=== PATIENT | male | born 1940 | race Caucasian/White ===

== ENCOUNTER 2018-09-24 10:37 | Inpatient (IN) | payer MEDICARE ==
[2018-09-24] VITALS (9 sets, daily range): BP systolic 113–151; BP diastolic 59–90
[~2018-09-24] VITALS: Ht 180.3 cm; Wt 94.3 kg
[~2018-09-24 10:37] MED LIST: HCT25T; LISINOPRIL PO; LOVASTATIN PO
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
--- OUTSIDE RECORDS SUMMARY | 2018-09-24 10:42 | XMS REPORT ---
Author Author Migration, Doctor Organization [facility] Address Unknown Phone Unavailable Care Team Providers Care Drilling Plant Operator Name Role Phone Migration, Doctor Unavailable Unavailable PROBLEMS Type Condition ICD9-CM Code OYY96-OH Code Onset Dates Condition Status SNOMED Code Problem Hypertension I10 Active 44964659 Problem Tobacco use Z72.0 Active 237831755 Problem Squamous cell carcinoma C44.92 Active 104421183 Problem Hyperlipidemia E78.5 Active 98557392 Problem Prediabetes R73.09 Active 2301424 ALLERGIES No Information ENCOUNTERS Encounter Location Date Diagnosis [facility] [address] [address]- [address] Jun, Hypertension I10 ; Hyperlipidemia E78.5 ; Tobacco use Z72.0 and Prediabetes R73.09 [facility] [address] [address]- [address]41 Apr, [facility] [address] [address]- 0837 Mar, Hypertension I10 [facility] [id number] [place] [address] -7955 Aug, Lesion of lip K13.0 [facility] [address] [address]- 4525 Apr, Hypertension I10 ; Hyperlipidemia E78.5 ; Prediabetes R73.09 ; Tobacco use Z72.0 and Healthcare maintenance Z00.00 [facility] [address] [address]- 7021 Jul, Hypertension I10 and Multiple actinic keratoses L57.0 [facility] [address] 0[address]- 4732 Jul, Hypertension I10 [facility] [id number] [place] [address]- 9868 Jun, Hypertension I10 [facility] [id number] [place] [address] 58969- 1720 23 Jun, 2016 Hypertension I10 ; Hyperlipidemia E78.5 ; Prediabetes R73.09 ; Tobacco use Z72.0 and Multiple actinic keratoses L57.0 [facility] [id number] [place] [address] 09015- 2971 06 Jan, 2016 Hypertension I10 ; Hyperlipidemia E78.5 and Tobacco use Z72.0 [facility] [id number] [place] [address] 85792- 4504 Oct, [place] [id number] [place] [address] 52577- 7303 04 Jun, 2015 Hypertension I10 ; Hyperlipidemia E78.5 ; Prediabetes R73.09 ; Screening for colon cancer Z12.11 and Tobacco use Z72.0 [place] [facility] [id number] [place] [address] 73095- 8867 Apr, [facility] [id number] [place] [address] 71420- 0655 Apr, [facility] [id number] [place] [address] 43425- 3797 Apr, [facility] [id number] [place] [address] 98431- 5594 Dec, [facility] [id number] [place] [address] 64626- 6891 Dec, [place] [id number] [place] [address] 14765- 4456 Nov, Nondependent tobacco use disorder 305.1 ; Hypertension 401.9 ; Hyperlipidemia 272.4 ; Prediabetes 790.29 ; Colon cancer screening V76.51 and Sunburn 692.71 [facility] [id number] [place] [address] 55277- 3172 Oct, [facility] [address] [id number] [address]- 6326 Oct, Other and unspecified hyperlipidemia 272.4 ; Essential hypertension 401.9 and Essential hypertension, benign 401.1 [facility] [address] [facility] [id number] [place] [address]- 0700 Oct, [facility] [address] [address]- 9535 Aug, [facility] [address] [facility] [id number] [place] [address]- 6750 Aug, [facility] [address] [place] [address], [place] [address]- 7787 Jun, [facility] [address], [place] [address]- 7891 Jun, [facility] [address], [place] [address]- 3625 Apr, [facility] [address], [place] [address]- 2882 Apr, [facility] [address], [place] [address]- 1532 Apr, [facility] [address], [place] [address]- 9077 Apr, [facility] [address], [place] [address]- 4262 Mar, [facility] [address] [id number], [place] [address]- 1263 Mar, [facility] [address], [place] [address]- 5983 Mar, [facility] [address] [id number], [place] [address]- 8234 Mar, [facility] [address], [place] [address]- 5467 Feb, [facility] [place] [facility] [address] [id number] [place] [address]- 5283 Feb, [facility] [place] [facility] [address] [id number] [place] [address]- 2013 Dec, [facility] [place] [facility] [address] [id number] [place] [address]- 7062 Dec, [facility] [place] [facility] [address] [id number] [place] [address]- 1117 Oct, [facility] [place] [facility] [address] [id number] [place] [address]- 2852 Oct, [facility] [place] [facility] [address] [id number] [place] [address]- 6944 September, [facility] [place] [facility] [address] [id number] [place] [address]- 3209 September, [facility] [place] [facility] [address] [id number] [place] [address]- 1187 September, [facility] [place] [facility] [address] [id number] [place] [address]- 7127 September, [facility] [place] [facility] [address] [id number] [place] [address]- 2743 September, [facility] [place] [facility] [address] [id number] [place] [address]- 0266 September, [facility] [place] [facility] [address] [id number] [place] [address]- 4141 September, [facility] [place] [facility] [address] [id number] [place] [address]- 1621 September, [facility] [place] [facility] [address] [id number] [place] [address]- 9229 September, [facility] [place] [facility] [address] [id number] [place] [address]- 8631 September, [facility] [place] [facility] [address] [id number] [place] [address]- 3676 Aug, [facility] [address] [id number] [place] [address]- 3227 Aug, [facility] [place] [facility] [address] [id number] [place] [address]- 6446 Jun, [facility] [address] [id number] [place] [address]- 7926 Jun, [facility] [place] [facility] [address] [id number] [place] [address]- 7819 May, [facility] [address] [id number] [place] [address]- 6301 May, [facility] [place] [facility] [address] [id number] [place] [address]- 6214 May, [facility] [address] [id number] [place] [address]- 2031 May, [facility] [address] [id number] [place] [address]- 1281 Apr, [facility] [place] [facility] [address] [id number] [place] [address]- 4803 Apr, [facility] [address] [id number] [place] [address]- 5209 Mar, [facility] [place] [facility] [address] [id number] [place] [address]- 6058 Mar, [facility] [place] [facility] [address] [id number] [place] [address]- 3452 Feb, [facility] [place] [facility] [address] [id number] [place] [address]- 2256 Feb, [facility] [place] [facility] [address] [id number] [place] [address]- 2546 Dec, [facility] [place] [facility] [address] [id number] [place] [address]- 0290 Dec, [facility] [place] [facility] [address] [id number] [place] [address]- 6194 Dec, [facility] [place] [facility] [address] [id number] [place] [address] Oct, [facility] [place] [facility] [address] [id number] [place] [address] Oct, [facility] [place] [facility] [address] [id number] [place] [address] Oct, [facility] [place] [facility] [address] [id number] [place] [address] September, [facility] [place] [facility] [address] [id number] [place] [address] September, [facility] [place] [facility] [address] [id number] [place] [address] September, [facility] [place] [facility] [address] [id number] [place] [address] September, [facility] [place] [facility] [address] [id number] [place] [address] Jun, [facility] [place] [facility] [address] [id number] [place] [address] Mar, [facility] [place] [facility] [address] [id number] [place] [address] Mar, [facility] [place] [facility] [address] [id number], [place] [address] Mar, [facility] [place] [facility] [address] [id number] [place] [address] Mar, [facility] [place] [facility] [address] [id number] [place] [address] Mar, [facility] [place] [facility] [address] [id number], [place] [address] Mar, [facility] [place] [facility] [address] [id number], [place] [address] Feb, [facility] [place] [facility] [address] [id number] [place] [address] Feb, [facility] [place] [facility] [address] [id number] [place] [address] Feb, [facility] [place] [facility] [address] [facility] [id number] [place] [address] Feb, [facility] [place] [facility] [address] [id number] [place] [address] Feb, [facility] [place] [facility] [address] [id number] [place] [address] Feb, [facility] [place] [facility] [address] [facility] [id number] [place] [address] Feb, [facility] [place] [facility] [address] [facility] [id number] [place] [address] Feb, [facility] [place] [facility] [address] [facility] [id number] [place] [address] Oct, [facility] [place] [facility] [address] [facility] [id number] [place] [address] 30 Aug, 2011 [facility] [place] [facility] [address] [facility] [id number] [place] [address] 17 Aug, 2011 [facility] [place] [facility] [address] [facility] [id number] [place] [address] 16 Aug, 2011 [facility] [place] [facility] [address] [facility] [id number] [place] [address] 14 Aug, 2011 [facility] [place] [facility] [address] [id number] [place] [address] 05 Jul, 2011 [facility] [place] [facility] [address] [facility] [id number] [place] [address] May, [facility] [place] [facility] [address] [facility] [id number] [place] [address] May, [facility] [place] [facility] [address] [id number], [place] [address] 30 Mar, 2011 [facility] [address] [id number], [place] [address] 10 Feb, 2011 [facility] [id number], [place] [address] May, [facility] [id number], [place] [address] Mar, [facility] [id number], [place] [address] Feb, [facility] [id number], [place] [address] Feb, [facility] [address], [place] [address] Apr, [facility] [id number], [place] [address] Apr, IMMUNIZATIONS No Known Immunizations SOCIAL HISTORY Never Assessed REASON FOR VISIT EMR-[facility] [place]AN OF CARE VITAL SIGNS MEDICATIONS Medication Instructions Dosage Frequency Start Date End Date Duration Status Niacin 500 mg 3 Tablet 1 Aug, Active RESULTS No Results PROCEDURES No Known procedures [...]
--- OUTSIDE RECORDS SUMMARY | 2018-09-24 10:43 | XMS REPORT ---
Author Author NADER MEENA [facility] Address [address] [place] [address] Care Team Providers Care District Court Administrator Name Role Phone NADERTIAGOMEENA Unavailable PROBLEMS Type Condition ICD9-CM Code [id number] Code Onset Dates Condition Status SNOMED Code Problem Tobacco use Z72.0 Active 245192089 Problem Hypertension I10 Active 73500275 Problem Squamous cell carcinoma C44.92 Active 546610700 Problem Prediabetes R73.09 Active 0041578 Problem Hyperlipidemia E78.5 Active 70796687 ALLERGIES No Information ENCOUNTERS Encounter Location Date Diagnosis [facility] [address] [address] Mar, Hypertension I10 [facility] [address] [address] Aug, Lesion of lip K13.0 [facility] [address] [address] Apr, Hypertension I10 ; Hyperlipidemia E78.5 ; Prediabetes R73.09 ; Tobacco use Z72.0 and Healthcare maintenance Z00.00 [facility] [id number] [place] [address] Jul, Hypertension I10 and Multiple actinic keratoses L57.0 [facility] [id number] [place] [address] Jul, Hypertension I10 [facility] [address] [address] Jun, Hypertension I10 [facility] [id number] [place] [address] Jun, Hypertension I10 ; Hyperlipidemia E78.5 ; Prediabetes R73.09 ; Tobacco use Z72.0 and Multiple actinic keratoses L57.0 [place] [id number] [place] [address] 06 Jan, 2016 Hypertension I10 ; Hyperlipidemia E78.5 and Tobacco use Z72.0 [place] [id number] [place] [address] 15 Oct, 2015 [facility] [id number] [place] [address] 04 Jun, 2015 Hypertension I10 ; Hyperlipidemia E78.5 ; Prediabetes R73.09 ; Screening for colon cancer Z12.11 and Tobacco use Z72.0 [place] [id number] [place] [address] Apr, [place] [id number] [place] [address] Apr, [facility] [id number] [place] [address] Apr, [place] [id number] [place] [address] Dec, [facility] [id number] [place] [address] Dec, [place] [id number] [place] [address] Nov, Nondependent tobacco use disorder 305.1 ; Hypertension 401.9 ; Hyperlipidemia 272.4 ; Prediabetes 790.29 ; Colon cancer screening V76.51 and Sunburn 692.71 [place] [id number] [place] [address] Oct, [facility] [id number] [place] [address] Oct, Other and unspecified hyperlipidemia 272.4 ; Essential hypertension 401.9 and Essential hypertension, benign 401.1 [place] [address] [id number] [place] [address] Oct, [facility] [place] [facility] [address] [id number] [place] [address] Aug, [facility] [place] [facility] [address] [id number] [place] [address] 79[address] Aug, [facility] [place] [facility] [address] [id number] [place] [address] Jun, [facility] [place] [facility] [address] [id number] [place] [address] 67[address] Jun, [facility] [place] [facility] [address] [id number] [place] [address] Apr, [facility] [place] [facility] [address] [facility] [id number] [place] [address] Apr, [facility] [place] [facility] [address] [id number] [place] [address] 9[address] Apr, [facility] [place] [facility] [address] [id number] [place] [address]- 9[address] Apr, [facility] [place] [facility] [address] [facility] [id number] [place] [address] Mar, [facility] [place] [facility] [address] [id number] [place] [address] 2[address] Mar, [facility] [place] [facility] [address] [id number] [place] [address] 8579 Mar, [facility] [place] [facility] [address] [id number] [place] [address] 3478 Mar, [facility] [place] [facility] [address] [id number] [place] [address]- 0720 Feb, [facility] [place] [facility] [address] [id number] [place] [address] 26[address] Feb, [facility] [place] [facility] [address] [id number] [place] [address]- 7964 Dec, [facility] [place] [facility] [address] [id number] [place] [address]- 55[address] Dec, [facility] [place] [facility] [address] [id number] [place] [address]- 0[address] Oct, [facility] [place] [facility] [address] [id number] [place] [address]- 96[address] Oct, [facility] [place] [facility] [address] [id number] [place] [address]- 6787 September, [facility] [place] [facility] [address] [id number] [place] [address]- 6[address] September, [facility] [place] [facility] [address] [id number] [place] [address]- 8254 September, [facility] [place] [facility] [address] [id number] [place] [address]- 8519 September, [facility] [place] [facility] [address] [id number] [place] [address]- 75[address] September, [facility] [place] [facility] [address] [id number] [place] [address]- 8871 September, [facility] [place] [facility] [address] [id number] [place] [address]- 0[address] September, [facility] [place] [facility] [address] [id number] [place] [address]- 4898 September, [facility] [place] [facility] [address] [id number] [place] [address]- 3085 September, [facility] [place] [facility] [address] [id number] [place] [address]- 1826 September, [facility] [place] [facility] [address] [id number] [place] [address]- 2441 Aug, [facility] [place] [facility] [address] [id number] [place] [address]- 8076 Aug, [facility] [place] [facility] [address] [id number] [place] [address]- 4417 Jun, [facility] [address] [id number] [place] [address]- 7015 Jun, [facility] [address] [id number] [place] [address] 2546 May, [facility] [address] [id number] [place] [address]- 7286 May, [facility] [address] [id number] [place] [address]- 2542 May, [facility] [address] [id number] [place] [address]- 74[address] May, [facility] [address] [facility] [id number] [place] [address]- 2602 Apr, [facility] [address] [id number] [place] [address]- 8438 Apr, [facility] [address] [id number] [place] [address]- 3690 Mar, [facility] [address] [id number] [place] [address]- 9992 Mar, [facility] [address] [facility] [id number] [place] [address]- 1499 Feb, [facility] [place] [facility] [address] [id number] [place] [address]- 254 Feb, [facility] [place] [facility] [address] [id number] [place] [address]- 2546 Dec, [facility] [place] [facility] [address] [id number] [place] [address]- 2546 Dec, [facility] [place] [facility] [address] [id number] [place] [address]- 2546 Dec, [facility] [place] [facility] [address] [id number] [place] [address]- 0871 Oct, [facility] [place] [facility] [address] [id number] [place] [address]- 0660 Oct, [facility] [place] [facility] [address] [id number] [place] [address]- 6664 Oct, [facility] [place] [facility] [address] [id number] [place] [address]- 0409 September, [facility] [place] [facility] [address] [id number] [place] [address]- 1570 September, [facility] [place] [facility] [address] [id number] [place] [address]- 6324 September, [facility] [place] [facility] [address] [id number] [place] [address]- 6749 September, [facility] [place] [facility] [address] [id number] [place] [address]- 6282 Jun, [facility] [place] [facility] [address] [id number] [place] [address]- 3217 Mar, [facility] [place] [facility] [address] [id number] [place] [address]- 4453 Mar, [facility] [place] [facility] [address] [id number] [place] [address]- 2966 Mar, [facility] [place] [facility] [address] [id number] [place] [address]- 1567 Mar, [facility] [place] [facility] [address] [id number], [place] [address]- [address] Mar, [facility] [place] [facility] [address] [id number] [place] [address]- 0891 Mar, [facility] [place] [facility] [address] [id number] [place] [address]- 0427 Feb, [facility] [place] [facility] [address] [id number] [place] [address]- 4495 Feb, [facility] [place] [facility] [address] [id number] [place] [address]- 1896 29 Feb, 2012 [facility] [place] [facility] [address] [id number] [place] [address]- 7804 Feb, [facility] [place] [facility] [address] [id number] [place] [address]- 5323 Feb, [facility] [place] [facility] [address] [id number] [place] [address]- 1993 Feb, [facility] [place] [facility] [address] [id number] [place] [address]- 1299 Feb, [facility] [place] [facility] [address] [id number] [place] [address]- 0578 Feb, [facility] [place] [facility] [address] [id number] [place] [address]- 3143 Oct, [facility] [place] [facility] [address] [id number] [place] [address]- 3316 30 Aug, 2011 [facility] [place] [facility] [address] [id number] [place] [address]- 9583 17 Aug, 2011 [facility] [place] [facility] [address] [id number] [place] [address]- 4784 16 Aug, 2011 [facility] [place] [facility] [address] [facility] [id number] [place] [address]- 8473 14 Aug, 2011 [facility] [place] [facility] [address] [id number] [place] [address]- 7868 05 Jul, 2011 [facility] [place] [facility] [address] [id number] [place] [address]- 6173 May, [facility] [place] [facility] [address] [id number] [place] [address]- 0886 May, [facility] [place] [facility] [address] [facility] [id number] [place] [address]- 0141 Mar, [facility] [place] [facility] [address] [facility] [id number] [place] [address]- 6508 10 Feb, 2011 [facility] [place] [facility] [address] [facility] [id number], [place] [address]- 2546 May, [facility] [address] [id number], [place] [address] Mar, [facility] [address] [id number], [place] [address] 25[address] Feb, [facility] [address] [facility] [id number], [place] [address]- 2546 Feb, [facility] [address] [facility] [id number], [place] [address]- 3419 Apr, [facility] [address] [facility] [id number], [place] [address]- [address] Apr, IMMUNIZATIONS No Known Immunizations SOCIAL HISTORY Never Assessed REASON FOR VISIT Medication refill request PLAN OF CARE VITAL SIGNS MEDICATIONS Medication Instructions Dosage Frequency Start Date End Date Duration Status Amlodipine Besylate 10 mg Orally Once a day 1 tablet 24h 30 days Active Lovastatin 40 MG TAKE TWO TABLETS BY MOUTH ONCE DAILYMUST HAVE APPT FOR REFILLS 30 Active Lisinopril 40 mg Orally Once a day 1 tablet 24h 30 days Active RESULTS No Results PROCEDURES No Known [...]
--- OUTSIDE RECORDS SUMMARY | 2018-09-24 10:43 | XMS REPORT ---
Author Author MEENA DOE [facility] Address [facility] [place] [address] Care Team Providers Care Executive Chairman Of The Board Name Role Phone MEENA DOE Unavailable PROBLEMS Type Condition ICD9-CM Code [id number] Code Onset Dates Condition Status SNOMED Code Problem Tobacco use Z72.0 Active 878251593 Problem Hypertension I10 Active 76087882 Problem Prediabetes R73.09 Active 6853644 Problem Hyperlipidemia E78.5 Active 47096606 ALLERGIES No Known Allergies SOCIAL HISTORY Never Assessed PLAN OF CARE Activity Details Follow Up 6 Months Reason:HTN VITAL SIGNS Height 70 in 2016-08-04 Weight 212.2 lbs 2016-08-04 Temperature 97.7 degrees Fahrenheit 2016-08-04 Heart Rate 88 bpm 2016-08-04 Respiratory Rate 22 2016-08-04 BMI 30.44 kg/m2 2016-08-04 Blood pressure systolic 146 mmHg 2016-08-04 Blood pressure diastolic 72 mmHg 2016-08-04 MEDICATIONS Medication Instructions Dosage Frequency Start Date End Date Duration Status Imiquimod 5 % Externally Two times per week at bedtime for 16 weeks, no more than one packet at a time 1 application to affected area at bedtime JunOct, Active Lovastatin 40 MG Orally Once a day 2 tablets 24h 90 days Active Fenofibrate 160 MG Orally Once a day 1 tablet with a meal 24h 90 days Active Fish Oil 1000 MG Orally Once a day 3 capsule 24h Active Amlodipine Besylate 10 mg Orally Once a day 1 tablet 24h Active Lisinopril 40 mg Orally Once a day 1 tablet 24h Active Niacin 500 MG 3 tablets 24h Aug, Active Vitamin B-12 1000 MCG Orally Once a day 1 tablet 24h Active RESULTS No Results PROCEDURES Procedure Date Ordered Result Body Site [facility] VISIT ESTABLISHED PATIENT August 04, 2016 IMMUNIZATIONS No Known Immunizations MEDICAL (GENERAL) HISTORY Type Description Date Medical [...]
--- OUTSIDE RECORDS SUMMARY | 2018-09-24 10:43 | XMS REPORT ---
Author Author MEENA DOE [facility] e[employer] Address Unknown Phone Unavailable Care Team Providers Care Rod Straightener Name Role Phone MEENA DOE CP Unavailable Allergies No Known Allergies Problems Problem Type Condition ICD-9 Code Onset Dates Condition Status Problem Hypertension 401.9 Active Problem Hyperlipidemia 272.4 Active Problem Nondependent tobacco use disorder 305.1 Active Problem Prediabetes 790.29 Active Medications Medication Code System Code Instructions Start Date End Date Status Dosage Lisinopril [facility] [address]-98 40 MG October 05, 2012 1 tablet by Oral route 1 time per day Results No Known Results Summary Purpose eClinicalWorks Submission
--- OUTSIDE RECORDS SUMMARY | 2018-09-24 10:43 | XMS REPORT ---
Author Author MEENA DOE Organization [facility] Address [address] [place] [address] Care Team Providers Care Hatch Supervisor Name Role Phone MEENA DOE Unavailable PROBLEMS Type Condition ICD9-CM Code [id number] Code Onset Dates Condition Status SNOMED Code Problem Tobacco use Z72.0 Active 346588291 Problem Hypertension I10 Active 85008233 Problem Prediabetes R73.09 Active 4882359 Problem Hyperlipidemia E78.5 Active 56878554 ALLERGIES No Information SOCIAL HISTORY Never Assessed PLAN OF CARE VITAL SIGNS MEDICATIONS No Known Medications RESULTS Name Result Date Reference Range [facility] 2016-07-28 Glucose, Serum 96 65-99 BUN 18 8-27 Creatinine, Serum 1.03 0.76-1.27 eGFR If NonAfricn Am 71 >59 eGFR If Africn Am 82 >59 BUN/Creatinine Ratio 17 10-22 Sodium, Serum 144 134-144 Potassium, Serum 4.8 3.5-5.2 Chloride, Serum 103 96-106 Carbon Dioxide, Total 22 18-29 Calcium, Serum 9.5 8.6-10.2 PROCEDURES Procedure Date Ordered Result Body Site VENIPUNCT, ROUTINE* July 28, 2016 IMMUNIZATIONS No Known Immunizations MEDICAL (GENERAL) [...]
--- OUTSIDE RECORDS SUMMARY | 2018-09-24 10:43 | XMS REPORT ---
Author Author MEENA DOE Organization [facility] Address [address] [place] [address] Care Team Providers Care Bleach Tester Name Role Phone MEENA DOE Unavailable PROBLEMS Type Condition ICD9-CM Code CXB02-PP Code Onset Dates Condition Status SNOMED Code Problem Hypertension I10 Active 38334121 Problem Hyperlipidemia E78.5 Active 91435718 Assessment Hypertension I10 Jan, Active 69792471 Problem Prediabetes R73.09 Active 8845890 Problem Tobacco use Z72.0 Active 240422430 ALLERGIES Substance Reaction Event Type Date Status N.K.D.A. Unknown Non Drug Allergy Jan, Unknown SOCIAL HISTORY No smoking Hx information available PLAN OF CARE VITAL SIGNS Height 70 in 2016-01-19 Weight 211.9 lbs 2016-01-19 Heart Rate 74 bpm 2016-01-19 Respiratory Rate 22 2016-01-19 BMI 30.40 kg/m2 2016-01-19 Blood pressure systolic 143 mmHg 2016-01-19 Blood pressure diastolic 77 mmHg 2016-01-19 MEDICATIONS Medication Instructions Dosage Frequency Start Date End Date Duration Status Fenofibrate 160 MG Orally Once a day 1 tablet with food 24h 90 days Active Lovastatin 40 MG Orally Once a day 2 tablets 24h 90 days Active Amlodipine Besylate 10 mg Orally Once a day 1 tablet 24h Oct, 90 days Active Niacin 500 MG 3 tablets 24h Aug, Active Vitamin B-12 1000 MCG Orally Once a day 1 tablet 24h Active Fish Oil 1000 MG Orally Once a day 3 capsule 24h Active Lisinopril 40 mg Orally Once a day 1 tablet 24h 90 days Active RESULTS No Results PROCEDURES Procedure Date Ordered Related Diagnosis Body Site [facility] VISIT ESTABLISHED PATIENT Jan 19, 2016 Office Visit, Est Pt., Level 3 Jan 19, 2016 IMMUNIZATIONS No Known Immunizations
--- OUTSIDE RECORDS SUMMARY | 2018-09-24 10:43 | XMS REPORT ---
Author Author MEENA DOE Organization [facility] Address [facility] [place] [address] Care Team Providers Care Paper Coater Name Role Phone MEENA DOE Unavailable PROBLEMS Type Condition ICD9-CM Code [id number] Code Onset Dates Condition Status SNOMED Code Problem Tobacco use Z72.0 Active 720785298 Problem Hypertension I10 Active 23193058 Problem Prediabetes R73.09 Active 3232949 Problem Hyperlipidemia E78.5 Active 68840033 ALLERGIES No Information SOCIAL HISTORY Never Assessed PLAN OF CARE VITAL SIGNS MEDICATIONS No Known Medications RESULTS No Results PROCEDURES No Known procedures IMMUNIZATIONS No Known Immunizations MEDICAL (GENERAL) HISTORY [...]
--- OUTSIDE RECORDS SUMMARY | 2018-09-24 10:43 | XMS REPORT ---
Author Author MEENA DOE Organization [facility] Address [address] [place] [address] Care Team Providers Care Instrumentation Technician Name Role Phone MEENA DOE Unavailable PROBLEMS Type Condition ICD9-CM Code ZSI10-RP Code Onset Dates Condition Status SNOMED Code Problem Tobacco use Z72.0 Active 855730449 Problem Hypertension I10 Active 39312472 Problem Prediabetes R73.09 Active 8421490 Problem Hyperlipidemia E78.5 Active 95510956 ALLERGIES No Known Allergies SOCIAL HISTORY Never Assessed PLAN OF CARE Activity Details Follow Up 4 Weeks Reason:HTN VITAL SIGNS Height 70 in 2016-07-07 Weight 213 lbs 2016-07-07 Temperature 97.5 degrees Fahrenheit 2016-07-07 Heart Rate 90 bpm 2016-07-07 Respiratory Rate 22 2016-07-07 BMI 30.56 kg/m2 2016-07-07 Blood pressure systolic 160 mmHg 2016-07-07 Blood pressure diastolic 78 mmHg 2016-07-07 MEDICATIONS Medication Instructions Dosage Frequency Start Date End Date Duration Status Fish Oil 1000 MG Orally Once a day 3 capsule 24h Active Lovastatin 40 MG Orally Once a day 2 tablets 24h 90 days Active Fenofibrate 160 MG Orally Once a day 1 tablet with a meal 24h 90 days Active Niacin 500 MG 3 tablets 24h Aug, Active Imiquimod 5 % Externally Two times per week at bedtime for 16 weeks, no more than one packet at a time 1 application to affected area at bedtime JunOct, 112 days Active Lisinopril 40 mg Orally Once a day 1 tablet 24h 90 days Active Amlodipine Besylate 10 mg Orally Once a day 1 tablet 24h 90 days Active Vitamin B-12 1000 MCG Orally Once a day 1 tablet 24h Active RESULTS Name Result Date Reference Range LIPID PANEL 2016-07-07 Cholesterol, Total 121 100-199 Triglycerides 122 0-149 HDL Cholesterol 27 >39 VLDL Cholesterol [place] 24 5-40 LDL Cholesterol Calc 70 0-99 Comment: CMP 2016-07-07 Glucose, Serum 102 65-99 BUN 17 8-27 Creatinine, Serum 0.92 0.76-1.27 eGFR If NonAfricn Am 81 >59 eGFR If Africn Am 94 >59 BUN/Creatinine Ratio 18 10-22 Sodium, Serum 145 134-144 Potassium, Serum 4.7 3.5-5.2 Chloride, Serum 105 96-106 Carbon Dioxide, Total 24 18-29 Calcium, Serum 10.6 8.6-10.2 Protein, Total, Serum 7.1 6.0-8.5 Albumin, Serum 4.5 3.5-4.8 Globulin, Total 2.6 1.5-4.5 A/G Ratio 1.7 1.1-2.5 Bilirubin, Total 0.3 0.0-1.2 Alkaline Phosphatase, S 42 39-117 AST (SGOT) 20 0-40 ALT (SGPT) 16 0-44 PROCEDURES Procedure Date Ordered Result Body Site [facility] VISIT ESTABLISHED PATIENT Jul 07, 2016 VENIPUNCT, ROUTINE* Jul 07, 2016 LAB NOT BILLED BY [facility] Jul 07, 2016 IMMUNIZATIONS No Known Immunizations MEDICAL (GENERAL) [...]
--- OUTSIDE RECORDS SUMMARY | 2018-09-24 10:43 | XMS REPORT ---
Author Author DEIRDRE DE LOS SANTOS [facility] Address [address] [place] [address] Care Team Providers Care Yarn Examiner Skeins Name Role Phone DEIRDRE DE LOS SANTOS Unavailable PROBLEMS Type Condition ICD9-CM Code JME74-XU Code Onset Dates Condition Status SNOMED Code Problem Tobacco use Z72.0 Active 394900295 Problem Hypertension I10 Active 84498983 Problem Squamous cell carcinoma C44.92 Active 853758466 Problem Prediabetes R73.09 Active 7307218 Problem Hyperlipidemia E78.5 Active [id number] ALLERGIES No Known Allergies ENCOUNTERS Encounter Location Date Diagnosis [facility] [id number] [place] [address] Aug, Lesion of lip K13.0 [facility] [id number] [place] [address] Apr, Hypertension I10 ; Hyperlipidemia E78.5 ; Prediabetes R73.09 ; Tobacco use Z72.0 and Healthcare maintenance Z00.00 [facility] [id number] [place] [address] Jul, Hypertension I10 and Multiple actinic keratoses L57.0 [facility] [id number] [place] [address]- 9651 Jul, Hypertension I10 [facility] [id number] [place] [address]- 2910 Jun, Hypertension I10 [facility] [id number] [place] [address]- [address] Jun, Hypertension I10 ; Hyperlipidemia E78.5 ; Prediabetes R73.09 ; Tobacco use Z72.0 and Multiple actinic keratoses L57.0 [facility] [address] [address] 06 Jan, 2016 Hypertension I10 ; Hyperlipidemia E78.5 and Tobacco use Z72.0 [facility] [address] [address] Oct, [facility] [address] [address] 04 Jun, 2015 Hypertension I10 ; Hyperlipidemia E78.5 ; Prediabetes R73.09 ; Screening for colon cancer Z12.11 and Tobacco use Z72.0 [facility] [address] [address] Apr, [facility] [address] [address] Apr, [facility] [id number] [place] [address]- [address] Apr, [facility] [address] [address] Dec, [facility] [address] [address] Dec, [facility] [address] [address] Nov, Nondependent tobacco use disorder 305.1 ; Hypertension 401.9 ; Hyperlipidemia 272.4 ; Prediabetes 790.29 ; Colon cancer screening V76.51 and Sunburn 692.71 [facility] [address] [address] Oct, [facility] [address] [address] Oct, Other and unspecified hyperlipidemia 272.4 ; Essential hypertension 401.9 and Essential hypertension, benign 401.1 [facility] [address] [address] Oct, [facility] [place] [facility] [address] [id number] [place] [address] 14 Aug, 2014 [facility] [place] [facility] [address] [id number] [place] [address] Aug, [facility] [place] [facility] [address] [id number] [place] [address] Jun, [facility] [place] [facility] [address] [id number] [place] [address] 8[address] Jun, [facility] [place] [facility] [address] [id number] [place] [address] 3[address] Apr, [facility] [place] [facility] [address] [id number] [place] [address] 9[address] Apr, [facility] [place] [facility] [address] [id number] [place] [address] 0051 Apr, [facility] [place] [facility] [address] [id number] [place] [address] 2014 Apr, [facility] [place] [facility] [address] [id number] [place] [address] 0[address] Mar, [facility] [place] [facility] [address] [id number] [place] [address] 5638 Mar, [facility] [place] [facility] [address] [id number] [place] [address] 1382 Mar, [facility] [place] [facility] [address] [id number] [place] [address] 1780 Mar, [facility] [place] [facility] [address] [id number] [place] [address] 4336 Feb, [facility] [place] [facility] [address] [id number] [place] [address] 4649 Feb, [facility] [place] [facility] [address] [id number] [place] [address] 3018 Dec, [facility] [place] [facility] [address] [id number] [place] [address]- 3783 Dec, [facility] [place] [facility] [address] [id number] [place] [address] 2928 Oct, [facility] [place] [facility] [address] [id number] [place] [address] Oct, [facility] [place] [facility] [address] [id number] [place] [address]- 4132 September, [facility] [place] [facility] [address] [id number] [place] [address]- 1232 September, [facility] [place] [facility] [address] [id number] [place] [address]- 5827 September, [facility] [place] [facility] [address] [id number] [place] [address]- 9610 September, [facility] [place] [facility] [address] [id number] [place] [address]- 8710 September, [facility] [place] [facility] [address] [id number] [place] [address]- 3408 September, [facility] [place] [facility] [address] [id number] [place] [address]- 3679 September, [facility] [place] [facility] [address] [id number] [place] [address]- 9335 September, [facility] [place] [facility] [address] [id number] [place] [address]- 9548 September, [facility] [place] [facility] [address] [id number] [place] [address]- 0067 September, [facility] [place] [facility] [address] [id number] [place] [address]- 0432 Aug, [facility] [place] [facility] [address] [id number] [place] [address]- 0193 Aug, [facility] [place] [facility] [address] [id number] [place] [address]- 3149 Jun, [facility] [place] [facility] [address] [id number] [place] [address]- 2830 Jun, [facility] [address] [id number] [place] [address]- 3736 May, [facility] [place] [facility] [address] [id number] [place] [address]- 3946 May, [facility] [address] [id number] [place] [address]- 5626 May, [facility] [place] [facility] [address] [id number] [place] [address]- 5374 May, [facility] [address] [id number] [place] [address]- 7397 Apr, [facility] [place] [facility] [address] [id number] [place] [address]- 6453 Apr, [facility] [place] [facility] [address] [id number] [place] [address]- 5726 Mar, [facility] [address] [id number] [place] [address]- 1189 Mar, [facility] [place] [facility] [address] [id number] [place] [address]- 2449 Feb, [facility] [address] [id number] [place] [address]- 1562 Feb, [facility] [place] [facility] [address] [id number] [place] [address]- 8646 Dec, [facility] [place] [facility] [address] [id number] [place] [address]- 5256 Dec, [facility] [place] [facility] [address] [id number] [place] [address]- 3646 Dec, [facility] [place] [facility] [address] [id number] [place] [address]- 2546 Oct, [facility] [place] [facility] [address] [id number] [place] [address]- 6744 Oct, [facility] [place] [facility] [address] [id number] [place] [address]- 5740 Oct, [facility] [place] [facility] [address] [id number] [place] [address]- 8745 September, [facility] [place] [facility] [address] [id number] [place] [address] September, [facility] [place] [facility] [address] [id number] [place] [address]- 5193 September, [facility] [place] [facility] [address] [id number] [place] [address] September, [facility] [place] [facility] [address] [id number] [place] [address]- 2610 Jun, [facility] [place] [facility] [address] [id number] [place] [address]- 8188 Mar, [facility] [place] [facility] [address] [id number] [place] [address]- 4603 Mar, [facility] [place] [facility] [address] [id number] [place] [address]- 8106 Mar, [facility] [place] [facility] [address] [id number] [place] [address]- 8975 Mar, [facility] [place] [facility] [address] [id number] [address]- 4504 Mar, [facility] [place] [facility] [address] [id number] [address]- 3473 Mar, [facility] [place] [facility] [address] [id number] [place] [address]- 6850 Feb, [facility] [place] [facility] [address] [id number] [place] [address]- 2897 Feb, [facility] [place] [facility] [address] [id number] [place] [address]- 0916 Feb, [facility] [place] [facility] [address] [id number] [place] [address]- 0150 29 Feb, 2012 [facility] [place] [facility] [address] [id number] [place] [address]- 0955 29 Feb, 2012 [facility] [place] [facility] [address] [id number] [place] [address]- 8036 29 Feb, 2012 [facility] [place] [facility] [address] [id number] [place] [address]- 6058 Feb, [facility] [place] [facility] [address] [id number] [place] [address]- 3482 Feb, [facility] [place] [facility] [address] [id number] [place] [address]- 8925 Oct, [facility] [place] [facility] [address] [id number] [place] [address]- [address]113 30 Aug, 2011 [facility] [place] [facility] [address] [id number] [place] [address]- 4616 17 Aug, 2011 [facility] [place] [facility] [address] [id number] [place] [address]- 1234 16 Aug, 2011 [facility] [place] [facility] [address] [id number] [place] [address]- 9612 14 Aug, 2011 [facility] [place] [facility] [address] [facility] [id number] [place] [address]- 8485 05 Jul, 2011 [facility] [place] [facility] [address] [id number] [place] [address]- 3366 May, [facility] [place] [facility] [address] [id number] [place] [address]- 5702 May, [facility] [place] [facility] [address] [id number] [place] [address]- 9006 30 Mar, 2011 [facility] [place] [facility] [address] [facility] [id number] [place] [address]- 4997 10 Feb, 2011 [facility] [place] [facility] [address] [facility] [id number] [place] [address]- 5458 18 May, 2010 [facility] [place] [facility] [address] [facility] [id number] [address]- [address] Mar, [facility] [address] [facility] [id number] [address]- [address]706 Feb, [facility] [address] [facility] [id number] [address]- [address] Feb, [facility] [address] [facility] [id number] [address]- [address]136 Apr, [facility] [address] [facility] [id number] [address]- [address] Apr, IMMUNIZATIONS No Known Immunizations SOCIAL HISTORY Never Assessed REASON FOR VISIT sore on lower lip for the past week. thought it was just a cold sore...not getting better et reports it is painful at times. [email or web address] PLAN OF CARE Activity Details Follow Up prn Reason: VITAL SIGNS Height 70 in 2017-09-01 Weight 215.8 lbs 2017-09-01 Temperature 97.8 degrees Fahrenheit 2017-09-01 Heart Rate 80 bpm 2017-09-01 Respiratory Rate 20 2017-09-01 BMI 30.96 kg/m2 2017-09-01 Blood pressure systolic 148 mmHg 2017-09-01 Blood pressure diastolic 82 mmHg 2017-09-01 MEDICATIONS Medication Instructions Dosage Frequency Start Date End Date Duration Status Amlodipine Besylate 10 mg Orally Once a day 1 tablet 24h 90 days Active Niacin 500 MG 3 tablets 24h 30 Aug, 2011 Active Lisinopril 40 mg Orally Once a day 1 tablet 24h 90 days Active Lovastatin 40 MG Orally Once a day 2 tablets 24h 90 days Active Fish Oil 1000 MG Orally Once a day 3 capsule 24h Active Vitamin B-12 1000 MCG Orally Once a day 1 tablet 24h Active RESULTS No Results PROCEDURES Procedure Date Ordered Result Body Site [facility] VISIT ESTABLISHED PATIENT September 01, 2017 INSTRUCTIONS MEDICATIONS ADMINISTERED No Known Medications MEDICAL [...]
--- OUTSIDE RECORDS SUMMARY | 2018-09-24 10:44 | XMS REPORT ---
Author Author MEENA DOE Organization [employer] Address Unknown Phone Unavailable Care Team Providers Care Stars Coordinator Name Role Phone MEENA DOE CP Unavailable Allergies No Known Allergies Problems Problem Type Condition Code Onset Dates Condition Status Problem Hypertension 401.9 Active Problem Hyperlipidemia 272.4 Active Problem Nondependent tobacco use disorder 305.1 Active Problem Prediabetes 790.29 Active Medications Medication Code System Code Instructions Start Date End Date Status Dosage Lovastatin [facility] [address]-75 40 MG Orally Once a day Apr 22, 2015 2 tablet with a meal Lisinopril [facility] [address]-43 40 MG Orally Once a day Apr 22, 2015 1 tablet Results No Known Results Summary Purpose [employer] Submission
--- OUTSIDE RECORDS SUMMARY | 2018-09-24 10:44 | XMS REPORT ---
Author Author MEENA DOE [facility] Address [address] [place] [address] Care Team Providers Care Platform Operations Director Name Role Phone NADERTIAGOMEENA Unavailable PROBLEMS Type Condition ICD9-CM Code FXR52-BB Code Onset Dates Condition Status SNOMED Code Problem Tobacco use Z72.0 Active 903318109 Problem Hypertension I10 Active 20555133 Problem Prediabetes R73.09 Active 8083359 Problem Hyperlipidemia E78.5 Active 64773571 ALLERGIES No Known Allergies ENCOUNTERS Encounter Location Date Diagnosis [facility] [address] [address] Aug, Lesion of lip K13.0 [facility] [address] [address] Apr, Hypertension I10 ; Hyperlipidemia E78.5 ; Prediabetes R73.09 ; Tobacco use Z72.0 and Healthcare maintenance Z00.00 [facility] [id number] [place] [address] Jul, Hypertension I10 and Multiple actinic keratoses L57.0 [facility] [id number] [place] [address] Jul, Hypertension I10 [facility] [id number] [place] [address] Jun, Hypertension I10 [facility] [address] [address] Jun, Hypertension I10 ; Hyperlipidemia E78.5 ; Prediabetes R73.09 ; Tobacco use Z72.0 and Multiple actinic keratoses L57.0 [facility] [address] [address] 06 Jan, 2016 Hypertension I10 ; Hyperlipidemia E78.5 and Tobacco use Z72.0 [facility] [address], [place] [address] Oct, [facility] [address], [place] [address] 04 Jun, 2015 Hypertension I10 ; Hyperlipidemia E78.5 ; Prediabetes R73.09 ; Screening for colon cancer Z12.11 and Tobacco use Z72.0 [facility] [address], [place] [address] Apr, [facility] [id number] [place] [address] Apr, [facility] [id number] [place] [address] Apr, [facility] [id number] [place] [address] Dec, [facility] [address], [place] [address] Dec, [facility] [id number] [place] [address] Nov, Nondependent tobacco use disorder 305.1 ; Hypertension 401.9 ; Hyperlipidemia 272.4 ; Prediabetes 790.29 ; Colon cancer screening V76.51 and Sunburn 692.71 [facility] [address], [place] [address] Oct, [facility] [id number] [place] [address] Oct, Other and unspecified hyperlipidemia 272.4 ; Essential hypertension 401.9 and Essential hypertension, benign 401.1 [facility] [address], [place] [address] Oct, [facility] [id number] [place] [address] Aug, [facility] [place] [facility] [address] [id number] [place] [address] Aug, [facility] [place] [facility] [address] [id number] [address] Jun, [facility] [place] [facility] [address] [facility] [id number] [place] [address] Jun, [facility] [place] [facility] [address] [facility] [id number] [place] [address] Apr, [facility] [place] [facility] [address] [facility] [id number] [place] [address] Apr, [facility] [place] [facility] [address] [facility] [id number] [place] [address] Apr, [facility] [place] [facility] [address] [facility] [id number] [place] [address] Apr, [facility] [place] [facility] [address] [facility] [id number] [place] [address] Mar, [facility] [place] [facility] [address] [facility] [id number] [place] [address] Mar, [facility] [place] [facility] [address] [facility] [id number] [place] [address] Mar, [facility] [place] [facility] [address] [facility] [id number] [place] [address] Mar, [facility] [place] [facility] [address] [id number], [place] [address] Feb, [facility] [place] [facility] [address] [id number] [place] [address] 4[address] Feb, [facility] [place] [facility] [address] [facility] [id number], [place] [address] Dec, [facility] [place] [facility] [address] [facility] [id number], [place] [address] Dec, [facility] [place] [facility] [address] [id number] [place] [address] 7[address] Oct, [facility] [place] [facility] [address] [id number] [place] Oct, [facility] [place] [facility] [address] [id number] [place] [address] September, [facility] [place] [facility] [address] [id number] [place] [address] 40[address] September, [facility] [place] [facility] [address] [id number] [place] [address] 90[address] September, [facility] [place] [facility] [address] [id number] [place] [address] September, [facility] [place] [facility] [address] [id number] [place] [address] September, [facility] [place] [facility] [address] [id number] [place] [address] 39[address] September, [facility] [place] [facility] [address] [id number] [place] [address]- 90[address] September, [facility] [place] [facility] [address] [id number] [place] [address]- 69[address] September, [facility] [place] [facility] [address] [id number] [place] [address]- 8[address] September, [facility] [place] [facility] [address] [id number] [place] [address]- 0[address] September, [facility] [place] [facility] [address] [id number] [place] [address]- [address] Aug, [facility] [place] [facility] [address] [id number] [place] [address]- 360[address] Aug, [facility] [place] [facility] [address] [id number] [place] [address]- 88[address] Jun, [facility] [place] [facility] [address] [id number] [place] [address]- [address] Jun, [facility] [place] [facility] [address] [id number] [place] [address]- 17[address] May, [facility] [place] [facility] [address] [id number] [place] [address]- 49[address] May, [facility] [place] [facility] [address] [facility] [id number] [place] [address]- 33[address] May, [facility] [place] [facility] [address] [id number] [place] [address]- 79[address] May, [facility] [place] [facility] [address] [id number] [place] [address]- 27[address] Apr, [facility] [place] [facility] [address] [id number] [place] [address]- 266[address] Apr, [facility] [place] [facility] [address] [id number] [place] [address]- 8[address] Mar, [facility] [place] [facility] [address] [id number] [place] [address]- 6[address] Mar, [facility] [place] [facility] [address] [id number] [place] [address]- 0649 Feb, [facility] [place] [facility] [address] [id number] [place] [address]- 0[address] Feb, [facility] [place] [facility] [address] [id number][place] [address] Dec, [facility] [place] [facility] [address] [id number], [place] [address]- [address] Dec, [facility] [place] [facility] [address] [id number] [place] [address]- 8627 Dec, [facility] [place] [facility] [address] [facility] [id number] [address]- [address] Oct, [facility] [place] [facility] [address] [id number] [place] [address]- 1534 Oct, [facility] [place] [facility] [address] [id number] [place] [address]- 5868 Oct, [facility] [address] [id number] [place] [address]- 68[address] September, [facility] [place] [facility] [address] [id number] [place] [address] September, [facility] [address] [id number] [place] [address]- 8876 September, [facility] [place] [facility] [address] [id number] [place] [address]- 4327 September, [facility] [address] [id number] [place] [address]- 5171 Jun, [facility] [place] [facility] [address] [id number] [place] [address]- 68[address] Mar, [facility] [place] [facility] [address] [id number] [place] [address]- 3321 Mar, [facility] [address] [id number] [place] [address]- 1127 Mar, [facility] [place] [facility] [address] [facility] [id number] [place] [address]- 3700 Mar, [facility] [address] [facility] [id number] [place] [address]- 24[address] Mar, [facility] [place] [facility] [address] [id number] [place] [address]- 244[address] Mar, [facility] [place] [facility] [address] [id number] [place] [address]- 94[address] Feb, [facility] [place] [facility] [address] [id number] [place] [address] Feb, [facility] [place] [facility] [address] [facility] [id number] [place] [address]- 4232 Feb, [facility] [place] [facility] [address] [facility] [id number] [place] [address]- 2772 Feb, [facility] [place] [facility] [address] [id number] [place] [address]- 7161 Feb, [facility] [place] [facility] [address] [id number] [place] [address]- 5140 Feb, [facility] [place] [facility] [address] [id number] [place] [address]- 2170 Feb, [facility] [place] [facility] [address] [id number] [place] [address]- 4578 Feb, [facility] [place] [facility] [address] [id number] [place] [address]- 7852 Oct, [facility] [place] [facility] [address] [id number] [place] [address]- [address] 30 Aug, 2011 [facility] [place] [facility] [address] [id number] [place] [address]- 5192 Aug, [facility] [place] [facility] [address] [id number] [place] [address]- 9[address] 16 Aug, 2011 [facility] [place] [facility] [address] [id number] [place] [address]- 8[address] Aug, [facility] [place] [facility] [address] [facility] [id number], [place] [address] Jul, [facility] [place] [facility] [address] [facility] [id number], [place] [address]- 3461 May, [facility] [place] [facility] [address] [id number], [place] [address]- 9467 May, [facility] [place] [facility] [address] [id number] [place] [address]- 6667 Mar, [facility] [place] [facility] [address] [id number], [place] [address]- 35[address] Feb, [facility] [place] [facility] [address] [facility] [id number], [place] [address] May, [facility] [place] [facility] [address] [id number], [place] [address]- 25[address] Mar, [facility] [address] [facility] [id number], [place] [address] Feb, [facility] [address] [facility] [id number], [place] [address] Feb, [facility] [address] [facility] [id number], [place] [address]- 64[address] Apr, [facility] [address] [facility] [id number], [place] [address] 14 Apr, 2009 IMMUNIZATIONS No Known Immunizations SOCIAL HISTORY Never Assessed REASON FOR VISIT bp f/u--tcuppettRN PLAN OF CARE Activity Details Follow Up 6 Months Reason:HTN VITAL SIGNS Height 70 in 2017-04-21 Weight 204 lbs 2017-04-21 Temperature 97.6 degrees Fahrenheit 2017-04-21 Heart Rate 84 bpm 2017-04-21 Respiratory Rate 24 2017-04-21 BMI 29.27 kg/m2 2017-04-21 Blood pressure systolic 142 mmHg 2017-04-21 Blood pressure diastolic 80 mmHg 2017-04-21 MEDICATIONS Medication Instructions Dosage Frequency Start Date End Date Duration Status Amlodipine Besylate 10 mg Orally Once a day 1 tablet 24h 90 days Active Fish Oil 1000 MG Orally Once a day 3 capsule 24h Active Lisinopril 40 mg Orally Once a day 1 tablet 24h 90 days Active Lovastatin 40 MG Orally Once a day 2 tablets 24h 90 days Active Vitamin B-12 1000 MCG Orally Once a day 1 tablet 24h Active Niacin 500 MG 3 tablets 24h Aug, Active RESULTS No Results PROCEDURES Procedure Date Ordered Result Body Site [facility] VISIT ESTABLISHED PATIENT Apr 21, 2017 INSTRUCTIONS MEDICATIONS ADMINISTERED No Known Medications [...]
--- OUTSIDE RECORDS SUMMARY | 2018-09-24 10:44 | XMS REPORT | Continuity of Care Document ---
Author Organization Unknown Address Unknown Allergies There is no data. Medications There is no data. 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) 12/05/2007 MONIQUE DO, NOAH K 401.1 ESSENTIAL HYPERTENSION BENIGN 12/05/2007 MONIQUE DO, NOAH K 272.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) 12/05/2007 MONIQUE DO, NOAH K 401.1 ESSENTIAL HYPERTENSION BENIGN 12/05/2007 MONIQUE DO, NOAH K 272.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) 12/05/2007 MONIQUE DO, NOAH K 401.1 ESSENTIAL HYPERTENSION BENIGN 12/05/2007 MEENA DOE MD 272.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) 12/05/2007 MEENA DOE MD 401.1 ESSENTIAL HYPERTENSION BENIGN 12/05/2007 MONIQUE DO, NOAH K 272.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) 12/05/2007 MONIQUE DO, NOAH K 401.1 ESSENTIAL HYPERTENSION BENIGN 12/18/2007 716.90 ARTHROPATHY 12/18/2007 716.90 ARTHROPATHY 12/18/2007 MONIQUE DO, NOAH K 716.90 ARTHROPATHY 12/18/2007 MONIQUE DO, NOAH K 716.90 ARTHROPATHY 12/18/2007 MONIQUE DO, NOAH K 716.90 ARTHROPATHY 12/18/2007 MONIQUE DO, NOAH K 716.90 ARTHROPATHY 12/18/2007 MEENA DOE MD 716.90 ARTHROPATHY 12/18/2007 MONIQUE DO NOAH K 716.90 ARTHROPATHY 02/02/2009 272.1 Hyperlipoproteinemia Type Iv 02/02/2009 272.1 Hyperlipoproteinemia Type Iv 02/02/2009 MONIQUE DO NOAH K 272.1 Hyperlipoproteinemia Type Iv 02/02/2009 MONIQUE DO NOAH K 272.1 Hyperlipoproteinemia Type Iv 02/02/2009 MONIQUE DO NOAH K 272.1 Hyperlipoproteinemia Type Iv 02/02/2009 MONIQUE DO, NOAH K 272.1 Hyperlipoproteinemia Type Iv 02/02/2009 MEENA DOE MD 272.1 Hyperlipoproteinemia Type Iv 02/02/2009 MONIQUE DO, NOAH K 272.1 Hyperlipoproteinemia Type Iv 07/21/2009 790.29 Prediabetes ( impaired Glucose Tolerance) 07/21/2009 V58.69 taking high- risk medication 07/21/2009 790.29 Prediabetes ( impaired Glucose Tolerance) 07/21/2009 V58.69 taking high- risk medication 07/21/2009 MONIQUE DO, NOAH K 790.29 Prediabetes (impaired Glucose Tolerance) 07/21/2009 MONIQUE DO, NOAH K V58.69 taking high-risk medication 07/21/2009 MONIQUE DO, NOAH K 790.29 Prediabetes (impaired Glucose Tolerance) 07/21/2009 MONIQUE DO, NOAH K V58.69 taking high-risk medication 07/21/2009 MONIQUE DO, NOAH K 790.29 Prediabetes (impaired Glucose Tolerance) 07/21/2009 MONIQUE DO, NOAH K V58.69 taking high-risk medication 07/21/2009 MONIQUE DO, NOAH K 790.29 Prediabetes (impaired Glucose Tolerance) 07/21/2009 MONIQUE DO, NOAH K V58.69 taking high-risk medication 07/21/2009 MEENA DOE MD 790.29 Prediabetes (impaired Glucose Tolerance) 07/21/2009 MEENA DOE MD V58.69 taking high-risk medication 07/21/2009 MONIQUE DO, NOAH K 790.29 Prediabetes (impaired Glucose Tolerance) 07/21/2009 MONIQUE DO NOAH K V58.69 taking high-risk medication 03/14/2012 790.29 PREDIABETES 03/14/2012 790.29 PREDIABETES 03/14/2012 MONIQUE DO, NOAH K 790.29 PREDIABETES 03/14/2012 MONIQUE DO, NOAH K 790.29 PREDIABETES 03/14/2012 MONIQUE DO, NOAH K 790.29 PREDIABETES 03/14/2012 MONIQUE DO, NOAH K 790.29 PREDIABETES 03/14/2012 MEENA DOE MD N 790.29 PREDIABETES 03/14/2012 MONIQUE DO, NOAH K 790.29 PREDIABETES 09/16/2012 593.9 RENAL INSUFFICIENCY 09/16/2012 MONIQUE DO, NOAH K 593.9 RENAL INSUFFICIENCY 09/16/2012 MONIQUE DO, NOAH K 593.9 RENAL INSUFFICIENCY 09/16/2012 MONIQUE DO, NOAH K 593.9 RENAL INSUFFICIENCY 09/16/2012 MONIQUE DO, NOAH K 593.9 RENAL INSUFFICIENCY 09/16/2012 MEEAN DOE MD N 593.9 RENAL INSUFFICIENCY 04/15/2014 MEENA DOE MD N 272.4 HYPERLIPIDEMIA HYPERLIPOPROTEINEMIAS (OLD CLASSIFICATION) 04/15/2014 MEENA DOE MD N 305.1 NONDEPENDENT TOBACCO USE DISORDER Procedures Code [place] [address] A1C (IN-HOUSE) 03/12/2012 69897 ROUTINE VENIPUNCTURE 03/19/2012 99409 CMP 03/19/2012 02970 LIPID PANEL 03/19/2012 [id number] GFR CALC (RESULT ONLY) 03/19/2012 05639 ROUTINE VENIPUNCTURE 09/12/2012 40341 A1C (IN-HOUSE) 09/12/2012 23058 CBC 09/12/2012 46837 LIPID PANEL 09/12/2012 41319 CMP 09/12/2012 [id number] GFR CALC (RESULT ONLY) 09/12/2012 13846 ROUTINE VENIPUNCTURE 12/18/2012 75741 RENAL PROFILE 12/18/2012 34100 LIPID PANEL 12/18/2012 [id number] GFR CALC (RESULT ONLY) 12/18/2012 PRO/CRE URINE PROTEIN TO CREATNINE RATIO 12/18/2012 57803 A1C (IN-HOUSE) 03/25/2013 03309 ROUTINE VENIPUNCTURE 09/25/2013 75534 A1C (IN-HOUSE) 09/25/2013 [id number] GFR CALC (RESULT ONLY) 09/25/2013 90846 CMP 09/25/2013 54500 LIPID PANEL 09/25/2013 96893 CBC 09/25/2013 Results Test Result Range Comp. Metabolic Panel (14) - 07/07/16 10:11 Glucose, Serum 102 mg/dL 65-99 BUN 17 mg/dL 8-27 Creatinine, Serum 0.92 mg/dL 0.76-1.27 eGFR If NonAfricn Am 81 mL/min/1.73 >59 eGFR If Africn Am 94 mL/min/1.73 >59 BUN/Creatinine Ratio 18 10-22 Sodium, Serum 145 mmol/L 134-144 Potassium, Serum 4.7 mmol/L 3.5-5.2 Chloride, Serum 105 mmol/L 96-106 Carbon Dioxide, Total 24 mmol/L 18-29 Calcium, Serum 10.6 mg/dL 8.6-10.2 Protein, Total, Serum 7.1 g/dL 6.0-8.5 Albumin, Serum 4.5 g/dL 3.5-4.8 Globulin, Total 2.6 g/dL 1.5-4.5 A/G Ratio 1.7 1.1-2.5 Bilirubin, Total 0.3 mg/dL 0.0-1.2 Alkaline Phosphatase, S 42 IU/L 39-117 AST (SGOT) 20 IU/L 0-40 ALT (SGPT) 16 IU/L 0-44 Lipid Panel - 07/07/16 10:11 Cholesterol, Total 121 mg/dL 100-199 Triglycerides 122 mg/dL 0-149 HDL Cholesterol 27 mg/dL >39 VLDL Cholesterol [place] 24 mg/dL 5-40 LDL Cholesterol Calc 70 mg/dL 0-99 Basic Metabolic Panel (8) - 07/28/16 09:05 Glucose, Serum 96 mg/dL 65-99 BUN 18 mg/dL 8-27 Creatinine, Serum 1.03 mg/dL 0.76-1.27 eGFR If NonAfricn Am 71 mL/min/1.73 >59 eGFR If Africn Am 82 mL/min/1.73 >59 BUN/Creatinine Ratio 17 10-22 Sodium, Serum 144 mmol/L 134-144 Potassium, Serum 4.8 mmol/L 3.5-5.2 Chloride, Serum 103 mmol/L 96-106 Carbon Dioxide, Total 22 mmol/L 18-29 Calcium, Serum 9.5 mg/dL 8.6-10.2 Encounters ACCT No. Visit Date/Time Discharge Status Pt. Type Provider Facility Loc./Unit Complaint [id number] 04/15/2014 08:27:00 04/15/2014 23:59:59 CLS Outpatient MEENA DOE MD [id number] 09/25/2013 10:57:00 09/25/2013 23:59:59 CLS Outpatient NOAH MONIQUE DO [id number] 03/25/2013 09:24:00 03/25/2013 23:59:59 CLS Outpatient NOAH MONIQUE DO [id number] 03/25/2013 09:24:00 03/25/2013 23:59:59 CLS Outpatient NOAH MONIQUE DO [id number] 12/18/2012 10:33:00 12/18/2012 23:59:59 CLS Outpatient NOAH MONIQUE DO [id number] 03/19/2012 09:57:00 03/19/2012 23:59:59 CLS Outpatient NOAH MONIQUE DO [id number] 03/19/2012 09:57:00 03/19/2012 23:59:59 CLS Outpatient [id number] 09/12/2012 09:47:00 Document Registration [id number] 07/29/2016 07:06:00 Document Registration [id number] 07/08/2016 08:44:00 Document Registration [id number] 07/04/2018 10:20:00 07/04/2018 23:59:59 CLS Outpatient MEENA DOE MD [facility]
--- OUTSIDE RECORDS SUMMARY | 2018-09-24 10:44 | XMS REPORT ---
Author MEENA Simons [employer] Address Unknown Phone Unavailable Care Team Providers Care [employer] Name Role Phone MEENA DOE CP Unavailable Allergies, Adverse Reactions, Alerts Substance Reaction Event Type N.K.D.A. Info Not Available Non Drug Allergy Problems Problem Type Condition Code Onset Dates Condition Status Assessment Screening for colon cancer Z12.11 Active Assessment Tobacco use Z72.0 Active Problem Hyperlipidemia E78.5 Active Problem Prediabetes R73.09 Active Problem Hypertension I10 Active Assessment Hyperlipidemia E78.5 Active Assessment Prediabetes R73.09 Active Problem Tobacco use Z72.0 Active Assessment Hypertension I10 Active Medications Medication Code System Code Instructions Start Date End Date Status Dosage Lisinopril [facility] [address]-11 40 MG Orally Once a day Apr 22, 2015 1 tablet Vitamin B-12 [facility] [address]-43 1000 MCG Orally Once a day 1 tablet Amlodipine Besylate [facility] [address]-53 10 MG Orally Once a day October 21, 2014 1 tablet Niacin [facility] [address]-68 500 MG Once a day September 12, 2011 3 tablets Fenofibrate [facility] [address]-26 160 MG Orally Once a day 1 tablet Fish Oil [facility] [address]-23 1000 MG Orally Once a day 3 capsule Lovastatin [facility] [address]-01 40 MG Orally Once a day Apr 22, 2015 2 tablet with a meal Procedures Procedure Coding System Code Date [facility] VISIT ESTABLISHED PATIENT CPT-4 G0467 Jun 18, 2015 Office Visit, Est Pt., Level 3 CPT-4 19005 Jun 18, 2015 [facility] NOBLL Jun 18, 2015 VENIPUNCT, ROUTINE* CPT-4 25611 Jun 18, 2015 Vital Signs Date/Time: Jun 18, 2015 Temperature 97.7 F Weight 205.8 lbs Height 70 in BMI 29.53 Index Blood Pressure Diastolic 80 mmHg Blood Pressure Systolic 142 mmHg Cardiac Monitoring Heart Rate 72 bpm Results Name Result Date Reference Range Unit Abnormality Flag ROUTINE VENIPUNCTURE Summary Purpose [employer] Submission
--- OUTSIDE RECORDS SUMMARY | 2018-09-24 10:44 | XMS REPORT ---
Author Author MEENA DOE Organization [employer] Address Unknown Phone Unavailable Care Team Providers Care Manager Of Exhibitions And Collections Name Role Phone MEENA DOE CP Unavailable Allergies No Known Allergies Problems Problem Type Condition Code Onset Dates Condition Status Problem Hypertension 401.9 Active Problem Hyperlipidemia 272.4 Active Problem Nondependent tobacco use disorder 305.1 Active Problem Prediabetes 790.29 Active Medications No Known Medications Results No Known Results Summary Purpose [employer] Submission
--- OUTSIDE RECORDS SUMMARY | 2018-09-24 10:44 | XMS REPORT ---
Author Author MEENA DOE Organization [employer] Address Unknown Phone Unavailable Care Team Providers Care Industrial Machine System Technician Name Role Phone MEENA DOE CP Unavailable Allergies No Known Allergies Problems Problem Type Condition Code Onset Dates Condition Status Problem Hypertension 401.9 Active Problem Hyperlipidemia 272.4 Active Problem Nondependent tobacco use disorder 305.1 Active Problem Prediabetes 790.29 Active Medications Medication Code System Code Instructions Start Date End Date Status Dosage Fenofibrate [facility]ED [facility] [address]-98 160 MG Orally Once a day 1 tablet Results No Known Results Summary Purpose [employer] Submission
[2018-09-24] MEDS ORDERED: NS IV 1000 ML 1,000 ML ONE (10:45)
[2018-09-24] MEDS ORDERED: NS IV 1000 ML 1,000 ML IV SCH ×2 (10:46→11:05)
[2018-09-24 10:55] LABS: BASOPHILS % (AUTO) 0 % (0-10); EOSINOPHILS % (AUTO) 0 % (0-10); HEMATOCRIT 30 % (40-54); LYMPHOCYTES # (AUTO) 1.6 X 10^3 (1.0-4.0); LYMPHOCYTES % (AUTO) 11 % (12-44); MEAN CORPUSCULAR HEMOGLOBIN 31 PG (25-34); MEAN CORPUSCULAR HGB CONC 34 G/DL (32-36); MEAN CORPUSCULAR VOLUME 91 FL (80-99); MEAN PLATELET VOLUME 8.9 FL (7.4-10.4); MONOCYTES # (AUTO) 1.8 X 10^3 (0.0-1.0); MONOCYTES % (AUTO) 12 % (0-12); NEUTROPHILS % (AUTO) 78 % (42-75); PLATELET COUNT 349 10^3/uL (130-400); RED CELL DISTRIBUTION WIDTH 14.6 % (10.0-14.5); WHITE BLOOD COUNT 15.5 10^3/uL (4.3-11.0)
--- NOTE | 2018-09-24 10:57 | ED Chest Pain ---
General Stated Complaint: CHEST PAIN Source: patient, EMS Exam Limitations: no limitations (ALVERTO MAGALLANES) History of Present Illness Date Seen by Provider: September 24, 2018 Time Seen by Provider: 10:39 Initial Comments Patient presents to ER by EMS with chief complaint of some chest pressure for the last week. He is also been experiencing some hematuria and dysuria for the past week. He went to primary care office at [facility] and they obtained a urine specimen which demonstrated gross hematuria. He has not been started on antibiotics yet. His chest pressure was not explained by his history of anemia and his hemoglobin is 11 today per the nurse practitioner. EKG obtained at the clinic demonstrated sinus tachycardia about [address] changes. Patient denies a history of coronary artery disease or any workup for coronary artery disease. He does have a history of smoking a pack cigarette per day, hypertension, hypercholesterolemia and prediabetes. Occasionally he says the pain does radiate towards his left neck. He denies a history of acid reflux or GERD. (ALVERTO MAGALLANES) Allergies and Home Medications Allergies Coded Allergies: Darshan Known Allergies (Verified Allergy, Unknown, 04/10/06) Home Medications Amlodipine Besylate 10 Mg Tablet, 10 MG PO DAILY, (Reported) Niacinamide 500 Mg Tablet, 1,500 MG PO DAILY, (Reported) [place]-3/Dha/Epa/Fish Oil 1 Each Capsule, 3 EACH PO DAILY, (Reported) Patient Home Medication List Home Medication List Reviewed: Yes (ALVERTO MAGALLANES) Review of Systems Review of Systems Constitutional: No chills, No diaphoresis EENTM: No Blurred Vision, No Double Vision Respiratory: Denies Cough, Denies Orthopnea; Shortness of Air Cardiovascular: Chest Pain; Denies Edema, Denies Irregular Heart Rate, Denies Lightheadedness, Denies Palpitations, Denies Syncope Gastrointestinal: Denies Abdomen Distended; Abdominal Pain (suprapubic); Denies Constipated, Denies Diarrhea, Denies Nausea, Denies Vomiting Genitourinary: Burning; Denies Discharge; Frequency Musculoskeletal: No back pain, No joint pain (ALVERTO MAGALLANES) Past Ctrnuxd-Abazzi-Zymrtf Hx Patient Social History Alcohol Use: Denies Use Recreational Drug Use: No Smoking Status: Current Everyday Smoker Type Used: Cigarettes (ALVERTO MAGALLANES) Past Medical History Reproductive Disorders: No (ALVERTO MAGALLANES) Physical Exam Vital Signs Vital Signs - First Documented 09/24/18 10:39 Temp 98.6 Pulse 109 Resp 30 B/P (MAP) 115/63 (80) Pulse Ox 98 O2 Delivery Nasal Cannula O2 Flow Rate 2.0 (WANDER AVILES APRN) Vital Signs Capillary Refill : (ALVERTO MAGALLANES) Height, Weight, BMI Height: '" Weight: lbs. oz. kg; BMI Method: General Appearance: No Apparent Distress, WD/WN HEENT: PERRL/EOMI, Pharynx Normal, Moist Mucous Membranes Neck: Full Range of Motion, Normal Inspection, Non Tender, Supple Respiratory: Chest Non Tender, Lungs Clear, Normal Breath Sounds, No Accessory Muscle Use, No Respiratory Distress Cardiovascular: Regular Rate, Rhythm, No Edema, No JVD, Normal Peripheral Pulses Gastrointestinal: Normal Bowel Sounds, Soft, Tenderness (Mild suprapubic tenderness) Extremity: Normal Capillary Refill, Normal Inspection, No Pedal Edema Neurologic/Psychiatric: Alert, Oriented x3, No Motor/Sensory Deficits, Normal Mood/Affect Skin: Normal Color, Warm/Dry (ALVERTO MAGALLANES) Gastrointestinal: Tenderness (Mild suprapubic tenderness), Other (epigastric tenderness) (WANDER AVILES APRN) Focused Exam Lactate Level 09/24/18 10:45: Lactic Acid Level 0.82 (WANDER AVILES APRN) Lactic Acid Level Laboratory Tests Test 09/24/18 10:45 Lactic Acid Level 0.82 MMOL/L (0.50-2.00) (WANDER AVILES APRN) Progress/Results/Core Measures Results/Orders Lab Results Laboratory Tests Test 09/24/18 10:45 09/24/18 12:00 Range/Units White Blood Count 15.5 H 4.3-11.0 10^3/uL Red Blood Count 3.25 L 4.35-5.85 10^6/uL Hemoglobin 10.0 L 13.3-17.7 G/DL Hematocrit 30 L 40-54 % Mean Corpuscular Volume 91 80-99 FL Mean Corpuscular Hemoglobin 31 25-34 PG Mean Corpuscular Hemoglobin Concent 34 32-36 G/DL Red Cell Distribution Width 14.6 H 10.0-14.5 % Platelet Count 349 130-400 10^3/uL Mean Platelet Volume 8.9 7.4-10.4 FL Neutrophils (%) (Auto) 78 H 42-75 % Lymphocytes (%) (Auto) 11 L 12-44 % Monocytes (%) (Auto) 12 0-12 % Eosinophils (%) (Auto) 0 0-10 % Basophils (%) (Auto) 0 0-10 % Neutrophils # (Auto) 12.0 H 1.8-7.8 X 10^3 Lymphocytes # (Auto) 1.6 1.0-4.0 X 10^3 Monocytes # (Auto) 1.8 H 0.0-1.0 X 10^3 Eosinophils # (Auto) 0.0 0.0-0.3 10^3/uL Basophils # (Auto) 0.0 0.0-0.1 10^3/uL Neutrophils % (Manual) 49 % Lymphocytes % (Manual) 19 % Monocytes % (Manual) 9 % Eosinophils % (Manual) 0 % Basophils % (Manual) 0 % Myelocytes % 1 % Band Neutrophils 22 % Dohle Bodies SLIGHT Blood Morphology Comment NORMAL Prothrombin Time 15.3 H 12.2-14.7 SEC INR Comment 1.2 0.8-1.4 Activated Partial Thromboplast Time 35 24-35 SEC D-Dimer 3.51 H 0.00-0.49 UG/ML Sodium Level 134 L 135-145 MMOL/L Potassium Level 4.2 3.6-5.0 MMOL/L Chloride Level 99 98-107 MMOL/L Carbon Dioxide Level 20 L 21-32 MMOL/L Anion Gap 15 H 5-14 MMOL/L Blood Urea Nitrogen 35 H 7-18 MG/DL Creatinine 1.14 0.60-1.30 MG/DL Estimat Glomerular Filtration Rate > 60 BUN/Creatinine Ratio 31 Glucose Level 133 H 70-105 MG/DL Lactic Acid Level 0.82 0.50-2.00 MMOL/L Calcium Level 9.9 8.5-10.1 MG/DL Corrected Calcium 10.7 H 8.5-10.1 MG/DL Magnesium Level 1.9 1.8-2.4 MG/DL Total Bilirubin 0.6 0.1-1.0 MG/DL Aspartate Amino Transf (AST/SGOT) 21 5-34 U/L Alanine Aminotransferase (ALT/SGPT) 29 0-55 U/L Alkaline Phosphatase 118 40-136 U/L Myoglobin 58.2 10.0-92.0 NG/ML Troponin I < 0.028 <0.028 NG/ML B-Type Natriuretic Peptide 88.1 <100.0 PG/ML Total Protein 6.4 6.4-8.2 GM/DL Albumin 3.0 L 3.2-4.5 GM/DL Urine Color RED H Urine Clarity BLOODY H Urine pH 7 5-9 Urine Specific [place] 1.010 L 1.016-1.022 Urine Protein 4+ NEGATIVE Urine Glucose (UA) NEGATIVE NEGATIVE Urine Ketones 1+ H NEGATIVE Urine Nitrite NEGATIVE NEGATIVE Urine Bilirubin NEGATIVE NEGATIVE Urine Urobilinogen NORMAL NORMAL MG/DL Urine Leukocyte Esterase 2+ H NEGATIVE Urine RBC (Auto) 5+ H NEGATIVE Urine RBC TNTC H /HPF Urine WBC TNTC H /HPF Urine Crystals NONE /LPF Urine Bacteria FEW H /HPF Urine Casts NONE /LPF Urine Mucus NEGATIVE /LPF Urine Culture Indicated CULTURE PENDING (WANDER AVILES APRN) My Orders Orders - WANDER AVILES APRN Ct [place] Chest/Noang Abd-Pelv W (09/24/18 12:09) Red Cells Leukocytes Reduced (09/24/18 12:17) Continuous Bladder Irrigation (09/24/18 12:17) Type And Screen (09/24/18 12:17) Piperacillin/Tazobactam (Bulk) (Zosyn In (09/24/18 13:00) Nothing By Mouth (09/24/18 Dinner) Protime With Inr (09/24/18 12:51) Partial Thromboplastin Time (09/24/18 12:51) (WANDER AVILES APRN) Medications Given in ED Current Medications Medications Dose Ordered Sig/Bernardo Route Start Time Stop Time Status Last Admin Dose Admin Ceftriaxone Sodium 1000 mg/ Sterile Water 10 ml @ 200 mls/hr ONCE ONCE IV 09/24/18 11:15 09/24/18 11:17 DC 09/24/18 11:46 200 MLS/HR Lidocaine HCl 10 ml STK-MED ONCE .ROUTE 09/24/18 12:31 09/24/18 12:35 DC 09/24/18 12:40 10 ML (WANDER AVILES APRN) Vital Signs/I&O 09/24/18 09/24/18 09/24/18 10:39 10:39 10:39 Temp 98.6 Pulse 109 Resp 30 B/P (MAP) 115/63 (80) Pulse Ox 98 98 O2 Delivery Nasal Cannula Nasal Cannula Nasal Cannula O2 Flow Rate 2.0 2.00 2.00 (WANDER AVILES APRN) Progress Progress Note #1: Time: 10:58 Progress Note Timing of his hematuria and chest pressure is interesting. He has already received aspirin and 2 doses of nitroglycerin which she says may have made a modest effect but still rates his pain is about 4-5 out of 10 which is same as it was this morning. Nitroglycerin did however affect his blood pressure running down to about 90 systolic so we've administered a liter of fluids. Repeat urinalysis, labs. EKG shows sinus tachycardia with some evidence of long- standing hypertension but no evidence of STEMI. Patient is a history of left eye blindness, DVT in his left leg secondary to left hip fracture in 2006. He is not on blood thinners currently. ED ACS is 27 points. Not low risk. This patient is not a candidate for early discharge and should receive a standard chest pain evaluation with delayed troponin testing. Progress Note #2: Time: 11:53 Progress Note The patient received the first 1/2 L of fluid and is on oxygen 2 L because his oxygen sats are right around 90%. He doesn't use oxygen at baseline so his tachycardia which is under by his interventions thus far still running around 100 510 bpm and oxygen dependency concerns me for a possible pulmonary embolism. We've ordered a CT angiogram. We'll continue to treat him as though he is having UTI with sepsis but unlike rule out or something else causing his chest pressure and tachycardia and hypoxia. We'll plan on doing a release and observation stay for coronary rule out as his chest pain is still present. Patient has agreed to do this. (ALVERTO MAGALLANES) Initial ECG Impression Date: September 24, 2018 Initial ECG Impression Time: 10:41 Initial ECG Rate: 109 Initial ECG Rhythm: S.Tach Initial ECG Intervals: Normal Initial ECG Impression: Normal, Nonspecific Changes Initial ECG Comparisson: No Previous ECG Available Comment LVH, no ST elevation or depression, sinus tachycardia. (ALVERTO MAGALLANES) Diagnostic Imaging Diagonstic Imaging: Xray Plain Films/CT/US/NM/MRI: chest (1v) Comments NAME: CECILY BENAVIDEZ [facility] REC#: [id number] PT STATUS: REG ER : 1940 PHYSICIAN: ALVERTO MAGALLANES MD ADMIT DATE: 09/24/18/ER Draft Date of Exam:09/24/18 CHEST 1 VIEW, AP/PA ONLY INDICATION: Chest pain. FINDINGS: The lungs are clear. The heart size and vascularity are normal. There is no effusion or pneumothorax. IMPRESSION: No acute appearing abnormality. Dictated on workstation # [id number] Dict: 09/24/18 1104 Trans: 09/24/18 1109 [id number] Interpreted by: LOW FRANK Electronically signed by: Reviewed: Reviewed by Va Diagonstic Imaging: CT (angiogram) Plain Films/CT/US/NM/MRI: chest, abdomen, pelvis Comments [facility] [place] NAME: CECILY BENAVIDEZ [facility] REC#: [id number] PT STATUS: REG ER : 1940 PHYSICIAN: WANDER AVILES APRN ADMIT DATE: 09/24/18/ER Draft Date of Exam:09/24/18 CT LETICIA CHEST/NOANG ABD-PELV W INDICATION: Chest pain and low abdominal pain as well as hematuria. COMPARISON: No prior studies are available for comparison. TECHNIQUE: Axial imaging through the chest, abdomen, and pelvis was performed after the administration of intravenous contrast. CT angiography protocol was utilized for the chest. Multiplanar, 3-D and MIP reformations were also performed. CT angiogram chest: FINDINGS: Atherosclerotic calcifications are identified throughout the thoracic aorta. Caliber is normal. No dissection is seen. Central pulmonary arteries are unremarkable. There are coronary arterial calcifications. No pericardial or pleural fluid is detected. Biapical pleural thickening and pleural calcifications are noted. There are centrilobular emphysematous changes throughout both lungs. There appears to be some scarring or atelectasis in the right middle lobe. No mass or infiltrate is identified. IMPRESSION: 1. No evidence of thoracic aortic dissection or aneurysm. 2. Centrilobular emphysematous changes. No acute feature is seen. CT abdomen and pelvis: FINDINGS: Note is made of a pneumoperitoneum. There appears to be gas anterior to the stomach as well as small gas bubbles in the left upper quadrant. No free air is identified elsewhere. Findings are likely owing to perforated viscus, presumably from peptic ulcer disease. Liver contains tiny low densities, too small to characterize but most likely cysts. Gallbladder is unremarkable. No biliary ductal dilatation is seen. Pancreas and spleen are unremarkable. No adrenal mass on the left is identified. Minimal nodularity on the right is noted measuring 10 mm. Kidneys are unremarkable. Aorta does show some aneurysmal dilatation in the infrarenal portion measuring 4 cm in AP diameter. No dissection is seen. The iliac are heavily calcified. Bowel loops are normal caliber. There is no obstruction. There is no ascites. There is significant distention to the urinary bladder. The bladder does appear to be somewhat trabeculated. There is filling defect in the base of the bladder. This is concerning for a mass and/or hemorrhage or both. Bladder does contain a Brandon catheter. No definite lymphadenopathy is seen. Bony structures demonstrate postop changes to the right hip. No definite osteolytic or blastic lesions are seen. IMPRESSION: 1. Pneumoperitoneum, consistent with perforated viscus. This is likely secondary to peptic ulcer disease. 2. Infrarenal abdominal aortic aneurysm. 3. Distended and trabeculated bladder containing a large filling defect at the base. Features are concerning for bladder neoplasm and blood clot formation. Cystoscopy is recommended. Dictated on workstation # [id number] Dict: 09/24/18 1300 Trans: 09/24/18 1336 [id number] Interpreted by: FANTASMA LOVETT MD Electronically signed by: Reviewed: Reviewed by Me (ALVERTO MAGALLANES) Departure Communication (Admissions) Time/Spoke to Admitting Phy: 13:45 Discussed the case with Dr. Chun she agrees to admit the patient to the ICU and would like General Surgery, urology and cardiology on board. She agrees with the antibiotics. Time/Spoke to Consulting Phy: 13:35 Discussed the case with Dr. Cabrales, general surgery he would like Diflucan in addition to Zosyn. He like the patient in the ICU and he will come see the patient. Discussed the case with Dr. Gutierrez's scrub nurse and he will relay the consult. Discussed the case with Dr. Aldrich, urology and he agrees to see the patient later this afternoon. (ALVERTO MAGALLANES) 1308-I've also seen the patient while Dr. Magallanes was temporarily out of the department, CT shows concern for a viscous perforation with free fluid and air in the epigastric region. He is tender to palpation in the epigastric region. He states that he's been having some pain up in that area for about 3 weeks. The Brandon catheter was started, gross hematuria was noted. Brandon catheter was removed and replaced with a three-way Brandon catheter and continuous bladder irrigation was initiated. While awaiting CT scan due to concern for perforated viscus, Zosyn 4.5 g has been ordered. Vitals are stable. (WANDER AVILES APRN) Impression Primary Impression: Gross hematuria Additional Impressions: Perforated abdominal viscus UTI (urinary tract infection) Qualified Codes: N30.01 - Acute cystitis with hematuria Sepsis Qualified Codes: A41.9 - Sepsis, unspecified organism Chest pressure Disposition: ADMITTED INPATIENT Condition: Critical Admissions Decision to Admit Reason: Admit from ER (General) Decision to Admit/Date: September 24, 2018 Time/Decision to Admit Time: 13:07 (ALVERTO MAGALLANES) Decision to Admit Reason: Admit from ER (General) Decision to Admit/Date: September 24, 2018 Time/Decision to Admit Time: 13:07 (WANDER AVILES APRN) ALVERTO MAGALLANES September 24, 2018 10:57 WANDER AVILES APRN September 24, 2018 13:07
[2018-09-24] MEDS ORDERED: AMLO10TA7 PO (11:03)
[2018-09-24] MEDS ORDERED: OMEG-160 PO (11:03)
[2018-09-24] MEDS ORDERED: NIAC500T24 PO (11:03)
--- NOTE | 2018-09-24 11:09 | Diagnostic Imaging Report ---
INDICATION: Chest pain. FINDINGS: The lungs are clear. The heart size and vascularity are normal. There is no effusion or pneumothorax. IMPRESSION: No acute appearing abnormality. Dictated by: Dictated on workstation # [id number]
[2018-09-24] MEDS ORDERED: cefTRIAXone FOR IV USE 1,000 MG in WATER (STERILE) FOR INJECTION 10 ML IV ONE (11:15)
[2018-09-24 11:17] LABS: INR 1.2 (0.8-1.4); PROTHROMBIN TIME PATIENT 15.3 SEC (12.2-14.7)
[2018-09-24 11:25] LABS: ALANINE AMINOTRANSFERASE 29 U/L (0-55); ALKALINE PHOSPHATASE 118 U/L (40-136); BILIRUBIN,TOTAL 0.6 MG/DL (0.1-1.0); BUN/CREATININE RATIO 31; CALCIUM 9.9 MG/DL (8.5-10.1); CARBON DIOXIDE 20 MMOL/L (21-32); CHLORIDE 99 MMOL/L (98-107); CREATININE SERUM 1.14 MG/DL (0.60-1.30); GFR ESTIMATED > 60; GLUCOSE 133 MG/DL (70-105); MAGNESIUM 1.9 MG/DL (1.8-2.4); POTASSIUM 4.2 MMOL/L (3.6-5.0); SODIUM 134 MMOL/L (135-145); TOTAL PROTEIN 6.4 GM/DL (6.4-8.2)
[2018-09-24 11:45] LABS: BAND NEUTROPHILS 22 %; BASOPHILS % (MANUAL) 0 %; EOSINOPHILS % (MANUAL) 0 %; LYMPHOCYTES % (MANUAL) 19 %; MONOCYTES % (MANUAL) 9 %; MYELOCYTES % 1 %; NEUTROPHILS % (MANUAL) 49 %; RBC MORPH NORMAL
--- NOTE | 2018-09-24 11:56 | NUR ---
DAUGHTER NOTIFIED OF PT BEING IN HOSPITAL
[2018-09-24] MEDS ORDERED: HOLD METFORMIN - RECEIVED CONTRAST 20 ML VIAL IV SCH (12:00)
[2018-09-24] MEDS ORDERED: IOHEXOL 350 MG/ML 150 ML (OMNIPAQUE 350) VIAL IV ONE (12:00)
[2018-09-24 12:13] LABS: BILIRUBIN,URINE NEGATIVE (NEGATIVE); CLARITY,URINE BLOODY; COLOR,URINE RED; GLUCOSE, URINE (UA) NEGATIVE (NEGATIVE); KETONES,URINE 1+ (NEGATIVE); LEUKOCYTE ESTERASE ,URINE 2+ (NEGATIVE); NITRITE,URINE NEGATIVE (NEGATIVE); PH,URINE 7 (5-9); PROTEIN,URINE 4+ (NEGATIVE); UROBILINOGEN,URINE NORMAL (NORMAL)
--- NOTE | 2018-09-24 12:15 | NUR ---
TOTAL OF 1100CC OF JERARDO RED BLOODY URINE RETURN, CLAMPED AT THIS X
[2018-09-24] MEDS ORDERED: LIDOCAINE UROJET 2% GEL 10 ML PKG ONE (12:31)
[2018-09-24 12:34] LABS: BACTERIA,URINE FEW /HPF; RBC,URINE TNTC /HPF; WBC,URINE TNTC /HPF
[2018-09-24] MEDS ORDERED: PIPERACILLIN/TAZOBACTAM (BULK) 4.5 GM in NS (IVPB) 100 ML IV ONE (13:00)
--- NOTE | 2018-09-24 13:00 | NUR ---
TOTAL OF 3100CC OF VERY BLOODY JERARDO RED URINE
--- NOTE | 2018-09-24 13:16 | Diagnostic Imaging Report ---
INDICATION: Chest pain and low abdominal pain as well as hematuria. COMPARISON: No prior studies are available for comparison. TECHNIQUE: Axial imaging through the chest, abdomen, and pelvis was performed after the administration of intravenous contrast. CT angiography protocol was utilized for the chest. Multiplanar, 3-D and MIP reformations were also performed. CT angiogram chest: FINDINGS: Atherosclerotic calcifications are identified throughout the thoracic aorta. Caliber is normal. No dissection is seen. Central pulmonary arteries are unremarkable. There are coronary arterial calcifications. No pericardial or pleural fluid is detected. Biapical pleural thickening and pleural calcifications are noted. There are centrilobular emphysematous changes throughout both lungs. There appears to be some scarring or atelectasis in the right middle lobe. No mass or infiltrate is identified. IMPRESSION: 1. No evidence of thoracic aortic dissection or aneurysm. 2. Centrilobular emphysematous changes. No acute feature is seen. CT abdomen and pelvis: FINDINGS: Note is made of a pneumoperitoneum. There appears to be gas anterior to the stomach as well as small gas bubbles in the left upper quadrant. No free air is identified elsewhere. Findings are likely owing to perforated viscus, presumably from peptic ulcer disease. Liver contains tiny low densities, too small to characterize but most likely cysts. Gallbladder is unremarkable. No biliary ductal dilatation is seen. Pancreas and spleen are unremarkable. No adrenal mass on the left is identified. Minimal nodularity on the right is noted measuring 10 mm. Kidneys are unremarkable. Aorta does show some aneurysmal dilatation in the infrarenal portion measuring 4 cm in AP diameter. No dissection is seen. The iliac are heavily calcified. Bowel loops are normal caliber. There is no obstruction. There is no ascites. There is significant distention to the urinary bladder. The bladder does appear to be somewhat trabeculated. There is filling defect in the base of the bladder. This is concerning for a mass and/or hemorrhage or both. Bladder does contain a Brandon catheter. No definite lymphadenopathy is seen. Bony structures demonstrate postop changes to the right hip. No definite osteolytic or blastic lesions are seen. IMPRESSION: 1. Pneumoperitoneum, consistent with perforated viscus. This is likely secondary to peptic ulcer disease. 2. Infrarenal abdominal aortic aneurysm. 3. Distended and trabeculated bladder containing a large filling defect at the base. Features are concerning for bladder neoplasm and blood clot formation. Cystoscopy is recommended. Dictated by: Dictated on workstation # [id number]
[2018-09-24] MEDS ORDERED: FLUCONAZOLE 200 MG/100 ML 50 ML, SYRINGE-IVPB 1 SYRINGE IV ONE ×2 (14:00)
[2018-09-24] MEDS ORDERED: FLUCONAZOLE 200 MG/100 ML 200 ML IV ONE (14:15)
--- NOTE | 2018-09-24 14:45 | NUR ---
PT HAD 1750CC OF STERILE WATER BLADDER IRRIGATION CREDIT TO ICU
--- OUTSIDE RECORDS SUMMARY | 2018-09-24 15:10 | XMS REPORT | Continuity of Care Document ---
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) 04/15/2014 MEENA DOE MD N 305.1 NONDEPENDENT TOBACCO USE DISORDER Procedures Code Description [place] [address] A1C (IN-HOUSE) 03/12/2012 61680 ROUTINE VENIPUNCTURE 03/19/2012 38833 CMP 03/19/2012 33790 LIPID PANEL 03/19/2012 [id number] GFR CALC (RESULT ONLY) 03/19/2012 87178 ROUTINE VENIPUNCTURE 09/12/2012 38879 A1C (IN-HOUSE) 09/12/2012 23262 CBC 09/12/2012 61780 LIPID PANEL 09/12/2012 75241 CMP 09/12/2012 [id number] GFR CALC (RESULT ONLY) 09/12/2012 25321 ROUTINE VENIPUNCTURE 12/18/2012 31216 RENAL PROFILE 12/18/2012 85368 LIPID PANEL 12/18/2012 [id number] GFR CALC (RESULT ONLY) 12/18/2012 PRO/CRE URINE PROTEIN TO CREATNINE RATIO 12/18/2012 41404 A1C (IN-HOUSE) 03/25/2013 59312 ROUTINE VENIPUNCTURE 09/25/2013 49346 A1C (IN-HOUSE) 09/25/2013 [id number] GFR CALC (RESULT ONLY) 09/25/2013 17179 CMP 09/25/2013 68841 LIPID PANEL 09/25/2013 43927 CBC 09/25/2013 Results Test Result Range Comp. [...] Status Pt. Type Provider Facility Loc./Unit Complaint [id number] 04/15/2014 08:27:00 04/15/2014 23:59:59 CLS Outpatient MEENA DOE MD [id number] 09/25/2013 10:57:00 09/25/2013 23:59:59 CLS Outpatient NOAH MONIQUE DO [id number] 03/25/2013 09:24:00 03/25/2013 23:59:59 CLS Outpatient NOAH MONIQUE DO [id number] 03/25/2013 09:24:00 03/25/2013 23:59:59 CLS Outpatient NOAH MONIQUE DO [id number] 12/18/2012 10:33:00 12/18/2012 23:59:59 CLS Outpatient NOAH MONIQUE DO [id number] 03/19/2012 09:57:00 03/19/2012 23:59:59 CLS Outpatient NOAH MONIQUE DO [id number] 03/19/2012 09:57:00 03/19/2012 23:59:59 CLS Outpatient [id number] 09/12/2012 09:47:00 Document Registration [id number] 07/29/2016 07:06:00 Document Registration [id number] 07/08/2016 08:44:00 Document Registration [id number] 07/04/2018 10:20:00 07/04/2018 23:59:59 CLS Outpatient MEENA DOE MD [facility]
[2018-09-24] MEDS ORDERED: morphine INJ 4 MG/ML 1 ML (VIAL/SYRINGE) IV PRN (15:15)
[2018-09-24] MEDS ORDERED: NS IV ONE (15:15)
[2018-09-24] MEDS: NS IV 1000 ML 1,000 ML IV SCH ×3 (15:29→19:42)
[2018-09-24] MEDS ORDERED: CATHETER FLUSH 10 ML SYR IV PRN (15:30)
[2018-09-24] MEDS ORDERED: ONDANSETRON 4 MG/2 ML (SDV) Z0FRAN IV PRN (15:30)
[2018-09-24] MEDS: NOREPINEPHRINE 4 MG in NS (IVPB) 250 ML IV SCH ×2 (15:35→22:50)
--- NOTE | 2018-09-24 17:22 | NUR ---
1600 DR FLEMING CALLED NEW ORDERS RECEIVED TO PLACE NGT. NGT PLACED PT TOLERATED WELL. PLACEMENT CHECKED VIA AUSCULTATION.
--- NOTE | 2018-09-24 17:31 | Consultation-Cardiology ---
HPI-Cardiology Cardiology Consultation: Date of Consultation 09/24/18 Date of Admission Attending Physician Alicja Gutierrez MD Admitting Physician Unknown Consulting Physician Alicja GUTIERREZ MD HPI: Time Seen by a Provider: 15:45 Chief Complaint: Chest pain, shortness of breath, sinus tachycardia This is a 78-year-old gentleman who presented to the ER by ambulance with complain of chest pressure for the last one week associated with shortness of breath. His also having hematuria and dysuria for which urine showed urinary bleeding. He was found to be in sinus tachycardia with no significant ST-T wave abnormalities. The patient does not have any post cardiac history or cardiac evaluation. He is an active smoker, also has history of hypertension, hyperlipidemia and borderline diabetes. The chest discomfort was much better when I saw the patient. For sinus tachycardia and hypoxia CT angiography of the chest was performed which ruled out pulmonary embolism. Significant COPD changes in the lungs. Pneumoperitoneum was also noted which is likely due to perforated viscus. General Surgery onboard. Planning surgery. Cardiac consultation for chest pain, shortness of breath and preoperative cardiovascular risk assessment. Review of Systems-Cardiology Review of Systems Constitutional: As described under HPI; No As described under HPI, No no symptoms reported, No chills, No fever, No lightheadedness Eyes: No As described under HPI, No no symptoms reported, No blindness, No blurred vision, No contact lenses, No drainage, No decreased acuity, No foreign body sensation, No pain, No vision change Ears/Nose/Throat: No As described under HPI, No no symptoms reported, No chronic hearing loss, No ear discharge, No ear pain, No nasal drainage, No ulcerations Respiratory: No no symptoms reported; As described under HPI; No As described under HPI, No cough, No orthopnea; shortness of breath; No SOB with excertion Cardiovascular: No no symptoms reported; As described under HPI; No As described under HPI; chest pain; No edema, No irregular heart rate, No lightheadedness; palpitations Gastrointestinal: No no symptoms reported, No As described under HPI, No abdomen distended, No abdominal pain, No blood streaked bowels, No constipation , No diarrhea, No nausea, No vomiting, No stool coloration changes Genitourinary: No As described under HPI, No burning; dysuria; No discharge, No frequency, No flank pain; hematuria; No urgency Skin: No rash, No skin related problems, No ulcerations Psychiatric/Neurological: No anxiety, No depression, No seizure, No focal weakness, No syncope Hematologic: No bleeding abnormalities [id number] Hx Patient Social History Alcohol Use: Denies Use Recreational Drug Use: No Smoking Status: Current Everyday Smoker Type Used: Cigarettes Recent Foreign Travel: No Recent Infectious Disease Expo: No Hospitalization with Isolation: Denies Past Medical History PMH As described under Assessment. Allergies and Home Medications Allergies Coded Allergies: NKANo Known Allergies (Verified Allergy, Unknown, 04/10/06) Home Medications Amlodipine Besylate 10 Mg Tablet, 10 MG PO DAILY, (Reported) Niacinamide 500 Mg Tablet, 1,500 MG PO DAILY, (Reported) [place]-3/Dha/Epa/Fish Oil 1 Each Capsule, 3 EACH PO DAILY, (Reported) [Lisinopril] 1 TAB, 40 MG PO DAILY, (Reported) [Lovastatin] 2 TAB, 40 MG PO DAILY, (Reported) Patient Home Medication List Home Medication List Reviewed: Yes Physical Exam-Cardiology Physical Exam Vital Signs/I&O 09/24/18 09/24/18 09/24/18 09/24/18 10:39 10:39 10:39 14:40 Temp 98.6 Pulse 109 89 Resp 30 18 B/P (MAP) 115/63 (80) 122/68 (86) Pulse Ox 98 98 98 O2 Delivery Nasal Cannula Nasal Cannula Nasal Cannula Nasal Cannula O2 Flow Rate 2.0 2.00 2.00 2.00 09/24/18 09/24/18 09/24/18 09/24/18 14:45 14:55 15:00 15:00 Pulse 92 91 91 Resp 25 18 B/P (MAP) 125/73 (90) 128/59 (82) Pulse Ox 95 94 94 O2 Delivery Room Air Room Air Room Air 09/24/18 09/24/18 16:00 17:00 Pulse 96 95 Resp 28 36 B/P (MAP) 139/68 (91) Pulse Ox 94 87 O2 Delivery Room Air Room Air Capillary Refill : Less Than 3 Seconds Constitutional: appears stated age, AAO x 3; No apparent distress; well- developed, well-nourished HEENT: PERRL; No normal ENT inspection, No TMs normal, No pharynx normal, No scleral icterus (R), No scleral icterus (L), No pale conjunctivae (R), No pale conjunctivae (L), No photophobia, No TM abnormal (R), No TM abnormal (L), No pharyngeal erythema, No tonsillar exudate, No other, No discharge, No EOMI; hearing is well preserved; No hard of hearing; oral hygience is good; No ulceration, No xanthelasmas are seen Neck: No non-tender, No full range of motion, No supple, No normal inspection, No carotid bruit, No limited range of motion, No lymphadenopathy (R), No lymphadenopathy (L), No tender lateral, No tender midline, No thyromegaly, No other; carotid pulses are 2 + bilaterally; No with good upstrokes Respiratory: chest is bilaterally symmetric, lungs clear to auscultation Cardiovascular: regular rate-rhythm; No irregularly irregular, No extra beats, No parasternal heave is noted, No JVD, No edema, No bradycardia; tachycardia; No point of maximal impulse, No cardiac thrills are palpable; S1 and S2; No gallop/S3, No gallop/S4, No diastolic murmur, No systolic murmur, No friction rub, No click, No other Gastrointestinal: No tender, No soft, No round, No distended, No pulsatile mass , No organomegaly, No guarding, No rebound, No tenderness, No hernia, No mass, No audible bowel sounds, No abnormal bowel sounds, No abdominal bruits, No spleenomegaly, No other Rectal: deferred Extremities: No normal range of motion, No non-tender, No normal inspection, No pedal edema, No calf tenderness, No normal capillary refill, No pelvis stable , No calf tenderness, No inflammation, No pedal edema, No slow capillary refill , No swelling, No other, No abrasion, No clubbing, No cyanosis, No ecchymosis, No laceration, No no lower extremity edema bilateral, No significant edema, No tenderness, No wound Neurologic/Psychiatric: no motor/sensory deficits, alert, normal mood/affect, oriented x 3, power is 5/5 both on sides Skin: No normal color, No warm/dry, No cyanosis, No cool, No diaphoresis, No damp, No ecchymosis, No jaundice, No mottled, No pallor, No rash, No tattoos/ piercings, No ulcerations, No rash on exposed areas, No ulcerations on exposed areas, No other Data Review Labs Laboratory Tests 09/24/18 10:45: White Blood Count 15.5H, Red Blood Count 3.25L, Hemoglobin 10.0L, Hematocrit 30L , Mean Corpuscular Volume 91, Mean Corpuscular Hemoglobin 31, Mean Corpuscular Hemoglobin Concent 34, Red Cell Distribution Width 14.6H, Platelet Count 349, Mean Platelet Volume 8.9, Neutrophils (%) (Auto) 78H, Lymphocytes (%) (Auto) 11L , Monocytes (%) (Auto) 12, Eosinophils (%) (Auto) 0, Basophils (%) (Auto) 0, Neutrophils # (Auto) 12.0H, Lymphocytes # (Auto) 1.6, Monocytes # (Auto) 1.8H, Eosinophils # (Auto) 0.0, Basophils # (Auto) 0.0, Neutrophils % (Manual) 49, Lymphocytes % (Manual) 19, Monocytes % (Manual) 9, Eosinophils % (Manual) 0, Basophils % (Manual) 0, Myelocytes % 1, Band Neutrophils 22, Dohle Bodies SLIGHT , Blood Morphology Comment NORMAL, Prothrombin Time 15.3H, INR Comment 1.2, Activated Partial Thromboplast Time 35, D-Dimer 3.51H, Sodium Level 134L, Potassium Level 4.2, Chloride Level 99, Carbon Dioxide Level 20L, Anion Gap 15H , Blood Urea Nitrogen 35H, Creatinine 1.14, Estimat Glomerular Filtration Rate > 60, BUN/Creatinine Ratio 31, Glucose Level 133H, Lactic Acid Level 0.82, Calcium Level 9.9, Corrected Calcium 10.7H, Magnesium Level 1.9, Total Bilirubin 0.6, Aspartate Amino Transf (AST/SGOT) 21, Alanine Aminotransferase ( ALT/SGPT) 29, Alkaline Phosphatase 118, Myoglobin 58.2, Troponin I < 0.028, B- Type Natriuretic Peptide 88.1, Total Protein 6.4, Albumin 3.0L 09/24/18 12:00: Urine Color REDH, Urine Clarity BLOODYH, Urine pH 7, Urine Specific Gulliver 1.010L, Urine Protein 4+, Urine Glucose (UA) NEGATIVE, Urine Ketones 1+H, Urine Nitrite NEGATIVE, Urine Bilirubin NEGATIVE, Urine Urobilinogen NORMAL, Urine Leukocyte Esterase 2+H, Urine RBC (Auto) 5+H, Urine RBC TNTCH, Urine WBC TNTCH, Urine Crystals NONE, Urine Bacteria FEWH, Urine Casts NONE, Urine Mucus NEGATIVE , Urine Culture Indicated CULTURE PENDING 09/24/18 16:22: Glucometer 138H 09/24/18 17:07: A/P-Cardiology Assessment/Admission Diagnosis Perforated viscus, pending surgery, Preoperative cardiovascular risk assessment, Chest pressure, Shortness of breath, Sinus tachycardia, Leukocytosis, Borderline diabetes, Hypertension, Hyperlipidemia, Active smoking. Plan Perforated viscus, pending surgery, Preoperative cardiovascular risk assessment, patient has significant risk factors for CAD. He also has complains of chest pain/pressure for the last one week. First EKG does not show any significant ST-T wave abnormalities. First set of troponin is negative. However CAD cannot be ruled out. To me perforated viscus suggests urgent/emergent surgery to avoid risk of peritonitis and severe sepsis. Patient already has an elevated white count. Therefore in patients requiring urgent/emergent surgery perioperative cardiovascular risk assessment is not required. Since high grade obstructive CAD cannot be ruled out, the patient will be considered at intermediate/high risk for major adverse perioperative cardiac event events undergoing a moderate risk noncardiac surgery. I would suggest that the surgeon discussed with the patient the possible risks. I discussed at length with the patient and significant other and explained the above. Chest pressure, EKG is negative. First troponin is negative. Serial troponin is recommended. Patient will likely require nuclear evaluation or coronary angiography in the future, once acute illness has resolved. Shortness of breath, mildly elevated BNP. Sinus tachycardia with severe COPD. I will check echocardiogram. Sinus tachycardia, likely due to perforated viscus and severe COPD. Leukocytosis, unclear etiology. Could be due to abdominal sepsis. Borderline diabetes, Hypertension, Hyperlipidemia, Active smoking. Thank you for your consultation. Please call me if you have any questions. Faraz Gutierrez MD, FACP, FACC, FSCAI, FHRS, CCDS Interventional Cardiology Cardiac Electrophysiology Vascular Medicine and Endovascular Interventions Clinical Quality Measures AMI/AHF: ASA po Prior to arrival: Yes (324MG BY EMS) DVT/VTE Risk/Contraindication: Risk Factor Score Per Nursin RFS Level Per Nursing on Admit: 4+=Very High Alicja GUTIERREZ MD September 24, 2018 5:31 pm
[2018-09-24] MEDS ORDERED: morphine INJ 10 MG/ML 1ML (SYR OR VIAL) IVP NR (18:31)
[2018-09-24] MEDS: PANTOPRAZOLE INJECTION 200 MG in NS (IVPB) 100 ML IV SCH (19:01)
[2018-09-24] MEDS: NICOTINE 21 MG (NICODERM) PATCH TD SCH (19:01)
--- NOTE | 2018-09-24 19:03 | CONSULTATION REPORT ---
DATE OF SERVICE: 09/24/2018 ATTENDING PRIMARY CARE PHYSICIAN: Dr. Acosta. HISTORY OF PRESENT ILLNESS: The patient is a 78-year-old male who presented to the Emergency Department this morning with abdominal pain as well as a significant gross hematuria. He reports that he began to have some epigastric pain approximately one week ago, which persisted. He then presents with suprapubic pain and states that he began having gross hematuria. He was seen at [facility] where labs were drawn, his hemoglobin was found to be 11. He also had an EKG performed and he was slightly tachycardic. He does not report ever having this issue of hematuria before in the past. It appears that his past medical history encompasses hypertension, hypercholesterolemia, and prediabetes and also has a long history of smoking. A CT scan was performed, which did show a distended urinary bladder and there was significant amount of blood that was evacuated with continuous bladder irrigation. CT scan also did show what appeared to be a pocket of contained air within the epigastric region most likely consistent with a perforated peptic ulcer disease; however, he is not showing any signs of sepsis or peritoneal signs. He has also been afebrile since admission. PAST MEDICAL HISTORY: Hypertension, hypercholesterolemia, prediabetes. PAST SURGICAL HISTORY: Right total hip arthroplasty. ALLERGIES: No known drug allergies. MEDICATIONS: Amlodipine 10 mg daily, niacin 500 mg daily, omega-3 fatty acids daily. SOCIAL HISTORY: Positive smoke 50 pack years. Negative alcohol. VITAL SIGNS: Temperature 98.6, blood pressure 115/63, pulse 109, respirations 30, pulse ox 98% on 2 liters nasal cannula. REVIEW OF SYSTEMS: Well-nourished male currently in no acute distress. He does have some chest discomfort, mild exertional shortness of breath. He also does have some epigastric pain. He does not report any classic symptoms of gastroesophageal reflux disease as well as no recent episode of severe retching or vomiting. He does not recall ever having episodes of hematemesis, no coffee ground emesis as well. History of constipation. No diarrhea, no red blood per rectum, no dark tarry stools. No fever, chills, no recent inadvertent weight loss. All other review of systems negative. PHYSICAL EXAMINATION: CHEST: Slightly distant breath sounds bilaterally with a few expiratory wheezes. HEART: Regular, no murmurs. EXTREMITIES: No lower extremity edema, negative Homans sign. HEENT: No scleral icterus. NECK: No cervical lymphadenopathy. ABDOMEN: Soft, nondistended. There is mild discomfort in the epigastric region upon deep palpation. No peritoneal signs. No palpable masses. SKIN: Warm, dry. LABORATORY DATA: WBC 15.5, hemoglobin 10.0, hematocrit 30, platelets 349, BUN 35, creatinine 1.14. Urine was positive for leukocyte esterase and blood. ASSESSMENT AND PLAN: A 78-year-old male with significant hematuria as well as a mass noted within the bladder. He also does have free air in the epigastric region; however, this appears to be contained. He does not have any peritoneal signs and he is afebrile. The free air, most likely indicates a perforated peptic ulcer disease; however, this most likely is not contained and he does not have any peritoneal signs. We will manage this conservatively with IV antibiotics, antifungals as well as place a central line and start TPN and place an NG tube for gastrointestinal decompression. He also does have gross hematuria and a possible mass in the bladder, which will need to be evaluated as well. Cardiology is also on board for chest discomfort, which may be related to the perforated peptic ulcer disease; however, may be of cardiac etiology with his very strong smoking history. We will start him on a proton pump drip as well as piperacillin and tazobactam and Diflucan. Job ID: [id number] DocumentID: [id number] Dictated Date: 09/24/2018 18:05:50 Women[facility] Nurse Practitioner Date: 09/24/2018 19:03:19 Dictated By: GAL FLEMING MD
--- NOTE | 2018-09-24 19:48 | Diagnostic Imaging Report ---
INDICATION: Line placement Frontal chest obtained at 6:49 p.m. and compared to 1056 a.m. the same day. Heart is normal in size. Mediastinal silhouette is unremarkable. The lungs show no focal infiltrate. There is no pneumothorax or pleural fluid. There is an NG tube seen with tip below the film. There is a left subclavian central catheter with tip overlying the mid SVC. IMPRESSION: New left-sided subclavian catheter tip overlies mid SVC. There is no pneumothorax or pleural fluid. NG tube is seen with tip below the film. Dictated by: Dictated on workstation # [id number]
[2018-09-24] MEDS ORDERED: PIPERACILLIN/TAZO 4.5 GM/NS 100 ML IV SCH ×2 (20:00)
[2018-09-24] MEDS ORDERED: TPN IV SCH (21:30)
[2018-09-24] MEDS: fentaNYL INJECTION 100 MCG/2 ML AMP IV PRN (22:42)
[2018-09-25] VITALS (39 sets, daily range): BP systolic 99–141; BP diastolic 54–81
--- NOTE | 2018-09-25 01:31 | CONSULTATION REPORT ---
DATE OF SERVICE: 09/24/2018 ATTENDING PHYSICIAN: Dr. Chun. SUMMARY: This is a 78-year-old white man presented to the emergency room complaining of chest pain, was found to have a perforated viscus, most probably peptic ulcer, which seemed to have sealed itself, had also gross hematuria with questionable bladder mass versus clot by CT scan. He was started on continuous bladder irrigation. The patient is a smoker. The rest of the history and physical per . The patient's CBI does not seem to be working well. The bladder seems to be distended and felt to the umbilicus. I went ahead and adjusted the catheter, drained the bladder with a large amount of fluid from the CBI going and not coming out, some few clots. Adjusted the catheter to drain better. I showed the nurse how to do that and try and irrigate it at least every hour and p.r.n. to keep it running and to make sure the output equals at least the input is not higher because to allow urine output. IMPRESSION: On my part, gross hematuria, possible bladder tumor. PLAN: Do the above till tomorrow morning. If any better situation, we will take him to surgery and do cystoscopy with evacuation of clots, possible TURBT and cauterization of bleeders. This was fully explained to the patient and his daughter with all the risks, especially emergency in urgent situation and all the dangers involved up to and/or inability to control the bleeders. They fully understand and want the procedure done. We will prepare for such tomorrow. Job ID: [id number] DocumentID: [id number] Dictated Date: 09/24/2018 18:37:02 [employer] Manager Date: 09/25/2018 01:31:07 Dictated By: WILLIE WRIGHT MD
--- NOTE | 2018-09-25 04:14 | OPERATIVE REPORT ---
DATE OF SERVICE: 09/24/2018 ATTENDING PRIMARY CARE PHYSICIAN: Dr. Acosta. PREPROCEDURE DIAGNOSES: Gross hematuria, chest pain, chronic perforated peptic ulcer disease. POSTOPERATIVE DIAGNOSES: Gross hematuria, chest pain, chronic perforated peptic ulcer disease. PROCEDURE: Placement of left subclavian central venous catheter. SURGEON: Gal Fleming MD. ANESTHESIA: Local. ESTIMATED BLOOD LOSS: Minimal. FINDINGS: Catheter tip at superior vena cava/right atrial junction. DISPOSITION: The patient tolerated the procedure well. DESCRIPTION OF PROCEDURE: The patient is a 78-year-old male who presented with a one-week history of epigastric pain. He reports that the pain persisted, but he also developed gross hematuria. A CT scan was performed, which did show an epigastric free air; however, this appeared to be somewhat contained in the epigastric region and most likely consistent with a perforated peptic ulcer disease. He has been afebrile. He states that this pain started one week ago. He was also found to have some type of lesion within the bladder as well as significant hematuria. He also has had some chest discomfort and has not had any recent cardiac workup. From a standpoint of his probable perforated peptic ulcer disease, we are going to proceed with conservative management with IV fluids, bowel rest, NG tube decompression, IV antibiotics, antifungals as well as TPN. The patient's chest and neck were prepped and draped in standard surgical fashion. A 1% lidocaine was used to anesthetize the left subclavian region. The left subclavian vein was then cannulated withdrawing the venous blood. The guidewire was then inserted without any resistance. The cannulating needle removed and a skin incision made using an 11 blade. A tract was then created using a venous dilator and a triple lumen central venous catheter was placed over the guidewire using the Seldinger technique. The guidewire was then removed and all three ports sharifa venous blood and saline pushed in without any resistance. Catheter was sutured to the skin using 3-0 silk interrupted sutures. Catheter was then cleaned and covered with Op-Site. The patient tolerated the procedure well. Post-procedure chest x-ray did show proper placement and the catheter may be accessed and used at any time. Job ID: [id number] DocumentID: [id number] Dictated Date: 09/24/2018 19:38:19 [employer] Date: 09/25/2018 04:13:14 Dictated By: GAL FLEMING MD
[2018-09-25] MEDS: fentaNYL INJECTION 100 MCG/2 ML AMP IV PRN (04:31)
[2018-09-25 04:46] LABS: BASOPHILS % (AUTO) 0 % (0-10); EOSINOPHILS % (AUTO) 0 % (0-10); LYMPHOCYTES # (AUTO) 1.9 X 10^3 (1.0-4.0); LYMPHOCYTES % (AUTO) 13 % (12-44); MEAN CORPUSCULAR HEMOGLOBIN 31 PG (25-34); MEAN CORPUSCULAR HGB CONC 34 G/DL (32-36); MEAN CORPUSCULAR VOLUME 93 FL (80-99); MEAN PLATELET VOLUME 9.1 FL (7.4-10.4); MONOCYTES % (AUTO) 7 % (0-12); NEUTROPHILS # (AUTO) 11.1 X 10^3 (1.8-7.8); NEUTROPHILS % (AUTO) 79 % (42-75); PLATELET COUNT 266 10^3/uL (130-400); RED CELL DISTRIBUTION WIDTH 14.6 % (10.0-14.5)
[2018-09-25] MEDS: NS IV 1000 ML 1,000 ML IV SCH ×5 (05:00→17:16)
[2018-09-25 05:06] LABS: HEMATOCRIT 19 % (40-54); HEMOGLOBIN 6.4 G/DL (13.3-17.7)
[2018-09-25 05:22] LABS: ALANINE AMINOTRANSFERASE 22 U/L (0-55); ALBUMIN 2.2 GM/DL (3.2-4.5); ALKALINE PHOSPHATASE 68 U/L (40-136); BILIRUBIN,TOTAL 0.3 MG/DL (0.1-1.0); BUN/CREATININE RATIO 31; CALCIUM 7.5 MG/DL (8.5-10.1); CARBON DIOXIDE 19 MMOL/L (21-32); CHLORIDE 110 MMOL/L (98-107); CHOLESTEROL 51 MG/DL (< 200); CREATININE SERUM 0.78 MG/DL (0.60-1.30); GFR ESTIMATED > 60; GLUCOSE 109 MG/DL (70-105); HDL CHOLESTEROL < 15 MG/DL (40-60); POTASSIUM 3.9 MMOL/L (3.6-5.0); SODIUM 139 MMOL/L (135-145); TOTAL PROTEIN 4.5 GM/DL (6.4-8.2); TRIGLYCERIDES 75 MG/DL (<150); VLDL CHOLESTEROL 15 MG/DL (5-40)
[2018-09-25 05:40] LABS: BASOPHILS % (AUTO) 0 % (0-10); EOSINOPHILS # (AUTO) 0.1 10^3/uL (0.0-0.3); EOSINOPHILS % (AUTO) 0 % (0-10); LYMPHOCYTES # (AUTO) 1.6 X 10^3 (1.0-4.0); LYMPHOCYTES % (AUTO) 12 % (12-44); MEAN CORPUSCULAR HEMOGLOBIN 31 PG (25-34); MEAN CORPUSCULAR HGB CONC 33 G/DL (32-36); MEAN CORPUSCULAR VOLUME 93 FL (80-99); MEAN PLATELET VOLUME 8.8 FL (7.4-10.4); MONOCYTES % (AUTO) 7 % (0-12); NEUTROPHILS # (AUTO) 10.9 X 10^3 (1.8-7.8); NEUTROPHILS % (AUTO) 80 % (42-75); PLATELET COUNT 253 10^3/uL (130-400); RED CELL DISTRIBUTION WIDTH 14.5 % (10.0-14.5); WHITE BLOOD COUNT 13.6 10^3/uL (4.3-11.0)
[2018-09-25 05:40] LABS: MAGNESIUM 1.6 MG/DL (1.8-2.4); PHOSPHORUS 3.8 MG/DL (2.3-4.7)
[2018-09-25 05:41] LABS: HEMOGLOBIN 6.1 G/DL (13.3-17.7)
[2018-09-25 05:42] LABS: HEMATOCRIT 18 % (40-54)
[2018-09-25] MEDS ORDERED: MAGNESIUM 1 GM/100 ML IVPB 200 ML IV ONE (06:47)
[2018-09-25] MEDS: MAGNESIUM 1 GM/100 ML IVPB 100 ML IV SCH ×2 (07:13→08:12)
[2018-09-25] MEDS: NOREPINEPHRINE 4 MG in NS (IVPB) 250 ML IV SCH ×3 (07:13→20:08)
--- NOTE | 2018-09-25 07:32 | Progress Note-Pre Operative ---
Pre-Operative Progress Note H&P Reviewed The H&P was reviewed, patient examined and no changes noted. Date Seen by Provider: September 25, 2018 Time Seen by Provider: 07:31 Date H&P Reviewed: September 25, 2018 Time H&P Reviewed: 07:31 Pre-Operative Diagnosis: GROSS HEMATURIA POSSIBLE BLADDER TUMOR WILLIE WRIGHT MD September 25, 2018 07:32
[2018-09-25] MEDS: NICOTINE 21 MG (NICODERM) PATCH TD SCH (08:13)
[2018-09-25] MEDS: NICOTINE PATCH REMOVAL TP SCH (08:13)
[2018-09-25] MEDS ORDERED: fentaNYL INJECTION 100 MCG/2 ML AMP ONE (09:44)
[2018-09-25] MEDS ORDERED: ROCURONIUM 10 MG/ML 5 ML SYRINGE IV ONE (09:44)
[2018-09-25] MEDS ORDERED: proPOfol 200 MG/20 ML (DIPRIVAN) VIAL IV ONE (09:44)
[2018-09-25] MEDS ORDERED: ONDANSETRON 4 MG/2 ML (SDV) Z0FRAN ONE (09:44)
[2018-09-25] MEDS ORDERED: MIDAZOLAM 2 MG/2 ML (VERSED) VIAL ONE (09:45)
[2018-09-25] MEDS: PIPERACILLIN/TAZO 4.5 GM/NS 100 ML IV SCH ×4 (10:32→17:17)
[2018-09-25] MEDS ORDERED: NEOSTIGMINE 1 MG/ML 5 ML SYRINGE ONE (11:02)
[2018-09-25] MEDS ORDERED: SEVOFLURANE (ULTANE) 15 ML INHAL SOLN ONE (11:02)
[2018-09-25] MEDS ORDERED: GLYCOPYRROLATE 0.2 MG/ML (ROBINUL) 2 ML VIAL ONE (11:02)
--- NOTE | 2018-09-25 11:16 | Cardiology Progress Note ---
Cardiology SOAP Progress Note Subjective: No further chest discomfort. Objective: I&O/Vital Signs 09/25/18 09/25/18 09/25/18 09/25/18 00:00 00:00 00:00 01:00 Temp 98.3 Pulse 92 89 Resp 21 29 B/P (MAP) 126/54 (78) 124/61 (82) Pulse Ox 95 93 O2 Delivery Nasal Cannula Room Air Nasal Cannula O2 Flow Rate 2.00 2.00 2.00 09/25/18 09/25/18 09/25/18 09/25/18 01:19 02:00 03:00 04:00 Pulse 87 88 88 84 Resp 29 29 30 B/P (MAP) 113/68 (83) 107/59 (75) 99/69 (79) Pulse Ox 94 94 94 O2 Delivery Nasal Cannula Nasal Cannula Nasal Cannula O2 Flow Rate 2.00 2.00 2.00 09/25/18 09/25/18 09/25/18 09/25/18 04:00 04:00 05:00 06:00 Temp 98.3 Pulse 88 54 Resp 28 26 B/P (MAP) 110/56 (74) 104/59 (74) Pulse Ox 96 O2 Delivery Room Air Nasal Cannula Nasal Cannula O2 Flow Rate 2.00 2.00 2.00 09/25/18 09/25/18 09/25/18 09/25/18 06:15 06:30 07:00 07:00 Temp 98.6 98.2 99.1 Pulse 90 97 86 89 Resp 20 22 16 23 B/P (MAP) 121/66 104/64 105/63 (77) 109/60 (76) Pulse Ox 97 97 97 O2 Delivery Nasal Cannula Nasal Cannula Nasal Cannula Nasal Cannula O2 Flow Rate 2.00 2.00 2.00 2.00 09/25/18 09/25/18 09/25/18 09/25/18 07:00 08:00 08:37 08:39 Temp 99.2 99.1 Pulse 87 87 89 86 Resp 22 10 10 B/P (MAP) 112/60 (77) 112/60 112/60 Pulse Ox 99 99 O2 Delivery Nasal Cannula Room Air O2 Flow Rate 2.00 09/25/18 09/25/18 09/25/18 08:47 09:00 09:55 Temp 99.1 99.1 Pulse 86 88 86 Resp 10 16 10 B/P (MAP) 109/60 105/63 Pulse Ox 99 98 98 O2 Delivery Nasal Cannula Nasal Cannula Nasal Cannula O2 Flow Rate 2.00 2.00 2.00 09/24/18 23:59 Intake Total 2330 ml Output Total 3100 ml Balance -770 ml Weight (Pounds): 196 Weight (Ounces): 6.0 Weight (Calculated Kilograms): [id number] Constitutional: appears stated age, AAO x 3; No apparent distress; well- developed, well-nourished Respiratory: chest is bilaterally symmetric, lungs clear to auscultation Cardiovascular: regular rate-rhythm; No irregularly irregular, No extra beats, No parasternal heave is noted, No JVD, No edema, No bradycardia; tachycardia; No point of maximal impulse, No cardiac thrills are palpable; S1 and S2; No gallop/S3, No gallop/S4, No diastolic murmur, No systolic murmur, No friction rub, No click, No other Gastrointestional: No tender, No soft, No round, No distended, No pulsatile mass, No organomegaly, No guarding, No rebound, No tenderness, No hernia, No mass, No audible bowel sounds, No abnormal bowel sounds, No abdominal bruits, No spleenomegaly, No other Extremities: No normal range of motion, No non-tender, No normal inspection, No pedal edema, No calf tenderness, No normal capillary refill, No pelvis stable , No calf tenderness, No inflammation, No pedal edema, No slow capillary refill , No swelling, No other, No abrasion, No clubbing, No cyanosis, No ecchymosis, No laceration, No no lower extremity edema bilateral, No significant edema, No tenderness, No wound Neurologic/Psychiatric: no motor/sensory deficits, alert, normal mood/affect, oriented x 3, power is 5/5 both on sides Skin: No normal color, No warm/dry, No cyanosis, No cool, No diaphoresis, No damp, No ecchymosis, No jaundice, No mottled, No pallor, No rash, No tattoos/ piercings, No ulcerations, No rash on exposed areas, No ulcerations on exposed areas, No other Results/Procedures: Labs Laboratory Tests 09/24/18 12:00: Urine Color REDH, Urine Clarity BLOODYH, Urine pH 7, Urine Specific [place] 1.010L, Urine Protein 4+, Urine Glucose (UA) NEGATIVE, Urine Ketones 1+H, Urine Nitrite NEGATIVE, Urine Bilirubin NEGATIVE, Urine Urobilinogen NORMAL, Urine Leukocyte Esterase 2+H, Urine RBC (Auto) 5+H, Urine RBC TNTCH, Urine WBC TNTCH, Urine Crystals NONE, Urine Bacteria FEWH, Urine Casts NONE, Urine Mucus NEGATIVE , Urine Culture Indicated CULTURE PENDING 09/24/18 16:22: Glucometer 138H 09/24/18 17:07: Troponin I < 0.028 09/24/18 21:14: Glucometer 124H 09/25/18 04:38: White Blood Count 14.0H, Red Blood Count 2.05L, Hemoglobin 6.4#*L, Hematocrit 19 *L, Mean Corpuscular Volume 93, Mean Corpuscular Hemoglobin 31, Mean Corpuscular Hemoglobin Concent 34, Red Cell Distribution Width 14.6H, Platelet Count 266, Mean Platelet Volume 9.1, Neutrophils (%) (Auto) 79H, Lymphocytes (% ) (Auto) 13, Monocytes (%) (Auto) 7, Eosinophils (%) (Auto) 0, Basophils (%) ( Auto) 0, Neutrophils # (Auto) 11.1H, Lymphocytes # (Auto) 1.9, Monocytes # (Auto ) 1.0, Eosinophils # (Auto) 0.0, Basophils # (Auto) 0.0, Sodium Level 139, Potassium Level 3.9, Chloride Level 110#H, Carbon Dioxide Level 19L, Anion Gap 10, Blood Urea Nitrogen 24H, Creatinine 0.78, Estimat Glomerular Filtration Rate > 60, BUN/Creatinine Ratio 31, Glucose Level 109H, Calcium Level 7.5L, Corrected Calcium 8.9, Phosphorus Level 3.8, Magnesium Level 1.6L, Total Bilirubin 0.3, Aspartate Amino Transf (AST/SGOT) 14, Alanine Aminotransferase ( ALT/SGPT) 22, Alkaline Phosphatase 68, Troponin I < 0.028, Total Protein 4.5L, Albumin 2.2L, Triglycerides Level 75, Cholesterol Level 51, LDL Cholesterol Direct 29, VLDL Cholesterol 15, HDL Cholesterol < 15L 09/25/18 05:35: White Blood Count 13.6H, Red Blood Count 1.96L, Hemoglobin 6.1*L, Hematocrit 18* L, Mean Corpuscular Volume 93, Mean Corpuscular Hemoglobin 31, Mean Corpuscular Hemoglobin Concent 33, Red Cell Distribution Width 14.5, Platelet Count 253, Mean Platelet Volume 8.8, Neutrophils (%) (Auto) 80H, Lymphocytes (%) (Auto) 12 , Monocytes (%) (Auto) 7, Eosinophils (%) (Auto) 0, Basophils (%) (Auto) 0, Neutrophils # (Auto) 10.9H, Lymphocytes # (Auto) 1.6, Monocytes # (Auto) 1.0, Eosinophils # (Auto) 0.1, Basophils # (Auto) 0.0 Microbiology 09/24/18 Urine Culture - Final, Complete 3 or more isolates A/P: Assessment/Dx: Perforated viscus, pending surgery, Preoperative cardiovascular risk assessment, Chest pressure, Shortness of breath, Sinus tachycardia, Leukocytosis, Borderline diabetes, Hypertension, Hyperlipidemia, Active smoking. Plan: Perforated viscus, surgery is being deferred. Preoperative cardiovascular risk assessment, patient has significant risk factors for CAD. He also has complains of chest pain/pressure for the last one week. First EKG does not show any significant ST-T wave abnormalities. Serial troponin negative. However CAD cannot be ruled out. To me perforated viscus suggests urgent/emergent surgery to avoid risk of peritonitis and severe sepsis. Patient already has an elevated white count. Therefore in patients requiring urgent/emergent surgery perioperative cardiovascular risk assessment is not required. Since high grade obstructive CAD cannot be ruled out, the patient will be considered at intermediate/high risk for major adverse perioperative cardiac event events undergoing a moderate risk noncardiac surgery. I would suggest that the surgeon discussed with the patient the possible risks. I discussed at length with the patient and significant other and explained the above. Chest pressure, EKG is negative. Serial troponin are negative. Acute coronary syndrome has been ruled out. Patient will likely require nuclear evaluation or coronary angiography in the future, once acute illness has resolved, since the patient does have CAD risk factors. Shortness of breath, mildly elevated BNP. Sinus tachycardia with severe COPD. I will check echocardiogram, pending. Sinus tachycardia, likely due to perforated viscus and severe COPD. Leukocytosis, unclear etiology. Could be due to abdominal sepsis. Borderline diabetes, Hypertension, Hyperlipidemia, Active smoking. Thank you for your consultation. Please call me if you have any questions. Faraz Gutierrez MD, FACP, FACC, FSCAI, FHRS, CCDS Interventional Cardiology Cardiac Electrophysiology Vascular Medicine and Endovascular Interventions Focused Exam Lactate Level 09/24/18 10:45: Lactic Acid Level 0.82 Clinical Quality Measures AMI/AHF: ASA po Prior to arrival: Yes (324MG BY EMS) Alicja GUTIERREZ MD September 25, 2018 11:16
[2018-09-25] MEDS ORDERED: morphine INJ 10 MG/ML 1ML (SYR OR VIAL) ONE (11:31)
[2018-09-25] MEDS ORDERED: IOPAMIDOL 61% 30 ML (ISOVUE 300) VIAL IV ONE (11:32)
--- NOTE | 2018-09-25 11:34 | Progress Note-Post Operative ---
Post-Operative Progess Note Surgeon (s)/Tree Specialist (s) Surgeon WILLIE WRIGHT MD Tree Specialist: NONE Pre-Operative Diagnosis GROSS HEMATURIA POSSIBLE BLADDER TUMOR Post-Operative Diagnosis SAME Procedure & Operative Findings Date of Procedure 09/25/18 Procedure Performed/Findings CYSTOSCOPY AND RETROGRADE UROGRAM Anesthesia Type GENERAL Estimated Blood Loss Estimated blood loss (mL): LESS THAN 50CC Specimens/Packing Specimens Removed NONE Packing: NONE WILLIE WRIGHT MD September 25, 2018 11:34
[2018-09-25] MEDS ORDERED: PROMETHAZINE INJ 25 MG/ML (PHENERGAN) AMP IVP ONE (11:45)
[2018-09-25] MEDS ORDERED: ONDANSETRON 4 MG/2 ML (SDV) Z0FRAN IVP PRN (11:45)
[2018-09-25] MEDS ORDERED: HYDROmorphone 2 MG/ML VIAL (DILAUDID) IV ONE (11:45)
[2018-09-25] MEDS ORDERED: MEPERIDINE (DEMEROL) INJ 50 MG/ML IVP ONE (11:45)
[2018-09-25] MEDS ORDERED: morphine INJ 10 MG/ML 1ML (SYR OR VIAL) IVP ONE (11:45)
--- NOTE | 2018-09-25 13:31 | NUR ---
TPN: Goal for first week in ICU is 20kcal/kg (1580 kcal), protein 1.2gm/kg (95 gm), no lipids first week. Due to patients elevated BS will limit dextrose to 100 gm starting. TPN will start at 56 ml/hr providing 740 kcal with 100 mg protein. Will advance kcal pending labs. NS will be running at 120 ml/hr.
--- NOTE | 2018-09-25 13:34 | Progress Note (SOAP) ---
Subjective Date Seen by a Provider: September 25, 2018 Time Seen by a Provider: 13:00 Subjective/Events-last exam doing ok. more awake now. s/p attempted cysto and clot evacuation. minimal epigastric pain and minimal NGT output. WBC decrease. anemia secondary hematuria. Focused Exam Lactate Level 09/24/18 10:45: Lactic Acid Level 0.82 Objective Exam Vital Signs Date Time Temp Pulse Resp B/P (MAP) Pulse Ox O2 Delivery O2 Flow Rate FiO2 09/25/18 13:00 79 17 107/57 (74) 99 Nasal Cannula 2.00 09/25/18 12:49 80 09/25/18 12:30 79 14 106/62 (77) 94 Nasal Cannula 2.00 09/25/18 12:22 97.1 09/25/18 12:15 97.1 20 98 Nasal Cannula 4 09/25/18 12:00 20 100 Nasal Cannula 4 09/25/18 11:50 20 98 OxyMask 8 09/25/18 11:40 20 96 OxyMask 8 09/25/18 11:28 97.1 16 100 OxyMask 8 09/25/18 09:55 99.1 86 10 105/63 98 Nasal Cannula 2.00 09/25/18 09:00 88 16 98 Nasal Cannula 2.00 09/25/18 08:47 99.1 86 10 109/60 99 Nasal Cannula 2.00 09/25/18 08:39 99.1 86 10 112/60 99 Room Air 09/25/18 08:37 99.2 89 10 112/60 99 09/25/18 08:00 87 22 112/60 (77) Nasal Cannula 2.00 09/25/18 07:00 87 09/25/18 07:00 89 23 109/60 (76) 97 Nasal Cannula 2.00 09/25/18 07:00 99.1 86 16 105/63 (77) 97 Nasal Cannula 2.00 09/25/18 06:30 98.2 97 22 104/64 97 Nasal Cannula 2.00 09/25/18 06:15 98.6 90 20 121/66 Nasal Cannula 2.00 09/25/18 06:00 54 26 104/59 (74) 96 Nasal Cannula 2.00 09/25/18 05:00 88 28 110/56 (74) Nasal Cannula 2.00 09/25/18 04:00 Room Air 2.00 09/25/18 04:00 98.3 09/25/18 04:00 84 30 99/69 (79) 94 Nasal Cannula 2.00 09/25/18 03:00 88 29 107/59 (75) 94 Nasal Cannula 2.00 09/25/18 02:00 88 29 113/68 (83) 94 Nasal Cannula 2.00 09/25/18 01:19 87 09/25/18 01:00 89 29 124/61 (82) 93 Nasal Cannula 2.00 09/25/18 00:00 Room Air 2.00 09/25/18 00:00 92 21 126/54 (78) 95 Nasal Cannula 2.00 09/25/18 00:00 98.3 09/24/18 23:00 92 21 118/66 (83) 93 Nasal Cannula 2.00 09/24/18 22:00 106 30 136/73 (94) 97 Nasal Cannula 2.00 09/24/18 21:00 90 16 120/59 (79) 95 Nasal Cannula 2.00 09/24/18 20:00 Room Air 2.00 09/24/18 20:00 98.7 09/24/18 20:00 103 20 151/81 (104) 94 Nasal Cannula 2.00 09/24/18 19:00 90 23 113/62 (79) 93 Nasal Cannula 2.00 09/24/18 19:00 90 09/24/18 18:00 102 11 148/90 (109) Room Air 09/24/18 17:00 95 36 87 Room Air 09/24/18 16:00 96 28 139/68 (91) 94 Room Air 09/24/18 15:00 91 18 128/59 (82) 94 Room Air 09/24/18 15:00 91 09/24/18 14:55 94 Room Air 09/24/18 14:45 92 25 125/73 (90) 95 Room Air 09/24/18 14:40 89 18 122/68 (86) 98 Nasal Cannula 2.00 I & O 09/25/18 07:00 Intake Total 3450 ml Output Total 6000 ml Balance -2550 ml Capillary Refill : Less Than 3 Seconds General Appearance: No Apparent Distress HEENT: PERRL/EOMI Neck: Full Range of Motion Respiratory: Chest Non Tender, Wheezing Cardiovascular: Regular Rate, Rhythm Gastrointestinal: normal bowel sounds, soft, other (no peritoneal signs) Extremity: Normal Capillary Refill Neurologic/Psychiatric: Alert, Oriented x3 Skin: Normal Color Lymphatic: No Adenopathy Results Lab Laboratory Tests 09/24/18 16:22: Glucometer 138H 09/24/18 17:07: Troponin I < 0.028 09/24/18 21:14: Glucometer 124H 09/25/18 04:38: Troponin I < 0.028, White Blood Count 14.0H, Red Blood Count 2.05L, Hemoglobin 6.4#*L, Hematocrit 19*L, Mean Corpuscular Volume 93, Mean Corpuscular Hemoglobin 31, Mean Corpuscular Hemoglobin Concent 34, Red Cell Distribution Width 14.6H, Platelet Count 266, Mean Platelet Volume 9.1, Neutrophils (%) (Auto ) 79H, Lymphocytes (%) (Auto) 13, Monocytes (%) (Auto) 7, Eosinophils (%) (Auto ) 0, Basophils (%) (Auto) 0, Neutrophils # (Auto) 11.1H, Lymphocytes # (Auto) 1.9, Monocytes # (Auto) 1.0, Eosinophils # (Auto) 0.0, Basophils # (Auto) 0.0, Sodium Level 139, Potassium Level 3.9, Chloride Level 110#H, Carbon Dioxide Level 19L, Anion Gap 10, Blood Urea Nitrogen 24H, Creatinine 0.78, Estimat Glomerular Filtration Rate > 60, BUN/Creatinine Ratio 31, Glucose Level 109H, Calcium Level 7.5L, Corrected Calcium 8.9, Phosphorus Level 3.8, Magnesium Level 1.6L, Total Bilirubin 0.3, Aspartate Amino Transf (AST/SGOT) 14, Alanine Aminotransferase (ALT/SGPT) 22, Alkaline Phosphatase 68, Total Protein 4.5L, Albumin 2.2L, Triglycerides Level 75, Cholesterol Level 51, LDL Cholesterol Direct 29, VLDL Cholesterol 15, HDL Cholesterol < 15L 09/25/18 05:35: White Blood Count 13.6H, Red Blood Count 1.96L, Hemoglobin 6.1*L, Hematocrit 18* L, Mean Corpuscular Volume 93, Mean Corpuscular Hemoglobin 31, Mean Corpuscular Hemoglobin Concent 33, Red Cell Distribution Width 14.5, Platelet Count 253, Mean Platelet Volume 8.8, Neutrophils (%) (Auto) 80H, Lymphocytes (%) (Auto) 12 , Monocytes (%) (Auto) 7, Eosinophils (%) (Auto) 0, Basophils (%) (Auto) 0, Neutrophils # (Auto) 10.9H, Lymphocytes # (Auto) 1.6, Monocytes # (Auto) 1.0, Eosinophils # (Auto) 0.1, Basophils # (Auto) 0.0 09/25/18 12:26: Glucometer 143H Microbiology 09/24/18 Urine Culture - Final, Complete 3 or more isolates Assessment/Plan Assessment/Plan Assess & Plan/Chief Complaint contained chronic perforated PUD and gross hematuria with possible mass. attempted cysto however non-visualization. stable from upper GI standpoint. will continue NGT, IV abx and TPN. pt likely transfer to tertiary center. Clinical Quality Measures AMI/AHF: ASA po Prior to arrival: Yes (324MG BY EMS) DVT/VTE Risk/Contraindication: Risk Factor Score Per Nursin RFS Level Per Nursing on Admit: 4+=Very High GAL FLEMING MD September 25, 2018 13:34
[2018-09-25] MEDS: FLUCONAZOLE 400 MG IV SCH (13:38)
[2018-09-25 13:40] LABS: BASOPHILS % (AUTO) 0 % (0-10); EOSINOPHILS % (AUTO) 0 % (0-10); HEMATOCRIT 21 % (40-54); HEMOGLOBIN 7.1 G/DL (13.3-17.7); LYMPHOCYTES # (AUTO) 1.5 X 10^3 (1.0-4.0); LYMPHOCYTES % (AUTO) 8 % (12-44); MEAN CORPUSCULAR HEMOGLOBIN 31 PG (25-34); MEAN CORPUSCULAR HGB CONC 34 G/DL (32-36); MEAN CORPUSCULAR VOLUME 91 FL (80-99); MEAN PLATELET VOLUME 9.2 FL (7.4-10.4); MONOCYTES # (AUTO) 1.3 X 10^3 (0.0-1.0); MONOCYTES % (AUTO) 7 % (0-12); NEUTROPHILS # (AUTO) 15.6 X 10^3 (1.8-7.8); NEUTROPHILS % (AUTO) 85 % (42-75); PLATELET COUNT 251 10^3/uL (130-400); RED CELL DISTRIBUTION WIDTH 15.8 % (10.0-14.5); WHITE BLOOD COUNT 18.4 10^3/uL (4.3-11.0)
[2018-09-25 13:57] LABS: BUN/CREATININE RATIO 32; CALCIUM 7.1 MG/DL (8.5-10.1); CARBON DIOXIDE 21 MMOL/L (21-32); CHLORIDE 112 MMOL/L (98-107); CREATININE SERUM 0.73 MG/DL (0.60-1.30); GFR ESTIMATED > 60; GLUCOSE 132 MG/DL (70-105); POTASSIUM 4.3 MMOL/L (3.6-5.0); SODIUM 140 MMOL/L (135-145)
[2018-09-25 14:33] LABS: BAND NEUTROPHILS 13 %; LYMPHOCYTES % (MANUAL) 10 %; NEUTROPHILS % (MANUAL) 73 %
[2018-09-25 14:34] LABS: BASOPHILS % (MANUAL) 0 %; EOSINOPHILS % (MANUAL) 0 %; MONOCYTES % (MANUAL) 4 %; RBC MORPH NORMAL
--- NOTE | 2018-09-25 14:58 | NUR ---
Initial visit with pt's daughter. Pt resting with eyes closed: Daughter shared that the pt will go to by ambulance in hopes of finding out the cause for blood in his urine. [employer] Singer offered active listening and compassionate presence.
--- NOTE | 2018-09-25 15:24 | Short Stay Summary ---
HPI History of Present Illness: 78 yo M that presented to [facility] walk in clinic yesterday with gross hematuria and chest pressure. States that he noticed blood in his urine 2 weeks ago but in the last 2 days started having clots. States that he has also been having chest pressure in the last 2 days. Denies any shortness of breath. No fever or chills. Denies any previous IL or heart disease. Takes meds for HTN and HLD Source: patient, family (daughter) Exam Limitations: no limitations Date seen by provider: September 25, 2018 Time Seen by Provider: 09:15 Attending Physician Alicja Gutierrez MD PCP Unknown Consult Date of Admission September 24, 2018 at 14:17 Home Medications Home Medications Reviewed patient Home Medication Reconciliation performed by pharmacy medication reconciliations structures technician and/or nursing. Patients Allergies have been reviewed. Allergies Coded Allergies: NKANo Known Allergies (Verified Allergy, Unknown, 04/10/06) YBX-Nisyit-Nojiht Hx Patient Social History Alcohol Use: Denies Use Recreational Drug Use: No Smoking Status: Current Everyday Smoker Type Used: Cigarettes Recent Foreign Travel: No Contact w/other who traveled: No Recent Hopitalizations: No Recent Infectious Disease Expo: No Past Medical History HTN HLD Family Medical History Significant Family History: No Pertinent Family Hx Review of Systems ([facility]) Constitutional: no symptoms reported; No chills, No fever EENTM: no symptoms reported; No ear pain, No nose congestion, No throat pain Respiratory: dyspnea on exertion, short of breath Cardiovascular: chest pain; No edema, No palpitations Gastrointestinal: abdominal pain, loss of appetite, nausea Genitourinary: hematuria, incontinence, pain Musculoskeletal: no symptoms reported; No back pain, No joint pain, No muscle pain Skin: no symptoms reported Psychiatric/Neurological: Denies No Symptoms Reported Reviewed Test Results Reviewed Test Results Lab Laboratory Tests Test 09/24/18 16:22 09/24/18 17:07 09/24/18 21:14 09/25/18 04:38 Range/Units Glucometer 138 H 124 H 70-110 MG/DL Troponin I < 0.028 < 0.028 <0.028 NG/ML White Blood Count 14.0 H 4.3-11.0 10^3/uL Red Blood Count 2.05 L 4.35-5.85 10^6/uL Hemoglobin 6.4 #*L 13.3-17.7 G/DL Hematocrit 19 *L 40-54 % Mean Corpuscular Volume 93 80-99 FL Mean Corpuscular Hemoglobin 31 25-34 PG Mean Corpuscular Hemoglobin Concent 34 32-36 G/DL Red Cell Distribution Width 14.6 H 10.0-14.5 % Platelet Count 266 130-400 10^3/uL Mean Platelet Volume 9.1 7.4-10.4 FL Neutrophils (%) (Auto) 79 H 42-75 % Lymphocytes (%) (Auto) 13 12-44 % Monocytes (%) (Auto) 7 0-12 % Eosinophils (%) (Auto) 0 0-10 % Basophils (%) (Auto) 0 0-10 % Neutrophils # (Auto) 11.1 H 1.8-7.8 X 10^3 Lymphocytes # (Auto) 1.9 1.0-4.0 X 10^3 Monocytes # (Auto) 1.0 0.0-1.0 X 10^3 Eosinophils # (Auto) 0.0 0.0-0.3 10^3/uL Basophils # (Auto) 0.0 0.0-0.1 10^3/uL Sodium Level 139 135-145 MMOL/L Potassium Level 3.9 3.6-5.0 MMOL/L Chloride Level 110 #H 98-107 MMOL/L Carbon Dioxide Level 19 L 21-32 MMOL/L Anion Gap 10 5-14 MMOL/L Blood Urea Nitrogen 24 H 7-18 MG/DL Creatinine 0.78 0.60-1.30 MG/DL Estimat Glomerular Filtration Rate > 60 BUN/Creatinine Ratio 31 Glucose Level 109 H 70-105 MG/DL Calcium Level 7.5 L 8.5-10.1 MG/DL Corrected Calcium 8.9 8.5-10.1 MG/DL Phosphorus Level 3.8 2.3-4.7 MG/DL Magnesium Level 1.6 L 1.8-2.4 MG/DL Total Bilirubin 0.3 0.1-1.0 MG/DL Aspartate Amino Transf (AST/SGOT) 14 5-34 U/L Alanine Aminotransferase (ALT/SGPT) 22 0-55 U/L Alkaline Phosphatase 68 40-136 U/L Total Protein 4.5 L 6.4-8.2 GM/DL Albumin 2.2 L 3.2-4.5 GM/DL Triglycerides Level 75 <150 MG/DL Cholesterol Level 51 < 200 MG/DL LDL Cholesterol Direct 29 1-129 MG/DL VLDL Cholesterol 15 5-40 MG/DL HDL Cholesterol < 15 L 40-60 MG/DL Test 09/25/18 05:35 09/25/18 12:26 09/25/18 13:20 Range/Units White Blood Count 13.6 H 18.4 H 4.3-11.0 10^3/uL Red Blood Count 1.96 L 2.33 L 4.35-5.85 10^6/uL Hemoglobin 6.1 *L 7.1 L 13.3-17.7 G/DL Hematocrit 18 *L 21 L 40-54 % Mean Corpuscular Volume 93 91 80-99 FL Mean Corpuscular Hemoglobin 31 31 25-34 PG Mean Corpuscular Hemoglobin Concent 33 34 32-36 G/DL Red Cell Distribution Width 14.5 15.8 H 10.0-14.5 % Platelet Count 253 251 130-400 10^3/uL Mean Platelet Volume 8.8 9.2 7.4-10.4 FL Neutrophils (%) (Auto) 80 H 85 H 42-75 % Lymphocytes (%) (Auto) 12 8 L 12-44 % Monocytes (%) (Auto) 7 7 0-12 % Eosinophils (%) (Auto) 0 0 0-10 % Basophils (%) (Auto) 0 0 0-10 % Neutrophils # (Auto) 10.9 H 15.6 H 1.8-7.8 X 10^3 Lymphocytes # (Auto) 1.6 1.5 1.0-4.0 X 10^3 Monocytes # (Auto) 1.0 1.3 H 0.0-1.0 X 10^3 Eosinophils # (Auto) 0.1 0.0 0.0-0.3 10^3/uL Basophils # (Auto) 0.0 0.0 0.0-0.1 10^3/uL Glucometer 143 H 70-110 MG/DL Neutrophils % (Manual) 73 % Lymphocytes % (Manual) 10 % Monocytes % (Manual) 4 % Eosinophils % (Manual) 0 % Basophils % (Manual) 0 % Band Neutrophils 13 % Blood Morphology Comment NORMAL Sodium Level 140 135-145 MMOL/L Potassium Level 4.3 3.6-5.0 MMOL/L Chloride Level 112 H 98-107 MMOL/L Carbon Dioxide Level 21 21-32 MMOL/L Anion Gap 7 5-14 MMOL/L Blood Urea Nitrogen 23 H 7-18 MG/DL Creatinine 0.73 0.60-1.30 MG/DL Estimat Glomerular Filtration Rate > 60 BUN/Creatinine Ratio 32 Glucose Level 132 H 70-105 MG/DL Calcium Level 7.1 L 8.5-10.1 MG/DL Troponin I < 0.028 <0.028 NG/ML Radiology Date of Exam: 09/24/18 CT SELMA CHEST/NOANG ABD-PELV W INDICATION: Chest pain and low abdominal pain as well as hematuria. COMPARISON: No prior studies are available for comparison. TECHNIQUE: Axial imaging through the chest, abdomen, and pelvis was performed after the administration of intravenous contrast. CT angiography protocol was utilized for the chest. Multiplanar, 3-D and MIP reformations were also performed. CT angiogram chest: FINDINGS: Atherosclerotic calcifications are identified throughout the thoracic aorta. Caliber is normal. No dissection is seen. Central pulmonary arteries are unremarkable. There are coronary arterial calcifications. No pericardial or pleural fluid is detected. Biapical pleural thickening and pleural calcifications are noted. There are centrilobular emphysematous changes throughout both lungs. There appears to be some scarring or atelectasis in the right middle lobe. No mass or infiltrate is identified. IMPRESSION: 1. No evidence of thoracic aortic dissection or aneurysm. 2. Centrilobular emphysematous changes. No acute feature is seen. CT abdomen and pelvis: FINDINGS: Note is made of a pneumoperitoneum. There appears to be gas anterior to the stomach as well as small gas bubbles in the left upper quadrant. No free air is identified elsewhere. Findings are likely owing to perforated viscus, presumably from peptic ulcer disease. Liver contains tiny low densities, too small to characterize but most likely cysts. Gallbladder is unremarkable. No biliary ductal dilatation is seen. Pancreas and spleen are unremarkable. No adrenal mass on the left is identified. Minimal nodularity on the right is noted measuring 10 mm. Kidneys are unremarkable. Aorta does show some aneurysmal dilatation in the infrarenal portion measuring 4 cm in AP diameter. No dissection is seen. The iliac are heavily calcified. Bowel loops are normal caliber. There is no obstruction. There is no ascites. There is significant distention to the urinary bladder. The bladder does appear to be somewhat trabeculated. There is filling defect in the base of the bladder. This is concerning for a mass and/or hemorrhage or both. Bladder does contain a Brandon catheter. No definite lymphadenopathy is seen. Bony structures demonstrate postop changes to the right hip. No definite osteolytic or blastic lesions are seen. IMPRESSION: 1. Pneumoperitoneum, consistent with perforated viscus. This is likely secondary to peptic ulcer disease. 2. Infrarenal abdominal aortic aneurysm. 3. Distended and trabeculated bladder containing a large filling defect at the base. Features are concerning for bladder neoplasm and blood clot formation. Cystoscopy is recommended. Physical Exam-([facility]) Physical Exam Vital Signs VS - Last 72 Hours, by Label 09/24/18 09/24/18 09/24/18 09/24/18 10:39 10:39 10:39 14:40 Temp 98.6 Pulse 109 89 Resp 30 18 B/P (MAP) 115/63 (80) 122/68 (86) Pulse Ox 98 98 98 O2 Delivery Nasal Cannula Nasal Cannula Nasal Cannula Nasal Cannula O2 Flow Rate 2.0 2.00 2.00 2.00 09/24/18 09/24/18 09/24/18 09/24/18 14:45 14:55 15:00 15:00 Pulse 92 91 91 Resp 25 18 B/P (MAP) 125/73 (90) 128/59 (82) Pulse Ox 95 94 94 O2 Delivery Room Air Room Air Room Air 09/24/18 09/24/18 09/24/18 09/24/18 16:00 17:00 18:00 19:00 Pulse 96 95 102 90 Resp 28 36 11 B/P (MAP) 139/68 (91) 148/90 (109) Pulse Ox 94 87 O2 Delivery Room Air Room Air Room Air 09/24/18 09/24/18 09/24/18 09/24/18 19:00 20:00 20:00 20:00 Temp 98.7 Pulse 90 103 Resp 23 20 B/P (MAP) 113/62 (79) 151/81 (104) Pulse Ox 93 94 O2 Delivery Nasal Cannula Nasal Cannula Room Air O2 Flow Rate 2.00 2.00 2.00 09/24/18 09/24/18 09/24/18 09/25/18 21:00 22:00 23:00 00:00 Temp 98.3 Pulse 90 106 92 Resp 16 30 21 B/P (MAP) 120/59 (79) 136/73 (94) 118/66 (83) Pulse Ox 95 97 93 O2 Delivery Nasal Cannula Nasal Cannula Nasal Cannula O2 Flow Rate 2.00 2.00 2.00 09/25/18 09/25/18 09/25/18 09/25/18 00:00 00:00 01:00 01:19 Pulse 92 89 87 Resp 29 B/P (MAP) 126/54 (78) 124/61 (82) Pulse Ox 95 93 O2 Delivery Nasal Cannula Room Air Nasal Cannula O2 Flow Rate 2.00 2.00 2.00 09/25/18 09/25/18 09/25/18 09/25/18 02:00 03:00 04:00 04:00 Temp 98.3 Pulse 88 88 84 Resp 29 30 B/P (MAP) 113/68 (83) 107/59 (75) 99/69 (79) Pulse Ox 94 94 94 O2 Delivery Nasal Cannula Nasal Cannula Nasal Cannula O2 Flow Rate 2.00 2.00 2.00 09/25/18 09/25/18 09/25/18 09/25/18 04:00 05:00 06:00 06:15 Temp 98.6 Pulse 88 54 90 Resp 28 26 20 B/P (MAP) 110/56 (74) 104/59 (74) 121/66 Pulse Ox 96 O2 Delivery Room Air Nasal Cannula Nasal Cannula Nasal Cannula O2 Flow Rate 2.00 2.00 2.00 2.00 09/25/18 09/25/18 09/25/18 09/25/18 06:30 07:00 07:00 07:00 Temp 98.2 99.1 Pulse 97 86 89 87 Resp 22 16 23 B/P (MAP) 104/64 105/63 (77) 109/60 (76) Pulse Ox 97 97 97 O2 Delivery Nasal Cannula Nasal Cannula Nasal Cannula O2 Flow Rate 2.00 2.00 2.00 09/25/18 09/25/18 09/25/18 09/25/18 08:00 08:37 08:39 08:47 Temp 99.2 99.1 99.1 Pulse 87 89 86 86 Resp 22 10 10 10 B/P (MAP) 112/60 (77) 112/60 112/60 109/60 Pulse Ox 99 99 99 O2 Delivery Nasal Cannula Room Air Nasal Cannula O2 Flow Rate 2.00 2.00 09/25/18 09/25/18 09/25/18 09/25/18 09:00 09:55 11:28 11:40 Temp 99.1 97.1 Pulse 88 86 Resp 16 10 16 20 B/P (MAP) 105/63 Pulse Ox 98 98 100 96 O2 Delivery Nasal Cannula Nasal Cannula OxyMask OxyMask O2 Flow Rate 2.00 2.00 8 8 09/25/18 09/25/18 09/25/18 09/25/18 11:50 12:00 12:15 12:22 Temp 97.1 97.1 Resp 20 20 20 Pulse Ox 98 100 98 O2 Delivery OxyMask Nasal Cannula Nasal Cannula O2 Flow Rate 8 4 4 09/25/18 09/25/18 09/25/18 09/25/18 12:30 12:49 13:00 14:00 Pulse 79 80 79 86 Resp 14 17 17 B/P (MAP) 106/62 (77) 107/57 (74) 120/62 (81) Pulse Ox 94 99 100 O2 Delivery Nasal Cannula Nasal Cannula Nasal Cannula O2 Flow Rate 2.00 2.00 2.00 Capillary Refill : Less Than 3 Seconds General Appearance: WD/WN, no apparent distress HEENT: PERRL/EOMI Neck: non-tender, full range of motion, supple Respiratory: chest non-tender, lungs clear, normal breath sounds, no respiratory distress, no accessory muscle use Cardiovascular: normal peripheral pulses, regular rate, rhythm, no murmur Gastrointestinal: normal bowel sounds, soft; No guarding, No rebound Extremities: no pedal edema, no calf tenderness, normal capillary refill Neurologic/Psychiatric: telesales specialist II-XII nml as tested, no motor/sensory deficits, alert, normal mood/affect, oriented x 3 Skin: cool, pallor Lymphatic: no adenopathy Short Stay Diagnosis Discharge Diagnosis-Short Stay Admission Diagnosis Gross Hematuria Bladder Mass Anemia of acute blood loss Atypical Chest Pain Free Air in abdomen HTN HLD Final Discharge Diagnosis See Above Conclusion Plan See plan above Was the Problem List Reviewed?: Yes Clinical Quality Measures AMI/AHF: ASA po Prior to arrival: Yes (324MG BY EMS) DVT/VTE Risk/Contraindication: Risk Factor Score Per Nursin RFS Level Per Nursing on Admit: 4+=Very High Assessment/Plan Assessment/Plan Admission Status: Inpatient Order (span 2 midnights) Reason for Inpatient Admission: Requiring ICU care (1) Bladder mass Status: Acute Assessment & Plan: - Dr Li Consulted and took the patient to surgery this AM for scope, Spoke with Dr Li and he would recommend this patient transfer to for further Urology services, ONE CALL @ 1400, awaiting for call back (2) Anemia associated with acute blood loss Status: Acute Assessment & Plan: - S/p 2 units, 2 more units holding, VS stable (3) Gross hematuria Status: Acute (4) Intra-abdominal free air of unknown etiology Status: Acute Assessment & Plan: - Dr Cabrales with General Surgery following patient, States that free air seems to be walled off, patient is not illiciting any peritoneal signs (5) Chest pressure Status: Acute Assessment & Plan: - Seen by cardiology, patient does have significant CV risk (6) UTI (urinary tract infection) Status: Acute Assessment & Plan: - Continue antibiotics at this time Qualifiers: Qualified Codes: N30.01 - Acute cystitis with hematuria GERRY SERRANO MD September 25, 2018 15:24
[2018-09-25 17:00] LABS: HEMOGLOBIN 6.5 G/DL (13.3-17.7)
[2018-09-25] MEDS ORDERED: [UNRECOGNIZED DRUG - OTHER] IV SCH ×10 (17:00)
[2018-09-25] MEDS ORDERED: SODIUM ACETATE IV SCH ×10 (17:00)
[2018-09-25] MEDS ORDERED: POTASSIUM CHLORIDE IV SCH ×10 (17:00)
[2018-09-25] MEDS: PANTOPRAZOLE INJECTION 200 MG in NS (IVPB) 100 ML IV SCH (17:16)
[2018-09-25 23:57] LABS: HEMOGLOBIN 8.1 G/DL (13.3-17.7)
[2018-09-26] VITALS (24 sets, daily range): BP systolic 107–161; BP diastolic 58–77
[2018-09-26] MEDS: fentaNYL INJECTION 100 MCG/2 ML AMP IV PRN ×3 (00:20→22:27)
[2018-09-26] MEDS: NOREPINEPHRINE 4 MG in NS (IVPB) 250 ML IV SCH ×3 (01:28→19:30)
[2018-09-26] MEDS: NS IV 1000 ML 1,000 ML IV SCH ×4 (03:00→22:27)
[2018-09-26 03:03] LABS: BASOPHILS % (AUTO) 0 % (0-10); EOSINOPHILS # (AUTO) 0.2 10^3/uL (0.0-0.3); EOSINOPHILS % (AUTO) 1 % (0-10); HEMATOCRIT 23 % (40-54); HEMOGLOBIN 7.8 G/DL (13.3-17.7); LYMPHOCYTES # (AUTO) 2.3 X 10^3 (1.0-4.0); LYMPHOCYTES % (AUTO) 17 % (12-44); MEAN CORPUSCULAR HEMOGLOBIN 30 PG (25-34); MEAN CORPUSCULAR HGB CONC 34 G/DL (32-36); MEAN CORPUSCULAR VOLUME 89 FL (80-99); MEAN PLATELET VOLUME 8.9 FL (7.4-10.4); MONOCYTES % (AUTO) 8 % (0-12); NEUTROPHILS # (AUTO) 10.1 X 10^3 (1.8-7.8); NEUTROPHILS % (AUTO) 74 % (42-75); PLATELET COUNT 241 10^3/uL (130-400); WHITE BLOOD COUNT 13.7 10^3/uL (4.3-11.0)
[2018-09-26 03:25] LABS: ALANINE AMINOTRANSFERASE 14 U/L (0-55); ALBUMIN 2.1 GM/DL (3.2-4.5); ALKALINE PHOSPHATASE 51 U/L (40-136); BILIRUBIN,TOTAL 0.4 MG/DL (0.1-1.0); BUN/CREATININE RATIO 27; CALCIUM 7.3 MG/DL (8.5-10.1); CARBON DIOXIDE 20 MMOL/L (21-32); CHLORIDE 114 MMOL/L (98-107); CREATININE SERUM 0.73 MG/DL (0.60-1.30); GFR ESTIMATED > 60; GLUCOSE 128 MG/DL (70-105); MAGNESIUM 2.1 MG/DL (1.8-2.4); PHOSPHORUS 2.9 MG/DL (2.3-4.7); POTASSIUM 4.2 MMOL/L (3.6-5.0); SODIUM 143 MMOL/L (135-145); TOTAL PROTEIN 4.3 GM/DL (6.4-8.2)
[2018-09-26] MEDS: PIPERACILLIN/TAZO 4.5 GM/NS 100 ML IV SCH ×6 (03:40→19:23)
[2018-09-26] MEDS: MAGNESIUM 1 GM/100 ML IVPB 100 ML IV SCH (03:42)
[2018-09-26] MEDS: POTASSIUM CL 10MEQ/50ML IVPB 50 ML IV SCH (03:42)
[2018-09-26] MEDS: KCL 20 MEQ TAB (K-DUR) PO SCH (03:43)
--- NOTE | 2018-09-26 06:45 | OPERATIVE REPORT ---
DATE OF SERVICE: 09/25/2018 PREOPERATIVE DIAGNOSIS: Gross hematuria, possible bladder tumor. POSTOPERATIVE DIAGNOSIS: Gross hematuria, possible bladder tumor. OPERATION PERFORMED: Cystoscopy and retrograde cystogram. SURGEON: Jona Wright MD ANESTHESIA: General. COMPLICATIONS: None. DESCRIPTION OF PROCEDURE: Under satisfactory general anesthesia, the patient in lithotomy position, genitalia were prepped and draped in the usual sterile fashion after removing the Brandon catheter. The cystoscope was introduced under vision. The anterior urethra was normal. The prostate was small and not really obstructing. I entered the bladder, I could not visualize anything literally hyperemia, no visibility whatsoever. I was concerned about possibility of perforation, so I removed the cystoscope, inserted the Brandon catheter and performed cystogram. I could see the contrast flowing around a big mass like effect in the bladder, but no extravasation noted extra or intraperitoneally. I removed that Brandon catheter and inserted a 23 with 10 mL balloon connected to continuous bladder irrigation and the return of which was pink. No clots. We secured the catheter. Estimated blood loss about 50 mL, none of which was replaced. The patient tolerated the procedure and anesthesia well and was sent to recovery room in stable condition. I talked to his daughter in lengthy and then later on we talked to the patient about transferring him to a tertiary center, I favor where they have more than one urologist, which can work as a team or in combination and also take care surgically of the other issues. We will discuss that with the medical team on the patient and decide accordingly. The daughter will let us know if she would prefer a place in [place], although she lives in [place], which I thought [facility] would be closer to her. Job ID: [id number] DocumentID: [id number] Dictated Date: 09/25/2018 11:39:23 Skidder Driver Date: 09/25/2018 16:30:08 Dictated By: JONA WRIGHT MD
--- NOTE | 2018-09-26 07:30 | Anesthesia-General Post-Op ---
General Patient Condition Mental Status/LOC: Same as Preop Cardiovascular: Satisfactory Nausea/Vomiting: Absent Respiratory: Satisfactory Pain: Controlled Complications: Absent Post Op Complications Complications None Follow Up Care/Instructions Patient Instructions None needed. Anesthesia/Patient Condition Patient Condition Patient is doing well, no complaints, stable vital signs, no apparent adverse anesthesia problems. No complications reported per nursing. LEILA DUCKWORTH CRNA September 26, 2018 07:30
[2018-09-26] MEDS: NICOTINE 21 MG (NICODERM) PATCH TD SCH (08:15)
[2018-09-26] MEDS: NICOTINE PATCH REMOVAL TP SCH (08:15)
--- NOTE | 2018-09-26 08:27 | Diagnostic Imaging Report ---
INDICATION: Chest pain. COMPARISON: 09/24/2018. FINDINGS: NG tube and left subclavian line remain in good position. Lungs remain well-aerated. There are no infiltrates. No pneumothorax or pleural effusion. Heart is not enlarged. IMPRESSION: Stable portable chest with tubes and lines again noted. Dictated by: Dictated on workstation # [id number]
--- NOTE | 2018-09-26 09:26 | Progress Note-Urology ---
Progress Note-Urology Progress Notes/Assess & Plan Progress/Assessment & Plan STATUS QUO. TO [facility] TODAY. FINDINGS AND PLAN FULLY EXPLAINED TO PATIENT Final Diagnosis GROSS HEMATURIA AND POSSIBLE BLADDER TUMOR WILLIE WRIGHT MD September 26, 2018 09:26
[2018-09-26 10:45] LABS: HEMOGLOBIN 7.4 G/DL (13.3-17.7)
[2018-09-26] MEDS ORDERED: HYDR25TA4 PO (11:06)
[2018-09-26] MEDS ORDERED: LOVA40TA2 PO (11:06)
[2018-09-26] MEDS ORDERED: LISI40TA PO (11:06)
--- NOTE | 2018-09-26 11:07 | NUR ---
SPOKE WITH THE PATIENT ABOUT HIS MEDICATIONS. HE VERIFIED HOW HE TAKES THEM AND I COMPARED WITH THE EXT MED HX. HE ALSO TAKES FISH OIL AND NIACIN OTC 3 OF EACH AT BEDTIME.
--- NOTE | 2018-09-26 11:25 | NUR ---
Pastoral care visit.
--- NOTE | 2018-09-26 12:20 | Cardiology Progress Note ---
Cardiology SOAP Progress Note Subjective: No further chest pain. Objective: I&O/Vital Signs 09/26/18 09/26/18 09/26/18 09/26/18 02:00 03:00 04:00 05:00 Pulse 77 79 78 71 Resp 20 9 23 14 B/P (MAP) 124/58 (80) 125/58 (80) 117/60 (79) 112/63 (79) Pulse Ox 98 100 100 99 O2 Delivery Nasal Cannula Nasal Cannula Nasal Cannula Nasal Cannula O2 Flow Rate 2.00 2.00 2.00 2.00 09/26/18 09/26/18 09/26/18 09/26/18 06:00 07:00 07:00 07:38 Pulse 79 53 87 Resp 8 16 B/P (MAP) 124/63 (83) 107/77 (87) Pulse Ox 100 100 O2 Delivery Nasal Cannula Nasal Cannula Nasal Cannula O2 Flow Rate 2.00 2.00 2.00 09/26/18 09/26/18 09/26/18 09/26/18 07:45 08:00 08:00 09:00 Temp 97.9 Pulse 81 82 Resp 24 24 B/P (MAP) 124/61 (82) 141/61 (87) Pulse Ox 99 98 O2 Delivery Nasal Cannula Nasal Cannula Nasal Cannula O2 Flow Rate 2.00 2.00 2.00 09/26/18 09/26/18 09/26/18 09/26/18 10:00 11:00 12:00 12:01 Temp 98.9 Pulse 77 80 76 Resp 22 10 22 B/P (MAP) 126/63 (84) 135/64 (87) 132/60 (84) Pulse Ox 98 98 100 O2 Delivery Nasal Cannula Nasal Cannula Nasal Cannula O2 Flow Rate 2.00 2.00 2.00 09/26/18 12:24 O2 Delivery Nasal Cannula O2 Flow Rate 2.00 09/26/18 00:00 Intake Total 0 ml Output Total 2850 ml Balance -2850 ml Weight (Pounds): 196 Weight (Ounces): 6.0 Weight (Calculated Kilograms): 89.418381 Constitutional: appears stated age, AAO x 3; No apparent distress; well- developed, well-nourished Respiratory: chest is bilaterally symmetric, lungs clear to auscultation Cardiovascular: regular rate-rhythm; No irregularly irregular, No extra beats, No parasternal heave is noted, No JVD, No edema, No bradycardia; tachycardia; No point of maximal impulse, No cardiac thrills are palpable; S1 and S2; No gallop/S3, No gallop/S4, No diastolic murmur, No systolic murmur, No friction rub, No click, No other Gastrointestional: No tender, No soft, No round, No distended, No pulsatile mass, No organomegaly, No guarding, No rebound, No tenderness, No hernia, No mass, No audible bowel sounds, No abnormal bowel sounds, No abdominal bruits, No spleenomegaly, No other Extremities: No normal range of motion, No non-tender, No normal inspection, No pedal edema, No calf tenderness, No normal capillary refill, No pelvis stable , No calf tenderness, No inflammation, No pedal edema, No slow capillary refill , No swelling, No other, No abrasion, No clubbing, No cyanosis, No ecchymosis, No laceration, No no lower extremity edema bilateral, No significant edema, No tenderness, No wound Neurologic/Psychiatric: no motor/sensory deficits, alert, normal mood/affect, oriented x 3, power is 5/5 both on sides Skin: No normal color, No warm/dry, No cyanosis, No cool, No diaphoresis, No damp, No ecchymosis, No jaundice, No mottled, No pallor, No rash, No tattoos/ piercings, No ulcerations, No rash on exposed areas, No ulcerations on exposed areas, No other Results/Procedures: Labs Laboratory Tests 09/25/18 13:20: White Blood Count 18.4H, Red Blood Count 2.33L, Hemoglobin 7.1L, Hematocrit 21L , Mean Corpuscular Volume 91, Mean Corpuscular Hemoglobin 31, Mean Corpuscular Hemoglobin Concent 34, Red Cell Distribution Width 15.8H, Platelet Count 251, Mean Platelet Volume 9.2, Neutrophils (%) (Auto) 85H, Lymphocytes (%) (Auto) 8L , Monocytes (%) (Auto) 7, Eosinophils (%) (Auto) 0, Basophils (%) (Auto) 0, Neutrophils # (Auto) 15.6H, Lymphocytes # (Auto) 1.5, Monocytes # (Auto) 1.3H, Eosinophils # (Auto) 0.0, Basophils # (Auto) 0.0, Neutrophils % (Manual) 73, Lymphocytes % (Manual) 10, Monocytes % (Manual) 4, Eosinophils % (Manual) 0, Basophils % (Manual) 0, Band Neutrophils 13, Blood Morphology Comment NORMAL, Sodium Level 140, Potassium Level 4.3, Chloride Level 112H, Carbon Dioxide Level 21, Anion Gap 7, Blood Urea Nitrogen 23H, Creatinine 0.73, Estimat Glomerular Filtration Rate > 60, BUN/Creatinine Ratio 32, Glucose Level 132H, Calcium Level 7.1L, Troponin I < 0.028 09/25/18 16:50: Hemoglobin 6.5*L, Hematocrit 19*L 09/25/18 17:37: Glucometer 155H 09/25/18 20:58: Glucometer 154H 09/25/18 23:40: Hemoglobin 8.1#L, Hematocrit 24L 09/26/18 03:00: Hemoglobin 7.8L, Hematocrit 23L, White Blood Count 13.7H, Red Blood Count 2.58L , Mean Corpuscular Volume 89, Mean Corpuscular Hemoglobin 30, Mean Corpuscular Hemoglobin Concent 34, Red Cell Distribution Width 16.0H, Platelet Count 241, Mean Platelet Volume 8.9, Neutrophils (%) (Auto) 74, Lymphocytes (%) (Auto) 17, Monocytes (%) (Auto) 8, Eosinophils (%) (Auto) 1, Basophils (%) (Auto) 0, Neutrophils # (Auto) 10.1H, Lymphocytes # (Auto) 2.3, Monocytes # (Auto) 1.0, Eosinophils # (Auto) 0.2, Basophils # (Auto) 0.0, Sodium Level 143, Potassium Level 4.2, Chloride Level 114H, Carbon Dioxide Level 20L, Anion Gap 9, Blood Urea Nitrogen 20H, Creatinine 0.73, Estimat Glomerular Filtration Rate > 60, BUN /Creatinine Ratio 27, Glucose Level 128H, Calcium Level 7.3L, Corrected Calcium 8.8, Phosphorus Level 2.9, Magnesium Level 2.1, Total Bilirubin 0.4, Aspartate Amino Transf (AST/SGOT) 11, Alanine Aminotransferase (ALT/SGPT) 14, Alkaline Phosphatase 51, Total Protein 4.3L, Albumin 2.1L 09/26/18 10:33: Hemoglobin 7.4L, Hematocrit 22L 09/26/18 11:27: Glucometer 138H 09/26/18 12:59: Lab Scanned Report Transfusion Reaction Form Microbiology 09/24/18 Blood Culture - Preliminary, Resulted No growth 09/24/18 MRSA Screen - Final, Complete MRSA not isolated 09/24/18 Urine Culture - Final, Complete 3 or more isolates A/P: Assessment/Dx: Perforated viscus, pending surgery, Preoperative cardiovascular risk assessment, Chest pressure, Shortness of breath, Sinus tachycardia, Leukocytosis, Borderline diabetes, Hypertension, Hyperlipidemia, Active smoking. Plan: Perforated viscus, surgery is being deferred. Bladder mass, bleeding, defer to urology. Likely transfer to . Preoperative cardiovascular risk assessment, patient has significant risk factors for CAD. He also has complains of chest pain/pressure for the last one week. First EKG does not show any significant ST-T wave abnormalities. Serial troponin negative. However CAD cannot be ruled out. To me perforated viscus suggests urgent/emergent surgery to avoid risk of peritonitis and severe sepsis. Patient already has an elevated white count. Therefore in patients requiring urgent/emergent surgery perioperative cardiovascular risk assessment is not required. Since high grade obstructive CAD cannot be ruled out, the patient will be considered at intermediate/high risk for major adverse perioperative cardiac event events undergoing a moderate risk noncardiac surgery. I would suggest that the surgeon discussed with the patient the possible risks. I discussed at length with the patient and significant other and explained the above. Chest pressure, EKG is negative. Serial troponin are negative. Acute coronary syndrome has been ruled out. Patient will likely require nuclear evaluation or coronary angiography in the future, once acute illness has resolved, since the patient does have CAD risk factors. Shortness of breath, mildly elevated BNP. Sinus tachycardia with severe COPD. echocardiogram done 09/24/2018 revealed normal LV size and function. Sinus tachycardia, likely due to perforated viscus and severe COPD. Leukocytosis, unclear etiology. Could be due to abdominal sepsis. Borderline diabetes, Hypertension, Hyperlipidemia, Active smoking. Thank you for your consultation. Please call me if you have any questions. Faraz Gutierrez MD, FACP, FACC, FSCAI, FHRS, CCDS Interventional Cardiology Cardiac Electrophysiology Vascular Medicine and Endovascular Interventions Focused Exam Lactate Level 09/24/18 10:45: Lactic Acid Level 0.82 Clinical Quality Measures AMI/AHF: ASA po Prior to arrival: Yes (324MG BY EMS) Alicja GUTIERREZ MD September 26, 2018 12:20
--- NOTE | 2018-09-26 12:55 | Physician Query Clarification ---
PQ-Uncertain Diagnosis Admission/Discharge Admission Date: September 24, 2018 at 14:17 Discharge Date: The medical record reflects the following clinical scenario: History/Risk Factors: Bladder mass Gross Hematuria Perforated viscus(most likely a perforated peptic ulcer) per Dr. Cabrales and Dr. Li's consults. Clinical Findings: Temp-98.6, Pulse 109, Resp 30, BP 115/63, Lactic acid 0.82. WBCs 18.4, Bands 13 Treatment:IV Cetriaxone Sodium, IV Fluconazole. ED physician, Dr. Magallanes, gave a diagnosis of Sepsis. Dr. Cabrales's consult said, "no signs of sepsis or peritoneal signs" and your short stay summary did not mention sepsis. Question: Is Sepsis a clinically valid diagnosis? [diagnosis] was documented in the [dates and type of documents] with no further documentation in the medical record. Please document a response below. PHYSICIAN RESPONSE Diagnosis clinically valid: No, conditon ruled out In responding to this query, please exercise your independent professional judgment. The purpose of this communication is to more accurately reflect the complexity of your patients condition. The fact that a question is asked does not imply that any particular answer is desired or expected. Thank you for your timely response to this clarification. Requestors name: Nicole Canales [facility] Phone # ext [phone] or [phone] THIS PHYSICIAN QUERY FORM IS A PERMANENT PART OF THE MEDICAL RECORD NICOLE CANALES September 26, 2018 12:54 GERRY SERRANO MD September 27, 2018 21:54
--- NOTE | 2018-09-26 13:11 | NUR ---
TPN: TPN advanced to 66 ml/hr, providing 1080 kcal with 100 gm protein. Will continue to advance toward goal of 1580 kcal and 100 gm protein pending labs. NS at 85 ml/hr for a total of 150 ml/hr fluids.
[2018-09-26] MEDS: FLUCONAZOLE 400 MG IV SCH (14:49)
[2018-09-26 16:58] LABS: HEMOGLOBIN 7.5 G/DL (13.3-17.7)
[2018-09-26] MEDS ORDERED: [UNRECOGNIZED DRUG - OTHER] IV SCH ×8 (17:00)
[2018-09-26] MEDS ORDERED: POTASSIUM ACETATE IV SCH ×8 (17:00)
[2018-09-26] MEDS ORDERED: SODIUM PHOSPHATE IV SCH ×8 (17:00)
[2018-09-26] MEDS: PANTOPRAZOLE INJECTION 200 MG in NS (IVPB) 100 ML IV SCH (17:33)
--- NOTE | 2018-09-26 17:38 | Progress Note (SOAP) ---
Subjective Subjective/Events-last exam Patient states that he feels better this AM. Urine is getting more clear with less clots but still grossly bloody. Denies any further chest pain. Review of Systems Date Seen by Provider: September 26, 2018 Time Seen by Provider: 09:05 Pulmonary: No Dyspnea, No Cough Cardiovascular: Edema; No: Chest Pain, Palpitations Gastrointestinal: No: Nausea, Vomiting Genitourinary: Other (Hematuria) Focused Exam Lactate Level 09/24/18 10:45: Lactic Acid Level 0.82 Objective Exam Last Set of Vital Signs Vital Signs Date Time Temp Pulse Resp B/P (MAP) Pulse Ox O2 Delivery O2 Flow Rate FiO2 09/26/18 16:45 Nasal Cannula 2.00 09/26/18 16:01 98.6 09/26/18 16:00 85 18 147/70 (95) 100 Capillary Refill : Less Than 3 Seconds I&O Intake and Output 09/26/18 00:00 Intake Total 120 ml Output Total 8475 ml Balance -8355 ml Intake Oral 0 ml IV Total 120 ml Output Urine Total 6950 ml Gastric Drainage Total 25 ml Other 1500 ml General: Alert, Oriented X3, Cooperative, No Acute Distress Lungs: Clear to Auscultation, Normal Air Movement Heart: Regular Rate, No Murmurs Abdomen: Normal Bowel Sounds, Soft, Other (pelvic ttp) Neuro: Normal Speech, Cranial Nerves 3-12 NL Psych/Mental Status: Mental Status NL, Mood NL Results/Procedures Lab Laboratory Tests 09/25/18 17:37: Glucometer 155H 09/25/18 20:58: Glucometer 154H 09/25/18 23:40: Hemoglobin 8.1#L, Hematocrit 24L 09/26/18 03:00: Hemoglobin 7.8L, Hematocrit 23L, White Blood Count 13.7H, Red Blood Count 2.58L , Mean Corpuscular Volume 89, Mean Corpuscular Hemoglobin 30, Mean Corpuscular Hemoglobin Concent 34, Red Cell Distribution Width 16.0H, Platelet Count 241, Mean Platelet Volume 8.9, Neutrophils (%) (Auto) 74, Lymphocytes (%) (Auto) 17, Monocytes (%) (Auto) 8, Eosinophils (%) (Auto) 1, Basophils (%) (Auto) 0, Neutrophils # (Auto) 10.1H, Lymphocytes # (Auto) 2.3, Monocytes # (Auto) 1.0, Eosinophils # (Auto) 0.2, Basophils # (Auto) 0.0, Sodium Level 143, Potassium Level 4.2, Chloride Level 114H, Carbon Dioxide Level 20L, Anion Gap 9, Blood Urea Nitrogen 20H, Creatinine 0.73, Estimat Glomerular Filtration Rate > 60, BUN /Creatinine Ratio 27, Glucose Level 128H, Calcium Level 7.3L, Corrected Calcium 8.8, Phosphorus Level 2.9, Magnesium Level 2.1, Total Bilirubin 0.4, Aspartate Amino Transf (AST/SGOT) 11, Alanine Aminotransferase (ALT/SGPT) 14, Alkaline Phosphatase 51, Total Protein 4.3L, Albumin 2.1L 09/26/18 10:33: Hemoglobin 7.4L, Hematocrit 22L 09/26/18 11:27: Glucometer 138H 09/26/18 12:59: Lab Scanned Report Transfusion Reaction Form 09/26/18 16:14: Glucometer 126H 09/26/18 16:55: Hemoglobin 7.5L, Hematocrit 22L Microbiology 09/24/18 Blood Culture - Preliminary, Resulted No growth 09/24/18 MRSA Screen - Final, Complete MRSA not isolated 09/24/18 Urine Culture - Final, Complete 3 or more isolates Radiology Date of Exam: 09/24/18 CT SELMA CHEST/NOANG ABD-PELV W INDICATION: Chest pain and low abdominal pain as well as hematuria. COMPARISON: No prior studies are available for comparison. TECHNIQUE: Axial imaging through the chest, abdomen, and pelvis was performed after the administration of intravenous contrast. CT angiography protocol was utilized for the chest. Multiplanar, 3-D and MIP reformations were also performed. CT angiogram chest: FINDINGS: Atherosclerotic calcifications are identified throughout the thoracic aorta. Caliber is normal. No dissection is seen. Central pulmonary arteries are unremarkable. There are coronary arterial calcifications. No pericardial or pleural fluid is detected. Biapical pleural thickening and pleural calcifications are noted. There are centrilobular emphysematous changes throughout both lungs. There appears to be some scarring or atelectasis in the right middle lobe. No mass or infiltrate is identified. IMPRESSION: 1. No evidence of thoracic aortic dissection or aneurysm. 2. Centrilobular emphysematous changes. No acute feature is seen. CT abdomen and pelvis: FINDINGS: Note is made of a pneumoperitoneum. There appears to be gas anterior to the stomach as well as small gas bubbles in the left upper quadrant. No free air is identified elsewhere. Findings are likely owing to perforated viscus, presumably from peptic ulcer disease. Liver contains tiny low densities, too small to characterize but most likely cysts. Gallbladder is unremarkable. No biliary ductal dilatation is seen. Pancreas and spleen are unremarkable. No adrenal mass on the left is identified. Minimal nodularity on the right is noted measuring 10 mm. Kidneys are unremarkable. Aorta does show some aneurysmal dilatation in the infrarenal portion measuring 4 cm in AP diameter. No dissection is seen. The iliac are heavily calcified. Bowel loops are normal caliber. There is no obstruction. There is no ascites. There is significant distention to the urinary bladder. The bladder does appear to be somewhat trabeculated. There is filling defect in the base of the bladder. This is concerning for a mass and/or hemorrhage or both. Bladder does contain a Brandon catheter. No definite lymphadenopathy is seen. Bony structures demonstrate postop changes to the right hip. No definite osteolytic or blastic lesions are seen. IMPRESSION: 1. Pneumoperitoneum, consistent with perforated viscus. This is likely secondary to peptic ulcer disease. 2. Infrarenal abdominal aortic aneurysm. 3. Distended and trabeculated bladder containing a large filling defect at the base. Features are concerning for bladder neoplasm and blood clot formation. Cystoscopy is recommended. Assessment/Plan Assessment/Plan Assessment & Plan See plan above (1) Bladder mass Status: Acute Assessment & Plan: - Dr Li Consulted and took the patient to surgery this AM for scope, Spoke with Dr Li and he would recommend this patient transfer to [facility] for further Urology services, [facility] ONE CALL @ 1400, awaiting for call back 09/26: 10AM called [facility] and they stated that they do not have any beds, 11AM called [facility] and they both decline patient due to not having higher level of Urology services available, will try and call [facility], [facility]res and [facility] in AM (2) Anemia associated with acute blood loss Status: Acute Assessment & Plan: - S/p 2 units, 2 more units holding, VS stable 09/26: Patient is s/p 4 unitis of pRBCs, hematuria is clearing some what (3) Gross hematuria Status: Acute (4) Intra-abdominal free air of unknown etiology Status: Acute Assessment & Plan: - Dr Cabrales with General Surgery following patient, States that free air seems to be walled off, patient is not illiciting any peritoneal signs (5) Chest pressure Status: Acute Assessment & Plan: - Seen by cardiology, patient does have significant CV risk (6) UTI (urinary tract infection) Status: Acute Assessment & Plan: - Continue antibiotics at this time Qualifiers: Qualified Codes: N30.01 - Acute cystitis with hematuria Clinical Quality Measures AMI/AHF: ASA po Prior to arrival: Yes ([facility] BY EMS) DVT/VTE Risk/Contraindication: Risk Factor Score Per Nursin RFS Level Per Nursing on Admit: 4+=Very High GERRY SERRANO MD September 26, 2018 17:38
[2018-09-26 22:58] LABS: HEMOGLOBIN 6.7 G/DL (13.3-17.7)
[2018-09-27] VITALS (28 sets, daily range): BP systolic 88–174; BP diastolic 54–82
[2018-09-27] MEDS: NOREPINEPHRINE 4 MG in NS (IVPB) 250 ML IV SCH ×4 (03:00→22:57)
[2018-09-27] MEDS: PIPERACILLIN/TAZO 4.5 GM/NS 100 ML IV SCH ×6 (03:42→18:10)
[2018-09-27 03:49] LABS: BASOPHILS % (AUTO) 0 % (0-10); EOSINOPHILS # (AUTO) 0.2 10^3/uL (0.0-0.3); EOSINOPHILS % (AUTO) 1 % (0-10); HEMATOCRIT 23 % (40-54); HEMOGLOBIN 7.8 G/DL (13.3-17.7); LYMPHOCYTES # (AUTO) 1.8 X 10^3 (1.0-4.0); LYMPHOCYTES % (AUTO) 11 % (12-44); MEAN CORPUSCULAR HEMOGLOBIN 31 PG (25-34); MEAN CORPUSCULAR HGB CONC 34 G/DL (32-36); MEAN CORPUSCULAR VOLUME 91 FL (80-99); MONOCYTES # (AUTO) 1.3 X 10^3 (0.0-1.0); MONOCYTES % (AUTO) 8 % (0-12); NEUTROPHILS # (AUTO) 13.3 X 10^3 (1.8-7.8); NEUTROPHILS % (AUTO) 80 % (42-75); PLATELET COUNT 273 10^3/uL (130-400); WHITE BLOOD COUNT 16.6 10^3/uL (4.3-11.0)
[2018-09-27 04:27] LABS: ALANINE AMINOTRANSFERASE 30 U/L (0-55); ALBUMIN 2.2 GM/DL (3.2-4.5); ALKALINE PHOSPHATASE 64 U/L (40-136); BILIRUBIN,TOTAL 0.6 MG/DL (0.1-1.0); BUN/CREATININE RATIO 25; CALCIUM 7.3 MG/DL (8.5-10.1); CARBON DIOXIDE 17 MMOL/L (21-32); CHLORIDE 113 MMOL/L (98-107); CREATININE SERUM 0.64 MG/DL (0.60-1.30); GFR ESTIMATED > 60; GLUCOSE 122 MG/DL (70-105); MAGNESIUM 1.7 MG/DL (1.8-2.4); PHOSPHORUS 3.2 MG/DL (2.3-4.7); POTASSIUM 3.9 MMOL/L (3.6-5.0); SODIUM 139 MMOL/L (135-145); TOTAL PROTEIN 4.4 GM/DL (6.4-8.2)
[2018-09-27] MEDS: KCL 20 MEQ TAB (K-DUR) PO SCH (06:31)
[2018-09-27] MEDS: MAGNESIUM 1 GM/100 ML IVPB 100 ML IV SCH ×3 (06:31→09:43)
[2018-09-27] MEDS: POTASSIUM CL 10MEQ/50ML IVPB 50 ML IV SCH (06:31)
--- NOTE | 2018-09-27 07:44 | Diagnostic Imaging Report ---
CLINICAL INDICATION: Patient with chest pain. ICU care management. EXAM: Portable chest x-ray upright view. COMPARISON: Portable chest x-ray dated 09/26/2018. FINDINGS: There is stable mild airspace opacification left lung base which may represent atelectasis versus infiltrate. Stable mild increased airspace opacities in the right lung which may represent atelectasis versus infiltrate. There is no pleural effusion or pneumothorax. Pulmonary vasculature and cardiac silhouette is within normal limits. Again seen left central line in stable position. Feeding tube is not well delineated overlying the mediastinal region, but was also noted on the prior study. The remainder of this exam shows no significant interval change compared to the prior study of comparison. IMPRESSION: 1: Stable chest x-ray exam with mild bilateral lung atelectasis versus infiltrate. 2: The remainder of this exam shows no significant interval change compared to the prior study of comparison. Dictated by: Dictated on workstation # [id number]
[2018-09-27] MEDS: NS IV 1000 ML 1,000 ML IV SCH (08:41)
[2018-09-27] MEDS: NICOTINE PATCH REMOVAL TP SCH (08:41)
[2018-09-27] MEDS: NICOTINE 21 MG (NICODERM) PATCH TD SCH (08:41)
--- NOTE | 2018-09-27 10:02 | Progress Note-Urology ---
Progress Note-Urology Progress Notes/Assess & Plan Progress/Assessment & Plan URINE BETTER. NO COMPLAINTS. STILL AWAITING OK FROM [facility]. RECOMMEND SAME REGIMEN AND TRANSFUSION OF 1-2 UNITS Final Diagnosis GROSS HEMATURIA AND POSSIBLE BLADDER TUMOR WILLIE WRIGHT MD September 27, 2018 10:02
--- NOTE | 2018-09-27 10:25 | Cardiology Progress Note ---
Cardiology SOAP Progress Note Subjective: Stable cardiac-stone. Objective: I&O/Vital Signs 09/26/18 09/26/18 09/27/18 09/27/18 23:00 23:59 00:00 00:09 Temp 98.1 Pulse 79 82 80 Resp 21 21 22 B/P (MAP) 128/63 (84) 150/82 (104) 150/82 Pulse Ox 100 100 96 O2 Delivery Nasal Cannula Nasal Cannula Nasal Cannula Nasal Cannula O2 Flow Rate 2.00 2.00 2.00 2.00 09/27/18 09/27/18 09/27/18 09/27/18 00:21 00:22 01:00 01:00 Temp 98.8 Pulse 88 90 77 77 Resp 18 28 32 B/P (MAP) 163/66 163/66 (98) 145/64 (91) Pulse Ox 92 95 100 O2 Delivery Nasal Cannula Nasal Cannula Nasal Cannula O2 Flow Rate 2.00 2.00 2.00 09/27/18 09/27/18 09/27/18 09/27/18 02:00 02:13 03:00 04:00 Temp 99.0 Pulse 81 76 76 81 Resp 11 20 20 12 B/P (MAP) 136/61 (86) 136/61 130/62 (84) 145/68 (93) Pulse Ox 100 100 100 100 O2 Delivery Nasal Cannula Nasal Cannula Nasal Cannula Nasal Cannula O2 Flow Rate 2.00 2.00 2.00 2.00 09/27/18 09/27/18 09/27/18 09/27/18 04:00 05:00 06:00 07:00 Pulse 75 74 67 Resp 22 20 28 B/P (MAP) 129/57 (81) 132/56 (81) 99/62 (74) Pulse Ox 100 100 94 O2 Delivery Nasal Cannula Nasal Cannula Nasal Cannula Nasal Cannula O2 Flow Rate 2.00 2.00 2.00 2.00 09/27/18 09/27/18 09/27/18 09/27/18 07:00 08:00 08:43 08:47 Temp 97.6 Pulse 75 76 Resp 22 B/P (MAP) 88/54 (65) Pulse Ox 92 O2 Delivery Nasal Cannula Nasal Cannula O2 Flow Rate 2.00 2.00 09/27/18 09/27/18 09:00 10:00 Pulse 76 82 Resp 21 25 B/P (MAP) 141/67 (91) 156/73 (100) Pulse Ox 100 100 O2 Delivery Nasal Cannula Nasal Cannula O2 Flow Rate 2.00 2.00 09/27/18 00:00 Intake Total 420 ml Output Total 1125 ml Balance -705 ml Weight (Pounds): 202 Weight (Ounces): 2.0 Weight (Calculated Kilograms): 91.031981 Constitutional: appears stated age, AAO x 3; No apparent distress; well- developed, well-nourished Respiratory: chest is bilaterally symmetric, lungs clear to auscultation Cardiovascular: regular rate-rhythm; No irregularly irregular, No extra beats, No parasternal heave is noted, No JVD, No edema, No bradycardia; tachycardia; No point of maximal impulse, No cardiac thrills are palpable; S1 and S2; No gallop/S3, No gallop/S4, No diastolic murmur, No systolic murmur, No friction rub, No click, No other Gastrointestional: No tender, No soft, No round, No distended, No pulsatile mass, No organomegaly, No guarding, No rebound, No tenderness, No hernia, No mass, No audible bowel sounds, No abnormal bowel sounds, No abdominal bruits, No spleenomegaly, No other Extremities: No normal range of motion, No non-tender, No normal inspection, No pedal edema, No calf tenderness, No normal capillary refill, No pelvis stable , No calf tenderness, No inflammation, No pedal edema, No slow capillary refill , No swelling, No other, No abrasion, No clubbing, No cyanosis, No ecchymosis, No laceration, No no lower extremity edema bilateral, No significant edema, No tenderness, No wound Neurologic/Psychiatric: no motor/sensory deficits, alert, normal mood/affect, oriented x 3, power is 5/5 both on sides Skin: No normal color, No warm/dry, No cyanosis, No cool, No diaphoresis, No damp, No ecchymosis, No jaundice, No mottled, No pallor, No rash, No tattoos/ piercings, No ulcerations, No rash on exposed areas, No ulcerations on exposed areas, No other Results/Procedures: Labs Laboratory Tests 09/26/18 10:33: Hemoglobin 7.4L, Hematocrit 22L 09/26/18 11:27: Glucometer 138H 09/26/18 12:59: Lab Scanned Report Transfusion Reaction Form 09/26/18 16:14: Glucometer 126H 09/26/18 16:55: Hemoglobin 7.5L, Hematocrit 22L 09/26/18 21:20: Glucometer 129H 09/26/18 22:40: Hemoglobin 6.7*L, Hematocrit 20*L 09/27/18 03:30: Hemoglobin 7.8L, Hematocrit 23L, White Blood Count 16.6H, Red Blood Count 2.55L , Mean Corpuscular Volume 91, Mean Corpuscular Hemoglobin 31, Mean Corpuscular Hemoglobin Concent 34, Red Cell Distribution Width 15.0H, Platelet Count 273, Mean Platelet Volume 9.0, Neutrophils (%) (Auto) 80H, Lymphocytes (%) (Auto) 11L , Monocytes (%) (Auto) 8, Eosinophils (%) (Auto) 1, Basophils (%) (Auto) 0, Neutrophils # (Auto) 13.3H, Lymphocytes # (Auto) 1.8, Monocytes # (Auto) 1.3H, Eosinophils # (Auto) 0.2, Basophils # (Auto) 0.0, Sodium Level 139, Potassium Level 3.9, Chloride Level 113H, Carbon Dioxide Level 17L, Anion Gap 9, Blood Urea Nitrogen 16, Creatinine 0.64, Estimat Glomerular Filtration Rate > 60, BUN/ Creatinine Ratio 25, Glucose Level 122H, Calcium Level 7.3L, Corrected Calcium 8.7, Phosphorus Level 3.2, Magnesium Level 1.7L, Total Bilirubin 0.6, Aspartate Amino Transf (AST/SGOT) 27, Alanine Aminotransferase (ALT/SGPT) 30, Alkaline Phosphatase 64, Total Protein 4.4L, Albumin 2.2L Microbiology 09/24/18 Blood Culture - Preliminary, Resulted No growth 09/24/18 MRSA Screen - Final, Complete MRSA not isolated 09/24/18 Urine Culture - Final, Complete 3 or more isolates A/P: Assessment/Dx: Perforated viscus, Chest pressure, Shortness of breath, Sinus tachycardia, Leukocytosis, Borderline diabetes, Hypertension, Hyperlipidemia, Active smoking. Plan: Perforated viscus, surgery is being deferred. Bladder mass, bleeding, defer to urology. Likely transfer to ; but unclear timeline. Chest pressure, EKG is negative. Serial troponin are negative. Acute coronary syndrome has been ruled out. Patient will likely require nuclear evaluation or coronary angiography in the future, once acute illness has resolved, since the patient does have CAD risk factors. Shortness of breath, mildly elevated BNP. Sinus tachycardia with severe COPD. echocardiogram done 09/24/2018 revealed normal LV size and function. Sinus tachycardia, likely due to perforated viscus and severe COPD. resolved. Leukocytosis, unclear etiology. Could be due to abdominal sepsis. Borderline diabetes, Hypertension, Hyperlipidemia, Active smoking. Thank you for your consultation. Please call me if you have any questions. Faraz Pugh MD, FACP, FACC, FSCAI, FHRS, CCDS Interventional Cardiology Cardiac Electrophysiology Vascular Medicine and Endovascular Interventions Focused Exam Lactate Level 09/24/18 10:45: Lactic Acid Level 0.82 Clinical Quality Measures AMI/AHF: ASA po Prior to arrival: Yes ([facility] BY EMS) Alicja PUGH MD September 27, 2018 10:25
[2018-09-27] MEDS: LACTATED RINGERS 1,000 ML IV SCH ×2 (10:50→22:55)
[2018-09-27 12:29] LABS: HEMOGLOBIN 7.7 G/DL (13.3-17.7)
--- NOTE | 2018-09-27 12:42 | NUR ---
THIS RN CALLED [facility] CALL FOR F/U ON PENDING TRANSFER. PER [facility], THEY ARE STILL AT CAPACITY AND UNABLE TO TAKE PATIENTS. DR SERRANO UPDATED.
--- NOTE | 2018-09-27 12:55 | NUR ---
TPN: TPN advanced to 1590 kcal and 100 mg protein at 66 ml/hr. Potassium and Magnesium increased. Due to acidosis NS dc'd and LR started at 85 ml/hr. PLAN: Continue TPN as is, pending labs. If patient still on TPN after one week will look at adding lipids and increasing kcal.
[2018-09-27] MEDS: FLUCONAZOLE 400 MG IV SCH (13:40)
[2018-09-27] MEDS: fentaNYL INJECTION 100 MCG/2 ML AMP IV PRN ×3 (16:10→21:03)
[2018-09-27] MEDS ORDERED: POTASSIUM ACETATE IV SCH ×8 (17:00)
[2018-09-27] MEDS ORDERED: [UNRECOGNIZED DRUG - OTHER] IV SCH ×8 (17:00)
[2018-09-27] MEDS ORDERED: SODIUM PHOSPHATE IV SCH ×8 (17:00)
--- NOTE | 2018-09-27 17:21 | NUR ---
[facility] UNABLE TO ACCEPT PT FOR TRANSFER TONIGHT. DR SERRANO, PT, AND FAMILY UPDATED.
[2018-09-27] MEDS: LORazepam INJ 2 MG/ML (ATIVAN) VIAL IVP PRN (18:10)
[2018-09-27 18:32] LABS: HEMOGLOBIN 7.8 G/DL (13.3-17.7)
[2018-09-27] MEDS: PANTOPRAZOLE 40 MG (PROTONIX) VIAL IV SCH (21:03)
--- NOTE | 2018-09-27 21:18 | Progress Note (SOAP) ---
Subjective Subjective/Events-last exam Patient doing well this AM. Still having steady bleeding. Denies any chest pain or shortness of breath. Review of Systems Date Seen by Provider: September 27, 2018 Time Seen by Provider: 09:45 Pulmonary: No Dyspnea, No Cough Cardiovascular: No: Chest Pain, Palpitations, Edema Gastrointestinal: No: Abdominal Pain Genitourinary: Other (Hematuria) Objective Exam Last Set of Vital Signs Vital Signs Date Time Temp Pulse Resp B/P (MAP) Pulse Ox O2 Delivery O2 Flow Rate FiO2 09/27/18 20:00 92 14 160/63 (95) 100 Nasal Cannula 2.00 09/27/18 19:23 97.1 Capillary Refill : Less Than 3 Seconds I&O Intake and Output 09/27/18 00:00 Intake Total 540 ml Output Total 2975 ml Balance -2435 ml Intake Oral 0 ml IV Total 540 ml Output Urine Total 2975 ml General: Alert, Oriented X3 Lungs: Clear to Auscultation, Normal Air Movement Heart: Regular Rate, No Murmurs Abdomen: Normal Bowel Sounds, Soft, No Tenderness, No Masses Extremities: No Edema, No Tenderness/Swelling Other physical findings Brandon draining gross hematuria w/o clots Results/Procedures Lab Laboratory Tests 09/26/18 21:20: Glucometer 129H 09/26/18 22:40: Hemoglobin 6.7*L, Hematocrit 20*L 09/27/18 03:30: Hemoglobin 7.8L, Hematocrit 23L, White Blood Count 16.6H, Red Blood Count 2.55L , Mean Corpuscular Volume 91, Mean Corpuscular Hemoglobin 31, Mean Corpuscular Hemoglobin Concent 34, Red Cell Distribution Width 15.0H, Platelet Count 273, Mean Platelet Volume 9.0, Neutrophils (%) (Auto) 80H, Lymphocytes (%) (Auto) 11L , Monocytes (%) (Auto) 8, Eosinophils (%) (Auto) 1, Basophils (%) (Auto) 0, Neutrophils # (Auto) 13.3H, Lymphocytes # (Auto) 1.8, Monocytes # (Auto) 1.3H, Eosinophils # (Auto) 0.2, Basophils # (Auto) 0.0, Sodium Level 139, Potassium Level 3.9, Chloride Level 113H, Carbon Dioxide Level 17L, Anion Gap 9, Blood Urea Nitrogen 16, Creatinine 0.64, Estimat Glomerular Filtration Rate > 60, BUN/ Creatinine Ratio 25, Glucose Level 122H, Calcium Level 7.3L, Corrected Calcium 8.7, Phosphorus Level 3.2, Magnesium Level 1.7L, Total Bilirubin 0.6, Aspartate Amino Transf (AST/SGOT) 27, Alanine Aminotransferase (ALT/SGPT) 30, Alkaline Phosphatase 64, Total Protein 4.4L, Albumin 2.2L 09/27/18 11:03: Lab Scanned Report Transfusion Reaction Form 09/27/18 11:07: Glucometer 141H 09/27/18 12:20: Hemoglobin 7.7L, Hematocrit 23L 09/27/18 16:01: Glucometer 124H 09/27/18 18:26: Hemoglobin 7.8L, Hematocrit 23L Microbiology 09/24/18 Blood Culture - Preliminary, Resulted No growth 09/24/18 MRSA Screen - Final, Complete MRSA not isolated 09/24/18 Urine Culture - Final, Complete 3 or more isolates Radiology Date of Exam: 09/24/18 CT SELMA CHEST/NOANG ABD-PELV W INDICATION: Chest pain and low abdominal pain as well as hematuria. COMPARISON: No prior studies are available for comparison. TECHNIQUE: Axial imaging through the chest, abdomen, and pelvis was performed after the administration of intravenous contrast. CT angiography protocol was utilized for the chest. Multiplanar, 3-D and MIP reformations were also performed. CT angiogram chest: FINDINGS: Atherosclerotic calcifications are identified throughout the thoracic aorta. Caliber is normal. No dissection is seen. Central pulmonary arteries are unremarkable. There are coronary arterial calcifications. No pericardial or pleural fluid is detected. Biapical pleural thickening and pleural calcifications are noted. There are centrilobular emphysematous changes throughout both lungs. There appears to be some scarring or atelectasis in the right middle lobe. No mass or infiltrate is identified. IMPRESSION: 1. No evidence of thoracic aortic dissection or aneurysm. 2. Centrilobular emphysematous changes. No acute feature is seen. CT abdomen and pelvis: FINDINGS: Note is made of a pneumoperitoneum. There appears to be gas anterior to the stomach as well as small gas bubbles in the left upper quadrant. No free air is identified elsewhere. Findings are likely owing to perforated viscus, presumably from peptic ulcer disease. Liver contains tiny low densities, too small to characterize but most likely cysts. Gallbladder is unremarkable. No biliary ductal dilatation is seen. Pancreas and spleen are unremarkable. No adrenal mass on the left is identified. Minimal nodularity on the right is noted measuring 10 mm. Kidneys are unremarkable. Aorta does show some aneurysmal dilatation in the infrarenal portion measuring 4 cm in AP diameter. No dissection is seen. The iliac are heavily calcified. Bowel loops are normal caliber. There is no obstruction. There is no ascites. There is significant distention to the urinary bladder. The bladder does appear to be somewhat trabeculated. There is filling defect in the base of the bladder. This is concerning for a mass and/or hemorrhage or both. Bladder does contain a Brandon catheter. No definite lymphadenopathy is seen. Bony structures demonstrate postop changes to the right hip. No definite osteolytic or blastic lesions are seen. IMPRESSION: 1. Pneumoperitoneum, consistent with perforated viscus. This is likely secondary to peptic ulcer disease. 2. Infrarenal abdominal aortic aneurysm. 3. Distended and trabeculated bladder containing a large filling defect at the base. Features are concerning for bladder neoplasm and blood clot formation. Cystoscopy is recommended. Assessment/Plan Assessment/Plan Assessment & Plan See plan above (1) Bladder mass Status: Acute Assessment & Plan: - Dr Li Consulted and took the patient to surgery this AM for scope, Spoke with Dr Li and he would recommend this patient transfer to for further Urology services, [facility] @ 1400, awaiting for call back 09/26: 10AM called [facility] and they stated that they do not have any beds, 11AM called [facility] and they both decline patient due to not having higher level of Urology services available, will try and call [facility], [facility] in AM 09/27: Called [facility] , Patient's family would prefer [facility] as she lives in , Waiting for bed (2) Anemia associated with acute blood loss Status: Acute Assessment & Plan: - S/p 2 units, 2 more units holding, VS stable 09/26: Patient is s/p 4 unitis of pRBCs, hematuria is clearing some what 10/28: s/p 6 units of blood (3) Gross hematuria Status: Acute (4) Intra-abdominal free air of unknown etiology Status: Acute Assessment & Plan: - Dr Cabrales with General Surgery following patient, States that free air seems to be walled off, patient is not illiciting any peritoneal signs 09/27: Patient tolerated CLD will advance to soft diet (5) Chest pressure Status: Acute Assessment & Plan: - Seen by cardiology, patient does have significant CV risk (6) UTI (urinary tract infection) Status: Acute Assessment & Plan: - Continue antibiotics at this time Qualifiers: Qualified Codes: N30.01 - Acute cystitis with hematuria Clinical Quality Measures AMI/AHF: ASA po Prior to arrival: Yes ([facility] BY EMS) DVT/VTE Risk/Contraindication: Risk Factor Score Per Nursin RFS Level Per Nursing on Admit: 4+=Very High GERRY SERRANO MD September 27, 2018 21:18
[2018-09-28] VITALS (16 sets, daily range): BP systolic 132–175; BP diastolic 62–80
[2018-09-28] MEDS: fentaNYL INJECTION 100 MCG/2 ML AMP IV PRN ×6 (00:02→15:59)
[2018-09-28 00:19] LABS: HEMOGLOBIN 7.4 G/DL (13.3-17.7)
[2018-09-28] MEDS: PIPERACILLIN/TAZO 4.5 GM/NS 100 ML IV SCH ×4 (03:42→10:16)
[2018-09-28 03:55] LABS: BASOPHILS % (AUTO) 0 % (0-10); EOSINOPHILS # (AUTO) 0.2 10^3/uL (0.0-0.3); EOSINOPHILS % (AUTO) 1 % (0-10); HEMATOCRIT 22 % (40-54); HEMOGLOBIN 7.3 G/DL (13.3-17.7); LYMPHOCYTES # (AUTO) 1.9 X 10^3 (1.0-4.0); LYMPHOCYTES % (AUTO) 12 % (12-44); MEAN CORPUSCULAR HEMOGLOBIN 30 PG (25-34); MEAN CORPUSCULAR HGB CONC 34 G/DL (32-36); MEAN CORPUSCULAR VOLUME 91 FL (80-99); MEAN PLATELET VOLUME 9.1 FL (7.4-10.4); MONOCYTES # (AUTO) 1.1 X 10^3 (0.0-1.0); MONOCYTES % (AUTO) 7 % (0-12); NEUTROPHILS # (AUTO) 12.3 X 10^3 (1.8-7.8); NEUTROPHILS % (AUTO) 79 % (42-75); PLATELET COUNT 343 10^3/uL (130-400); RED CELL DISTRIBUTION WIDTH 14.8 % (10.0-14.5); WHITE BLOOD COUNT 15.5 10^3/uL (4.3-11.0)
[2018-09-28 04:16] LABS: BUN/CREATININE RATIO 22; CALCIUM 7.6 MG/DL (8.5-10.1); CARBON DIOXIDE 18 MMOL/L (21-32); CHLORIDE 109 MMOL/L (98-107); CREATININE SERUM 0.64 MG/DL (0.60-1.30); GFR ESTIMATED > 60; GLUCOSE 127 MG/DL (70-105); MAGNESIUM 1.7 MG/DL (1.8-2.4); PHOSPHORUS 3.4 MG/DL (2.3-4.7); SODIUM 138 MMOL/L (135-145)
[2018-09-28] MEDS: MAGNESIUM 1 GM/100 ML IVPB 100 ML IV SCH ×3 (05:31→07:34)
[2018-09-28] MEDS: KCL 20 MEQ TAB (K-DUR) PO SCH (05:31)
[2018-09-28] MEDS: POTASSIUM CL 10MEQ/50ML IVPB 50 ML IV SCH (05:31)
[2018-09-28] MEDS: NOREPINEPHRINE 4 MG in NS (IVPB) 250 ML IV SCH ×2 (05:31→16:43)
--- NOTE | 2018-09-28 07:28 | NUR ---
TPN: MAGNESIUM AND ACETATE INCREASED IN TPN. TPN AT 67 ML/HR PROVIDING 1590 KCAL WITH 100 GM PROTEIN, LR AT 85 ML/HR. PLAN: MAINTAIN LYTES WNL, IF TPN STILL NEEDED AT ONE WEEK MAN[facility], WILL CONSIDER ADDING LIPIDS AND ADVANCING KCAL.
--- NOTE | 2018-09-28 08:07 | Diagnostic Imaging Report ---
INDICATION: Chest pain. COMPARISON: 09/27/2018. FINDINGS: Single frontal radiographic view of the chest was obtained and demonstrates indwelling gastric tube with tip in the stomach and side port likely at the GE junction. Cardiac silhouette and pulmonary vasculature within normal limits. Lungs show improved inspiratory volumes with improved aeration of the bases. There is mild coarse prominence of the interstitium, which may be on a chronic basis. No large effusion or pneumothorax is seen on either side. Bony structures show no gross acute abnormalities. IMPRESSION: 1. Interval improved lung volumes with improved aeration both bases. 2. Persistent mildly coarse prominence of the interstitium concerning for underlying interstitial lung disease. Dictated by: Dictated on workstation # [id number]
[2018-09-28] MEDS: NICOTINE PATCH REMOVAL TP SCH (09:07)
--- NOTE | 2018-09-28 09:14 | Progress Note-Urology ---
Progress Note-Urology Progress Notes/Assess & Plan Progress/Assessment & Plan URINE TINGED. [facility] READY TO RECEIVE PATIENT. PATIENT AND DAUGHTER AGREABLE. RECOMMEND LAST ATTEMPT WITH [facility] FLOOR TO FLOOR TRANSFER AND IF NOT POSSIBLE, I WILL BE HAPPY TO TALK TO UROLOGIST IN [place] Final Diagnosis GROSS HEMATURIA AND POSSIBLE BLADDER TUMOR WILLIE WRIGHT MD September 28, 2018 09:14
[2018-09-28] MEDS: NICOTINE 21 MG (NICODERM) PATCH TD SCH (09:23)
[2018-09-28] MEDS: PANTOPRAZOLE 40 MG (PROTONIX) VIAL IV SCH (09:23)
[2018-09-28] MEDS: LACTATED RINGERS 1,000 ML IV SCH (10:53)
--- NOTE | 2018-09-28 11:06 | Cardiology Progress Note ---
Cardiology SOAP Progress Note Subjective: No cardiac complaints. Objective: I&O/Vital Signs 09/27/18 09/28/18 09/28/18 09/28/18 23:59 00:00 01:00 01:00 Pulse 88 87 85 Resp 28 B/P (MAP) 154/76 (102) 132/67 (88) Pulse Ox 92 O2 Delivery Nasal Cannula Nasal Cannula Nasal Cannula O2 Flow Rate 2.00 2.00 2.00 09/28/18 09/28/18 09/28/18 09/28/18 02:00 03:00 04:00 04:00 Pulse 87 90 85 Resp 28 25 B/P (MAP) 139/67 (91) 146/67 (93) 142/62 (88) Pulse Ox 92 O2 Delivery Nasal Cannula Nasal Cannula Nasal Cannula Nasal Cannula O2 Flow Rate 2.00 2.00 2.00 2.00 09/28/18 09/28/18 09/28/18 09/28/18 05:00 06:00 07:00 07:15 Pulse 87 91 80 82 Resp 17 B/P (MAP) 161/62 (95) 164/77 (106) 145/65 (91) Pulse Ox 93 O2 Delivery Nasal Cannula Nasal Cannula Nasal Cannula O2 Flow Rate 2.00 2.00 2.00 09/28/18 09/28/18 09/28/18 09/28/18 07:28 07:29 08:00 09:10 Temp 98.6 Pulse 84 86 88 Resp 20 24 B/P (MAP) 145/65 (91) 156/67 (96) 165/66 (99) Pulse Ox 97 95 O2 Delivery Nasal Cannula Nasal Cannula Nasal Cannula Nasal Cannula O2 Flow Rate 2.00 2.00 2.00 2.00 09/28/18 09/28/18 10:00 10:02 Pulse 83 Resp 19 B/P (MAP) 151/69 (96) Pulse Ox 93 O2 Delivery Nasal Cannula Nasal Cannula O2 Flow Rate 2.00 2.00 09/28/18 00:00 Intake Total 2986 ml Output Total 1375 ml Balance 1611 ml Weight (Pounds): 208 Weight (Ounces): 2.0 Weight (Calculated Kilograms): 94.360584 Constitutional: appears stated age, AAO x 3; No apparent distress; well- developed, well-nourished Respiratory: chest is bilaterally symmetric, lungs clear to auscultation Cardiovascular: regular rate-rhythm; No irregularly irregular, No extra beats, No parasternal heave is noted, No JVD, No edema, No bradycardia; tachycardia; No point of maximal impulse, No cardiac thrills are palpable; S1 and S2; No gallop/S3, No gallop/S4, No diastolic murmur, No systolic murmur, No friction rub, No click, No other Gastrointestional: No tender, No soft, No round, No distended, No pulsatile mass, No organomegaly, No guarding, No rebound, No tenderness, No hernia, No mass, No audible bowel sounds, No abnormal bowel sounds, No abdominal bruits, No spleenomegaly, No other Extremities: No normal range of motion, No non-tender, No normal inspection, No pedal edema, No calf tenderness, No normal capillary refill, No pelvis stable, No calf tenderness, No inflammation, No pedal edema, No slow capillary refill, No swelling, No other, No abrasion, No clubbing, No cyanosis, No ecchymosis, No laceration, No no lower extremity edema bilateral, No significant edema, No tenderness, No wound Neurologic/Psychiatric: no motor/sensory deficits, alert, normal mood/affect, oriented x 3, power is 5/5 both on sides Skin: No normal color, No warm/dry, No cyanosis, No cool, No diaphoresis, No damp, No ecchymosis, No jaundice, No mottled, No pallor, No rash, No tattoos/piercings, No ulcerations, No rash on exposed areas, No ulcerations on exposed areas, No other Results/Procedures: Labs Laboratory Tests 09/27/18 11:07: Glucometer 141H 09/27/18 12:20: Hemoglobin 7.7L, Hematocrit 23L 09/27/18 16:01: Glucometer 124H 09/27/18 18:26: Hemoglobin 7.8L, Hematocrit 23L 09/28/18 00:05: Hemoglobin 7.4L, Hematocrit 22L 09/28/18 03:30: Hemoglobin 7.3L, Hematocrit 22L, White Blood Count 15.5H, Red Blood Count 2.41L, Mean Corpuscular Volume 91, Mean Corpuscular Hemoglobin 30, Mean Corpuscular Hemoglobin Concent 34, Red Cell Distribution Width 14.8H, Platelet Count 343, Mean Platelet Volume 9.1, Neutrophils (%) (Auto) 79H, Lymphocytes (%) (Auto) 12, Monocytes (%) (Auto) 7, Eosinophils (%) (Auto) 1, Basophils (%) (Auto) 0, Neutrophils # (Auto) 12.3H, Lymphocytes # (Auto) 1.9, Monocytes # (Auto) 1.1H, Eosinophils # (Auto) 0.2, Basophils # (Auto) 0.0, Sodium Level 138, Potassium Level 4.0, Chloride Level 109H, Carbon Dioxide Level 18L, Anion Gap 11, Blood Urea Nitrogen 14, Creatinine 0.64, Estimat Glomerular Filtration Rate > 60, BUN/Creatinine Ratio 22, Glucose Level 127H, Calcium Level 7.6L, Phosphorus Level 3.4, Magnesium Level 1.7L Microbiology 09/24/18 Blood Culture - Preliminary, Resulted No growth 09/24/18 MRSA Screen - Final, Complete MRSA not isolated 09/24/18 Urine Culture - Final, Complete 3 or more isolates A/P: Assessment/Dx: Perforated viscus, Chest pressure, Shortness of breath, Sinus tachycardia, Leukocytosis, Borderline diabetes, Hypertension, Hyperlipidemia, Active smoking. Plan: Perforated viscus, surgery is being deferred. Bladder mass, bleeding, defer to urology. Likely transfer to ; but unclear timeline. Still waiting for bed availability. Chest pressure, EKG is negative. Serial troponin are negative. Acute coronary syndrome has been ruled out. Patient will likely require nuclear evaluation or coronary angiography in the future, once acute illness has resolved, since the patient does have CAD risk factors. Shortness of breath, mildly elevated BNP. Sinus tachycardia with severe COPD. echocardiogram done 09/24/2018 revealed normal LV size and function. Sinus tachycardia, likely due to perforated viscus and severe COPD. resolved. Leukocytosis, unclear etiology. Could be due to abdominal sepsis. Borderline diabetes, Hypertension, Hyperlipidemia, Active smoking. Thank you for your consultation. Please call me if you have any questions. Faraz Gutierrez MD, FACP, FACC, FSCAI, FHRS, CCDS Interventional Cardiology Cardiac Electrophysiology Vascular Medicine and Endovascular Interventions Clinical Quality Measures AMI/AHF: ASA po Prior to arrival: Yes ([facility] BY EMS) Alicja GUTIERREZ MD September 28, 2018 11:06
[2018-09-28 12:06] LABS: HEMOGLOBIN 7.1 G/DL (13.3-17.7)
--- NOTE | 2018-09-28 13:12 | Progress Note-Urology ---
Progress Note-Urology Progress Notes/Assess & Plan Progress/Assessment & Plan DISCUSSED THE CASE WITH DR ELIAS (UROLOGY STAFF [employer] V[employer] AT ) WHO ACCEPTED THE TRANSFER Final Diagnosis GROSS HEMATURIA AND POSSIBLE BLADDER TUMOR WILLIE WRIGHT MD September 28, 2018 13:12
[2018-09-28] MEDS: LORazepam INJ 2 MG/ML (ATIVAN) VIAL IVP PRN (16:00)
[2018-09-28] MEDS: FLUCONAZOLE 400 MG IV SCH (16:42)
[2018-09-28] MEDS ORDERED: [UNRECOGNIZED DRUG - OTHER] IV SCH ×10 (17:00)
[2018-09-28] MEDS ORDERED: SODIUM ACETATE IV SCH ×10 (17:00)
[2018-09-28] MEDS ORDERED: SODIUM CHLORIDE IV SCH ×10 (17:00)
== END 2018-09-28 15:45 | disposition short-term general hospital (02) | DRG 698 ==
LOC: EDUNIT# 10:37 → ER 10:38 → ICU 14:17
PROVIDERS: ADMIT Family Medicine; ATTEND Internal Medicine Interventional Cardiology
PROC: 3E1K88Z Irrigation of Genitourinary Tract using Irrigating Substance, Via Natural or Artificial Opening Endoscopic (ICD-10-PCS; 2018-09-25)
PROC: BT101ZZ Fluoroscopy of Bladder using Low Osmolar Contrast (ICD-10-PCS; 2018-09-25)
PROC: 0TJB8ZZ Inspection of Bladder, Via Natural or Artificial Opening Endoscopic (ICD-10-PCS; principal; 2018-09-25 10:14)
DX: N32.9 Bladder disorder, unspecified (principal); N30.01 Acute cystitis with hematuria; K27.5 Chronic or unspecified peptic ulcer, site unspecified, with perforation; D62 Acute posthemorrhagic anemia; I10 Essential (primary) hypertension; E78.00 Pure hypercholesterolemia, unspecified; R73.03 Prediabetes; J44.9 Chronic obstructive pulmonary disease, unspecified; F17.210 Nicotine dependence, cigarettes, uncomplicated; R07.89 Other chest pain
CPT/HCPCS: 36415; 51702; 71045; 71275; 74177; 80048; 80053; 80061; 81000; 82962; 83605; 83735; 83874; 83880; 84100; 84134; 84484; 85007; 85014; 85018; 85025; 85027; 85379; 85610; 85730; 86850; 86900; 86901; 86920; 87040; 87081; 87088; 93005; 93041; 93306; 96361; 96365; 96367; 96375

== ENCOUNTER → 2018-11-21 | Outpatient (CLI) | payer MEDICARE ==
[~2018-11-21] MED LIST changes: +AMLO10TA7 PO; +HYDR25TA4 PO; +LISI40TA PO; +LOVA40TA2 PO; +NIAC500T24 PO; +OMEG-160 PO
--- NOTE | 2018-11-21 12:48 | Diagnostic Imaging Report ---
INDICATION: Bilateral foot pain for 2 weeks. Time of exam 10:58 a.m. FINDINGS: Multiple views of the bilateral feet were obtained. Metatarsals are intact bilaterally. No periosteal reaction or stress reaction is seen. Phalanges are unremarkable. Midfoot and hindfoot are unremarkable. No fractures are seen. IMPRESSION: No acute bony abnormality is detected. Dictated by: Dictated on workstation # [id number]
== END ==
LOC: RAD 10:39
PROVIDERS: ATTEND Nurse Practitioner Community Health
DX: M79.671 Pain in right foot (principal); M79.672 Pain in left foot

== ENCOUNTER → 2018-11-28 | Outpatient (CLI) | payer MEDICARE ==
[2018-11-29 00:36] LABS: BILIRUBIN,URINE NEGATIVE (NEGATIVE); CLARITY,URINE SLIGHTLY CLOUDY; GLUCOSE, URINE (UA) NEGATIVE (NEGATIVE); KETONES,URINE NEGATIVE (NEGATIVE); LEUKOCYTE ESTERASE ,URINE 3+ (NEGATIVE); NITRITE,URINE NEGATIVE (NEGATIVE); PH,URINE 8 (5-9); PROTEIN,URINE 3+ (NEGATIVE); UROBILINOGEN,URINE NORMAL (NORMAL)
[2018-11-29 00:48] LABS: BACTERIA,URINE LARGE /HPF; COLOR,URINE YELLOW; RBC,URINE 0-2 /HPF; SQUAMOUS EPITHELIAL CELL,UR 0-2 /HPF; WBC,URINE 25-50 /HPF
== END ==
LOC: LABNPT 22:10
PROVIDERS: ATTEND Internal Medicine
DX: R33.8 Other retention of urine (principal)
CPT/HCPCS: 81000; 87077; 87088; 87186

== ENCOUNTER → 2018-12-01 | Outpatient (CLI) | payer MEDICARE ==
[2018-12-01 11:39] LABS: BASOPHILS % (AUTO) 0 % (0-10); EOSINOPHILS # (AUTO) 0.1 10^3/uL (0.0-0.3); EOSINOPHILS % (AUTO) 2 % (0-10); HEMATOCRIT 33 % (40-54); HEMOGLOBIN 10.5 G/DL (13.3-17.7); LYMPHOCYTES # (AUTO) 1.3 X 10^3 (1.0-4.0); LYMPHOCYTES % (AUTO) 16 % (12-44); MEAN CORPUSCULAR HEMOGLOBIN 28 PG (25-34); MEAN CORPUSCULAR HGB CONC 31 G/DL (32-36); MEAN CORPUSCULAR VOLUME 88 FL (80-99); MEAN PLATELET VOLUME 9.1 FL (7.4-10.4); MONOCYTES # (AUTO) 0.7 X 10^3 (0.0-1.0); MONOCYTES % (AUTO) 8 % (0-12); NEUTROPHILS # (AUTO) 5.9 X 10^3 (1.8-7.8); NEUTROPHILS % (AUTO) 74 % (42-75); PLATELET COUNT 400 10^3/uL (130-400); RED CELL DISTRIBUTION WIDTH 15.3 % (10.0-14.5)
[2018-12-01 11:55] LABS: BUN/CREATININE RATIO 37; CALCIUM 9.9 MG/DL (8.5-10.1); CARBON DIOXIDE 21 MMOL/L (21-32); CHLORIDE 104 MMOL/L (98-107); CREATININE SERUM 0.83 MG/DL (0.60-1.30); GFR ESTIMATED > 60; GLUCOSE 81 MG/DL (70-105); POTASSIUM 3.8 MMOL/L (3.6-5.0); SODIUM 138 MMOL/L (135-145)
[2018-12-01 12:13] LABS: BAND NEUTROPHILS 6 %; EOSINOPHILS % (MANUAL) 2 %; LYMPHOCYTES % (MANUAL) 21 %; MONOCYTES % (MANUAL) 10 %; NEUTROPHILS % (MANUAL) 61 %
[2018-12-01 12:14] LABS: RBC MORPH NORMAL
[2018-12-04 17:17] LABS: URIC ACID 7.6 MG/DL (2.6-7.2)
== END ==
LOC: CVS 11:00
PROVIDERS: ATTEND Family Medicine
DX: E78.5 Hyperlipidemia, unspecified (principal); H54.42A5 Blindness left eye category 5, normal vision right eye; I10 Essential (primary) hypertension; K27.9 Peptic ulcer, site unspecified, unspecified as acute or chronic, without hemorrhage or perforation; K28.9 Gastrojejunal ulcer, unspecified as acute or chronic, without hemorrhage or perforation; M62.81 Muscle weakness (generalized); K11.7 Disturbances of salivary secretion; F33.8 Other recurrent depressive disorders; K59.09 Other constipation; R41.841 Cognitive communication deficit; R13.11 Dysphagia, oral phase; R33.8 Other retention of urine; R26.89 Other abnormalities of gait and mobility
CPT/HCPCS: 80048; 84550; 85007; 85027; 86141

== ENCOUNTER 2019-11-01 16:53 | Emergency (ER) | payer MEDICARE ==
[~2019-11-01] VITALS: Ht 177.8 cm; Wt 86.0 kg
[2019-11-01 17:00] VITALS: BP 159/83
--- NOTE | 2019-11-01 17:10 | ED GU-Male ---
General Stated Complaint: ABNORMAL LABS Source: patient Exam Limitations: no limitations History of Present Illness Date Seen by Provider: Nov 01, 2019 Time Seen by Provider: 17:08 Initial Comments To ER with reports of abnormal labs. He was seen at [facility] outpatient yesterday for some confusion. Found a urinary tract infection and antibiotics we re started. Labs came back today and sodium was low at 123. Timing/Duration: constant Severity/Quality: moderate Location: unknown Radiation: none Activities at Onset: none Prior Genitourinary Problems: none Associated Symptoms: dysuria Allergies and Home Medications Allergies Coded Allergies: NKANo Known Allergies (Verified Allergy, Unknown, 04/10/06) Home Medications Amlodipine Besylate 10 Mg Tablet, 10 MG PO DAILY, (Reported) Cefdinir 300 Mg Capsule, 300 MG PO BID Prescribed by: WANDER AVILES on 11/01/191840 Hydrochlorothiazide 25 Mg Tablet, 25 MG PO DAILY, (Reported) Lisinopril 40 Mg Tablet, 40 MG PO DAILY, (Reported) Lovastatin 40 Mg Tablet, 40 MG PO HS, (Reported) Niacinamide 500 Mg Tablet, 1,500 MG PO HS, (Reported) [place]-3/Dha/Epa/Fish Oil 1 Each Capsule, 3,000 MG PO HS, (Reported) Patient Home Medication List Home Medication List Reviewed: Yes Review of Systems Review of Systems Constitutional: see HPI; No chills, No fever EENTM: see HPI Respiratory: no symptoms reported Cardiovascular: no symptoms reported Genitourinary: no symptoms reported Musculoskeletal: no symptoms reported Skin: no symptoms reported Psychiatric/Neurological: No Symptoms Reported Endocrine: No Symptoms Reported Past [id number]-[id number]-[id number] Hx Patient Social History Type Used: Cigarettes Recent Foreign Travel: No Contact w/Someone Who Travel: No Recent Hopitalizations: No Past Medical History Surgeries: Yes (hernia repair) Respiratory: No Reproductive Disorders: No Gastrointestinal: No Musculoskeletal: No Psychosocial: No Blood Disorders: No Family Medical History No Pertinent Family Hx Physical Exam Vital Signs Vital Signs - First Documented 11/01/19 17:00 Temp 37.3 Pulse 98 Resp 18 B/P (MAP) 159/83 (108) Pulse Ox 95 O2 Delivery Room Air Capillary Refill : Height, Weight, BMI Height: 5'11.00" Weight: 208lbs. 2.0oz. 94.481018nv; 27.5 BMI Method:Stated General Appearance: WD/WN, no apparent distress Respiratory: no respiratory distress, no accessory muscle use Gastrointestinal: normal bowel sounds, non tender, soft Extremities: normal range of motion, non-tender Neurologic/Psychiatric: alert, normal mood/affect, oriented x 3 Skin: normal color, warm/dry Progress/Results/Core Measures Suspected Sepsis SIRS Temperature: Pulse: Respiratory Rate: Laboratory Tests 11/01/19 17:10: White Blood Count 10.1 Blood Pressure / Mean: Laboratory Tests 11/01/19 17:10: Creatinine 1.65H, Platelet Count 348, Total Bilirubin 0.5 Results/Orders Lab Results Laboratory Tests Test 11/01/19 17:10 Range/Units White Blood Count 10.1 4.3-11.0 10^3/uL Red Blood Count 3.74 L 4.35-5.85 10^6/uL Hemoglobin 11.7 L 13.3-17.7 G/DL Hematocrit 34 L 40-54 % Mean Corpuscular Volume 91 80-99 FL Mean Corpuscular Hemoglobin 31 25-34 PG Mean Corpuscular Hemoglobin Concent 34 32-36 G/DL Red Cell Distribution Width 14.4 10.0-14.5 % Platelet Count 348 130-400 10^3/uL Mean Platelet Volume 8.3 7.4-10.4 FL Neutrophils (%) (Auto) 68 42-75 % Lymphocytes (%) (Auto) 22 12-44 % Monocytes (%) (Auto) 9 0-12 % Eosinophils (%) (Auto) 1 0-10 % Basophils (%) (Auto) 0 0-10 % Neutrophils # (Auto) 6.9 1.8-7.8 X 10^3 Lymphocytes # (Auto) 2.2 1.0-4.0 X 10^3 Monocytes # (Auto) 0.9 0.0-1.0 X 10^3 Eosinophils # (Auto) 0.1 0.0-0.3 10^3/uL Basophils # (Auto) 0.0 0.0-0.1 10^3/uL Urine Color WALLACE H Urine Clarity CLOUDY Urine pH 6.5 5-9 Urine Specific Co[place]ran 1.010 L 1.016-1.022 Urine Protein 2+ H NEGATIVE Urine Glucose (UA) NEGATIVE NEGATIVE Urine Ketones NEGATIVE NEGATIVE Urine Nitrite POSITIVE H NEGATIVE Urine Bilirubin 1+ H NEGATIVE Urine Urobilinogen 1.0 < = 1.0 MG/DL Urine Leukocyte Esterase 3+ H NEGATIVE Urine RBC (Auto) 3+ H NEGATIVE Urine RBC >100 H /HPF Urine WBC >100 H /HPF Urine Squamous Epithelial Cells RARE /HPF Urine Crystals NONE /LPF Urine Bacteria MODERATE H /HPF Urine Casts NONE /LPF Urine Mucus NEGATIVE /LPF Urine Culture Indicated YES Sodium Level 122 *L 135-145 MMOL/L Potassium Level 4.5 3.6-5.0 MMOL/L Chloride Level 93 L 98-107 MMOL/L Carbon Dioxide Level 20 L 21-32 MMOL/L Anion Gap 9 5-14 MMOL/L Blood Urea Nitrogen 22 H 7-18 MG/DL Creatinine 1.65 H 0.60-1.30 MG/DL Estimat Glomerular Filtration Rate 41 BUN/Creatinine Ratio 13 Glucose Level 101 70-105 MG/DL Calcium Level 9.3 8.5-10.1 MG/DL Corrected Calcium 9.1 8.5-10.1 MG/DL Total Bilirubin 0.5 0.1-1.0 MG/DL Aspartate Amino Transf (AST/SGOT) 16 5-34 U/L Alanine Aminotransferase (ALT/SGPT) 8 0-55 U/L Alkaline Phosphatase 73 40-136 U/L Total Protein 7.6 6.4-8.2 GM/DL Albumin 4.2 3.2-4.5 GM/DL My Orders Orders - WANDER AVILES APRN Cbc With Automated Diff (11/01/19 16:58) Comprehensive Metabolic Panel (11/01/19 16:58) Ua Culture If Indicated (11/01/19 16:58) Urine Culture (11/01/19 17:10) Ceftriaxone For Iv Use (Rocephin For I (11/01/19 17:45) Medications Given in ED Current Medications Medications Dose Ordered Sig/Bernardo Route Start Time Stop Time Status Last Admin Dose Admin Ceftriaxone Sodium 1000 mg/ Sterile Water 10 ml @ 200 mls/hr ONCE ONCE IV 11/01/19 17:45 11/01/19 17:47 DC 11/01/19 18:09 200 MLS/HR Vital Signs/I&O 11/01/19 17:00 Temp 37.3 Pulse 98 Resp 18 B/P (MAP) 159/83 (108) Pulse Ox 95 O2 Delivery Room Air Capillary Refill : Departure Communication (Admissions) [id number] spoke with Dr. Galdamez and Dr. Wright. They both agreed to admit and consult. Spoke with the patient, he states he doesn't want to stay, lives by himself and would like to go home. He'll return if he gets any worse. He is alert and oriented to person place time and situation and is capable of making this decision. Impression Primary Impression: Hyponatremia Additional Impression: Hematuria Disposition: ADMITTED INPATIENT Condition: Stable Departure-Patient Inst. Decision time for Depature: 18:40 Referrals: MEENA DOE MD (PCP/Family) Primary Care Physician Patient Instructions: Urinary Tract Infection, Adult (DC), Hyponatremia Scripts Cefdinir (Cefdinir) 300 Mg Capsule 300 MG PO BID, #20 CAP Prov: WANDER AVILES APRN 11/01/19 Copy Copies To 1: MEENA DOE MD; WILLIE WRIGHT MD, PETER J APRN Nov 01, 2019 17:10
[2019-11-01 17:24] LABS: BASOPHILS % (AUTO) 0 % (0-10); EOSINOPHILS # (AUTO) 0.1 10^3/uL (0.0-0.3); EOSINOPHILS % (AUTO) 1 % (0-10); HEMATOCRIT 34 % (40-54); HEMOGLOBIN 11.7 G/DL (13.3-17.7); LYMPHOCYTES # (AUTO) 2.2 X 10^3 (1.0-4.0); LYMPHOCYTES % (AUTO) 22 % (12-44); MEAN CORPUSCULAR HEMOGLOBIN 31 PG (25-34); MEAN CORPUSCULAR HGB CONC 34 G/DL (32-36); MEAN CORPUSCULAR VOLUME 91 FL (80-99); MEAN PLATELET VOLUME 8.3 FL (7.4-10.4); MONOCYTES # (AUTO) 0.9 X 10^3 (0.0-1.0); MONOCYTES % (AUTO) 9 % (0-12); NEUTROPHILS # (AUTO) 6.9 X 10^3 (1.8-7.8); NEUTROPHILS % (AUTO) 68 % (42-75); PLATELET COUNT 348 10^3/uL (130-400); RED CELL DISTRIBUTION WIDTH 14.4 % (10.0-14.5); WHITE BLOOD COUNT 10.1 10^3/uL (4.3-11.0)
[2019-11-01 17:26] LABS: CLARITY,URINE CLOUDY; GLUCOSE, URINE (UA) NEGATIVE (NEGATIVE); KETONES,URINE NEGATIVE (NEGATIVE); LEUKOCYTE ESTERASE ,URINE 3+ (NEGATIVE); NITRITE,URINE POSITIVE (NEGATIVE); PH,URINE 6.5 (5-9); PROTEIN,URINE 2+ (NEGATIVE)
--- NOTE | 2019-11-01 17:31 | NUR ---
report given to SRI Wilkinson
[2019-11-01 17:33] LABS: COLOR,URINE AMBER
[2019-11-01 17:34] LABS: BILIRUBIN,URINE 1+ (NEGATIVE)
[2019-11-01 17:36] LABS: BACTERIA,URINE MODERATE /HPF; RBC,URINE >100 /HPF; SQUAMOUS EPITHELIAL CELL,UR RARE /HPF; WBC,URINE >100 /HPF
[2019-11-01 17:44] LABS: ALBUMIN 4.2 GM/DL (3.2-4.5); POTASSIUM 4.5 MMOL/L (3.6-5.0)
[2019-11-01 17:45] LABS: CALCIUM 9.3 MG/DL (8.5-10.1)
[2019-11-01] MEDS ORDERED: cefTRIAXone FOR IV USE 1,000 MG in WATER (STERILE) FOR INJECTION 10 ML IV ONE (17:45)
[2019-11-01 17:47] LABS: TOTAL PROTEIN 7.6 GM/DL (6.4-8.2)
[2019-11-01 17:48] LABS: BILIRUBIN,TOTAL 0.5 MG/DL (0.1-1.0)
[2019-11-01 17:50] LABS: CREATININE SERUM 1.65 MG/DL (0.60-1.30)
[2019-11-01] MEDS ORDERED: CEFD300C3 PO ×2 (18:41→18:44)
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
--- OUTSIDE RECORDS SUMMARY | 2019-11-01 19:21 | XMS REPORT ---
Author Author Zia MONIQUE Organization [facility] Address [facility] [place] [address] Care Team Providers Care Employment Service Specialist Name Role Phone MONIQUENOAH Unavailable PROBLEMS Type Condition ICD9-CM Code INL20-HM Code Onset Dates Condition S tatus SNOMED Code Problem Prediabetes R73.09 Active 6610769 Problem Hypertension I10 Active 8497567 3 Problem Tobacco use Z72.0 Active 36895496 0 Problem Primary insomnia F51.01 Active 397 2004 Problem Squamous cell carcinoma C44.92 Active 893620077 Problem Benign prostatic hyperplasia with lower urinary tract symptoms, symptom details unspecified N40.1 Active 56025116 899276 Problem Hyperlipidemia E78.5 Active 27110 004 Problem Neuropathy G62.9 Active 354900158 Problem Bladder disorder, unspecified N32.9 Active 23306152 Problem 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 Acti ve [id number] ALLERGIES No Information ENCOUNTERS Encounter Location Date Diagnosis [place] [id number] [facility] [id number] [address] [place] [id number] Jun, Benign prostatic hyperplasia with lower urinary tract symptoms, symptom details unspecified N40.1 [facility] [address] [facility] [id number] [address] [place] [id number] Jun, Benign prostatic hyperplasia with lower urinary tract symptoms, symptom details unspecified N40.1 [facility] [address] [facility] [id number] [address] [place] [id number] Jun, Benign prostatic hyperplasia with lower urinary tract symptoms, symptom details unspecified N40.1 [facility] [address] [facility] [id number] [address] [place] [id number] Apr, [facility] [address] [facility] [id number] [address] [place] [id number] Mar, Hypertension I10 [facility] [address] [facility] [id number] [address] [place] [id number] Mar, [facility] [address] [facility] [id number] [address] [place] [id number] Mar, [facility] [address] [facility] [id number] [address] [place] [id number] Mar, [facility] [address] [facility] [id number] [address] [place] [id number] Feb, Encounter for Medicare annua l wellness exam Z00.00 ; Hypertension I10 ; Hyperlipidemia E78.5 ; Tobacco use Z72.0 and Bladder disorder, unspecified N32.9 [facility] [address] [facility] [id number] [address] [place] [id number] Feb, [facility] [address] [facility] [id number] [address] [place] [phone] Jan, Hypertension I10 ; Bladder d isorder, unspecified N32.9 ; Prediabetes R73.09 and Encounter for immunization Z23 [facility] [address] [facility] [id number] [address] [place] [id number] Jan, [facility] [address] [facility] [id number] [address] [place] [id number] Jan, Hypertension I10 and Prediab etes R73.09 [facility] [address] [facility] [id number] [address] [place] [id number] Jan, [facility] [address] [facility] [id number] [address] [place] [id number] Jan, Hypertension I10 and Prediab etes R73.09 [facility] [address] [facility] [id number] [address] [place] [id number] Dec, Acute bacterial conjunctivit is of both eyes H10.33 [facility] [address] [facility] [id number] [address] [place] [phone] Dec, Hypertension I10 and Prediab etes R73.09 [facility] [address] [facility] [id number] [address] [place] [id number] Dec, Hypertension I10 ; Hyperlipi demia E78.5 ; Prediabetes R73.09 ; Bladder disorder, unspecified N32.9 ; Neuropathy G62.9 and Impacted cerumen of right ear H61.21 [facility] [address] [facility] [id number] [address] [place] [id number] Dec, Cellulitis of face L03.211 [place] [address] [place] [id number] [address] [place] [id number] Dec, [place] [address] [place] [id number] [place] [address] Dec, [facility] [address] [place] [id number] Dec, Hematuria, unspecified type R31.9 ; Blad baldemar disorder, unspecified N32.9 ; Hypertension I10 ; Hyperlipidemia E78.5 ; Neuropathy G62.9 ; History of peptic ulcer Z87.11 ; 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 and Primary insomnia F51.01 [place] [address] [place] [id number] [address] [place] [id number] Nov, Right medial knee pain M25.5 61 [place] [address] [place] [id number] [address] [place] [id number] Nov, [place] [address] [place] [id number] [address] [place] [id number] Nov, Right medial knee pain M25.5 61 and Acute right ankle pain M25.571 [place] [address] [place] [id number] [address] [place] [id number] Nov, [place] [address] [place] [id number] [address] [place] [address] Nov, Pain in right foot M79.671 a nd Pain of left foot M79.672 [facility] [address] [place] [id number] Nov, Pain of left foot M79.672 and Pain in ri ght foot M79.671 [place] [address] [address] Nov, Neuropathy G62.9 [facility] [address] [place] [id number] Oct, Physical deconditioning R53.81 ; Right f oot pain M79.671 and Essential hypertension I10 [place] [address] [address] September, [facility] [address] [address] September, Hematuria, unspecified type R31.9 and Chest pressure R07.89 [place] [address] [address] Jun, Hypertension I10 ; Hyperlipi demia E78.5 ; Tobacco use Z72.0 and Prediabetes R73.09 [place] [address] [address] Apr, [place] [address] [address] Mar, Hypertension I10 [facility] [address] [address] Aug, Lesion of lip K13.0 [place] [address] [place] [id number] [place] [address] Apr, Hypertension I10 ; Hyperlipi demia E78.5 ; Prediabetes R73.09 ; Tobacco use Z72.0 and Healthcare maintenance Z00.00 [place] [address] [place] [id number] [address] [place] [id number] Jul, Hypertension I10 and Multipl e actinic keratoses L57.0 [place] [address] [place] [address] Jul, Hypertension I10 [facility] [address] [address] Jun, Hypertension I10 [facility] [address] [address] 23 Jun, 2016 Hypertension I10 ; Hyperlipi demia E78.5 ; Prediabetes R73.09 ; Tobacco use Z72.0 and Multiple actinic keratoses L57.0 [facility] [address] [address] 06 Jan, 2016 Hypertension I10 ; Hyperlipi demia E78.5 and Tobacco use Z72.0 [facility] [address] [address] 15 Oct, 2015 [facility] [address] [address] 04 Jun, 2015 Hypertension I10 ; Hyperlipi demia E78.5 ; Prediabetes R73.09 ; Screening for colon cancer Z12.11 and Tobacco use Z72.0 [facility] [address] [place] [id number] [address] [place] [id number] Apr, [facility] [address] [place] [id number] [address] [place] [id number] Apr, [facility] [address] [place] [id number] [address] [place] [id number] Apr, [facility] [address] [place] [id number] [address] [place] [id number] Dec, [facility] [address] [address] Dec, [facility] [address] [place] [id number] [address] [place] [id number] Nov, Nondependent tobacco use dis order 305.1 ; Hypertension 401.9 ; Hyperlipidemia 272.4 ; Prediabetes 790.29 ; Colon cancer screening V76.51 and Sunburn 692.71 [facility] [address] [id number] [address] [place] [id number] Oct, [facility] [address] [facility] [id number] [address] [place] [address] Oct, Other and unspecified hyperl ipidemia 272.4 ; Essential hypertension 401.9 and Essential hypertension, benign 401.1 [facility] [address] [id number] [address] [place] [id number] Oct, [facility] [address] [id number] [address] [place] [id number] Aug, [facility] [address] [facility] [id number] [address] [place] [id number] Aug, [facility] [address] [facility] [id number] [address] [place] [id number] Jun, [facility] [address] [facility] [id number] [address] [place] [phone] Jun, [facility] [address] [facility] [id number] [address] [place] [id number] Apr, [facility] [address] [facility] [id number] [address] [place] [id number] Apr, [facility] [address] [facility] [id number] [address] [place] [id number] Apr, [facility] [address] [id number] [address] [place] [id number] Apr, [facility] [address] [id number] [address] [place] [id number] Mar, [facility] [address] [facility] [id number] [address] [place] [id number] Mar, [facility] [address] [facility] [id number] [address] [place] [id number] Mar, [facility] [address] [id number] [facility] [place] [address] Mar, [facility] [address] [id number] [address] [place] [address], [place] [address] Feb, [facility] [address] [id number] [address] [place] [address], [place] [address] Feb, [facility] [address] [id number] [address] [place] [address], [place] [address] Dec, [facility] [address] [id number] [address] [place] [address], [place] [address] Dec, [facility] [address] [id number] [address] [place] [address], [place] [address] Oct, [facility] [address] [id number] [address] [place] [address], [place] [address] Oct, [facility] [address] [id number] [address] [place] [address], [place] [address] September, [facility] [address] [id number] [address] [place] [address], [place] [address] September, [facility] [address] [id number] [address] [place] [address], [place] [address] September, [facility] [address] [id number] [address] [place] [address], [place] [address] September, [facility] [address] [id number] [address] [place] [address], [place] [address] September, [facility] [address] [id number] [address] [place] [address], [place] [address] September, [facility] [address] [id number] [address] [place] [address], [place] [address] September, [facility] [address] [id number] [address] [place] [address], [place] [address] September, [facility] [address] [id number] [address] [place] [address], [place] [address] September, [facility] [address] [id number] [address] [place] [address], [place] [address] September, [facility] [address] [id number] [address] [place] [address], [place] [address] Aug, [facility] [address] [id number] [address] [place] [address], [place] [address] Aug, [facility] [address] [id number] [address] [place] [address], [place] [address] Jun, [facility] [address] [id number] [address] [place] [address], [place] [address] Jun, [facility] [address] [id number] [address] [place] [address], [place] [address] May, [facility] [address] [id number] [address] [place] [address], [place] [address] May, [facility] [address] [id number] [address] [place] [address], [place] [address] May, [facility] [address] [id number] [address] [place] [address], [place] [address] May, [facility] [address] [id number] [address] [place] [address], [place] [address] Apr, [facility] [address] [id number] [address] [place] [address], [place] [address] Apr, [facility] [address] [id number] [address] [place] [id number] Mar, [facility] [address] [id number] [address] [place] [address], [place] [address] Mar, [facility] [address] [id number] [address] [place] [address], [place] [address] Feb, [facility] [address] [id number] [address] [place] [address], [place] [address] Feb, [facility] [address] [id number] [address] [place] [address], [place] [address] Dec, [facility] [address] [id number] [address] [place] [address], [place] [address] Dec, [facility] [address] [id number] [address] [place] [address], [place] [address] Dec, [facility] [address] [id number] [address] [place] [address], [place] [address] Oct, [facility] [address] [id number] [address] [place] [address], [place] [address] Oct, [facility] [address] [id number] [address] [place] [address], [place] [address] Oct, [facility] [address] [id number] [address] [place] [address], [place] [address] September, [facility] [address] [id number] [address] [place] [address], [place] [address] September, [facility] [address] [id number] [address] [place] [address], [place] [address] September, [facility] [address] [id number] [address] [place] [address], [place] [address] September, [facility] [address] [id number] [address] [place] [address], [place] [address] Jun, [facility] [address] [id number] [address] [place] [address], [place] [address] Mar, [facility] [address] [id number] [address] [place] [address], [place] [address] Mar, [facility] [address] [id number] [address] [place] [address], [place] [address] Mar, [facility] [address] [id number] [address] [place] [address], [place] [address] Mar, [facility] [address] [id number] [address] [place] [address], [place] [address] Mar, [facility] [address] [id number] [address] [place] [address], [place] [address] Mar, [facility] [address] [id number] [address] [place] [address], [place] [address] Feb, [facility] [address] [id number] [address] [place] [address], [place] [address] Feb, [facility] [address] [id number] [address] [place] [address], [place] [address] Feb, [facility] [address] [id number] [address] [place] [address], [place] [address] Feb, [facility] [address] [id number] [address] [place] [address], [place] [address] Feb, [facility] [address] [id number] [address] [place] [address], [place] [address] Feb, [facility] [address] [id number] [address] [place] [address], [place] [address] Feb, [facility] [address] [id number] [address] [place] [address], [place] [address] Feb, [facility] [address] [id number] [address] [place] [address], [place] [address] Oct, [facility] [address] [id number] [address] [place] [address], [place] [address] 30 Aug, 2011 [facility] [address] [id number] [address] [place] [address], [place] [address] 17 Aug, 2011 [facility] [address] [id number] [address] [place] [address], [place] [address] 16 Aug, 2011 [facility] [address] [id number] [address] [place] [address], [place] [address] 14 Aug, 2011 [facility] [address] [id number] [address] [place] [address], [place] [address] 05 Jul, 2011 [facility] [address] [id number] [address] [place] [address] May, [facility] [address] [id number] [address] [place] [address] May, [facility] [address] [id number] [address] [place] [address] Mar, [facility] [address] [id number] [address] [place] [id number] Feb, [facility] [address] [id number] [address] [place] [id number] May, [facility] [address] [id number] [address] [place] [id number] Mar, [facility] [address] [id number] [address] [place] [id number] Feb, [facility] [address] [id number] [address] [place] [id number] Feb, [facility] [address] [id number] [address] [place] [id number] Apr, [facility] [address] [id number] [address] [place] [id number] Apr, IMMUNIZATIONS No Known Immunizations SOCIAL HISTORY Never Assessed REASON FOR VISIT PLAN OF CARE VITAL SIGNS MEDICATIONS Unknown [...]
--- OUTSIDE RECORDS SUMMARY | 2019-11-01 19:21 | XMS REPORT ---
Author Author Zia MONIQUE Organization [facility] Address [facility] [place] [address] Care Team Providers Care Distribution Supervisor Name Role Phone MONIQUENOAH Unavailable PROBLEMS Type Condition ICD9-CM Code FUG10-PW Code Onset Dates Condition S tatus SNOMED Code Problem Prediabetes R73.09 Active 7877020 Problem Hypertension I10 Active 5817058 3 Problem Tobacco use Z72.0 Active 05324008 0 Problem Primary insomnia F51.01 Active 397 2004 Problem Squamous cell carcinoma C44.92 Active 248570968 Problem Benign prostatic hyperplasia with lower urinary tract symptoms, symptom details unspecified N40.1 Active 13996522 260599 Problem Hyperlipidemia E78.5 Active 89556 004 Problem Neuropathy G62.9 Active 279916158 Problem Bladder disorder, unspecified N32.9 Active 06216496 Problem 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 Acti ve 86193212 ALLERGIES No Information ENCOUNTERS Encounter Location Date Diagnosis [place] [id number] [facility] [id number] [address] [place] [address] Jun, Benign prostatic hyperplasia with lower urinary tract symptoms, symptom details unspecified N40.1 [facility] [address] [facility] [id number] [address] [place] [address] Jun, Benign prostatic hyperplasia with lower urinary tract symptoms, symptom details unspecified N40.1 [facility] [address] [facility] [id number] [address] [place] [address] Jun, Benign prostatic hyperplasia with lower urinary tract symptoms, symptom details unspecified N40.1 [facility] [address] [facility] [id number] [address] [place] [address] Apr, [facility] [address] [facility] [id number] [address] [place] [address] Mar, Hypertension I10 [facility] [address] [facility] [id number] [address] [place] [address] Mar, [facility] [address] [facility] [id number] [address] [place] [address] Mar, [facility] [address] [facility] [id number] [address] [place] [address] Mar, [facility] [address] [facility] [id number] [address] [place] [address] Feb, Encounter for Medicare annua l wellness exam Z00.00 ; Hypertension I10 ; Hyperlipidemia E78.5 ; Tobacco use Z72.0 and Bladder disorder, unspecified N32.9 [facility] [address] [facility] [id number] [address] [place] [address] Feb, [facility] [address] [facility] [id number] [address] [place] [address] Jan, Hypertension I10 ; Bladder d isorder, unspecified N32.9 ; Prediabetes R73.09 and Encounter for immunization Z23 [facility] [address] [facility] [id number] [address] [place] [address] Jan, [facility] [address] [facility] [id number] [address] [place] [address] Jan, Hypertension I10 and Prediab etes R73.09 [facility] [address] [facility] [id number] [address] [place] [address] Jan, [facility] [address] [facility] [id number] [address] [place] [address] Jan, Hypertension I10 and Prediab etes R73.09 [facility] [address] [facility] [id number] [address] [place] [address] Dec, Acute bacterial conjunctivit is of both eyes H10.33 [facility] [address] [facility] [id number] [address] [place] [address] Dec, Hypertension I10 and Prediab etes R73.09 [facility] [address] [facility] [id number] [address] [place] [address] Dec, Hypertension I10 ; Hyperlipi demia E78.5 ; Prediabetes R73.09 ; Bladder disorder, unspecified N32.9 ; Neuropathy G62.9 and Impacted cerumen of right ear H61.21 [facility] [address] [facility] [id number] [address] [place] [address] Dec, Cellulitis of face L03.211 [place] [address] [address] [place] [id number] [address] [place] [address] Dec, [place] [address] [place] [id number] [place] [address] Dec, [facility] [employer] [place] [facility] [address] [place] [id number] Dec, Hematuria, unspecified type R31.9 ; Blad baldemar disorder, unspecified N32.9 ; Hypertension I10 ; Hyperlipidemia E78.5 ; Neuropathy G62.9 ; History of peptic ulcer Z87.11 ; 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 and Primary insomnia F51.01 [place] [address] [address] [place] [id number] [address] [place] [address] Nov, Right medial knee pain M25.5 61 [place] [address] [address] [place] [id number] [address] [place] [address] Nov, [place] [address] [place] [id number] [address] [place] [address] Nov, Right medial knee pain M25.5 61 and Acute right ankle pain M25.571 [place] [address] [place] [id number] [address] [place] [address] Nov, [place] [address] [place] [id number] [address] [place] [address] Nov, Pain in right foot M79.671 a nd Pain of left foot M79.672 [facility] [employer] [place] [facility] [address] [place] [id number] Nov, Pain of left foot M79.672 and Pain in ri ght foot M79.671 [place] [address] [address] Nov, Neuropathy G62.9 [facility] [address] [place] [id number] Oct, Physical deconditioning R53.81 ; Right f oot pain M79.671 and Essential hypertension I10 [place] [address] [address] September, [facility] [address] [address] September, Hematuria, unspecified type R31.9 and Chest pressure R07.89 [place] [address] [address] Jun, Hypertension I10 ; Hyperlipi demia E78.5 ; Tobacco use Z72.0 and Prediabetes R73.09 [place] [address] [address] Apr, [place] [address] [address] Mar, Hypertension I10 [facility] [address] [address] Aug, Lesion of lip K13.0 [place] [address] [place] [id number] [place] [address] Apr, Hypertension I10 ; Hyperlipi demia E78.5 ; Prediabetes R73.09 ; Tobacco use Z72.0 and Healthcare maintenance Z00.00 [place] [address] [place] [id number] [address] [place] [address] Jul, Hypertension I10 and Multipl e actinic keratoses L57.0 [place] [address] [place] [address] Jul, Hypertension I10 [facility] [address] [address] Jun, Hypertension I10 [facility] [address] [address] 23 Jun, 2016 Hypertension I10 ; Hyperlipi demia E78.5 ; Prediabetes R73.09 ; Tobacco use Z72.0 and Multiple actinic keratoses L57.0 [facility] [address] [address] 06 Jan, 2016 Hypertension I10 ; Hyperlipi demia E78.5 and Tobacco use Z72.0 [facility] [address] [address] 15 Oct, 2015 [facility] [address] [address] 04 Jun, 2015 Hypertension I10 ; Hyperlipi demia E78.5 ; Prediabetes R73.09 ; Screening for colon cancer Z12.11 and Tobacco use Z72.0 [facility] [address] [place] [id number] [address] [place] [address] Apr, [facility] [address] [place] [id number] [address] [place] [address] Apr, [facility] [address] [place] [id number] [address] [place] [address] Apr, [facility] [address] [place] [id number] [address] [place] [address] Dec, [facility] [address] [address] Dec, [facility] [address] [place] [id number] [address] [place] [address] Nov, Nondependent tobacco use dis order 305.1 ; Hypertension 401.9 ; Hyperlipidemia 272.4 ; Prediabetes 790.29 ; Colon cancer screening V76.51 and Sunburn 692.71 [facility] [address] [id number] [address] [place] [address] Oct, [facility] [address] [facility] [id number] [address] [place] [address] Oct, Other and unspecified hyperl ipidemia 272.4 ; Essential hypertension 401.9 and Essential hypertension, benign 401.1 [facility] [address] [id number] [address] [place] [address] Oct, [facility] [address] [id number] [address] [place] [address] Aug, [facility] [address] [facility] [id number] [address] [place] [address] Aug, [facility] [address] [facility] [id number] [address] [place] [address] Jun, [facility] [address] [facility] [id number] [address] [place] [address] Jun, [facility] [address] [facility] [id number] [address] [place] [address] Apr, [facility] [address] [facility] [id number] [address] [place] [address] Apr, [facility] [address] [facility] [id number] [address] [place] [address] Apr, [facility] [address] [id number] [address] [place] [address] Apr, [facility] [address] [id number] [address] [place] [address] Mar, [facility] [address] [facility] [id number] [address] [place] [address] Mar, [facility] [address] [facility] [id number] [address] [place] [address] Mar, [facility] [address] [id number] [facility] [place] [address] Mar, [facility] [address] [id number] [address] [place] [address], [place] [address] Feb, [facility] [address] [id number] [address] [place] [address], [place] [address] Feb, [facility] [address] [id number] [address] [place] [address], [place] [address] Dec, [facility] [address] [id number] [address] [place] [address], [place] [address] Dec, [facility] [address] [id number] [address] [place] [address], [place] [address] Oct, [facility] [address] [id number] [address] [place] [address], [place] [address] Oct, [facility] [address] [id number] [address] [place] [address], [place] [address] September, [facility] [address] [id number] [address] [place] [address], [place] [address] September, [facility] [address] [id number] [address] [place] [address], [place] [address] September, [facility] [address] [id number] [address] [place] [address], [place] [address] September, [facility] [address] [id number] [address] [place] [address], [place] [address] September, [facility] [address] [id number] [address] [place] [address], [place] [address] September, [facility] [address] [id number] [address] [place] [address], [place] [address] September, [facility] [address] [id number] [address] [place] [address], [place] [address] September, [facility] [address] [id number] [address] [place] [address], [place] [address] September, [facility] [address] [id number] [address] [place] [address], [place] [address] September, [facility] [address] [id number] [address] [place] [address], [place] [address] Aug, [facility] [address] [id number] [address] [place] [address], [place] [address] Aug, [facility] [address] [id number] [address] [place] [address], [place] [address] Jun, [facility] [address] [id number] [address] [place] [address], [place] [address] Jun, [facility] [address] [id number] [address] [place] [address], [place] [address] May, [facility] [address] [id number] [address] [place] [address], [place] [address] May, [facility] [address] [id number] [address] [place] [address], [place] [address] May, [facility] [address] [id number] [address] [place] [address], [place] [address] May, [facility] [address] [id number] [address] [place] [address], [place] [address] Apr, [facility] [address] [id number] [address] [place] [address], [place] [address] Apr, [facility] [address] [id number] [address] [place] [address] Mar, [facility] [address] [id number] [address] [place] [address], [place] [address] Mar, [facility] [address] [id number] [address] [place] [address], [place] [address] Feb, [facility] [address] [id number] [address] [place] [address], [place] [address] Feb, [facility] [address] [id number] [address] [place] [address], [place] [address] Dec, [facility] [address] [id number] [address] [place] [address], [place] [address] Dec, [facility] [address] [id number] [address] [place] [address], [place] [address] Dec, [facility] [address] [id number] [address] [place] [address], [place] [address] Oct, [facility] [address] [id number] [address] [place] [address], [place] [address] Oct, [facility] [address] [id number] [address] [place] [address], [place] [address] Oct, [facility] [address] [id number] [address] [place] [address], [place] [address] September, [facility] [address] [id number] [address] [place] [address], [place] [address] September, [facility] [address] [id number] [address] [place] [address], [place] [address] September, [facility] [address] [id number] [address] [place] [address], [place] [address] September, [facility] [address] [id number] [address] [place] [address], [place] [address] Jun, [facility] [address] [id number] [address] [place] [address], [place] [address] Mar, [facility] [address] [id number] [address] [place] [address], [place] [address] Mar, [facility] [address] [id number] [address] [place] [address], [place] [address] Mar, [facility] [address] [id number] [address] [place] [address], [place] [address] Mar, [facility] [address] [id number] [address] [place] [address], [place] [address] Mar, [facility] [address] [id number] [address] [place] [address], [place] [address] Mar, [facility] [address] [id number] [address] [place] [address], [place] [address] Feb, [facility] [address] [id number] [address] [place] [address], [place] [address] Feb, [facility] [address] [id number] [address] [place] [address], [place] [address] Feb, [facility] [address] [id number] [address] [place] [address], [place] [address] Feb, [facility] [address] [id number] [address] [place] [address], [place] [address] Feb, [facility] [address] [id number] [address] [place] [address], [place] [address] Feb, [facility] [address] [id number] [address] [place] [address], [place] [address] Feb, [facility] [address] [id number] [address] [place] [address], [place] [address] Feb, [facility] [address] [id number] [address] [place] [address], [place] [address] Oct, [facility] [address] [id number] [address] [place] [address], [place] [address] 30 Aug, 2011 [facility] [address] [id number] [address] [place] [address], [place] [address] 17 Aug, 2011 [facility] [address] [id number] [address] [place] [address], [place] [address] 16 Aug, 2011 [facility] [address] [id number] [address] [place] [address], [place] [address] 14 Aug, 2011 [facility] [address] [id number] [address] [place] [address], [place] [address] 05 Jul, 2011 [facility] [address] [id number] [address] [place] [address] May, [facility] [address] [id number] [address] [place] [address] May, [facility] [address] [id number] [address] [place] [address] Mar, [facility] [address] [id number] [address] [place] [address] Feb, [facility] [address] [id number] [address] [place] [address] May, [facility] [address] [id number] [address] [place] [address] Mar, [facility] [address] [id number] [address] [place] [address] Feb, [facility] [address] [id number] [address] [place] [address] Feb, [facility] [address] [id number] [address] [place] [address] Apr, [facility] [address] [id number] [address] [place] [address] Apr, IMMUNIZATIONS No Known Immunizations SOCIAL HISTORY [...]
--- OUTSIDE RECORDS SUMMARY | 2019-11-01 19:22 | XMS REPORT ---
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 Name Role Phone MONIQUENOAH Unavailable PROBLEMS Type Condition ICD9-CM Code [id number] Code Onset Dates Condition S tatus SNOMED Code Problem Prediabetes R73.09 Active 3807551 Problem Hypertension I10 Active 6135095 3 Problem Tobacco use Z72.0 Active 09261013 0 Problem Primary insomnia F51.01 Active 397 2004 Problem Squamous cell carcinoma C44.92 Active 358691499 Problem Benign prostatic hyperplasia with lower urinary tract symptoms, symptom details unspecified N40.1 Active 10473121 032256 Problem Hyperlipidemia E78.5 Active 27962 004 Problem Neuropathy G62.9 Active 353186766 Problem Bladder disorder, unspecified N32.9 Active 83739955 Problem 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 Acti ve 85333393 ALLERGIES No Information ENCOUNTERS Encounter Location Date Diagnosis [place] [id number] [facility] [id number] [address] [place] [phone] Jun, Benign prostatic hyperplasia with lower urinary tract symptoms, symptom details unspecified N40.1 [facility] [place] [address] [facility] [id number] [address] [place] [phone] Jun, Benign prostatic hyperplasia with lower urinary tract symptoms, symptom details unspecified N40.1 [facility] [place] [address] [facility] [id number] [address] [place] [phone] Jun, Benign prostatic hyperplasia with lower urinary tract symptoms, symptom details unspecified N40.1 [facility] [place] [address] [facility] [id number] [address] [place] [phone] Apr, [facility] [place] [address] [facility] [id number] [address] [place] [phone] Mar, Hypertension I10 [facility] [place] [address] [facility] [id number] [address] [place] [phone] Mar, [facility] [place] [address] [facility] [id number] [address] [place] [phone] Mar, [facility] [place] [address] [facility] [id number] [address] [place] [phone] Mar, [facility] [place] [address] [facility] [id number] [address] [place] [phone] Feb, Encounter for Medicare annua l wellness exam Z00.00 ; Hypertension I10 ; Hyperlipidemia E78.5 ; Tobacco use Z72.0 and Bladder disorder, unspecified N32.9 [facility] [place] [address] [facility] [id number] [address] [place] [phone] Feb, [facility] [place] [address] [facility] [id number] [address] [place] [phone] Jan, Hypertension I10 ; Bladder d isorder, unspecified N32.9 ; Prediabetes R73.09 and Encounter for immunization Z23 [facility] [place] [address] [facility] [id number] [address] [place] [phone] Jan, [facility] [place] [address] [facility] [id number] [address] [place] [phone] Jan, Hypertension I10 and Prediab etes R73.09 [facility] [place] [address] [facility] [id number] [address] [place] [phone] Jan, [facility] [place] [address] [facility] [id number] [address] [place] [phone] Jan, Hypertension I10 and Prediab etes R73.09 [facility] [address] [facility] [id number] [address] [place] [id number] Dec, Acute bacterial conjunctivit is of both eyes H10.33 [facility] [place] [address] [facility] [id number] [address] [place] [phone] Dec, Hypertension I10 and Prediab etes R73.09 [facility] [place] [address] [facility] [id number] [address] [place] [phone] Dec, Hypertension I10 ; Hyperlipi demia E78.5 ; Prediabetes R73.09 ; Bladder disorder, unspecified N32.9 ; Neuropathy G62.9 and Impacted cerumen of right ear H61.21 [facility] [address] [facility] [id number] [address] [place] [phone] Dec, Cellulitis of face L03.211 [place] [address] [place] [id number] [address] [place] [phone] Dec, [place] [address] [place] [id number] [place] [phone] Dec, Via [facility] [address] [place] [id number] Dec, Hematuria, unspecified type R31.9 ; Blad baldemar disorder, unspecified N32.9 ; Hypertension I10 ; Hyperlipidemia E78.5 ; Neuropathy G62.9 ; History of peptic ulcer Z87.11 ; 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 and Primary insomnia F51.01 [place] [address] [place] [id number] [address] [place] [phone] Nov, Right medial knee pain M25.5 61 [place] [address] [place] [id number] [address] [place] [address] Nov, [place] [address] [place] [id number] [address] [place] [address] Nov, Right medial knee pain M25.5 61 and Acute right ankle pain M25.571 [place] [address] [place] [id number] [address] [place] [phone] Nov, [place] [address] [place] [id number] [address] [place] [address] Nov, Pain in right foot M79.671 a nd Pain of left foot M79.672 [facility] [address] [place] [id number] Nov, Pain of left foot M79.672 and Pain in ri ght foot M79.671 [place] [address] [address] Nov, Neuropathy G62.9 Via [facility] [address] [place] [id number] Oct, Physical deconditioning R53.81 ; Right f oot pain M79.671 and Essential hypertension I10 [place] [address] [address] September, [facility] [address] [address] September, Hematuria, unspecified type R31.9 and Chest pressure R07.89 [place] [address] [address] Jun, Hypertension I10 ; Hyperlipi demia E78.5 ; Tobacco use Z72.0 and Prediabetes R73.09 [place] [address] [address] Apr, [place] [address] [address] Mar, Hypertension I10 [facility] [address] [address] Aug, Lesion of lip K13.0 [place] [address] [place] [id number] [place] [address] Apr, Hypertension I10 ; Hyperlipi demia E78.5 ; Prediabetes R73.09 ; Tobacco use Z72.0 and Healthcare maintenance Z00.00 [place] [address] [place] [id number] [address] [place] [phone] Jul, Hypertension I10 and Multipl e actinic keratoses L57.0 [place] [address] [place] [address] Jul, Hypertension I10 [facility] [place] [address] [address] Jun, Hypertension I10 [facility] [place] [address] [address] 23 Jun, 2016 Hypertension I10 ; Hyperlipi demia E78.5 ; Prediabetes R73.09 ; Tobacco use Z72.0 and Multiple actinic keratoses L57.0 [facility] [place] [address] [address] 06 Jan, 2016 Hypertension I10 ; Hyperlipi demia E78.5 and Tobacco use Z72.0 [facility] [place] [address] [id number] 15 Oct, 2015 [facility] [place] [address] [address] 04 Jun, 2015 Hypertension I10 ; Hyperlipi demia E78.5 ; Prediabetes R73.09 ; Screening for colon cancer Z12.11 and Tobacco use Z72.0 [facility] [place] [address] [place] [id number] [address] [place] [phone] Apr, [facility] [place] [address] [place] [id number] [address] [place] [phone] Apr, [facility] [place] [address] [place] [id number] [address] [place] [phone] Apr, [facility] [place] [address] [place] [id number] [address] [place] [phone] Dec, [facility] [place] [address] [id number] Dec, [facility] [place] [address] [place] [id number] [address] [place] [phone] Nov, Nondependent tobacco use dis order 305.1 ; Hypertension 401.9 ; Hyperlipidemia 272.4 ; Prediabetes 790.29 ; Colon cancer screening V76.51 and Sunburn 692.71 [facility] [place] [address] [id number] [address] [place] [phone] Oct, [facility] [place] [address] [facility] [id number] [address] [place] [phone] Oct, Other and unspecified hyperl ipidemia 272.4 ; Essential hypertension 401.9 and Essential hypertension, benign 401.1 [facility] [place] [address] [id number] [address] [place] [phone] Oct, [facility] [place] [address] [id number] [address] [place] [phone] Aug, [facility] [place] [address] [facility] [id number] [address] [place] [phone] Aug, [facility] [place] [address] [facility] [id number] [address] [place] [phone] Jun, [facility] [place] [address] [facility] [id number] [address] [place] [phone] Jun, [facility] [place] [address] [facility] [id number] [address] [place] [phone] Apr, [facility] [place] [address] [facility] [id number] [address] [place] [phone] Apr, [facility] [place] [address] [facility] [id number] [address] [place] [phone] Apr, [facility] [place] [address] [id number] [address] [place] [phone] Apr, [facility] [place] [address] [id number] [address] [place] [phone] Mar, [facility] [place] [address] [facility] [id number] [address] [place] [phone] Mar, [facility] [place] [address] [facility] [id number] [address] [place] [phone] Mar, [facility] [address] [id number] [facility] [place] [address] Mar, [facility] [address] [id number] [address] [place] [address], [place] [address] Feb, [facility] [address] [id number] [address] [place] [address], [place] [address] Feb, [facility] [address] [id number] [address] [place] [address], [place] [address] Dec, [facility] [address] [id number] [address] [place] [address], [place] [address] Dec, [facility] [address] [id number] [address] [place] [address], [place] [address] Oct, [facility] [address] [id number] [address] [place] [address], [place] [address] Oct, [facility] [address] [id number] [address] [place] [address], [place] [address] September, [facility] [address] [id number] [address] [place] [address], [place] [address] September, [facility] [address] [id number] [address] [place] [address], [place] [address] September, [facility] [address] [id number] [address] [place] [address], [place] [address] September, [facility] [address] [id number] [address] [place] [address], [place] [address] September, [facility] [address] [id number] [address] [place] [address], [place] [address] September, [facility] [address] [id number] [address] [place] [address], [place] [address] September, [facility] [address] [id number] [address] [place] [address], [place] [address] September, [facility] [address] [id number] [address] [place] [address], [place] [address] September, [facility] [address] [id number] [address] [place] [address], [place] [address] September, [facility] [address] [id number] [address] [place] [address], [place] [address] Aug, [facility] [address] [id number] [address] [place] [address], [place] [address] Aug, [facility] [address] [id number] [address] [place] [address], [place] [address] Jun, [facility] [address] [id number] [address] [place] [address], [place] [address] Jun, [facility] [address] [id number] [address] [place] [address], [place] [address] May, [facility] [address] [id number] [address] [place] [address], [place] [address] May, [facility] [address] [id number] [address] [place] [address], [place] [address] May, [facility] [address] [id number] [address] [place] [address], [place] [address] May, [facility] [address] [id number] [address] [place] [address], [place] [address] Apr, [facility] [address] [id number] [address] [place] [address], [place] [address] Apr, [facility] [address] [id number] [address] [place] [phone] Mar, [facility] [address] [id number] [address] [place] [address], [place] [address] Mar, [facility] [address] [id number] [address] [place] [address], [place] [address] Feb, [facility] [address] [id number] [address] [place] [address], [place] [address] Feb, [facility] [address] [id number] [address] [place] [address], [place] [address] Dec, [facility] [address] [id number] [address] [place] [address], [place] [address] Dec, [facility] [address] [id number] [address] [place] [address], [place] [address] Dec, [facility] [address] [id number] [address] [place] [address], [place] [address] Oct, [facility] [address] [id number] [address] [place] [address], [place] [address] Oct, [facility] [address] [id number] [address] [place] [address], [place] [address] Oct, [facility] [address] [id number] [address] [place] [address], [place] [address] September, [facility] [address] [id number] [address] [place] [address], [place] [address] September, [facility] [address] [id number] [address] [place] [address], [place] [address] September, [facility] [address] [id number] [address] [place] [address], [place] [address] September, [facility] [address] [id number] [address] [place] [address], [place] [address] Jun, [facility] [address] [id number] [address] [place] [address], [place] [address] Mar, [facility] [address] [id number] [address] [place] [address], [place] [address] Mar, [facility] [address] [id number] [address] [place] [address], [place] [address] Mar, [facility] [address] [id number] [address] [place] [address], [place] [address] Mar, [facility] [address] [id number] [address] [place] [address], [place] [address] Mar, [facility] [address] [id number] [address] [place] [address], [place] [address] Mar, [facility] [address] [id number] [address] [place] [address], [place] [address] Feb, [facility] [address] [id number] [address] [place] [address], [place] [address] Feb, [facility] [address] [id number] [address] [place] [address], [place] [address] Feb, [facility] [address] [id number] [address] [place] [address], [place] [address] Feb, [facility] [address] [id number] [address] [place] [address], [place] [address] Feb, [facility] [address] [id number] [address] [place] [address], [place] [address] Feb, [facility] [address] [id number] [address] [place] [address], [place] [address] Feb, [facility] [address] [id number] [address] [place] [address], [place] [address] Feb, [facility] [address] [id number] [address] [place] [address], [place] [address] Oct, [facility] [address] [id number] [address] [place] [address], [place] [address] 30 Aug, 2011 [facility] [address] [id number] [address] [place] [address], [place] [address] 17 Aug, 2011 [facility] [address] [id number] [address] [place] [address], [place] [address] 16 Aug, 2011 [facility] [address] [id number] [address] [place] [address], [place] [address] 14 Aug, 2011 [facility] [address] [id number] [address] [place] [address], [place] [address] 05 Jul, 2011 [facility] [address] [id number] [address] [place] [address] May, [facility] [place] [address] [id number] [address] [place] [id number] May, [facility] [place] [address] [id number] [address] [place] [id number] Mar, [facility] [place] [address] [id number] [address] [place] [id number] Feb, [facility] [place] [address] [id number] [address] [place] [address] May, [facility] [place] [address] [id number] [address] [place] [phone] Mar, [facility] [place] [address] [id number] [address] [place] [id number] Feb, [facility] [place] [address] [id number] [address] [place] [phone] Feb, [facility] [place] [address] [id number] [address] [place] [phone] Apr, [facility] [place] [address] [id number] [address] [place] [id number] Apr, IMMUNIZATIONS No Known Immunizations SOCIAL HISTORY [...]
--- OUTSIDE RECORDS SUMMARY | 2019-11-01 19:22 | XMS REPORT ---
Author Author NADER Zia ROBLEDO Organization [facility] Address [address] [place] [address] Care Team Providers Care Workforce Management Coordinator Name Role Phone MEENA DOE Unavailable PROBLEMS Type Condition ICD9-CM Code DKH40-IP Code Onset Dates Condition S tatus SNOMED Code Problem Prediabetes R73.09 Active 4528490 Problem Hypertension I10 Active 4324324 3 Problem Tobacco use Z72.0 Active 20753634 0 Problem Primary insomnia F51.01 Active 397 2004 Problem Squamous cell carcinoma C44.92 Active 780462901 Problem Benign prostatic hyperplasia with lower urinary tract symptoms, symptom details unspecified N40.1 Active 72389433 368573 Problem Hyperlipidemia E78.5 Active 31693 004 Problem Neuropathy G62.9 Active 313352322 Problem Bladder disorder, unspecified N32.9 Active 12373607 Problem 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 Acti ve [id number] ALLERGIES No Information ENCOUNTERS Encounter Location Date Diagnosis [place] [address] [address] [facility] [id number] [address] [place] [phone] Jun, Benign prostatic hyperplasia with lower urinary tract symptoms, symptom details unspecified N40.1 [place] [address] [facility] [place] [id number] [address] [place] [phone] Jun, Benign prostatic hyperplasia with lower urinary tract symptoms, symptom details unspecified N40.1 [facility] [address] [facility] [id number] [address] [place] [phone] Jun, Benign prostatic hyperplasia with lower urinary tract symptoms, symptom details unspecified N40.1 [place] [address] [address] [facility] [place] [id number] [address] [place] [phone] Apr, [place] [address] [facility] [id number] [address] [place] [phone] Mar, Hypertension I10 [facility] [address] [facility] [id number] [address] [place] [phone] Mar, [facility] [address] [facility] [id number] [address] [place] [phone] Mar, [facility] [address] [facility] [id number] [address] [place] [phone] Mar, [facility] [address] [facility] [id number] [address] [place] [phone] Feb, Encounter for Medicare annua l wellness exam Z00.00 ; Hypertension I10 ; Hyperlipidemia E78.5 ; Tobacco use Z72.0 and Bladder disorder, unspecified N32.9 [facility] [address] [facility] [id number] [address] [place] [phone] Feb, [facility] [address] [facility] [id number] [address] [place] [phone] Jan, Hypertension I10 ; Bladder d isorder, unspecified N32.9 ; Prediabetes R73.09 and Encounter for immunization Z23 [facility] [address] [facility] [id number] [address] [place] [phone] Jan, [facility] [address] [facility] [id number] [address] [place] [phone] Jan, Hypertension I10 and Prediab etes R73.09 [facility] [address] [facility] [id number] [address] [place] [phone] Jan, [facility] [address] [facility] [id number] [address] [place] [phone] Jan, Hypertension I10 and Prediab etes R73.09 [facility] [address] [facility] [id number] [address] [place] [phone] Dec, Acute bacterial conjunctivit is of both eyes H10.33 [facility] [address] [facility] [id number] [address] [place] [phone] Dec, Hypertension I10 and Prediab etes R73.09 [facility] [address] [facility] [id number] [address] [place] [phone] Dec, Hypertension I10 ; Hyperlipi demia E78.5 ; Prediabetes R73.09 ; Bladder disorder, unspecified N32.9 ; Neuropathy G62.9 and Impacted cerumen of right ear H61.21 [facility] [address] [facility] [id number] [address] [place] [phone] Dec, Cellulitis of face L03.211 [place] [address] [address] [facility] [id number] [address] [place] [phone] Dec, [place] [address] [address] [place] [id number] [place] [address] Dec, [facility] [address] [place] [id number] Dec, Hematuria, unspecified type R31.9 ; Blad baldemar disorder, unspecified N32.9 ; Hypertension I10 ; Hyperlipidemia E78.5 ; Neuropathy G62.9 ; History of peptic ulcer Z87.11 ; 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 and Primary insomnia F51.01 [place] [address] [address] [place] [id number] [address] [place] [phone] Nov, Right medial knee pain M25.5 61 [place] [address] [address] [place] [id number] [address] [place] [phone] Nov, [place] [address] [address] [place] [id number] [address] [place] [phone] Nov, Right medial knee pain M25.5 61 and Acute right ankle pain M25.571 [place] [address] [address] [place] [id number] [address] [place] [address] Nov, [place] [address] [address] [place] [id number] [address] [place] [phone] Nov, Pain in right foot M79.671 a nd Pain of left foot M79.672 [facility] [address] [place] [id number] Nov, Pain of left foot M79.672 and Pain in ri ght foot M79.671 [place] [address] [address] Nov, Neuropathy G62.9 [facility] [address] [place] [id number] Oct, Physical deconditioning R53.81 ; Right f oot pain M79.671 and Essential hypertension I10 [place] [address] [address] [facility] [place] [id number] [address] [place] [phone] September, [facility] [address] [place] [id number] [place] [address] September, Hematuria, unspecified type R31.9 and Chest pressure R07.89 [place] [address] [address] Jun, Hypertension I10 ; Hyperlipi demia E78.5 ; Tobacco use Z72.0 and Prediabetes R73.09 [place] [address] [address] Apr, [place] [address] [address] [place] [id number] [place] [address] Mar, Hypertension I10 [facility] [address] [place] [id number] [address] [place] [phone] Aug, Lesion of lip K13.0 [place] [address] [address] [facility] [id number] [address] [place] [address] Apr, Hypertension I10 ; Hyperlipi demia E78.5 ; Prediabetes R73.09 ; Tobacco use Z72.0 and Healthcare maintenance Z00.00 [place] [address] [address] [place] [id number] [address] [place] [phone] Jul, Hypertension I10 and Multipl e actinic keratoses L57.0 [place] [id number] [place] [phone] Jul, Hypertension I10 [facility] [address] [place] [id number] [address] [place] [phone] Jun, Hypertension I10 [facility] [address] [place] [id number] [address] [place] [phone] 23 Jun, 2016 Hypertension I10 ; Hyperlipi demia E78.5 ; Prediabetes R73.09 ; Tobacco use Z72.0 and Multiple actinic keratoses L57.0 [facility] [address] [place] [id number] [address] [place] [phone] 06 Jan, 2016 Hypertension I10 ; Hyperlipi demia E78.5 and Tobacco use Z72.0 [facility] [address] [place] [id number] [address] [place] [phone] Oct, [facility] [address] [address] 04 Jun, 2015 Hypertension I10 ; Hyperlipi demia E78.5 ; Prediabetes R73.09 ; Screening for colon cancer Z12.11 and Tobacco use Z72.0 [facility] [address] [place] [id number] [address] [place] [address] Apr, [facility] [address] [place] [id number] [address] [place] [phone] Apr, [facility] [address] [place] [id number] [address] [place] [phone] Apr, [facility] [address] [place] [id number] [address] [place] [phone] Dec, [facility] [address] [address] Dec, [facility] [address] [place] [id number] [address] [place] [phone] Nov, Nondependent tobacco use dis order 305.1 ; Hypertension 401.9 ; Hyperlipidemia 272.4 ; Prediabetes 790.29 ; Colon cancer screening V76.51 and Sunburn 692.71 [facility] [address] [facility] [id number] [address] [place] [phone] Oct, [facility] [address] [facility] [id number] [address] [place] [phone] Oct, Other and unspecified hyperl ipidemia 272.4 ; Essential hypertension 401.9 and Essential hypertension, benign 401.1 [facility] [address] [id number] [address] [place] [phone] Oct, [facility] [address] [facility] [id number] [address] [place] [phone] Aug, [facility] [address] [facility] [id number] [address] [place] [id number] Aug, [facility] [address] [facility] [id number] [address] [place] [phone] Jun, [facility] [address] [facility] [id number] [address] [place] [phone] Jun, [facility] [address] [facility] [id number] [address] [place] [phone] Apr, [facility] [address] [facility] [id number] [address] [place] [phone] Apr, [facility] [address] [facility] [id number] [address] [place] [phone] Apr, [facility] [address] [facility] [id number] [address] [place] [phone] Apr, [facility] [address] [facility] [id number] [address] [place] [phone] Mar, [facility] [address] [facility] [id number] [address] [place] [phone] Mar, [facility] [address] [facility] [id number] [address] [place] [phone] Mar, [facility] [address] [id number] [facility] [place] [address] Mar, [facility] [address] [id number] [facility] [place] [address] Feb, [facility] [address] [id number] [facility] [place] [address] Feb, [facility] [address] [id number] [address] [place] [address], [place] [address] Dec, [facility] [address] [id number] [address] [place] [address], [place] [address] Dec, [facility] [address] [id number] [address] [place] [address], [place] [address] Oct, [facility] [address] [id number] [address] [place] [address], [place] [address] Oct, [facility] [address] [id number] [address] [place] [address], [place] [address] September, [facility] [address] [id number] [address] [place] [address], [place] [address] September, [facility] [address] [id number] [address] [place] [address], [place] [address] September, [facility] [address] [id number] [address] [place] [address], [place] [address] September, [facility] [address] [id number] [address] [place] [address], [place] [address] September, [facility] [address] [id number] [address] [place] [address], [place] [address] September, [facility] [address] [id number] [address] [place] [address], [place] [address] September, [facility] [address] [id number] [address] [place] [address], [place] [address] September, [facility] [address] [id number] [address] [place] [address], [place] [address] September, [facility] [address] [id number] [address] [place] [address], [place] [address] September, [facility] [address] [id number] [address] [place] [address], [place] [address] Aug, [facility] [address] [id number] [address] [place] [address], [place] [address] Aug, [facility] [address] [id number] [address] [place] [address], [place] [address] Jun, [facility] [address] [id number] [address] [place] [address], [place] [address] Jun, [facility] [address] [id number] [address] [place] [address], [place] [address] May, [facility] [address] [id number] [address] [place] [address], [place] [address] May, [facility] [address] [id number] [address] [place] [address], [place] [address] May, [facility] [address] [id number] [address] [place] [address], [place] [address] May, [facility] [address] [id number] [address] [place] [address], [place] [address] Apr, [facility] [address] [id number] [address] [place] [address], [place] [address] Apr, [facility] [address] [id number] [address] [place] [address], [place] [address] Mar, [facility] [address] [id number] [address] [place] [address], [place] [address] Mar, [facility] [address] [id number] [address] [place] [address], [place] [address] Feb, [facility] [address] [id number] [address] [place] [address], [place] [address] Feb, [facility] [address] [id number] [address] [place] [address], [place] [address] Dec, [facility] [address] [id number] [address] [place] [address], [place] [address] Dec, [facility] [address] [id number] [address] [place] [address], [place] [address] Dec, [facility] [address] [id number] [address] [place] [address], [place] [address] Oct, [facility] [address] [id number] [address] [place] [address], [place] [address] Oct, [facility] [address] [id number] [address] [place] [address], [place] [address] Oct, [facility] [address] [id number] [address] [place] [address], [place] [address] September, [facility] [address] [id number] [address] [place] [address], [place] [address] September, [facility] [address] [id number] [address] [place] [address], [place] [address] September, [facility] [address] [id number] [address] [place] [address], [place] [address] September, [facility] [address] [id number] [address] [place] [address], [place] [address] Jun, [facility] [address] [id number] [address] [place] [address], [place] [address] Mar, [facility] [address] [id number] [address] [place] [address], [place] [address] Mar, [facility] [address] [id number] [address] [place] [address], [place] [address] Mar, [facility] [address] [id number] [address] [place] [address], [place] [address] Mar, [facility] [address] [id number] [address] [place] [address], [place] [address] Mar, [facility] [address] [id number] [address] [place] [address], [place] [address] Mar, [facility] [address] [id number] [address] [place] [address], [place] [address] Feb, [facility] [address] [id number] [address] [place] [address], [place] [address] Feb, [facility] [address] [id number] [address] [place] [address], [place] [address] Feb, [facility] [address] [id number] [address] [place] [address], [place] [address] Feb, [facility] [address] [id number] [address] [place] [address], [place] [address] Feb, [facility] [address] [id number] [address] [place] [address], [place] [address] Feb, [facility] [address] [id number] [address] [place] [address], [place] [address] Feb, [facility] [address] [id number] [address] [place] [address], [place] [address] Feb, [facility] [address] [id number] [address] [place] [address], [place] [address] Oct, [facility] [address] [id number] [address] [place] [address], [place] [address] 30 Aug, 2011 [facility] [address] [id number] [address] [place] [id number] 17 Aug, 2011 [facility] [address] [id number] [address] [place] [address], [place] [address] 16 Aug, 2011 [facility] [address] [id number] [address] [place] [address], [place] [address] 14 Aug, 2011 [facility] [address] [id number] [address] [place] [address], [place] [address] 05 Jul, 2011 [facility] [address] [id number] [address] [place] [phone] May, [facility] [address] [id number] [address] [place] [id number] May, [facility] [address] [id number] [address] [place] [id number] Mar, [facility] [address] [id number] [address] [place] [address] Feb, [facility] [address] [id number] [address] [place] [id number] May, [facility] [address] [id number] [address] [place] [address] Mar, [facility] [address] [id number] [address] [place] [address] Feb, [facility] [address] [id number] [address] [place] [phone] Feb, [facility] [address] [id number] [address] [place] [id number] Apr, [facility] [address] [id number] [address] [place] [id number] Apr, IMMUNIZATIONS No Known Immunizations SOCIAL HISTORY Never Assessed REASON FOR VISIT PLAN OF CARE VITAL SIGNS Height 70 in 2014-04-15 Weight 211.8 lbs 2014-04-15 Temperature 97.4 degrees Fahrenheit 2014-04-15 Heart Rate 82 bpm 2014-04-15 Respiratory Rate 24 2014-04-15 Blood pressure systolic 142 mmHg 2014-04-15 Blood pressure diastolic 90 mmHg 2014-04-15 MEDICATIONS Unknown Medications RESULTS No Results PROCEDURES [...]
--- OUTSIDE RECORDS SUMMARY | 2019-11-01 19:22 | XMS REPORT ---
Author Author Zia MONIQUE Organization [facility] Address [facility] [place]note 2[place] [place] [address] Care Team Providers Care Board Worker Name Role Phone MONIQUENOAH Unavailable PROBLEMS Type Condition ICD9-CM Code LPT97-LV Code Onset Dates Condition S tatus SNOMED Code Problem Prediabetes R73.09 Active 0386581 Problem Hypertension I10 Active 3762751 3 Problem Tobacco use Z72.0 Active 73715867 0 Problem Primary insomnia F51.01 Active 397 2004 Problem Squamous cell carcinoma C44.92 Active 936067449 Problem Benign prostatic hyperplasia with lower urinary tract symptoms, symptom details unspecified N40.1 Active 62856061 831697 Problem Hyperlipidemia E78.5 Active 54052 004 Problem Neuropathy G62.9 Active 207911597 Problem Bladder disorder, unspecified N32.9 Active 15679036 Problem 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 Acti ve [id number] ALLERGIES No Information ENCOUNTERS Encounter Location Date Diagnosis [place] [id number] [facility] [id number] [address] [place] [address] Jun, Benign prostatic hyperplasia with lower urinary tract symptoms, symptom details unspecified N40.1 [facility] [address] [facility] [id number] [address] [place] [address] Jun, Benign prostatic hyperplasia with lower urinary tract symptoms, symptom details unspecified N40.1 [facility] [address] [facility] [id number] [address] [place] [address] Jun, Benign prostatic hyperplasia with lower urinary tract symptoms, symptom details unspecified N40.1 [facility] [address] [facility] [id number] [address] [place] [address] Apr, [facility] [address] [facility] [id number] [address] [place] [address] Mar, Hypertension I10 [facility] [address] [facility] [id number] [address] [place] [address] Mar, [facility] [address] [facility] [id number] [address] [place] [address] Mar, [facility] [address] [facility] [id number] [address] [place] [address] Mar, [facility] [address] [facility] [id number] [address] [place] [address] Feb, Encounter for Medicare annua l wellness exam Z00.00 ; Hypertension I10 ; Hyperlipidemia E78.5 ; Tobacco use Z72.0 and Bladder disorder, unspecified N32.9 [facility] [address] [facility] [id number] [address] [place] [address] Feb, [facility] [address] [facility] [id number] [address] [place] [address] Jan, Hypertension I10 ; Bladder d isorder, unspecified N32.9 ; Prediabetes R73.09 and Encounter for immunization Z23 [facility] [address] [facility] [id number] [address] [place] [phone] Jan, [facility] [address] [facility] [id number] [address] [place] [address] Jan, Hypertension I10 and Prediab etes R73.09 [facility] [address] [facility] [id number] [address] [place] [id number] Jan, [facility] [address] [facility] [id number] [address] [place] [address] Jan, Hypertension I10 and Prediab etes R73.09 [facility] [address] [facility] [id number] [address] [place] [address] Dec, Acute bacterial conjunctivit is of both eyes H10.33 [facility] [address] [facility] [id number] [address] [place] [address] Dec, Hypertension I10 and Prediab etes R73.09 [facility] [address] [facility] [id number] [address] [place] [address] Dec, Hypertension I10 ; Hyperlipi demia E78.5 ; Prediabetes R73.09 ; Bladder disorder, unspecified N32.9 ; Neuropathy G62.9 and Impacted cerumen of right ear H61.21 [facility] [address] [facility] [id number] [address] [place] [address] Dec, Cellulitis of face L03.211 [place] [address] [place] [id number] [address] [place] [address] Dec, [place] [address] [place] [id number] [place] [address] Dec, Via [facility] [employer] [address] [place] [id number] Dec, Hematuria, unspecified type R31.9 ; Blad baldemar disorder, unspecified N32.9 ; Hypertension I10 ; Hyperlipidemia E78.5 ; Neuropathy G62.9 ; History of peptic ulcer Z87.11 ; 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 and Primary insomnia F51.01 [place] [address] [place] [id number] [address] [place] [phone] Nov, Right medial knee pain M25.5 61 [place] [address] [place] [id number] [address] [place] [address] Nov, [place] [address] [place] [id number] [address] [place] [address] Nov, Right medial knee pain M25.5 61 and Acute right ankle pain M25.571 [place] [address] [place] [id number] [address] [place] [address] Nov, [place] [address] [place] [id number] [address] [place] [address] Nov, Pain in right foot M79.671 a nd Pain of left foot M79.672 [facility] [employer] [address] [place] [id number] Nov, Pain of left foot M79.672 and Pain in ri ght foot M79.671 [place] [address] [address] Nov, Neuropathy G62.9 Via [facility] [address] [place] [id number] Oct, Physical deconditioning R53.81 ; Right f oot pain M79.671 and Essential hypertension I10 [place] [address] [address] September, [facility] [address] [address] September, Hematuria, unspecified type R31.9 and Chest pressure R07.89 [place] [address] [address] Jun, Hypertension I10 ; Hyperlipi demia E78.5 ; Tobacco use Z72.0 and Prediabetes R73.09 [place] [address] [address] Apr, [place] [address] [address] Mar, Hypertension I10 [facility] [address] [address] Aug, Lesion of lip K13.0 [place] [address] [place] [id number] [place] [address] Apr, Hypertension I10 ; Hyperlipi demia E78.5 ; Prediabetes R73.09 ; Tobacco use Z72.0 and Healthcare maintenance Z00.00 [place] [address] [place] [id number] [address] [place] [address] Jul, Hypertension I10 and Multipl e actinic keratoses L57.0 [place] [address] [place] [address] Jul, Hypertension I10 [facility] [address] [address] Jun, Hypertension I10 [facility] [address] [address] 23 Jun, 2016 Hypertension I10 ; Hyperlipi demia E78.5 ; Prediabetes R73.09 ; Tobacco use Z72.0 and Multiple actinic keratoses L57.0 [facility] [address] [address] 06 Jan, 2016 Hypertension I10 ; Hyperlipi demia E78.5 and Tobacco use Z72.0 [facility] [address] [address] 15 Oct, 2015 [facility] [address] [address] 04 Jun, 2015 Hypertension I10 ; Hyperlipi demia E78.5 ; Prediabetes R73.09 ; Screening for colon cancer Z12.11 and Tobacco use Z72.0 [facility] [address] [place] [id number] [address] [place] [address] Apr, [facility] [address] [place] [id number] [address] [place] [address] Apr, [facility] [address] [place] [id number] [address] [place] [address] Apr, [facility] [address] [place] [id number] [address] [place] [address] Dec, [facility] [address] [address] Dec, [facility] [address] [place] [id number] [address] [place] [address] Nov, Nondependent tobacco use dis order 305.1 ; Hypertension 401.9 ; Hyperlipidemia 272.4 ; Prediabetes 790.29 ; Colon cancer screening V76.51 and Sunburn 692.71 [facility] [address] [id number] [address] [place] [address] Oct, [facility] [address] [facility] [id number] [address] [place] [address] Oct, Other and unspecified hyperl ipidemia 272.4 ; Essential hypertension 401.9 and Essential hypertension, benign 401.1 [facility] [address] [id number] [address] [place] [address] Oct, [facility] [address] [id number] [address] [place] [address] Aug, [facility] [address] [facility] [id number] [address] [place] [address] Aug, [facility] [address] [facility] [id number] [address] [place] [phone] Jun, [facility] [address] [facility] [id number] [address] [place] [phone] Jun, [facility] [address] [facility] [id number] [address] [place] [address] Apr, [facility] [address] [facility] [id number] [address] [place] [phone] Apr, [facility] [address] [facility] [id number] [address] [place] [id number] Apr, [facility] [address] [id number] [address] [place] [phone] Apr, [facility] [address] [id number] [address] [place] [address] Mar, [facility] [address] [facility] [id number] [address] [place] [phone] Mar, [facility] [address] [facility] [id number] [address] [place] [phone] Mar, [facility] [address] [id number] [facility] [address] Mar, [facility] [address] [id number] [address] [place] [address], [place] [address] Feb, [facility] [address] [id number] [address] [place] [address], [place] [address] Feb, [facility] [address] [id number] [address] [place] [address], [place] [address] Dec, [facility] [address] [id number] [address] [place] [address], [place] [address] Dec, [facility] [address] [id number] [address] [place] [address], [place] [address] Oct, [facility] [address] [id number] [address] [place] [address], [place] [address] Oct, [facility] [address] [id number] [address] [place] [address], [place] [address] September, [facility] [address] [id number] [address] [place] [address], [place] [address] September, [facility] [address] [id number] [address] [place] [address], [place] [address] September, [facility] [address] [id number] [address] [place] [address], [place] [address] September, [facility] [address] [id number] [address] [place] [address], [place] [address] September, [facility] [address] [id number] [address] [place] [address], [place] [address] September, [facility] [address] [id number] [address] [place] [address], [place] [address] September, [facility] [address] [id number] [address] [place] [address], [place] [address] September, [facility] [address] [id number] [address] [place] [address], [place] [address] September, [facility] [address] [id number] [address] [place] [address], [place] [address] September, [facility] [address] [id number] [address] [place] [address], [place] [address] Aug, [facility] [address] [id number] [address] [place] [address], [place] [address] Aug, [facility] [address] [id number] [address] [place] [address], [place] [address] Jun, [facility] [address] [id number] [address] [place] [address], [place] [address] Jun, [facility] [address] [id number] [address] [place] [address], [place] [address] May, [facility] [address] [id number] [address] [place] [address], [place] [address] May, [facility] [address] [id number] [address] [place] [address], [place] [address] May, [facility] [address] [id number] [address] [place] [address], [place] [address] May, [facility] [address] [id number] [address] [place] [address], [place] [address] Apr, [facility] [address] [id number] [address] [place] [address], [place] [address] Apr, [facility] [address] [id number] [address] [place] [address] Mar, [facility] [address] [id number] [address] [place] [address], [place] [address] Mar, [facility] [address] [id number] [address] [place] [address], [place] [address] Feb, [facility] [address] [id number] [address] [place] [address], [place] [address] Feb, [facility] [address] [id number] [address] [place] [address], [place] [address] Dec, [facility] [address] [id number] [address] [place] [address], [place] [address] Dec, [facility] [address] [id number] [address] [place] [address], [place] [address] Dec, [facility] [address] [id number] [address] [place] [address], [place] [address] Oct, [facility] [address] [id number] [address] [place] [address], [place] [address] Oct, [facility] [address] [id number] [address] [place] [address], [place] [address] Oct, [facility] [address] [id number] [address] [place] [address], [place] [address] September, [facility] [address] [id number] [address] [place] [address], [place] [address] September, [facility] [address] [id number] [address] [place] [address], [place] [address] September, [facility] [address] [id number] [address] [place] [address], [place] [address] September, [facility] [address] [id number] [address] [place] [address], [place] [address] Jun, [facility] [address] [id number] [address] [place] [address], [place] [address] Mar, [facility] [address] [id number] [address] [place] [address], [place] [address] Mar, [facility] [address] [id number] [address] [place] [address], [place] [address] Mar, [facility] [address] [id number] [address] [place] [address], [place] [address] Mar, [facility] [address] [id number] [address] [place] [address], [place] [address] Mar, [facility] [address] [id number] [address] [place] [address], [place] [address] Mar, [facility] [address] [id number] [address] [place] [address], [place] [address] Feb, [facility] [address] [id number] [address] [place] [address], [place] [address] Feb, [facility] [address] [id number] [address] [place] [address], [place] [address] Feb, [facility] [address] [id number] [address] [place] [address], [place] [address] Feb, [facility] [address] [id number] [address] [place] [address], [place] [address] Feb, [facility] [address] [id number] [address] [place] [address], [place] [address] Feb, [facility] [address] [id number] [address] [place] [address], [place] [address] Feb, [facility] [address] [id number] [address] [place] [address], [place] [address] Feb, [facility] [address] [id number] [address] [place] [address], [place] [address] Oct, [facility] [address] [id number] [address] [place] [address], [place] [address] 30 Aug, 2011 [facility] [address] [id number] [address] [place] [address], [place] [address] 17 Aug, 2011 [facility] [address] [id number] [address] [place] [address], [place] [address] 16 Aug, 2011 [facility] [address] [id number] [address] [place] [address], [place] [address] 14 Aug, 2011 [facility] [address] [id number] [address] [place] [address], [place] [address] 05 Jul, 2011 [facility] [address] [id number] [address] [place] [address] May, [facility] [address] [id number] [address] [place] [address] May, [facility] [address] [id number] [address] [place] [address] Mar, [facility] [address] [id number] [address] [place] [address] Feb, [facility] [address] [id number] [address] [place] [address] May, [facility] [address] [id number] [address] [place] [address] Mar, [facility] [address] [id number] [address] [place] [phone] Feb, [facility] [address] [id number] [address] [place] [address] Feb, [facility] [address] [id number] [address] [place] [address] Apr, [facility] [address] [id number] [address] [place] [address] Apr, IMMUNIZATIONS No Known Immunizations SOCIAL HISTORY [...]
--- OUTSIDE RECORDS SUMMARY | 2019-11-01 19:22 | XMS REPORT ---
Author Author NADER Zia ROBLEDO Organization [facility] Address [address] [place] [address] Care Team Providers Care Data Center Operator Name Role Phone MEENA DOE Unavailable PROBLEMS Type Condition ICD9-CM Code FOC49-GR Code Onset Dates Condition S tatus SNOMED Code Problem Prediabetes R73.09 Active 9428357 Problem Hypertension I10 Active 5380528 3 Problem Tobacco use Z72.0 Active 74858556 0 Problem Primary insomnia F51.01 Active 397 2004 Problem Squamous cell carcinoma C44.92 Active 712717656 Problem Benign prostatic hyperplasia with lower urinary tract symptoms, symptom details unspecified N40.1 Active 04986240 421409 Problem Hyperlipidemia E78.5 Active 94553 004 Problem Neuropathy G62.9 Active 440973065 Problem Bladder disorder, unspecified N32.9 Active 54891675 Problem 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 Acti ve [id number] ALLERGIES No Information ENCOUNTERS Encounter Location Date Diagnosis [place] [address] [address] [facility] [id number] [address] [place] [address] Jun, Benign prostatic hyperplasia with lower urinary tract symptoms, symptom details unspecified N40.1 [place] [address] [facility] [id number] [address] [place] [address] Jun, Benign prostatic hyperplasia with lower urinary tract symptoms, symptom details unspecified N40.1 [facility] [address] [facility] [id number] [address] [place] [address] Jun, Benign prostatic hyperplasia with lower urinary tract symptoms, symptom details unspecified N40.1 [place] [address] [address] [facility] [id number] [address] [place] [address] Apr, [place] [address] [facility] [id number] [address] [place] [address] Mar, Hypertension I10 [facility] [address] [facility] [id number] [address] [place] [address] Mar, [facility] [address] [facility] [id number] [address] [place] [address] Mar, [facility] [address] [facility] [id number] [address] [place] [address] Mar, [facility] [address] [facility] [id number] [address] [place] [address] Feb, Encounter for Medicare annua l wellness exam Z00.00 ; Hypertension I10 ; Hyperlipidemia E78.5 ; Tobacco use Z72.0 and Bladder disorder, unspecified N32.9 [facility] [address] [facility] [id number] [address] [place] [address] Feb, [facility] [address] [facility] [id number] [address] [place] [address] Jan, Hypertension I10 ; Bladder d isorder, unspecified N32.9 ; Prediabetes R73.09 and Encounter for immunization Z23 [facility] [address] [facility] [id number] [address] [place] [address] Jan, [facility] [address] [facility] [id number] [address] [place] [address] Jan, Hypertension I10 and Prediab etes R73.09 [facility] [address] [facility] [id number] [address] [place] [address] Jan, [facility] [address] [facility] [id number] [address] [place] [address] Jan, Hypertension I10 and Prediab etes R73.09 [facility] [address] [facility] [id number] [address] [place] [address] Dec, Acute bacterial conjunctivit is of both eyes H10.33 [facility] [address] [facility] [id number] [address] [place] [address] Dec, Hypertension I10 and Prediab etes R73.09 [facility] [address] [facility] [id number] [address] [place] [address] Dec, Hypertension I10 ; Hyperlipi demia E78.5 ; Prediabetes R73.09 ; Bladder disorder, unspecified N32.9 ; Neuropathy G62.9 and Impacted cerumen of right ear H61.21 [facility] [address] [facility] [id number] [address] [place] [address] Dec, Cellulitis of face L03.211 [place] [address] [address] [facility] [id number] [address] [place] [address] Dec, [place] [address] [address] [place] [id number] [place] [address] Dec, [facility] [employer] [facility] [employer] [address] [place] [id number] Dec, Hematuria, unspecified type R31.9 ; Blad baldemar disorder, unspecified N32.9 ; Hypertension I10 ; Hyperlipidemia E78.5 ; Neuropathy G62.9 ; History of peptic ulcer Z87.11 ; 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 and Primary insomnia F51.01 [place] [address] [address] [place] [id number] [address] [place] [address] Nov, Right medial knee pain M25.5 61 [place] [address] [address] [place] [id number] [address] [place] [address] Nov, [place] [address] [address] [place] [id number] [address] [place] [address] Nov, Right medial knee pain M25.5 61 and Acute right ankle pain M25.571 [place] [address] [address] [place] [id number] [address] [place] [address] Nov, [place] [address] [address] [place] [id number] [address] [place] [address] Nov, Pain in right foot M79.671 a nd Pain of left foot M79.672 [facility] [employer] [address] [place] [id number] Nov, Pain of left foot M79.672 and Pain in ri ght foot M79.671 [place] [address] [address] Nov, Neuropathy G62.9 [facility] [address] [place] [id number] Oct, Physical deconditioning R53.81 ; Right f oot pain M79.671 and Essential hypertension I10 [place] [address] [address] [facility] [id number] [address] [place] [address] September, [facility] [address] [place] [id number] [place] [address] September, Hematuria, unspecified type R31.9 and Chest pressure R07.89 [place] [address] [address] Jun, Hypertension I10 ; Hyperlipi demia E78.5 ; Tobacco use Z72.0 and Prediabetes R73.09 [place] [address] [address] Apr, [place] [address] [address] [place] [id number] [place] [address] Mar, Hypertension I10 [facility] [address] [place] [id number] [address] [place] [address] Aug, Lesion of lip K13.0 [place] [address] [address] [facility] [id number] [address] [place] [address] Apr, Hypertension I10 ; Hyperlipi demia E78.5 ; Prediabetes R73.09 ; Tobacco use Z72.0 and Healthcare maintenance Z00.00 [place] [address] [address] [place] [id number] [address] [place] [address] Jul, Hypertension I10 and Multipl e actinic keratoses L57.0 [place] [address] [id number] [place] [address] Jul, Hypertension I10 [facility] [address] [place] [id number] [address] [place] [address] Jun, Hypertension I10 [facility] [address] [place] [id number] [address] [place] [address] 23 Jun, 2016 Hypertension I10 ; Hyperlipi demia E78.5 ; Prediabetes R73.09 ; Tobacco use Z72.0 and Multiple actinic keratoses L57.0 [facility] [address] [place] [id number] [address] [place] [address] 06 Jan, 2016 Hypertension I10 ; Hyperlipi demia E78.5 and Tobacco use Z72.0 [facility] [address] [place] [id number] [address] [place] [address] Oct, [facility] [address] [address] 04 Jun, 2015 Hypertension I10 ; Hyperlipi demia E78.5 ; Prediabetes R73.09 ; Screening for colon cancer Z12.11 and Tobacco use Z72.0 [facility] [address] [place] [id number] [address] [place] [address] Apr, [facility] [address] [place] [id number] [address] [place] [address] Apr, [facility] [address] [place] [id number] [address] [place] [address] Apr, [facility] [address] [place] [id number] [address] [place] [address] Dec, [facility] [address] [address] Dec, [facility] [address] [place] [id number] [address] [place] [address] Nov, Nondependent tobacco use dis order 305.1 ; Hypertension 401.9 ; Hyperlipidemia 272.4 ; Prediabetes 790.29 ; Colon cancer screening V76.51 and Sunburn 692.71 [facility] [address] [facility] [id number] [address] [place] [address] Oct, [facility] [address] [facility] [id number] [address] [place] [address] Oct, Other and unspecified hyperl ipidemia 272.4 ; Essential hypertension 401.9 and Essential hypertension, benign 401.1 [facility] [address] [id number] [address] [place] [address] Oct, [facility] [address] [facility] [id number] [address] [place] [address] Aug, [facility] [address] [facility] [id number] [address] [place] [address] Aug, [facility] [address] [facility] [id number] [address] [place] [address] Jun, [facility] [address] [facility] [id number] [address] [place] [address] Jun, [facility] [address] [facility] [id number] [address] [place] [address] Apr, [facility] [address] [facility] [id number] [address] [place] [address] Apr, [facility] [address] [facility] [id number] [address] [place] [address] Apr, [facility] [address] [facility] [id number] [address] [place] [address] Apr, [facility] [address] [facility] [id number] [address] [place] [address] Mar, [facility] [address] [facility] [id number] [address] [place] [address] Mar, [facility] [address] [facility] [id number] [address] [place] [address] Mar, [facility] [address] [id number] [facility] [place] [address] Mar, [facility] [address] [id number] [facility] [place] [address] Feb, [facility] [address] [id number] [facility] [place] [address] Feb, [facility] [address] [id number] [address] [place] [address], [place] [address] Dec, [facility] [address] [id number] [address] [place] [address], [place] [address] Dec, [facility] [address] [id number] [address] [place] [address], [place] [address] Oct, [facility] [address] [id number] [address] [place] [address], [place] [address] Oct, [facility] [address] [id number] [address] [place] [address], [place] [address] September, [facility] [address] [id number] [address] [place] [address], [place] [address] September, [facility] [address] [id number] [address] [place] [address], [place] [address] September, [facility] [address] [id number] [address] [place] [address], [place] [address] September, [facility] [address] [id number] [address] [place] [address], [place] [address] September, [facility] [address] [id number] [address] [place] [address], [place] [address] September, [facility] [address] [id number] [address] [place] [address], [place] [address] September, [facility] [address] [id number] [address] [place] [address], [place] [address] September, [facility] [address] [id number] [address] [place] [address], [place] [address] September, [facility] [address] [id number] [address] [place] [address], [place] [address] September, [facility] [address] [id number] [address] [place] [address], [place] [address] Aug, [facility] [address] [id number] [address] [place] [address], [place] [address] Aug, [facility] [address] [id number] [address] [place] [address], [place] [address] Jun, [facility] [address] [id number] [address] [place] [address], [place] [address] Jun, [facility] [address] [id number] [address] [place] [address], [place] [address] May, [facility] [address] [id number] [address] [place] [address], [place] [address] May, [facility] [address] [id number] [address] [place] [address], [place] [address] May, [facility] [address] [id number] [address] [place] [address], [place] [address] May, [facility] [address] [id number] [address] [place] [address], [place] [address] Apr, [facility] [address] [id number] [address] [place] [address], [place] [address] Apr, [facility] [address] [id number] [address] [place] [address], [place] [address] Mar, [facility] [address] [id number] [address] [place] [address], [place] [address] Mar, [facility] [address] [id number] [address] [place] [address], [place] [address] Feb, [facility] [address] [id number] [address] [place] [address], [place] [address] Feb, [facility] [address] [id number] [address] [place] [address], [place] [address] Dec, [facility] [address] [id number] [address] [place] [address], [place] [address] Dec, [facility] [address] [id number] [address] [place] [address], [place] [address] Dec, [facility] [address] [id number] [address] [place] [address], [place] [address] Oct, [facility] [address] [id number] [address] [place] [address], [place] [address] Oct, [facility] [address] [id number] [address] [place] [address], [place] [address] Oct, [facility] [address] [id number] [address] [place] [address], [place] [address] September, [facility] [address] [id number] [address] [place] [address], [place] [address] September, [facility] [address] [id number] [address] [place] [address], [place] [address] September, [facility] [address] [id number] [address] [place] [address], [place] [address] September, [facility] [address] [id number] [address] [place] [address], [place] [address] Jun, [facility] [address] [id number] [address] [place] [address], [place] [address] Mar, [facility] [address] [id number] [address] [place] [address], [place] [address] Mar, [facility] [address] [id number] [address] [place] [address], [place] [address] Mar, [facility] [address] [id number] [address] [place] [address], [place] [address] Mar, [facility] [address] [id number] [address] [place] [address], [place] [address] Mar, [facility] [address] [id number] [address] [place] [address], [place] [address] Mar, [facility] [address] [id number] [address] [place] [address], [place] [address] Feb, [facility] [address] [id number] [address] [place] [address], [place] [address] Feb, [facility] [address] [id number] [address] [place] [address], [place] [address] Feb, [facility] [address] [id number] [address] [place] [address], [place] [address] Feb, [facility] [address] [id number] [address] [place] [address], [place] [address] Feb, [facility] [address] [id number] [address] [place] [address], [place] [address] Feb, [facility] [address] [id number] [address] [place] [address], [place] [address] Feb, [facility] [address] [id number] [address] [place] [address], [place] [address] Feb, [facility] [address] [id number] [address] [place] [address], [place] [address] Oct, [facility] [address] [id number] [address] [place] [address], [place] [address] 30 Aug, 2011 [facility] [address] [id number] [address] [place] [address] 17 Aug, 2011 [facility] [address] [id number] [address] [place] [address], [place] [address] 16 Aug, 2011 [facility] [address] [id number] [address] [place] [address], [place] [address] 14 Aug, 2011 [facility] [address] [id number] [address] [place] [address], [place] [address] 05 Jul, 2011 [facility] [address] [id number] [address] [place] [address] May, [facility] [address] [id number] [address] [place] [address] May, [facility] [address] [id number] [address] [place] [address] Mar, [facility] [address] [id number] [address] [place] [address] Feb, [facility] [address] [id number] [address] [place] [address] May, [facility] [address] [id number] [address] [place] [address] Mar, [facility] [address] [id number] [address] [place] [address] Feb, [facility] [address] [id number] [address] [place] [address] Feb, [facility] [address] [id number] [address] [place] [address] Apr, [facility] [address] [id number] [address] [place] [address] Apr, IMMUNIZATIONS No Known Immunizations SOCIAL HISTORY [...]
--- OUTSIDE RECORDS SUMMARY | 2019-11-01 19:22 | XMS REPORT ---
Author Author Zia MONIQUE Organization [facility] Address [facility] [place] [address] Care Team Providers Care Manager Programming Name Role Phone MONIQUENOAH Unavailable PROBLEMS Type Condition ICD9-CM Code [id number] Code Onset Dates Condition S tatus SNOMED Code Problem Prediabetes R73.09 Active 9596424 Problem Hypertension I10 Active 2677900 3 Problem Tobacco use Z72.0 Active 40515774 0 Problem Primary insomnia F51.01 Active 397 2004 Problem Squamous cell carcinoma C44.92 Active 226115795 Problem Benign prostatic hyperplasia with lower urinary tract symptoms, symptom details unspecified N40.1 Active 21194411 150311 Problem Hyperlipidemia E78.5 Active 34232 004 Problem Neuropathy G62.9 Active 298302639 Problem Bladder disorder, unspecified N32.9 Active 29112910 Problem 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 Acti ve [id number] ALLERGIES No Information ENCOUNTERS Encounter Location Date Diagnosis [place] [id number] [facility] [id number] [address] [place] [address] Jun, Benign prostatic hyperplasia with lower urinary tract symptoms, symptom details unspecified N40.1 [facility] [address] [facility] [id number] [address] [place] [address] Jun, Benign prostatic hyperplasia with lower urinary tract symptoms, symptom details unspecified N40.1 [facility] [address] [facility] [id number] [address] [place] [address] Jun, Benign prostatic hyperplasia with lower urinary tract symptoms, symptom details unspecified N40.1 [facility] [address] [facility] [id number] [address] [place] [address] Apr, [facility] [address] [facility] [id number] [address] [place] [address] Mar, Hypertension I10 [facility] [address] [facility] [id number] [address] [place] [address] Mar, [facility] [address] [facility] [id number] [address] [place] [address] Mar, [facility] [address] [facility] [id number] [address] [place] [address] Mar, [facility] [address] [facility] [id number] [address] [place] [address] Feb, Encounter for Medicare annua l wellness exam Z00.00 ; Hypertension I10 ; Hyperlipidemia E78.5 ; Tobacco use Z72.0 and Bladder disorder, unspecified N32.9 [facility] [address] [facility] [id number] [address] [place] [address] Feb, [facility] [address] [facility] [id number] [address] [place] [address] Jan, Hypertension I10 ; Bladder d isorder, unspecified N32.9 ; Prediabetes R73.09 and Encounter for immunization Z23 [facility] [address] [facility] [id number] [address] [place] [address] Jan, [facility] [address] [facility] [id number] [address] [place] [address] Jan, Hypertension I10 and Prediab etes R73.09 [facility] [address] [facility] [id number] [address] [place] [address] Jan, [facility] [address] [facility] [id number] [address] [place] [address] Jan, Hypertension I10 and Prediab etes R73.09 [facility] [address] [facility] [id number] [address] [place] [address] Dec, Acute bacterial conjunctivit is of both eyes H10.33 [facility] [address] [facility] [id number] [address] [place] [address] Dec, Hypertension I10 and Prediab etes R73.09 [facility] [address] [facility] [id number] [address] [place] [address] Dec, Hypertension I10 ; Hyperlipi demia E78.5 ; Prediabetes R73.09 ; Bladder disorder, unspecified N32.9 ; Neuropathy G62.9 and Impacted cerumen of right ear H61.21 [facility] [address] [facility] [id number] [address] [place] [address] Dec, Cellulitis of face L03.211 [place] [address] [place] [id number] [address] [place] [address] Dec, [place] [address] [place] [id number] [place] [address] Dec, [facility] [employer] [facility] [address] [place] [id number] Dec, Hematuria, unspecified type R31.9 ; Blad baldemar disorder, unspecified N32.9 ; Hypertension I10 ; Hyperlipidemia E78.5 ; Neuropathy G62.9 ; History of peptic ulcer Z87.11 ; 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 and Primary insomnia F51.01 [place] [address] [place] [id number] [address] [place] [address] Nov, Right medial knee pain M25.5 61 [place] [address] [place] [id number] [address] [place] [address] Nov, [place] [address] [place] [id number] [address] [place] [address] Nov, Right medial knee pain M25.5 61 and Acute right ankle pain M25.571 [place] [address] [place] [id number] [address] [place] [address] Nov, [place] [address] [place] [id number] [address] [place] [address] Nov, Pain in right foot M79.671 a nd Pain of left foot M79.672 [facility] [employer] [address] [place] [id number] Nov, Pain of left foot M79.672 and Pain in ri ght foot M79.671 [place] [address] [address] Nov, Neuropathy G62.9 [facility] [address] [place] [id number] Oct, Physical deconditioning R53.81 ; Right f oot pain M79.671 and Essential hypertension I10 [place] [address] [address] September, [facility] [address] [address] September, Hematuria, unspecified type R31.9 and Chest pressure R07.89 [place] [address] [address] Jun, Hypertension I10 ; Hyperlipi demia E78.5 ; Tobacco use Z72.0 and Prediabetes R73.09 [place] [address] [address] Apr, [place] [address] [address] Mar, Hypertension I10 [facility] [address] [address] Aug, Lesion of lip K13.0 [place] [address] [place] [id number] [place] [address] Apr, Hypertension I10 ; Hyperlipi demia E78.5 ; Prediabetes R73.09 ; Tobacco use Z72.0 and Healthcare maintenance Z00.00 [place] [address] [place] [id number] [address] [place] [address] Jul, Hypertension I10 and Multipl e actinic keratoses L57.0 [place] [address] [place] [address] Jul, Hypertension I10 [facility] [address] [address] Jun, Hypertension I10 [facility] [address] [address] 23 Jun, 2016 Hypertension I10 ; Hyperlipi demia E78.5 ; Prediabetes R73.09 ; Tobacco use Z72.0 and Multiple actinic keratoses L57.0 [facility] [address] [address] 06 Jan, 2016 Hypertension I10 ; Hyperlipi demia E78.5 and Tobacco use Z72.0 [facility] [address] [address] 15 Oct, 2015 [facility] [address] [address] 04 Jun, 2015 Hypertension I10 ; Hyperlipi demia E78.5 ; Prediabetes R73.09 ; Screening for colon cancer Z12.11 and Tobacco use Z72.0 [facility] [address] [place] [id number] [address] [place] [address] Apr, [facility] [address] [place] [id number] [address] [place] [address] Apr, [facility] [address] [place] [id number] [address] [place] [address] Apr, [facility] [address] [place] [id number] [address] [place] [address] Dec, [facility] [address] [address] Dec, [facility] [address] [place] [id number] [address] [place] [address] Nov, Nondependent tobacco use dis order 305.1 ; Hypertension 401.9 ; Hyperlipidemia 272.4 ; Prediabetes 790.29 ; Colon cancer screening V76.51 and Sunburn 692.71 [facility] [address] [id number] [address] [place] [address] Oct, [facility] [address] [facility] [id number] [address] [place] [address] Oct, Other and unspecified hyperl ipidemia 272.4 ; Essential hypertension 401.9 and Essential hypertension, benign 401.1 [facility] [address] [id number] [address] [place] [address] Oct, [facility] [address] [id number] [address] [place] [address] Aug, [facility] [address] [facility] [id number] [address] [place] [address] Aug, [facility] [address] [facility] [id number] [address] [place] [address] Jun, [facility] [address] [facility] [id number] [address] [place] [address] Jun, [facility] [address] [facility] [id number] [address] [place] [address] Apr, [facility] [address] [facility] [id number] [address] [place] [address] Apr, [facility] [address] [facility] [id number] [address] [place] [address] Apr, [facility] [address] [id number] [address] [place] [address] Apr, [facility] [address] [id number] [address] [place] [address] Mar, [facility] [address] [facility] [id number] [address] [place] [address] Mar, [facility] [address] [facility] [id number] [address] [place] [address] Mar, [facility] [address] [id number] [facility] [place] [address] Mar, [facility] [address] [id number] [address] [place] [address], [place] [address] Feb, [facility] [address] [id number] [address] [place] [address], [place] [address] Feb, [facility] [address] [id number] [address] [place] [address], [place] [address] Dec, [facility] [address] [id number] [address] [place] [address], [place] [address] Dec, [facility] [address] [id number] [address] [place] [address], [place] [address] Oct, [facility] [address] [id number] [address] [place] [address], [place] [address] Oct, [facility] [address] [id number] [address] [place] [address], [place] [address] September, [facility] [address] [id number] [address] [place] [address], [place] [address] September, [facility] [address] [id number] [address] [place] [address], [place] [address] September, [facility] [address] [id number] [address] [place] [address], [place] [address] September, [facility] [address] [id number] [address] [place] [address], [place] [address] September, [facility] [address] [id number] [address] [place] [address], [place] [address] September, [facility] [address] [id number] [address] [place] [address], [place] [address] September, [facility] [address] [id number] [address] [place] [address], [place] [address] September, [facility] [address] [id number] [address] [place] [address], [place] [address] September, [facility] [address] [id number] [address] [place] [address], [place] [address] September, [facility] [address] [id number] [address] [place] [address], [place] [address] Aug, [facility] [address] [id number] [address] [place] [address], [place] [address] Aug, [facility] [address] [id number] [address] [place] [address], [place] [address] Jun, [facility] [address] [id number] [address] [place] [address], [place] [address] Jun, [facility] [address] [id number] [address] [place] [address], [place] [address] May, [facility] [address] [id number] [address] [place] [address], [place] [address] May, [facility] [address] [id number] [address] [place] [address], [place] [address] May, [facility] [address] [id number] [address] [place] [address], [place] [address] May, [facility] [address] [id number] [address] [place] [address], [place] [address] Apr, [facility] [address] [id number] [address] [place] [address], [place] [address] Apr, [facility] [address] [id number] [address] [place] [address] Mar, [facility] [address] [id number] [address] [place] [address], [place] [address] Mar, [facility] [address] [id number] [address] [place] [address], [place] [address] Feb, [facility] [address] [id number] [address] [place] [address], [place] [address] Feb, [facility] [address] [id number] [address] [place] [address], [place] [address] Dec, [facility] [address] [id number] [address] [place] [address], [place] [address] Dec, [facility] [address] [id number] [address] [place] [address], [place] [address] Dec, [facility] [address] [id number] [address] [place] [address], [place] [address] Oct, [facility] [address] [id number] [address] [place] [address], [place] [address] Oct, [facility] [address] [id number] [address] [place] [address], [place] [address] Oct, [facility] [address] [id number] [address] [place] [address], [place] [address] September, [facility] [address] [id number] [address] [place] [address], [place] [address] September, [facility] [address] [id number] [address] [place] [address], [place] [address] September, [facility] [address] [id number] [address] [place] [address], [place] [address] September, [facility] [address] [id number] [address] [place] [address], [place] [address] Jun, [facility] [address] [id number] [address] [place] [address], [place] [address] Mar, [facility] [address] [id number] [address] [place] [address], [place] [address] Mar, [facility] [address] [id number] [address] [place] [address], [place] [address] Mar, [facility] [address] [id number] [address] [place] [address], [place] [address] Mar, [facility] [address] [id number] [address] [place] [address], [place] [address] Mar, [facility] [address] [id number] [address] [place] [address], [place] [address] Mar, [facility] [address] [id number] [address] [place] [address], [place] [address] Feb, [facility] [address] [id number] [address] [place] [address], [place] [address] Feb, [facility] [address] [id number] [address] [place] [address], [place] [address] Feb, [facility] [address] [id number] [address] [place] [address], [place] [address] Feb, [facility] [address] [id number] [address] [place] [address], [place] [address] Feb, [facility] [address] [id number] [address] [place] [address], [place] [address] Feb, [facility] [address] [id number] [address] [place] [address], [place] [address] Feb, [facility] [address] [id number] [address] [place] [address], [place] [address] Feb, [facility] [address] [id number] [address] [place] [address], [place] [address] Oct, [facility] [address] [id number] [address] [place] [address], [place] [address] 30 Aug, 2011 [facility] [address] [id number] [address] [place] [address], [place] [address] 17 Aug, 2011 [facility] [address] [id number] [address] [place] [address], [place] [address] 16 Aug, 2011 [facility] [address] [id number] [address] [place] [address], [place] [address] 14 Aug, 2011 [facility] [address] [id number] [address] [place] [address], [place] [address] 05 Jul, 2011 [facility] [address] [id number] [address] [place] [address] May, [facility] [address] [id number] [address] [place] [address] May, [facility] [address] [id number] [address] [place] [address] Mar, [facility] [address] [id number] [address] [place] [address] Feb, [facility] [address] [id number] [address] [place] [address] May, [facility] [address] [id number] [address] [place] [address] Mar, [facility] [address] [id number] [address] [place] [address] Feb, [facility] [address] [id number] [address] [place] [address] Feb, [facility] [address] [id number] [address] [place] [address] Apr, [facility] [address] [id number] [address] [place] [address] Apr, IMMUNIZATIONS No Known Immunizations SOCIAL HISTORY [...]
--- OUTSIDE RECORDS SUMMARY | 2019-11-01 19:22 | XMS REPORT ---
Author Author Zia MONIQUE Organization [facility] Address [facility] [place] [address] Care Team Providers Care Kaitara Taraka Name Role Phone MONIQUENOAH Unavailable PROBLEMS Type Condition ICD9-CM Code SSK34-OE Code Onset Dates Condition S tatus SNOMED Code Problem Prediabetes R73.09 Active 3125191 Problem Hypertension I10 Active 8847261 3 Problem Tobacco use Z72.0 Active 02359972 0 Problem Primary insomnia F51.01 Active 397 2004 Problem Squamous cell carcinoma C44.92 Active 422604373 Problem Benign prostatic hyperplasia with lower urinary tract symptoms, symptom details unspecified N40.1 Active 68227474 630572 Problem Hyperlipidemia E78.5 Active 77810 004 Problem Neuropathy G62.9 Active 443364070 Problem Bladder disorder, unspecified N32.9 Active 66002706 Problem 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 Acti ve [id number] ALLERGIES No Information ENCOUNTERS Encounter Location Date Diagnosis [place] [address] [facility] [id number] [address] [place] [address] Jun, Benign prostatic hyperplasia with lower urinary tract symptoms, symptom details unspecified N40.1 [facility] [address] [facility] [id number] [address] [place] [address] Jun, Benign prostatic hyperplasia with lower urinary tract symptoms, symptom details unspecified N40.1 [facility] [address] [facility] [id number] [address] [place] [address] Jun, Benign prostatic hyperplasia with lower urinary tract symptoms, symptom details unspecified N40.1 [facility] [address] [facility] [id number] [address] [place] [address] Apr, [facility] [address] [facility] [id number] [address] [place] [address] Mar, Hypertension I10 [facility] [address] [facility] [id number] [address] [place] [address] Mar, [facility] [address] [facility] [id number] [address] [place] [address] Mar, [facility] [address] [facility] [id number] [address] [place] [address] Mar, [facility] [address] [facility] [id number] [address] [place] [address] Feb, Encounter for Medicare annua l wellness exam Z00.00 ; Hypertension I10 ; Hyperlipidemia E78.5 ; Tobacco use Z72.0 and Bladder disorder, unspecified N32.9 [facility] [address] [facility] [id number] [address] [place] [address] Feb, [facility] [address] [facility] [id number] [address] [place] [address] Jan, Hypertension I10 ; Bladder d isorder, unspecified N32.9 ; Prediabetes R73.09 and Encounter for immunization Z23 [facility] [address] [facility] [id number] [address] [place] [address] Jan, [facility] [address] [facility] [id number] [address] [place] [address] Jan, Hypertension I10 and Prediab etes R73.09 [facility] [address] [facility] [id number] [address] [place] [address] Jan, [facility] [address] [facility] [id number] [address] [place] [address] Jan, Hypertension I10 and Prediab etes R73.09 [facility] [address] [facility] [id number] [address] [place] [address] Dec, Acute bacterial conjunctivit is of both eyes H10.33 [facility] [address] [facility] [id number] [address] [place] [address] Dec, Hypertension I10 and Prediab etes R73.09 [facility] [address] [facility] [id number] [address] [place] [address] Dec, Hypertension I10 ; Hyperlipi demia E78.5 ; Prediabetes R73.09 ; Bladder disorder, unspecified N32.9 ; Neuropathy G62.9 and Impacted cerumen of right ear H61.21 [facility] [address] [facility] [id number] [address] [place] [address] Dec, Cellulitis of face L03.211 [place] [address] [place] [id number] [address] [place] [address] Dec, [place] [address] [place] [id number] [place] [address] Dec, Via [employer] [facility] [address] [place] [id number] Dec, Hematuria, unspecified type R31.9 ; Blad baldemar disorder, unspecified N32.9 ; Hypertension I10 ; Hyperlipidemia E78.5 ; Neuropathy G62.9 ; History of peptic ulcer Z87.11 ; 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 and Primary insomnia F51.01 [place] [address] [place] [id number] [address] [place] [address] Nov, Right medial knee pain M25.5 61 [place] [address] [place] [id number] [address] [place] [address] Nov, [place] [address] [place] [id number] [address] [place] [address] Nov, Right medial knee pain M25.5 61 and Acute right ankle pain M25.571 [place] [address] [place] [id number] [address] [place] [address] Nov, [place] [address] [place] [id number] [address] [place] [address] Nov, Pain in right foot M79.671 a nd Pain of left foot M79.672 [facility] [employer] [address] [place] [id number] Nov, Pain of left foot M79.672 and Pain in ri ght foot M79.671 [place] [address] [address] Nov, Neuropathy G62.9 Via [facility] [address] [place] [id number] Oct, Physical deconditioning R53.81 ; Right f oot pain M79.671 and Essential hypertension I10 [place] [address] [address] September, [facility] [address] [address] September, Hematuria, unspecified type R31.9 and Chest pressure R07.89 [place] [address] [address] Jun, Hypertension I10 ; Hyperlipi demia E78.5 ; Tobacco use Z72.0 and Prediabetes R73.09 [place] [address] [address] Apr, [place] [address] [address] Mar, Hypertension I10 [facility] [address] [address] Aug, Lesion of lip K13.0 [place] [address] [place] [id number] [place] [address] Apr, Hypertension I10 ; Hyperlipi demia E78.5 ; Prediabetes R73.09 ; Tobacco use Z72.0 and Healthcare maintenance Z00.00 [place] [address] [place] [id number] [address] [place] [address] Jul, Hypertension I10 and Multipl e actinic keratoses L57.0 [place] [address] [place] [address] Jul, Hypertension I10 [facility] [address] [address] Jun, Hypertension I10 [facility] [address] [address] 23 Jun, 2016 Hypertension I10 ; Hyperlipi demia E78.5 ; Prediabetes R73.09 ; Tobacco use Z72.0 and Multiple actinic keratoses L57.0 [facility] [address] [address] 06 Jan, 2016 Hypertension I10 ; Hyperlipi demia E78.5 and Tobacco use Z72.0 [facility] [address] [address] 15 Oct, 2015 [facility] [address] [address] 04 Jun, 2015 Hypertension I10 ; Hyperlipi demia E78.5 ; Prediabetes R73.09 ; Screening for colon cancer Z12.11 and Tobacco use Z72.0 [facility] [address] [place] [id number] [address] [place] [address] Apr, [facility] [address] [place] [id number] [address] [place] [address] Apr, [facility] [address] [place] [id number] [address] [place] [address] Apr, [facility] [address] [place] [id number] [address] [place] [address] Dec, [facility] [address] [address] Dec, [facility] [address] [place] [id number] [address] [place] [address] Nov, Nondependent tobacco use dis order 305.1 ; Hypertension 401.9 ; Hyperlipidemia 272.4 ; Prediabetes 790.29 ; Colon cancer screening V76.51 and Sunburn 692.71 [facility] [address] [id number] [address] [place] [address] Oct, [facility] [address] [facility] [id number] [address] [place] [address] Oct, Other and unspecified hyperl ipidemia 272.4 ; Essential hypertension 401.9 and Essential hypertension, benign 401.1 [facility] [address] [id number] [address] [place] [address] Oct, [facility] [address] [id number] [address] [place] [address] Aug, [facility] [address] [facility] [id number] [address] [place] [address] Aug, [facility] [address] [facility] [id number] [address] [place] [address] Jun, [facility] [address] [facility] [id number] [address] [place] [address] Jun, [facility] [address] [facility] [id number] [address] [place] [address] Apr, [facility] [address] [facility] [id number] [address] [place] [address] Apr, [facility] [address] [facility] [id number] [address] [place] [address] Apr, [facility] [address] [id number] [address] [place] [address] Apr, [facility] [address] [id number] [address] [place] [address] Mar, [facility] [address] [facility] [id number] [address] [place] [address] Mar, [facility] [address] [facility] [id number] [address] [place] [address] Mar, [facility] [address] [id number] [facility] [place] [address] Mar, [facility] [address] [id number] [address] [place] [address], [place] [address] Feb, [facility] [address] [id number] [address] [place] [address], [place] [address] Feb, [facility] [address] [id number] [address] [place] [address], [place] [address] Dec, [facility] [address] [id number] [address] [place] [address], [place] [address] Dec, [facility] [address] [id number] [address] [place] [address], [place] [address] Oct, [facility] [address] [id number] [address] [place] [address], [place] [address] Oct, [facility] [address] [id number] [address] [place] [address], [place] [address] September, [facility] [address] [id number] [address] [place] [address], [place] [address] September, [facility] [address] [id number] [address] [place] [address], [place] [address] September, [facility] [address] [id number] [address] [place] [address], [place] [address] September, [facility] [address] [id number] [address] [place] [address], [place] [address] September, [facility] [address] [id number] [address] [place] [address], [place] [address] September, [facility] [address] [id number] [address] [place] [address], [place] [address] September, [facility] [address] [id number] [address] [place] [address], [place] [address] September, [facility] [address] [id number] [address] [place] [address], [place] [address] September, [facility] [address] [id number] [address] [place] [address], [place] [address] September, [facility] [address] [id number] [address] [place] [address], [place] [address] Aug, [facility] [address] [id number] [address] [place] [address], [place] [address] Aug, [facility] [address] [id number] [address] [place] [address], [place] [address] Jun, [facility] [address] [id number] [address] [place] [address], [place] [address] Jun, [facility] [address] [id number] [address] [place] [address], [place] [address] May, [facility] [address] [id number] [address] [place] [address], [place] [address] May, [facility] [address] [id number] [address] [place] [address], [place] [address] May, [facility] [address] [id number] [address] [place] [address], [place] [address] May, [facility] [address] [id number] [address] [place] [address], [place] [address] Apr, [facility] [address] [id number] [address] [place] [address], [place] [address] Apr, [facility] [address] [id number] [address] [place] [address] Mar, [facility] [address] [id number] [address] [place] [address], [place] [address] Mar, [facility] [address] [id number] [address] [place] [address], [place] [address] Feb, [facility] [address] [id number] [address] [place] [address], [place] [address] Feb, [facility] [address] [id number] [address] [place] [address], [place] [address] Dec, [facility] [address] [id number] [address] [place] [address], [place] [address] Dec, [facility] [address] [id number] [address] [place] [address], [place] [address] Dec, [facility] [address] [id number] [address] [place] [address], [place] [address] Oct, [facility] [address] [id number] [address] [place] [address], [place] [address] Oct, [facility] [address] [id number] [address] [place] [address], [place] [address] Oct, [facility] [address] [id number] [address] [place] [address], [place] [address] September, [facility] [address] [id number] [address] [place] [address], [place] [address] September, [facility] [address] [id number] [address] [place] [address], [place] [address] September, [facility] [address] [id number] [address] [place] [address], [place] [address] September, [facility] [address] [id number] [address] [place] [address], [place] [address] Jun, [facility] [address] [id number] [address] [place] [address], [place] [address] Mar, [facility] [address] [id number] [address] [place] [address], [place] [address] Mar, [facility] [address] [id number] [address] [place] [address], [place] [address] Mar, [facility] [address] [id number] [address] [place] [address], [place] [address] Mar, [facility] [address] [id number] [address] [place] [address], [place] [address] Mar, [facility] [address] [id number] [address] [place] [address], [place] [address] Mar, [facility] [address] [id number] [address] [place] [address], [place] [address] Feb, [facility] [address] [id number] [address] [place] [address], [place] [address] Feb, [facility] [address] [id number] [address] [place] [address], [place] [address] Feb, [facility] [address] [id number] [address] [place] [address], [place] [address] Feb, [facility] [address] [id number] [address] [place] [address], [place] [address] Feb, [facility] [address] [id number] [address] [place] [address], [place] [address] Feb, [facility] [address] [id number] [address] [place] [address], [place] [address] Feb, [facility] [address] [id number] [address] [place] [address], [place] [address] Feb, [facility] [address] [id number] [address] [place] [address], [place] [address] Oct, [facility] [address] [id number] [address] [place] [address], [place] [address] 30 Aug, 2011 [facility] [address] [id number] [address] [place] [address], [place] [address] 17 Aug, 2011 [facility] [address] [id number] [address] [place] [address], [place] [address] 16 Aug, 2011 [facility] [address] [id number] [address] [place] [address], [place] [address] 14 Aug, 2011 [facility] [address] [id number] [address] [place] [address], [place] [address] 05 Jul, 2011 [facility] [address] [id number] [address] [place] [address] May, [facility] [address] [id number] [address] [place] [address] May, [facility] [address] [id number] [address] [place] [address] Mar, [facility] [address] [id number] [address] [place] [address] Feb, [facility] [address] [id number] [address] [place] [address] May, [facility] [address] [id number] [address] [place] [address] Mar, [facility] [address] [id number] [address] [place] [address] Feb, [facility] [address] [id number] [address] [place] [address] Feb, [facility] [address] [id number] [address] [place] [address] Apr, [facility] [address] [id number] [address] [place] [address] Apr, IMMUNIZATIONS No Known Immunizations SOCIAL HISTORY [...]
--- OUTSIDE RECORDS SUMMARY | 2019-11-01 19:22 | XMS REPORT ---
Author Author Zia MONIQUE Organization [facility] Address [facility] [place] [address] Care Team Providers Care Tire Worker Name Role Phone MONIQUENOAH Unavailable PROBLEMS Type Condition ICD9-CM Code IBN27-WR Code Onset Dates Condition S tatus SNOMED Code Problem Prediabetes R73.09 Active 5823612 Problem Hypertension I10 Active 5107120 3 Problem Tobacco use Z72.0 Active 03065929 0 Problem Primary insomnia F51.01 Active 397 2004 Problem Squamous cell carcinoma C44.92 Active 649480502 Problem Benign prostatic hyperplasia with lower urinary tract symptoms, symptom details unspecified N40.1 Active 86360957 771772 Problem Hyperlipidemia E78.5 Active 43396 004 Problem Neuropathy G62.9 Active 599276143 Problem Bladder disorder, unspecified N32.9 Active 90772670 Problem 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 Acti ve [id number] ALLERGIES No Information ENCOUNTERS Encounter Location Date Diagnosis [place] [id number] [facility] [id number] [address] [place] [address] Jun, Benign prostatic hyperplasia with lower urinary tract symptoms, symptom details unspecified N40.1 [facility] [address] [facility] [id number] [address] [place] [address] Jun, Benign prostatic hyperplasia with lower urinary tract symptoms, symptom details unspecified N40.1 [facility] [address] [facility] [id number] [address] [place] [address] Jun, Benign prostatic hyperplasia with lower urinary tract symptoms, symptom details unspecified N40.1 [facility] [address] [facility] [id number] [address] [place] [address] Apr, [facility] [address] [facility] [id number] [address] [place] [address] Mar, Hypertension I10 [facility] [address] [facility] [id number] [address] [place] [address] Mar, [facility] [address] [facility] [id number] [address] [place] [address] Mar, [facility] [address] [facility] [id number] [address] [place] [address] Mar, [facility] [address] [facility] [id number] [address] [place] [address] Feb, Encounter for Medicare annua l wellness exam Z00.00 ; Hypertension I10 ; Hyperlipidemia E78.5 ; Tobacco use Z72.0 and Bladder disorder, unspecified N32.9 [facility] [address] [facility] [id number] [address] [place] [address] Feb, [facility] [address] [facility] [id number] [address] [place] [address] Jan, Hypertension I10 ; Bladder d isorder, unspecified N32.9 ; Prediabetes R73.09 and Encounter for immunization Z23 [facility] [address] [facility] [id number] [address] [place] [address] Jan, [facility] [address] [facility] [id number] [address] [place] [address] Jan, Hypertension I10 and Prediab etes R73.09 [facility] [address] [facility] [id number] [address] [place] [address] Jan, [facility] [address] [facility] [id number] [address] [place] [address] Jan, Hypertension I10 and Prediab etes R73.09 [facility] [address] [facility] [id number] [address] [place] [address] Dec, Acute bacterial conjunctivit is of both eyes H10.33 [facility] [address] [facility] [id number] [address] [place] [address] Dec, Hypertension I10 and Prediab etes R73.09 [facility] [address] [facility] [id number] [address] [place] [address] Dec, Hypertension I10 ; Hyperlipi demia E78.5 ; Prediabetes R73.09 ; Bladder disorder, unspecified N32.9 ; Neuropathy G62.9 and Impacted cerumen of right ear H61.21 [facility] [address] [facility] [id number] [address] [place] [address] Dec, Cellulitis of face L03.211 [place] [address] [place] [id number] [address] [place] [address] Dec, [place] [address] [place] [id number] [place] [address] Dec, [facility] [address] [place] [id number] Dec, Hematuria, unspecified type R31.9 ; Blad baldemar disorder, unspecified N32.9 ; Hypertension I10 ; Hyperlipidemia E78.5 ; Neuropathy G62.9 ; History of peptic ulcer Z87.11 ; 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 and Primary insomnia F51.01 [place] [address] [address] [place] [id number] [address] [place] [address] Nov, Right medial knee pain M25.5 61 [place] [address] [place] [id number] [address] [place] [address] Nov, [place] [address] [place] [id number] [address] [place] [address] Nov, Right medial knee pain M25.5 61 and Acute right ankle pain M25.571 [place] [address] [place] [id number] [address] [place] [address] Nov, [place] [address] [place] [id number] [address] [place] [address] Nov, Pain in right foot M79.671 a nd Pain of left foot M79.672 [facility] [address] [place] [id number] Nov, Pain of left foot M79.672 and Pain in ri ght foot M79.671 [place] [address] [address] Nov, Neuropathy G62.9 [facility] [address] [place] [id number] Oct, Physical deconditioning R53.81 ; Right f oot pain M79.671 and Essential hypertension I10 [place] [address] [address] September, [facility] [address] [address] September, Hematuria, unspecified type R31.9 and Chest pressure R07.89 [place] [address] [address] Jun, Hypertension I10 ; Hyperlipi demia E78.5 ; Tobacco use Z72.0 and Prediabetes R73.09 [place] [address] [address] Apr, [place] [address] [address] Mar, Hypertension I10 [facility] [address] [address] Aug, Lesion of lip K13.0 [place] [address] [place] [id number] [place] [address] Apr, Hypertension I10 ; Hyperlipi demia E78.5 ; Prediabetes R73.09 ; Tobacco use Z72.0 and Healthcare maintenance Z00.00 [place] [address] [place] [id number] [address] [place] [address] Jul, Hypertension I10 and Multipl e actinic keratoses L57.0 [place] [address] [place] [address] Jul, Hypertension I10 [facility] [address] [address] Jun, Hypertension I10 [facility] [address] [address] 23 Jun, 2016 Hypertension I10 ; Hyperlipi demia E78.5 ; Prediabetes R73.09 ; Tobacco use Z72.0 and Multiple actinic keratoses L57.0 [facility] [address] [address] 06 Jan, 2016 Hypertension I10 ; Hyperlipi demia E78.5 and Tobacco use Z72.0 [facility] [address] [address] 15 Oct, 2015 [facility] [address] [address] 04 Jun, 2015 Hypertension I10 ; Hyperlipi demia E78.5 ; Prediabetes R73.09 ; Screening for colon cancer Z12.11 and Tobacco use Z72.0 [facility] [address] [place] [id number] [address] [place] [address] Apr, [facility] [address] [place] [id number] [address] [place] [address] Apr, [facility] [address] [place] [id number] [address] [place] [address] Apr, [facility] [address] [place] [id number] [address] [place] [address] Dec, [facility] [address] [address] Dec, [facility] [address] [place] [id number] [address] [place] [address] Nov, Nondependent tobacco use dis order 305.1 ; Hypertension 401.9 ; Hyperlipidemia 272.4 ; Prediabetes 790.29 ; Colon cancer screening V76.51 and [place] 692.71 [facility] [address] [id number] [address] [place] [address] Oct, [facility] [address] [facility] [id number] [address] [place] [address] Oct, Other and unspecified hyperl ipidemia 272.4 ; Essential hypertension 401.9 and Essential hypertension, benign 401.1 [facility] [address] [id number] [address] [place] [address] Oct, [facility] [address] [id number] [address] [place] [address] Aug, [facility] [address] [facility] [id number] [address] [place] [address] Aug, [facility] [address] [facility] [id number] [address] [place] [address] Jun, [facility] [address] [facility] [id number] [address] [place] [address] Jun, [facility] [address] [facility] [id number] [address] [place] [address] Apr, [facility] [address] [facility] [id number] [address] [place] [address] Apr, [facility] [address] [facility] [id number] [address] [place] [address] Apr, [facility] [address] [id number] [address] [place] [address] Apr, [facility] [address] [id number] [address] [place] [address] Mar, [facility] [address] [facility] [id number] [address] [place] [address] Mar, [facility] [address] [facility] [id number] [address] [place] [address] Mar, [facility] [address] [id number] [facility] [place] [address] Mar, [facility] [address] [id number] [address] [place] [address], [place] [address] Feb, [facility] [address] [id number] [address] [place] [address], [place] [address] Feb, [facility] [address] [id number] [address] [place] [address], [place] [address] Dec, [facility] [address] [id number] [address] [place] [address], [place] [address] Dec, [facility] [address] [id number] [address] [place] [address], [place] [address] Oct, [facility] [address] [id number] [address] [place] [address], [place] [address] Oct, [facility] [address] [id number] [address] [place] [address], [place] [address] September, [facility] [address] [id number] [address] [place] [address], [place] [address] September, [facility] [address] [id number] [address] [place] [address], [place] [address] September, [facility] [address] [id number] [address] [place] [address], [place] [address] September, [facility] [address] [id number] [address] [place] [address], [place] [address] September, [facility] [address] [id number] [address] [place] [address], [place] [address] September, [facility] [address] [id number] [address] [place] [address], [place] [address] September, [facility] [address] [id number] [address] [place] [address], [place] [address] September, [facility] [address] [id number] [address] [place] [address], [place] [address] September, [facility] [address] [id number] [address] [place] [address], [place] [address] September, [facility] [address] [id number] [address] [place] [address], [place] [address] Aug, [facility] [address] [id number] [address] [place] [address], [place] [address] Aug, [facility] [address] [id number] [address] [place] [address], [place] [address] Jun, [facility] [address] [id number] [address] [place] [address], [place] [address] Jun, [facility] [address] [id number] [address] [place] [address], [place] [address] May, [facility] [address] [id number] [address] [place] [address], [place] [address] May, [facility] [address] [id number] [address] [place] [address], [place] [address] May, [facility] [address] [id number] [address] [place] [address], [place] [address] May, [facility] [address] [id number] [address] [place] [address], [place] [address] Apr, [facility] [address] [id number] [address] [place] [address], [place] [address] Apr, [facility] [address] [id number] [address] [place] [address] Mar, [facility] [address] [id number] [address] [place] [address], [place] [address] Mar, [facility] [address] [id number] [address] [place] [address], [place] [address] Feb, [facility] [address] [id number] [address] [place] [address], [place] [address] Feb, [facility] [address] [id number] [address] [place] [address], [place] [address] Dec, [facility] [address] [id number] [address] [place] [address], [place] [address] Dec, [facility] [address] [id number] [address] [place] [address], [place] [address] Dec, [facility] [address] [id number] [address] [place] [address], [place] [address] Oct, [facility] [address] [id number] [address] [place] [address], [place] [address] Oct, [facility] [address] [id number] [address] [place] [address], [place] [address] Oct, [facility] [address] [id number] [address] [place] [address], [place] [address] September, [facility] [address] [id number] [address] [place] [address], [place] [address] September, [facility] [address] [id number] [address] [place] [address], [place] [address] September, [facility] [address] [id number] [address] [place] [address], [place] [address] September, [facility] [address] [id number] [address] [place] [address], [place] [address] Jun, [facility] [address] [id number] [address] [place] [address], [place] [address] Mar, [facility] [address] [id number] [address] [place] [address], [place] [address] Mar, [facility] [address] [id number] [address] [place] [address], [place] [address] Mar, [facility] [address] [id number] [address] [place] [address], [place] [address] Mar, [facility] [address] [id number] [address] [place] [address], [place] [address] Mar, [facility] [address] [id number] [address] [place] [address], [place] [address] Mar, [facility] [address] [id number] [address] [place] [address], [place] [address] Feb, [facility] [address] [id number] [address] [place] [address], [place] [address] Feb, [facility] [address] [id number] [address] [place] [address], [place] [address] Feb, [facility] [address] [id number] [address] [place] [address], [place] [address] Feb, [facility] [address] [id number] [address] [place] [address], [place] [address] Feb, [facility] [address] [id number] [address] [place] [address], [place] [address] Feb, [facility] [address] [id number] [address] [place] [address], [place] [address] Feb, [facility] [address] [id number] [address] [place] [address], [place] [address] Feb, [facility] [address] [id number] [address] [place] [address], [place] [address] Oct, [facility] [address] [id number] [address] [place] [address], [place] [address] 30 Aug, 2011 [facility] [address] [id number] [address] [place] [address], [place] [address] 17 Aug, 2011 [facility] [address] [id number] [address] [place] [address], [place] [address] 16 Aug, 2011 [facility] [address] [id number] [address] [place] [address], [place] [address] 14 Aug, 2011 [facility] [address] [id number] [address] [place] [address], [place] [address] 05 Jul, 2011 [facility] [address] [id number] [address] [place] [address] May, [facility] [address] [id number] [address] [place] [address] May, [facility] [address] [id number] [address] [place] [address] Mar, [facility] [address] [id number] [address] [place] [address] Feb, [facility] [address] [id number] [address] [place] [address] May, [facility] [address] [id number] [address] [place] [address] Mar, [facility] [address] [id number] [address] [place] [address] Feb, [facility] [address] [id number] [address] [place] [address] Feb, [facility] [address] [id number] [address] [place] [address] Apr, [facility] [address] [id number] [address] [place] [address] Apr, IMMUNIZATIONS No Known Immunizations SOCIAL HISTORY Never Assessed REASON FOR VISIT PLAN OF CARE VITAL SIGNS MEDICATIONS Unknown Medications RESULTS No Results PROCEDURES Procedure Date Ordered Result Body Site RENAL FUNCTION PANEL Dec 18, 2012 LIPID PANEL Dec 18, 2012 VENIPUNCT, ROUTINE* Dec 18, 2012 INSTRUCTIONS MEDICATIONS ADMINISTERED No Known Medications MEDICAL [...]
--- OUTSIDE RECORDS SUMMARY | 2019-11-01 19:23 | XMS REPORT ---
Author Author Zia MONIQUE Organization [facility] Address [facility] [place] [address] Care Team Providers Care Commercial Fisherman Name Role Phone MONIQUEFERNANDAA Unavailable PROBLEMS Type Condition ICD9-CM Code [id number] Code Onset Dates Condition S tatus SNOMED Code Problem Squamous cell carcinoma C44.92 Active 081093465 Problem Prediabetes R73.09 Active 4552174 Problem Hypertension I10 Active 8729333 3 Problem 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 Acti ve 07072168 Problem Primary insomnia F51.01 Active 397 2004 Problem Tobacco use Z72.0 Active 06701476 0 Problem Hyperlipidemia E78.5 Active 58235 004 Problem Neuropathy G62.9 Active 095113803 Problem Bladder disorder, unspecified N32.9 Active 89703332 ALLERGIES No Information ENCOUNTERS Encounter Location Date Diagnosis [place] [address] [address] Apr, [place] [address] [address] Mar, Hypertension I10 [facility] [address] [address] Mar, [facility] [address] [address] Mar, [facility] [address] [address] Mar, [place] [address] [address] Feb, Encounter for Medicare annual wellness e xam Z00.00 ; Hypertension I10 ; Hyperlipidemia E78.5 ; Tobacco use Z72.0 and Bladder disorder, unspecified N32.9 [facility] [address] [address] Feb, [place] [address] [address] Jan, Hypertension I10 ; Bladder disorder, uns pecified N32.9 ; Prediabetes R73.09 and Encounter for immunization Z23 [place] [address] [address] Jan, [place] [address] [address] Jan, Hypertension I10 and Prediabetes R73.09 [place] [address] [address] Jan, [place] [address] [address] Jan, Hypertension I10 and Prediabetes R73.09 [facility] [place] [address] [place] [address] Dec, Acute bacterial conjunctivit is of both eyes H10.33 [place] [address] [address] Dec, Hypertension I10 and Prediabetes R73.09 [place] [address] [address] Dec, Hypertension I10 ; Hyperlipidemia E78.5 ; Prediabetes R73.09 ; Bladder disorder, unspecified N32.9 ; Neuropathy G62.9 and Impacted cerumen of right ear H61.21 [facility] IN [place] [address] [address] [facility] [id number] [address] [place] [address] Dec, Cellulitis of face L03.211 [place] [address] [address] Dec, [place] [address] [address] Dec, Via [facility] [address] [place] [id number] Dec, Hematuria, unspecified type R31.9 ; Blad baldemar disorder, unspecified N32.9 ; Hypertension I10 ; Hyperlipidemia E78.5 ; Neuropathy G62.9 ; History of peptic ulcer Z87.11 ; 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 and Primary insomnia F51.01 [place] [address] [address] Nov, Right medial knee pain M25.561 [place] [address] [address] Nov, [place] [address] [address] Nov, Right medial knee pain M25.561 and Acute right ankle pain M25.571 [place] [address] [address] Nov, [place] [address] [address] Nov, Pain in right foot M79.671 and Pain of l eft foot M79.672 Via [facility] [address] [place] [id number] Nov, Pain of left foot M79.672 and Pain in ri ght foot M79.671 [place] [address] [address] Nov, Neuropathy G62.9 [facility] [address] [place] [id number] Oct, Physical deconditioning R53.81 ; Right f oot pain M79.671 and Essential hypertension I10 [place] [address] [address] September, [facility] [facility] [address] [facility] [id number] [address] [place] [address] September, Hematuria, unspecified type R31.9 and Chest pressure R07.89 [place] [address] [address] Jun, Hypertension I10 ; Hyperlipidemia E78.5 ; Tobacco use Z72.0 and Prediabetes R73.09 [facility] [address] [address] Apr, [facility] [address] [address] Mar, Hypertension I10 [facility] [address] [facility] [id number] [address] [place] [address] Aug, Lesion of lip K13.0 [facility] [address] [address] 08 Apr, 2017 Hypertension I10 ; Hyperlipidemia E78.5 ; Prediabetes R73.09 ; Tobacco use Z72.0 and Healthcare maintenance Z00.00 [place] [address] [address] Jul, Hypertension I10 and Multiple actinic ke ratoses L57.0 [place] [address] [address] Jul, Hypertension I10 [place] [address] [address] Jun, Hypertension I10 [facility] [address] [address] Jun, Hypertension I10 ; Hyperlipidemia E78.5 ; Prediabetes R73.09 ; Tobacco use Z72.0 and Multiple actinic keratoses L57.0 [place] [address] [address] Jan, Hypertension I10 ; Hyperlipidemia E78.5 and Tobacco use Z72.0 [place] [address] [address] Oct, [place] [address] [address] 04 Jun, 2015 Hypertension I10 ; Hyperlipidemia E78.5 ; Prediabetes R73.09 ; Screening for colon cancer Z12.11 and Tobacco use Z72.0 [facility] [address] [place] [id number] [place] [address] Apr, [facility] [address] [place] [id number] [place] [address] Apr, [facility] [address] [place] [id number] [place] [address] Apr, [facility] [address] [place] [id number] [place] [address] Dec, [facility] [address] [place] [id number] [place] [address] Dec, [facility] [address] [address] Nov, Nondependent tobacco use disorder 305.1 ; Hypertension 401.9 ; Hyperlipidemia 272.4 ; Prediabetes 790.29 ; Colon cancer screening V76.51 and Sunburn 692.71 [facility] [address] [place] [id number] [place] [address] Oct, [facility] [address] [place] [id number] [place] [address] Oct, Other and unspecified hyperlipidemia 272 .4 ; Essential hypertension 401.9 and Essential hypertension, benign 401.1 [facility] [address] [place] [id number] [place] [address] Oct, [facility] [address] [place] [id number] [place] [address] Aug, [facility] [address] [place] [id number] [place] [address] Aug, [facility] [address] [place] [id number] [place] [address] Jun, [facility] [address] [place] [id number] [place] [address] Jun, [facility] [address] [place] [id number] [place] [address] Apr, [facility] [address] [id number] [place] [address] Apr, [facility] [address] [id number] [place] [address] Apr, [facility] [address] [id number] [place] [address] Apr, [facility] [address] [id number] [place] [address] Mar, [facility] [address] [id number] [place] [address] Mar, [facility] [address] [id number] [place] [address] Mar, [facility] [address] [id number] [place] [address] Mar, [facility] [address] [id number] [place] [address] Feb, [facility] [address] [id number] [place] [address] Feb, [facility] [address] [id number] [place] [address] Dec, [facility] [address] [id number] [place] [address] Dec, [facility] [address] [id number] [place] [address] Oct, [facility] [address] [id number] [place] [address] Oct, [facility] [address] [id number] [place] [address] September, [facility] [address] [place] [id number] [place] [address] September, [facility] [address] [id number] [place] [address] September, [facility] [address] [id number] [place] [address] September, [facility] [address] [id number] [place] [address] September, [facility] [address] [facility] [id number] [place] [address] September, [facility] [address] [id number] [place] [address] September, [facility] [address] [id number] [place] [address] September, [facility] [address] [facility] [id number] [place] [address] September, [facility] [address] [id number] [place] [address] September, [facility] [address] [id number] [place] [address] Aug, [facility] [address] [id number] [place] [address] Aug, [facility] [address] [id number] [place] [address] Jun, [facility] [address] [id number] [place] [address] Jun, [facility] [address] [id number] [place] [address] May, [facility] [address] [id number] [place] [address] May, [facility] [address] [id number] [place] [address] May, [facility] [address] [id number] [place] [address] May, [facility] [address] [id number] [place] [address] Apr, [facility] [address] [id number] [place] [address] Apr, [facility] [address] [id number] [place] [address] Mar, [facility] [address] [id number] [place] [address] Mar, [facility] [address] [id number] [place] [address] Feb, [facility] [address] [id number] [place] [address] Feb, [facility] [address] [id number] [place] [address] Dec, [facility] [address] [id number] [place] [address] Dec, [facility] [address] [id number] [place] [address] Dec, [facility] [address] [id number] [place] [address] Oct, [facility] [address] [id number] [place] [address] Oct, [facility] [address] [id number] [place] [address] Oct, [facility] [address] [id number] [place] [address] September, [facility] [address] [id number] [place] [address] September, [facility] [address] [id number] [place] [address] September, [facility] [address] [id number] [place] [address] September, [facility] [address] [id number] [place] [address] Jun, [facility] [address] [id number] [place] [address] Mar, [facility] [address] [id number] [place] [address] Mar, [facility] [address] [id number] [place] [address] Mar, [facility] [address] [id number] [place] [address] Mar, [facility] [address] [id number] [place] [address] Mar, [facility] [address] [id number] [place] [address] Mar, [facility] [address] [id number] [place] [address] Feb, [facility] [address] [id number] [place] [address] Feb, [facility] [address] [id number] [place] [address] Feb, [facility] [address] [place] [id number] [place] [address] Feb, [facility] [address] [id number] [place] [address] Feb, [facility] [address] [id number] [place] [address] Feb, [facility] [address] [id number] [place] [address] Feb, [facility] [address] [id number] [place] [address] Feb, [facility] [address] [id number] [place] [address] Oct, [facility] [address] [id number] [place] [address] 30 Aug, 2011 [facility] [address] [place] [id number] [place] [address] 17 Aug, 2011 [facility] [address] [id number] [place] [address] 16 Aug, 2011 [facility] [address] [id number] [place] [address] Aug, [facility] [address] [id number] [place] [address] Jul, [facility] [address] [id number] [place] [address] May, [facility] [address] [id number] [place] [address] May, [facility] [address] [place] [id number] [place] [address] Mar, [facility] [address] [place] [id number] [place] [address] Feb, [facility] [address] [place] [id number] [place] [address] May, [facility] [address] [id number] [place] [address] Mar, [facility] [address] [place] [id number] [place] [address] Feb, [facility] [address] [id number] [place] [address] Feb, [facility] [address] [place] [id number] [place] [address] Apr, [facility] [address] [id number] [place] [address] Apr, IMMUNIZATIONS No Known Immunizations SOCIAL HISTORY [...]
--- OUTSIDE RECORDS SUMMARY | 2019-11-01 19:23 | XMS REPORT ---
Author Author Zia MONIQUE Organization [facility] Address [address] [place] [address] Care Team Providers Care Contract Administration Manager Name Role Phone MONIQUENOAH Unavailable PROBLEMS Type Condition ICD9-CM Code IZP02-RT Code Onset Dates Condition S tatus SNOMED Code Problem Prediabetes R73.09 Active 5738189 Problem Hypertension I10 Active 6426248 3 Problem Tobacco use Z72.0 Active 72041801 0 Problem Primary insomnia F51.01 Active 397 2004 Problem Squamous cell carcinoma C44.92 Active 097214388 Problem Benign prostatic hyperplasia with lower urinary tract symptoms, symptom details unspecified N40.1 Active 17542270 675364 Problem Hyperlipidemia E78.5 Active 38544 004 Problem Neuropathy G62.9 Active 801162283 Problem Bladder disorder, unspecified N32.9 Active 08371259 Problem 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 Acti ve [id number] ALLERGIES No Information ENCOUNTERS Encounter Location Date Diagnosis [place] [address] [address] Jun, Benign prostatic hyperplasia with lower urinary tract symptoms, symptom details unspecified N40.[address] [address] Jun, Benign prostatic hyperplasia with lower urinary tract symptoms, symptom details unspecified N40.1 [place] [address] [address] Jun, Benign prostatic hyperplasia with lower urinary tract symptoms, symptom details unspecified N40.1 [place] [address] [address] Apr, [place] [address] [address] Mar, Hypertension I10 [address] [id number] [place] [address] Mar, [facility] [address] [address] Mar, [facility] [address] [address] Mar, [facility] [address] [address] Feb, Encounter for Medicare annual wellness e xam Z00.00 ; Hypertension I10 ; Hyperlipidemia E78.5 ; Tobacco use Z72.0 and Bladder disorder, unspecified N32.9 [place] [address] [address] Feb, [place] [address] [address] Jan, Hypertension I10 ; Bladder disorder, uns pecified N32.9 ; Prediabetes R73.09 and Encounter for immunization Z23 [place] [address] [address] 13 Jan, 2019 [place] [address] [address] 06 Jan, 2019 Hypertension I10 and Prediabetes R73.09 [place] [address] [address] Jan, [place] [address] [address] Jan, Hypertension I10 and Prediabetes R73.09 [facility] [address] [facility] [id number] [address] [place] [address] Dec, Acute bacterial conjunctivit is of both eyes H10.33 [facility] [address] [place] [id number] [place] [address] Dec, Hypertension I10 and Prediabetes R73.09 [facility] [address] [address] Dec, Hypertension I10 ; Hyperlipidemia E78.5 ; Prediabetes R73.09 ; Bladder disorder, unspecified N32.9 ; Neuropathy G62.9 and Impacted cerumen of right ear H61.21 [facility] [address] [facility] [place] [id number] [address] [place] [address] Dec, Cellulitis of face L03.211 [place] [address] [address] Dec, [place] [address] [address] Dec, [facility] [address] [place] [id number] Dec, Hematuria, unspecified type R31.9 ; Blad baldemar disorder, unspecified N32.9 ; Hypertension I10 ; Hyperlipidemia E78.5 ; Neuropathy G62.9 ; History of peptic ulcer Z87.11 ; 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 and Primary insomnia F51.01 [place] [address] [address] Nov, Right medial knee pain M25.561 [place] [address] [address] Nov, [place] [address] [address] Nov, Right medial knee pain M25.561 and Acute right ankle pain M25.571 [place] [address] [address] Nov, [address] [address] Nov, Pain in right foot M79.671 and Pain of l eft foot M79.672 [facility] [address] [place] [id number] Nov, Pain of left foot M79.672 and Pain in ri ght foot M79.671 [place] [address] [address] Nov, Neuropathy G62.9 [facility] [address] [place] [id number] Oct, Physical deconditioning R53.81 ; Right f oot pain M79.671 and Essential hypertension I10 [place] [address] [address] September, [facility] [address] [address] September, Hematuria, unspecified type R31.9 and Chest pressure R07.89 [place] [address] [address] Jun, Hypertension I10 ; Hyperlipidemia E78.5 ; Tobacco use Z72.0 and Prediabetes R73.09 [place] [address] [address] Apr, [place] [address] [address] Mar, Hypertension I10 [facility] [address] [place] [id number] [place] [address] Aug, Lesion of lip K13.0 [place] [address] [address] Apr, Hypertension I10 ; Hyperlipidemia E78.5 ; Prediabetes R73.09 ; Tobacco use Z72.0 and Healthcare maintenance Z00.00 [place] [address] [address] Jul, Hypertension I10 and Multiple actinic ke ratoses L57.0 [place] [address] [address] Jul, Hypertension I10 [place] [address] [address] Jun, Hypertension I10 [place] [address] [address] Jun, Hypertension I10 ; Hyperlipidemia E78.5 ; Prediabetes R73.09 ; Tobacco use Z72.0 and Multiple actinic keratoses L57.0 [place] [address] [address] Jan, Hypertension I10 ; Hyperlipidemia E78.5 and Tobacco use Z72.0 [place] [address] [address] Oct, [place] [address] [address] Jun, Hypertension I10 ; Hyperlipidemia E78.5 ; Prediabetes R73.09 ; Screening for colon cancer Z12.11 and Tobacco use Z72.0 [place] [address] [address] Apr, [place] [address] [address] Apr, [place] [address] [address] Apr, [place] [address] [address] Dec, [place] [address] [address] Dec, [place] [address] [address] Nov, Nondependent tobacco use disorder 305.1 ; Hypertension 401.9 ; Hyperlipidemia 272.4 ; Prediabetes 790.29 ; Colon cancer screening V76.51 and Sunburn 692.71 [place] [address] [address] Oct, [address] [address] Oct, Other and unspecified hyperlipidemia 272 .4 ; Essential hypertension 401.9 and Essential hypertension, benign 401.1 [place] [address] [address] Oct, [facility] [address] [id number] [place] [address] Aug, [facility] [address] [id number] [place] [address] Aug, [facility] [address] [id number] [place] [address] Jun, [facility] [address] [id number] [place] [address] Jun, [facility] [address] [id number] [place] [address] Apr, [facility] [address] [id number] [place] [address] Apr, [facility] [address] [place] [id number] [place] [address] Apr, [facility] [address] [place] [id number] [place] [address] Apr, [facility] [address] [id number] [place] [address] Mar, [facility] [address] [place] [id number] [place] [address] Mar, [facility] [address] [id number] [place] [address] Mar, [facility] [address] [place] [id number] [place] [address] Mar, [facility] [address] [id number] [place] [address] Feb, [facility] [address] [place] [id number] [place] [address] Feb, [facility] [address] [id number] [place] [address] Dec, [facility] [address] [place] [id number] [place] [address] Dec, [facility] [address] [facility] [id number] [facility] [address] Oct, [facility] [address] [id number] [place] [address] Oct, [facility] [address] [facility] [id number] [place] [address] September, [facility] [address] [id number] [place] [address] September, [facility] [address] [id number] [place] [address] September, [facility] [address] [id number] [place] [address] September, [facility] [address] [id number] [place] [address] September, [facility] [address] [id number] [place] [address] September, [facility] [address] [id number] [place] [address] September, [facility] [address] [id number] [place] [address] September, [facility] [address] [id number] [place] [address] September, [facility] [address] [id number] [place] [address] September, [facility] [address] [id number] [place] [address] Aug, [facility] [address] [id number] [place] [address] Aug, [facility] [address] [id number] [place] [address] Jun, [facility] [address] [id number] [place] [address] Jun, [facility] [address] [id number] [place] [address] May, [facility] [address] [id number] [place] [address] May, [facility] [address] [id number] [place] [address] May, [facility] [address] [id number] [place] [address] May, [facility] [address] [id number] [place] [address] Apr, [facility] [address] [id number] [place] [address] Apr, [facility] [address] [id number] [place] [address] Mar, [facility] [address] [id number] [place] [address] Mar, [facility] [address] [id number] [place] [address] Feb, [facility] [address] [id number] [place] [address] Feb, [facility] [address] [id number] [place] [address] Dec, [facility] [address] [id number] [place] [address] Dec, [facility] [address] [id number] [place] [address] Dec, [facility] [address] [id number] [place] [address] Oct, [facility] [address] [id number] [place] [address] Oct, [facility] [address] [id number] [place] [address] Oct, [facility] [address] [id number] [place] [address] September, [facility] [address] [id number] [place] [address] September, [facility] [address] [id number] [place] [address] September, [facility] [address] [id number] [place] [address] September, [facility] [address] [id number] [place] [address] Jun, [facility] [address] [id number] [place] [address] Mar, [facility] [address] [id number] [place] [address] Mar, [facility] [address] [id number] [place] [address] Mar, [facility] [address] [place] [id number] [place] [address] Mar, [facility] [address] [place] [id number] [place] [address] Mar, [facility] [address] [id number] [place] [address] Mar, [facility] [address] [place] [id number] [place] [address] Feb, [facility] [address] [id number] [place] [address] Feb, [facility] [address] [place] [id number] [place] [address] Feb, [facility] [address] [id number] [place] [address] Feb, [facility] [address] [place] [id number] [place] [address] Feb, [facility] [address] [id number] [place] [address] Feb, [facility] [address] [id number] [place] [address] Feb, [facility] [address] [id number] [place] [address] 25 Feb, 2012 [facility] [address] [id number] [place] [address] 28 Oct, 2011 [facility] [address] [id number] [place] [address] 30 Aug, 2011 [facility] [address] [id number] [place] [address] 17 Aug, 2011 [facility] [address] [id number] [place] [address] 16 Aug, 2011 [facility] [address] [id number] [place] [address] 14 Aug, 2011 [facility] [address] [id number] [place] [address] 05 Jul, 2011 [facility] [address] [id number] [place] [address] May, [facility] [address] [id number] [place] [address] May, [facility] [address] [id number] [place] [address] 30 Mar, 2011 [facility] [address] [id number] [place] [address] 10 Feb, 2011 [facility] [address] [id number] [place] [address] 18 May, 2010 [facility] [address] [id number] [place] [address] 15 Mar, 2010 [facility] [address] [id number] [place] [address] 19 Feb, 2010 [facility] [address] [place] [id number] [place] [address] 18 Feb, 2010 [facility] [address] [id number] [place] [address] 14 Apr, 2009 [facility] [address] [id number] [place] [address] Apr, IMMUNIZATIONS No Known Immunizations SOCIAL HISTORY [...]
--- OUTSIDE RECORDS SUMMARY | 2019-11-01 19:23 | XMS REPORT ---
Author Author Zia MONIQUE Organization [facility] Address [facility] [place] [address] Care Team Providers Care Bottle [employer] Quality Control Technician Name Role Phone MONIQUEFERNANDAA Unavailable PROBLEMS Type Condition ICD9-CM Code LDQ48-QZ Code Onset Dates Condition S tatus SNOMED Code Problem Prediabetes R73.09 Active 1860094 Problem Hypertension I10 Active 7724713 3 Problem Tobacco use Z72.0 Active 69717196 0 Problem Primary insomnia F51.01 Active 397 2004 Problem Squamous cell carcinoma C44.92 Active 818937436 Problem Benign prostatic hyperplasia with lower urinary tract symptoms, symptom details unspecified N40.1 Active 97671784 617945 Problem Hyperlipidemia E78.5 Active 73914 004 Problem Neuropathy G62.9 Active 780598316 Problem Bladder disorder, unspecified N32.9 Active 78370787 Problem 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 [address] [address] Jun, Benign prostatic hyperplasia with lower urinary tract symptoms, symptom details unspecified N40.1 [facility] [address] [address] Apr, [facility] [address] [address] Mar, Hypertension I10 [facility] [address] [address] Mar, [facility] [address] [address] Mar, [place] [address] [address] Mar, [place] [address] [address] Feb, Encounter for Medicare annual wellness e xam Z00.00 ; Hypertension I10 ; Hyperlipidemia E78.5 ; Tobacco use Z72.0 and Bladder disorder, unspecified N32.9 [place] [address] [address] Feb, [place] [address] [address] Jan, Hypertension I10 ; Bladder disorder, uns pecified N32.9 ; Prediabetes R73.09 and Encounter for immunization Z23 [place] [address] [address] 13 Jan, 2019 [place] [address] [address] Jan, Hypertension I10 and Prediabetes R73.09 [place] [address] [address] Jan, [place] [address] [address] 03 Jan, 2019 Hypertension I10 and Prediabetes R73.09 [facility] [address] [facility] [id number] [address] [place] [address] Dec, Acute bacterial conjunctivit is of both eyes H10.33 [place] [address] [address] Dec, Hypertension I10 and Prediabetes R73.09 [place] [address] [address] Dec, Hypertension I10 ; Hyperlipidemia E78.5 ; Prediabetes R73.09 ; Bladder disorder, unspecified N32.9 ; Neuropathy G62.9 and Impacted cerumen of right ear H61.21 [facility] [address] [facility] [id number] [address] [place] [address] Dec, Cellulitis of face L03.211 [place] [address] [address] Dec, [place] [address] [address] Dec, [facility] [address] [place] [id number] Dec, Hematuria, unspecified type R31.9 ; Blad baldemar disorder, unspecified N32.9 ; Hypertension I10 ; Hyperlipidemia E78.5 ; Neuropathy G62.9 ; History of peptic ulcer Z87.11 ; 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 and Primary insomnia F51.01 [place] [address] [address] Nov, Right medial knee pain M25.561 [place] [address] [address] Nov, [place] [address] [address] Nov, Right medial knee pain M25.561 and Acute right ankle pain M25.571 [place] [address] [address] Nov, [place] [address] [address] Nov, Pain in right foot M79.671 and Pain of l eft foot M79.672 [facility] [address] [place] [id number] Nov, Pain of left foot M79.672 and Pain in ri ght foot M79.671 [place] [address] [address] Nov, Neuropathy G62.9 [facility] [address] [place] [id number] Oct, Physical deconditioning R53.81 ; Right f oot pain M79.671 and Essential hypertension I10 [place] [address] [address] September, [facility] [address] [place] [id number] [place] [address] September, Hematuria, unspecified type R31.9 and Chest pressure R07.89 [place] [address] [address] Jun, Hypertension I10 ; Hyperlipidemia E78.5 ; Tobacco use Z72.0 and Prediabetes R73.09 [place] [address] [address] Apr, [place] [address] [address] Mar, Hypertension I10 [facility] [place] [address] [place] [id number] [place] [address] Aug, Lesion of lip K13.0 [place] [address] [address] Apr, Hypertension I10 ; Hyperlipidemia E78.5 ; Prediabetes R73.09 ; Tobacco use Z72.0 and Healthcare maintenance Z00.00 [place] [address] [address] Jul, Hypertension I10 and Multiple actinic ke ratoses L57.0 [place] [address] [address] Jul, Hypertension I10 [place] [address] [address] Jun, Hypertension I10 [place] [address] [address] Jun, Hypertension I10 ; Hyperlipidemia E78.5 ; Prediabetes R73.09 ; Tobacco use Z72.0 and Multiple actinic keratoses L57.0 [place] [address] [place] [address] [place] [address] 06 Jan, 2016 Hypertension I10 ; Hyperlipidemia E78.5 and Tobacco use Z72.0 [facility] [address] [address] Oct, [facility] [address] [address] 04 Jun, 2015 Hypertension I10 ; Hyperlipidemia E78.5 ; Prediabetes R73.09 ; Screening for colon cancer Z12.11 and Tobacco use Z72.0 [place] [address] [address] Apr, [place] [address] [address] Apr, [place] [address] [address] Apr, [place] [address] [address] Dec, [facility] [address] [address] Dec, [place] [address] [address] Nov, Nondependent tobacco use disorder 305.1 ; Hypertension 401.9 ; Hyperlipidemia 272.4 ; Prediabetes 790.29 ; Colon cancer screening V76.51 and Sunburn 692.71 [place] [address] [address] Oct, [place] [address] [address] Oct, Other and unspecified hyperlipidemia 272 .4 ; Essential hypertension 401.9 and Essential hypertension, benign 401.1 [place] [address] [address] Oct, [place] [address] [address] 14 Aug, 2014 [place] [address] [id number] [place] [address] Aug, [facility] [place] [facility] [address] [id number] [place] [address] Jun, [facility] [place] [facility] [address] [id number] [place] [address] Jun, [facility] [place] [facility] [address] [id number] [place] [address] Apr, [facility] [place] [facility] [address] [id number] [place] [address] Apr, [facility] [place] [facility] [address] [id number] [place] [address] Apr, [facility] [place] [facility] [address] [id number] [place] [address] Apr, [facility] [place] [facility] [address] [place] [id number] [place] [address] Mar, [facility] [place] [facility] [address] [id number] [place] [address] Mar, [facility] [place] [facility] [address] [id number] [place] [address] Mar, [facility] [place] [facility] [address] [id number] [place] [address] Mar, [facility] [place] [facility] [address] [id number] [place] [address] Feb, [facility] [place] [facility] [address] [id number] [place] [address] Feb, [facility] [place] [facility] [address] [id number] [place] [address] Dec, [facility] [place] [facility] [address] [place] [id number] [place] [address] Dec, [facility] [place] [facility] [address] [id number] [place] [address] Oct, [facility] [place] [facility] [address] [place] [id number] [place] [address] Oct, [facility] [place] [facility] [address] [id number] [place] [address] September, [facility] [place] [facility] [address] [id number] [place] [address] September, [facility] [place] [facility] [address] [facility] [id number] [place] [address] September, [facility] [place] [facility] [address] [id number] [place] [address] September, [facility] [place] [facility] [address] [facility] [id number] [facility] [address] September, [facility] [place] [facility] [address] [id number] [place] [address] September, [facility] [place] [facility] [address] [id number] [place] [address] September, [facility] [place] [facility] [address] [id number] [place] [address] September, [facility] [place] [facility] [address] [id number] [place] [address] September, [facility] [place] [facility] [address] [id number] [place] [address] September, [facility] [place] [facility] [address] [id number] [place] [address] Aug, [facility] [place] [facility] [address] [id number] [place] [address] Aug, [facility] [place] [facility] [address] [id number] [place] [address] Jun, [facility] [place] [facility] [address] [id number] [place] [address] Jun, [facility] [place] [facility] [address] [id number] [place] [address] May, [facility] [place] [facility] [address] [id number] [place] [address] May, [facility] [place] [facility] [address] [id number] [place] [address] May, [facility] [place] [facility] [address] [id number] [place] [address] May, [facility] [place] [facility] [address] [id number] [place] [address] Apr, [facility] [place] [facility] [address] [id number] [place] [address] Apr, [facility] [place] [facility] [address] [id number] [place] [address] Mar, [facility] [place] [facility] [address] [id number] [place] [address] Mar, [facility] [place] [facility] [address] [id number] [place] [address] Feb, [facility] [place] [facility] [address] [id number] [place] [address] Feb, [facility] [place] [facility] [address] [id number] [place] [address] Dec, [facility] [place] [facility] [address] [id number] [place] [address] Dec, [facility] [place] [facility] [address] [id number] [place] [address] Dec, [facility] [place] [facility] [address] [id number] [place] [address] Oct, [facility] [place] [facility] [address] [id number] [place] [address] Oct, [facility] [place] [facility] [address] [id number] [place] [address] Oct, [facility] [place] [facility] [address] [place] [id number] [place] [address] September, [facility] [place] [facility] [address] [id number] [place] [address] September, [facility] [place] [facility] [address] [id number] [place] [address] September, [facility] [place] [facility] [address] [id number] [place] [address] September, [facility] [place] [facility] [address] [id number] [place] [address] Jun, [facility] [place] [facility] [address] [id number] [place] [address] Mar, [facility] [place] [facility] [address] [place] [id number] [place] [address] Mar, [facility] [place] [facility] [address] [id number] [place] [address] Mar, [facility] [place] [facility] [address] [id number] [place] [address] Mar, [facility] [place] [facility] [address] [id number] [place] [address] Mar, [facility] [place] [facility] [address] [place] [id number] [place] [address] Mar, [facility] [place] [facility] [address] [place] [id number] [place] [address] Feb, [facility] [place] [facility] [address] [id number] [place] [address] Feb, [facility] [place] [facility] [address] [place] [id number] [place] [address] Feb, [facility] [place] [facility] [address] [place] [id number] [place] [address] Feb, [facility] [place] [facility] [address] [id number] [place] [address] Feb, [facility] [place] [facility] [address] [id number] [place] [address] Feb, [facility] [place] [facility] [address] [place] [id number] [place] [address] Feb, [facility] [place] [facility] [address] [id number] [place] [address] Feb, [facility] [place] [facility] [address] [id number] [place] [address] 28 Oct, 2011 [facility] [address] [id number] [place] [address] 30 Aug, 2011 [facility] [address] [place] [id number] [place] [address] 17 Aug, 2011 [facility] [address] [id number] [place] [address] 16 Aug, 2011 [facility] [address] [place] [id number] [place] [address] 14 Aug, 2011 [facility] [address] [place] [id number] [place] [address] Jul, [facility] [address] [place] [id number] [place] [address] May, [facility] [address] [place] [id number] [place] [address] May, [facility] [address] [place] [id number] [place] [address] Mar, [facility] [address] [place] [id number] [place] [address] Feb, [facility] [address] [place] [id number] [place] [address] May, [facility] [address] [place] [id number] [place] [address] Mar, [facility] [address] [place] [id number] [place] [address] Feb, [facility] [address] [place] [id number] [place] [address] Feb, [facility] [address] [place] [id number] [place] [address] Apr, [facility] [address] [place] [id number] [place] [address] Apr, IMMUNIZATIONS No Known Immunizations SOCIAL HISTORY Never Assessed REASON FOR VISIT PLAN OF CARE VITAL SIGNS MEDICATIONS Unknown Medications RESULTS No Results PROCEDURES Procedure Date Ordered Result Body Site COMPLETE CBC W/AUTO DIFF WBC September 25, 2013 GLYCATED HEMOGLOBIN TEST September 25, 2013 LIPID PANEL September 25, 2013 COMPREHEN METABOLIC PANEL September 25, 2013 VENIPUNCT, ROUTINE* September 25, 2013 INSTRUCTIONS MEDICATIONS ADMINISTERED No Known [...]
--- OUTSIDE RECORDS SUMMARY | 2019-11-01 19:23 | XMS REPORT ---
Author Author Zia MONIQUE Organization [facility] Address [facility] [place] [address] Care Team Providers Care Yarn Skeins Examiner Name Role Phone MONIQUENOAH Unavailable PROBLEMS Type Condition ICD9-CM Code [id number] Code Onset Dates Condition S tatus SNOMED Code Problem Prediabetes R73.09 Active 3932289 Problem Hypertension I10 Active 2440013 3 Problem Tobacco use Z72.0 Active 82350468 0 Problem Primary insomnia F51.01 Active 397 2004 Problem Squamous cell carcinoma C44.92 Active 104866902 Problem Benign prostatic hyperplasia with lower urinary tract symptoms, symptom details unspecified N40.1 Active 19899587 163848 Problem Hyperlipidemia E78.5 Active 31094 004 Problem Neuropathy G62.9 Active 947703673 Problem Bladder disorder, unspecified N32.9 Active 76363536 Problem 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 Acti ve [id number] ALLERGIES No Information ENCOUNTERS Encounter Location Date Diagnosis [place] [address] [address] Jun, Benign prostatic hyperplasia with lower urinary tract symptoms, symptom details unspecified N40.[address] [address] Jun, Benign prostatic hyperplasia with lower urinary tract symptoms, symptom details unspecified N40.1 [place] [address] [address] Jun, Benign prostatic hyperplasia with lower urinary tract symptoms, symptom details unspecified N40.1 [place] [address] [address] Apr, [place] [address] [address] Mar, Hypertension I10 [address] [id number] [place] [address] Mar, [facility] [address] [address] Mar, [facility] [address] [address] Mar, [facility] [address] [address] Feb, Encounter for Medicare annual wellness e xam Z00.00 ; Hypertension I10 ; Hyperlipidemia E78.5 ; Tobacco use Z72.0 and Bladder disorder, unspecified N32.9 [place] [address] [address] Feb, [place] [address] [address] Jan, Hypertension I10 ; Bladder disorder, uns pecified N32.9 ; Prediabetes R73.09 and Encounter for immunization Z23 [place] [address] [address] 13 Jan, 2019 [place] [address] [address] 06 Jan, 2019 Hypertension I10 and Prediabetes R73.09 [place] [address] [address] Jan, [place] [address] [address] Jan, Hypertension I10 and Prediabetes R73.09 [facility] [address] [facility]NOTE [facility]] [id number] [address] [place] [address] Dec, Acute bacterial conjunctivit is of both eyes H10.33 [facility] [address] [place] [id number] [place] [address] Dec, Hypertension I10 and Prediabetes R73.09 [facility] [address] [address] Dec, Hypertension I10 ; Hyperlipidemia E78.5 ; Prediabetes R73.09 ; Bladder disorder, unspecified N32.9 ; Neuropathy G62.9 and Impacted cerumen of right ear H61.21 [facility] [address] [facility]NOTE 3] [id number] [address] [place] [address] Dec, Cellulitis of face L03.211 [place] [address] [address] Dec, [place] [address] [address] Dec, [facility] [employer] [address] [place] [id number] Dec, Hematuria, unspecified type R31.9 ; Blad baldemar disorder, unspecified N32.9 ; Hypertension I10 ; Hyperlipidemia E78.5 ; Neuropathy G62.9 ; History of peptic ulcer Z87.11 ; 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 and Primary insomnia F51.01 [place] [address] [address] Nov, Right medial knee pain M25.561 [place] [address] [address] Nov, [place] [address] [address] Nov, Right medial knee pain M25.561 and Acute right ankle pain M25.571 [place] [address] [address] Nov, [address] [address] Nov, Pain in right foot M79.671 and Pain of l eft foot M79.672 [facility] [address] [place] [id number] Nov, Pain of left foot M79.672 and Pain in ri ght foot M79.671 [place] [address] [address] Nov, Neuropathy G62.9 [facility] [address] [place] [id number] Oct, Physical deconditioning R53.81 ; Right f oot pain M79.671 and Essential hypertension I10 [place] [address] [address] September, [facility] [address] [address] September, Hematuria, unspecified type R31.9 and Chest pressure R07.89 [place] [address] [address] Jun, Hypertension I10 ; Hyperlipidemia E78.5 ; Tobacco use Z72.0 and Prediabetes R73.09 [place] [address] [address] Apr, [place] [address] [address] Mar, Hypertension I10 [facility] [address] [place] [id number] [address] [place] [address] Aug, Lesion of lip K13.0 [place] [address] [address] Apr, Hypertension I10 ; Hyperlipidemia E78.5 ; Prediabetes R73.09 ; Tobacco use Z72.0 and Healthcare maintenance Z00.00 [place] [address] [address] Jul, Hypertension I10 and Multiple actinic ke ratoses L57.0 [place] [address] [address] Jul, Hypertension I10 [place] [address] [address] Jun, Hypertension I10 [place] [address] [address] Jun, Hypertension I10 ; Hyperlipidemia E78.5 ; Prediabetes R73.09 ; Tobacco use Z72.0 and Multiple actinic keratoses L57.0 [place] [address] [address] Jan, Hypertension I10 ; Hyperlipidemia E78.5 and Tobacco use Z72.0 [place] [address] [address] Oct, [place] [address] [address] Jun, Hypertension I10 ; Hyperlipidemia E78.5 ; Prediabetes R73.09 ; Screening for colon cancer Z12.11 and Tobacco use Z72.0 [place] [address] [address] Apr, [place] [address] [address] Apr, [place] [address] [address] Apr, [place] [address] [address] Dec, [place] [address] [address] Dec, [place] [address] [address] Nov, Nondependent tobacco use disorder 305.1 ; Hypertension 401.9 ; Hyperlipidemia 272.4 ; Prediabetes 790.29 ; Colon cancer screening V76.51 and Sunburn 692.71 [place] [address] [address] Oct, [address] [address] Oct, Other and unspecified hyperlipidemia 272 .4 ; Essential hypertension 401.9 and Essential hypertension, benign 401.1 [place] [address] [address] Oct, [facility] [address] [id number] [place] [address] Aug, [facility] [address] [id number] [place] [address] Aug, [facility] [address] [id number] [place] [address] Jun, [facility] [address] [id number] [place] [address] Jun, [facility] [address] [id number] [place] [address] Apr, [facility] [address] [id number] [place] [address] Apr, [facility] [address] [place] [id number] [place] [address] Apr, [facility] [address] [place] [id number] [place] [address] Apr, [facility] [address] [id number] [place] [address] Mar, [facility] [address] [place] [id number] [place] [address] Mar, [facility] [address] [id number] [place] [address] Mar, [facility] [address] [place] [id number] [place] [address] Mar, [facility] [address] [id number] [place] [address] Feb, [facility] [address] [place] [id number] [place] [address] Feb, [facility] [address] [id number] [place] [address] Dec, [facility] [address] [place] [id number] [place] [address] Dec, [facility] [address] [facility]] [id number] [facility] [address] Oct, [facility] [address] [id number] [place] [address] Oct, [facility] [address] [facility]] [id number] [place] [address] September, [facility] [address] [id number] [place] [address] September, [facility] [address] [id number] [place] [address] September, [facility] [address] [id number] [place] [address] September, [facility] [address] [id number] [place] [address] September, [facility] [address] [id number] [place] [address] September, [facility] [address] [id number] [place] [address] September, [facility] [address] [id number] [place] [address] September, [facility] [address] [id number] [place] [address] September, [facility] [address] [id number] [place] [address] September, [facility] [address] [id number] [place] [address] Aug, [facility] [address] [id number] [place] [address] Aug, [facility] [address] [id number] [place] [address] Jun, [facility] [address] [id number] [place] [address] Jun, [facility] [address] [id number] [place] [address] May, [facility] [address] [id number] [place] [address] May, [facility] [address] [id number] [place] [address] May, [facility] [address] [id number] [place] [address] May, [facility] [address] [id number] [place] [address] Apr, [facility] [address] [id number] [place] [address] Apr, [facility] [address] [id number] [place] [address] Mar, [facility] [address] [id number] [place] [address] Mar, [facility] [address] [id number] [place] [address] Feb, [facility] [address] [id number] [place] [address] Feb, [facility] [address] [id number] [place] [address] Dec, [facility] [address] [id number] [place] [address] Dec, [facility] [address] [id number] [place] [address] Dec, [facility] [address] [id number] [place] [address] Oct, [facility] [address] [id number] [place] [address] Oct, [facility] [address] [id number] [place] [address] Oct, [facility] [address] [id number] [place] [address] September, [facility] [address] [id number] [place] [address] September, [facility] [address] [id number] [place] [address] September, [facility] [address] [id number] [place] [address] September, [facility] [address] [id number] [place] [address] Jun, [facility] [address] [id number] [place] [address] Mar, [facility] [address] [id number] [place] [address] Mar, [facility] [address] [id number] [place] [address] Mar, [facility] [address] [place] [id number] [place] [address] Mar, [facility] [address] [place] [id number] [place] [address] Mar, [facility] [address] [id number] [place] [address] Mar, [facility] [address] [place] [id number] [place] [address] Feb, [facility] [address] [id number] [place] [address] Feb, [facility] [address] [place] [id number] [place] [address] Feb, [facility] [address] [id number] [place] [address] Feb, [facility] [address] [place] [id number] [place] [address] Feb, [facility] [address] [id number] [place] [address] Feb, [facility] [address] [id number] [place] [address] Feb, [facility] [address] [id number] [place] [address] 25 Feb, 2012 [facility] [address] [id number] [place] [address] 28 Oct, 2011 [facility] [address] [id number] [place] [address] 30 Aug, 2011 [facility] [address] [id number] [place] [address] 17 Aug, 2011 [facility] [address] [id number] [place] [address] 16 Aug, 2011 [facility] [address] [id number] [place] [address] 14 Aug, 2011 [facility] [address] [id number] [place] [address] 05 Jul, 2011 [facility] [address] [id number] [place] [address] May, [facility] [address] [id number] [place] [address] May, [facility] [address] [id number] [place] [address] 30 Mar, 2011 [facility] [address] [id number] [place] [address] 10 Feb, 2011 [facility] [address] [id number] [place] [address] 18 May, 2010 [facility] [address] [id number] [place] [address] 15 Mar, 2010 [facility] [address] [id number] [place] [address] 19 Feb, 2010 [facility] [address] [place] [id number] [place] [address] 18 Feb, 2010 [facility] [address] [id number] [place] [address] 14 Apr, 2009 [facility] [address] [id number] [place] [address] Apr, IMMUNIZATIONS No Known Immunizations SOCIAL HISTORY [...]
--- OUTSIDE RECORDS SUMMARY | 2019-11-01 19:23 | XMS REPORT ---
Author Author Zia MONIQUE Organization [facility] Address [facility] [place] [address] Care Team Providers Care Client Director Name Role Phone MONIQUENOAH Unavailable PROBLEMS Type Condition ICD9-CM Code KES20-CS Code Onset Dates Condition S tatus SNOMED Code Problem Prediabetes R73.09 Active 2148303 Problem Hypertension I10 Active 0148628 3 Problem Tobacco use Z72.0 Active 13597847 0 Problem Primary insomnia F51.01 Active 397 2004 Problem Squamous cell carcinoma C44.92 Active 212521771 Problem Benign prostatic hyperplasia with lower urinary tract symptoms, symptom details unspecified N40.1 Active 34682242 646577 Problem Hyperlipidemia E78.5 Active 27436 004 Problem Neuropathy G62.9 Active 702324211 Problem Bladder disorder, unspecified N32.9 Active 40425020 Problem 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 Acti ve 03684832 ALLERGIES No Information ENCOUNTERS Encounter Location Date Diagnosis [place] [address] [address] Jun, Benign prostatic hyperplasia with lower urinary tract symptoms, symptom details unspecified N40.[address] [address] Jun, Benign prostatic hyperplasia with lower urinary tract symptoms, symptom details unspecified N40.1 [place] [address] [address] Jun, Benign prostatic hyperplasia with lower urinary tract symptoms, symptom details unspecified N40.1 [place] [address] [address] Apr, [place] [address] [address] Mar, Hypertension I10 [address] [id number] [place] [address] Mar, [facility] [address] [address] Mar, [facility] [address] [address] Mar, [facility] [address] [address] Feb, Encounter for Medicare annual wellness e xam Z00.00 ; Hypertension I10 ; Hyperlipidemia E78.5 ; Tobacco use Z72.0 and Bladder disorder, unspecified N32.9 [place] [address] [address] Feb, [place] [address] [address] Jan, Hypertension I10 ; Bladder disorder, uns pecified N32.9 ; Prediabetes R73.09 and Encounter for immunization Z23 [place] [address] [address] 13 Jan, 2019 [place] [address] [address] 06 Jan, 2019 Hypertension I10 and Prediabetes R73.09 [place] [address] [address] Jan, [place] [address] [address] Jan, Hypertension I10 and Prediabetes R73.09 [facility] [address] [facility] [id number] [address] [place] [address] Dec, Acute bacterial conjunctivit is of both eyes H10.33 [facility] [address] [place] [id number] [place] [address] Dec, Hypertension I10 and Prediabetes R73.09 [facility] [address] [address] Dec, Hypertension I10 ; Hyperlipidemia E78.5 ; Prediabetes R73.09 ; Bladder disorder, unspecified N32.9 ; Neuropathy G62.9 and Impacted cerumen of right ear H61.21 [facility] IN [facility] [address] [facility] [id number] [address] [place] [address] Dec, Cellulitis of face L03.211 [place] [address] [address] Dec, [place] [address] [address] Dec, Via [facility] [address] [place] [id number] Dec, Hematuria, unspecified type R31.9 ; Blad baldemar disorder, unspecified N32.9 ; Hypertension I10 ; Hyperlipidemia E78.5 ; Neuropathy G62.9 ; History of peptic ulcer Z87.11 ; 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 and Primary insomnia F51.01 [place] [address] [address] Nov, Right medial knee pain M25.561 [place] [address] [address] Nov, [place] [address] [address] Nov, Right medial knee pain M25.561 and Acute right ankle pain M25.571 [place] [address] [address] Nov, [address] [address] Nov, Pain in right foot M79.671 and Pain of l eft foot M79.672 [facility] [address] [place] [id number] Nov, Pain of left foot M79.672 and Pain in ri ght foot M79.671 [place] [address] [address] Nov, Neuropathy G62.9 [facility] [address] [place] [id number] Oct, Physical deconditioning R53.81 ; Right f oot pain M79.671 and Essential hypertension I10 [place] [address] [address] September, [facility] [address] [address] September, Hematuria, unspecified type R31.9 and Chest pressure R07.89 [place] [address] [address] Jun, Hypertension I10 ; Hyperlipidemia E78.5 ; Tobacco use Z72.0 and Prediabetes R73.09 [place] [address] [address] Apr, [place] [address] [address] Mar, Hypertension I10 [facility] [address] [place] [id number] [place] [address] Aug, Lesion of lip K13.0 [place] [address] [address] Apr, Hypertension I10 ; Hyperlipidemia E78.5 ; Prediabetes R73.09 ; Tobacco use Z72.0 and Healthcare maintenance Z00.00 [place] [address] [address] Jul, Hypertension I10 and Multiple actinic ke ratoses L57.0 [place] [address] [address] Jul, Hypertension I10 [place] [address] [address] Jun, Hypertension I10 [place] [address] [address] Jun, Hypertension I10 ; Hyperlipidemia E78.5 ; Prediabetes R73.09 ; Tobacco use Z72.0 and Multiple actinic keratoses L57.0 [place] [address] [address] Jan, Hypertension I10 ; Hyperlipidemia E78.5 and Tobacco use Z72.0 [place] [address] [address] Oct, [place] [address] [address] Jun, Hypertension I10 ; Hyperlipidemia E78.5 ; Prediabetes R73.09 ; Screening for colon cancer Z12.11 and Tobacco use Z72.0 [place] [address] [address] Apr, [place] [address] [address] Apr, [place] [address] [address] Apr, [place] [address] [address] Dec, [place] [address] [address] Dec, [place] [address] [address] Nov, Nondependent tobacco use disorder 305.1 ; Hypertension 401.9 ; Hyperlipidemia 272.4 ; Prediabetes 790.29 ; Colon cancer screening V76.51 and Sunburn 692.71 [place] [address] [address] Oct, [address] [address] Oct, Other and unspecified hyperlipidemia 272 .4 ; Essential hypertension 401.9 and Essential hypertension, benign 401.1 [place] [address] [address] Oct, [facility] [address] [id number] [place] [address] Aug, [facility] [address] [id number] [place] [address] Aug, [facility] [address] [id number] [place] [address] Jun, [facility] [address] [id number] [place] [address] Jun, [facility] [address] [id number] [place] [address] Apr, [facility] [address] [id number] [place] [address] Apr, [facility] [address] [place] [id number] [place] [address] Apr, [facility] [address] [place] [id number] [place] [address] Apr, [facility] [address] [id number] [place] [address] Mar, [facility] [address] [place] [id number] [place] [address] Mar, [facility] [address] [id number] [place] [address] Mar, [facility] [address] [place] [id number] [place] [address] Mar, [facility] [address] [id number] [place] [address] Feb, [facility] [address] [place] [id number] [place] [address] Feb, [facility] [address] [id number] [place] [address] Dec, [facility] [address] [place] [id number] [place] [address] Dec, [facility] [address] [facility] [id number] [facility] [place] [address] Oct, [facility] [address] [id number] [place] [address] Oct, [facility] [address] [facility] [id number] [place] [address] September, [facility] [address] [id number] [place] [address] September, [facility] [address] [id number] [place] [address] September, [facility] [address] [id number] [place] [address] September, [facility] [address] [id number] [place] [address] September, [facility] [address] [id number] [place] [address] September, [facility] [address] [id number] [place] [address] September, [facility] [address] [id number] [place] [address] September, [facility] [address] [id number] [place] [address] September, [facility] [address] [id number] [place] [address] September, [facility] [address] [id number] [place] [address] Aug, [facility] [address] [id number] [place] [address] Aug, [facility] [address] [id number] [place] [address] Jun, [facility] [address] [id number] [place] [address] Jun, [facility] [address] [id number] [place] [address] May, [facility] [address] [id number] [place] [address] May, [facility] [address] [id number] [place] [address] May, [facility] [address] [id number] [place] [address] May, [facility] [address] [id number] [place] [address] Apr, [facility] [address] [id number] [place] [address] Apr, [facility] [address] [id number] [place] [address] Mar, [facility] [address] [id number] [place] [address] Mar, [facility] [address] [id number] [place] [address] Feb, [facility] [address] [id number] [place] [address] Feb, [facility] [address] [id number] [place] [address] Dec, [facility] [address] [id number] [place] [address] Dec, [facility] [address] [id number] [place] [address] Dec, [facility] [address] [id number] [place] [address] Oct, [facility] [address] [id number] [place] [address] Oct, [facility] [address] [id number] [place] [address] Oct, [facility] [address] [id number] [place] [address] September, [facility] [address] [id number] [place] [address] September, [facility] [address] [id number] [place] [address] September, [facility] [address] [id number] [place] [address] September, [facility] [address] [id number] [place] [address] Jun, [facility] [address] [id number] [place] [address] Mar, [facility] [address] [id number] [place] [address] Mar, [facility] [address] [id number] [place] [address] Mar, [facility] [address] [place] [id number] [place] [address] Mar, [facility] [address] [place] [id number] [place] [address] Mar, [facility] [address] [id number] [place] [address] Mar, [facility] [address] [place] [id number] [place] [address] Feb, [facility] [address] [id number] [place] [address] Feb, [facility] [address] [place] [id number] [place] [address] Feb, [facility] [address] [id number] [place] [address] Feb, [facility] [address] [place] [id number] [place] [address] Feb, [facility] [address] [id number] [place] [address] Feb, [facility] [address] [id number] [place] [address] Feb, [facility] [address] [id number] [place] [address] 25 Feb, 2012 [facility] [address] [id number] [place] [address] 28 Oct, 2011 [facility] [address] [id number] [place] [address] 30 Aug, 2011 [facility] [address] [id number] [place] [address] 17 Aug, 2011 [facility] [address] [id number] [place] [address] 16 Aug, 2011 [facility] [address] [id number] [place] [address] 14 Aug, 2011 [facility] [address] [id number] [place] [address] 05 Jul, 2011 [facility] [address] [id number] [place] [address] May, [facility] [address] [id number] [place] [address] May, [facility] [address] [id number] [place] [address] 30 Mar, 2011 [facility] [address] [id number] [place] [address] 10 Feb, 2011 [facility] [address] [id number] [place] [address] 18 May, 2010 [facility] [address] [id number] [place] [address] 15 Mar, 2010 [facility] [address] [id number] [place] [address] 19 Feb, 2010 [facility] [address] [place] [id number] [place] [address] 18 Feb, 2010 [facility] [address] [id number] [place] [address] 14 Apr, 2009 [facility] [address] [id number] [place] [address] Apr, IMMUNIZATIONS No Known Immunizations SOCIAL HISTORY [...]
--- OUTSIDE RECORDS SUMMARY | 2019-11-01 19:23 | XMS REPORT ---
Author Author Zia MONIQUE Organization [facility] Address [facility] [place] [address] Care Team Providers Care Digital Media Analyst Name Role Phone MONIQUEFERNANDAA Unavailable PROBLEMS Type Condition ICD9-CM Code [id number] Code Onset Dates Condition S tatus SNOMED Code Problem Squamous cell carcinoma C44.92 Active 576205213 Problem Prediabetes R73.09 Active 6863402 Problem Hypertension I10 Active 0108996 3 Problem 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 Acti ve 82153768 Problem Primary insomnia F51.01 Active 397 2004 Problem Tobacco use Z72.0 Active 07790761 0 Problem Hyperlipidemia E78.5 Active 95896 004 Problem Neuropathy G62.9 Active 586874998 Problem Bladder disorder, unspecified N32.9 Active 65326232 ALLERGIES No Information ENCOUNTERS Encounter Location Date Diagnosis [place] [address] [address] Apr, [place] [address] [address] Mar, Hypertension I10 [facility] [address] [address] Mar, [facility] [address] [address] Mar, [facility] [address] [address] Mar, [place] [address] [address] Feb, Encounter for Medicare annual wellness e xam Z00.00 ; Hypertension I10 ; Hyperlipidemia E78.5 ; Tobacco use Z72.0 and Bladder disorder, unspecified N32.9 [facility] [address] [address] Feb, [place] [address] [address] Jan, Hypertension I10 ; Bladder disorder, uns pecified N32.9 ; Prediabetes R73.09 and Encounter for immunization Z23 [place] [address] [address] Jan, [place] [address] [address] Jan, Hypertension I10 and Prediabetes R73.09 [place] [address] [address] Jan, [place] [address] [address] Jan, Hypertension I10 and Prediabetes R73.09 [facility] [place] [address] [place] [address] Dec, Acute bacterial conjunctivit is of both eyes H10.33 [place] [address] [address] Dec, Hypertension I10 and Prediabetes R73.09 [place] [address] [address] Dec, Hypertension I10 ; Hyperlipidemia E78.5 ; Prediabetes R73.09 ; Bladder disorder, unspecified N32.9 ; Neuropathy G62.9 and Impacted cerumen of right ear H61.21 [facility] [place] [address] [address] [facility]NOTE 3] [id number] [address] [place] [address] Dec, Cellulitis of face L03.211 [place] [address] [address] Dec, [place] [address] [address] Dec, [facility] [address] [place] [id number] Dec, Hematuria, unspecified type R31.9 ; Blad baldemar disorder, unspecified N32.9 ; Hypertension I10 ; Hyperlipidemia E78.5 ; Neuropathy G62.9 ; History of peptic ulcer Z87.11 ; 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 and Primary insomnia F51.01 [place] [address] [address] Nov, Right medial knee pain M25.561 [place] [address] [address] Nov, [place] [address] [address] Nov, Right medial knee pain M25.561 and Acute right ankle pain M25.571 [place] [address] [address] Nov, [place] [address] [address] Nov, Pain in right foot M79.671 and Pain of l eft foot M79.672 [address] [facility] [address] [place] [id number] Nov, Pain of left foot M79.672 and Pain in ri ght foot M79.671 [place] [address] [address] Nov, Neuropathy G62.9 [facility] [address] [place] [id number] Oct, Physical deconditioning R53.81 ; Right f oot pain M79.671 and Essential hypertension I10 [place] [address] [address] September, [facility] [address] [facility]NOTE 3] [id number] [address] [place] [address] September, Hematuria, unspecified type R31.9 and Chest pressure R07.89 [place] [address] [address] Jun, Hypertension I10 ; Hyperlipidemia E78.5 ; Tobacco use Z72.0 and Prediabetes R73.09 [facility] [address] [address] Apr, [facility] [address] [address] Mar, Hypertension I10 [facility] [address] [facility]NOTE 3] [id number] [address] [place] [address] Aug, Lesion of lip K13.0 [facility] [address] [address] 08 Apr, 2017 Hypertension I10 ; Hyperlipidemia E78.5 ; Prediabetes R73.09 ; Tobacco use Z72.0 and Healthcare maintenance Z00.00 [place] [address] [address] Jul, Hypertension I10 and Multiple actinic ke ratoses L57.0 [place] [address] [address] Jul, Hypertension I10 [place] [address] [address] Jun, Hypertension I10 [facility] [address] [address] Jun, Hypertension I10 ; Hyperlipidemia E78.5 ; Prediabetes R73.09 ; Tobacco use Z72.0 and Multiple actinic keratoses L57.0 [place] [address] [address] Jan, Hypertension I10 ; Hyperlipidemia E78.5 and Tobacco use Z72.0 [place] [address] [address] Oct, [place] [address] [address] 04 Jun, 2015 Hypertension I10 ; Hyperlipidemia E78.5 ; Prediabetes R73.09 ; Screening for colon cancer Z12.11 and Tobacco use Z72.0 [facility] [address] [place] [id number] [place] [address] Apr, [facility] [address] [place] [id number] [place] [address] Apr, [facility] [address] [place] [id number] [place] [address] Apr, [facility] [address] [place] [id number] [place] [address] Dec, [facility] [address] [place] [id number] [place] [address] Dec, [facility] [address] [address] Nov, Nondependent tobacco use disorder 305.1 ; Hypertension 401.9 ; Hyperlipidemia 272.4 ; Prediabetes 790.29 ; Colon cancer screening V76.51 and Sunburn 692.71 [facility] [address] [place] [id number] [place] [address] Oct, [facility] [address] [place] [id number] [place] [address] Oct, Other and unspecified hyperlipidemia 272 .4 ; Essential hypertension 401.9 and Essential hypertension, benign 401.1 [facility] [address] [place] [id number] [place] [address] Oct, [facility] [address] [place] [id number] [place] [address] Aug, [facility] [address] [place] [id number] [place] [address] Aug, [facility] [address] [place] [id number] [place] [address] Jun, [facility] [address] [place] [id number] [place] [address] Jun, [facility] [address] [place] [id number] [place] [address] Apr, [facility] [address] [id number] [place] [address] Apr, [facility] [address] [id number] [place] [address] Apr, [facility] [address] [id number] [place] [address] Apr, [facility] [address] [id number] [place] [address] Mar, [facility] [address] [id number] [place] [address] Mar, [facility] [address] [id number] [place] [address] Mar, [facility] [address] [id number] [place] [address] Mar, [facility] [address] [id number] [place] [address] Feb, [facility] [address] [id number] [place] [address] Feb, [facility] [address] [id number] [place] [address] Dec, [facility] [address] [id number] [place] [address] Dec, [facility] [address] [id number] [place] [address] Oct, [facility] [address] [id number] [place] [address] Oct, [facility] [address] [id number] [place] [address] September, [facility] [address] [place] [id number] [place] [address] September, [facility] [address] [id number] [place] [address] September, [facility] [address] [id number] [place] [address] September, [facility] [address] [id number] [place] [address] September, [facility] [address] [facility][NOTE 3] [id number] [place] [address] September, [facility] [address] [id number] [place] [address] September, [facility] [address] [id number] [place] [address] September, [facility] [address] [facility][NOTE 3] [id number] [place] [address] September, [facility] [address] [id number] [place] [address] September, [facility] [address] [id number] [place] [address] Aug, [facility] [address] [id number] [place] [address] Aug, [facility] [address] [id number] [place] [address] Jun, [facility] [address] [id number] [place] [address] Jun, [facility] [address] [id number] [place] [address] May, [facility] [address] [id number] [place] [address] May, [facility] [address] [id number] [place] [address] May, [facility] [address] [id number] [place] [address] May, [facility] [address] [id number] [place] [address] Apr, [facility] [address] [id number] [place] [address] Apr, [facility] [address] [id number] [place] [address] Mar, [facility] [address] [id number] [place] [address] Mar, [facility] [address] [id number] [place] [address] Feb, [facility] [address] [id number] [place] [address] Feb, [facility] [address] [id number] [place] [address] Dec, [facility] [address] [id number] [place] [address] Dec, [facility] [address] [id number] [place] [address] Dec, [facility] [address] [id number] [place] [address] Oct, [facility] [address] [id number] [place] [address] Oct, [facility] [address] [id number] [place] [address] Oct, [facility] [address] [id number] [place] [address] September, [facility] [address] [id number] [place] [address] September, [facility] [address] [id number] [place] [address] September, [facility] [address] [id number] [place] [address] September, [facility] [address] [id number] [place] [address] Jun, [facility] [address] [id number] [place] [address] Mar, [facility] [address] [id number] [place] [address] Mar, [facility] [address] [id number] [place] [address] Mar, [facility] [address] [id number] [place] [address] Mar, [facility] [address] [id number] [place] [address] Mar, [facility] [address] [id number] [place] [address] Mar, [facility] [address] [id number] [place] [address] Feb, [facility] [address] [id number] [place] [address] Feb, [facility] [address] [id number] [place] [address] Feb, [facility] [address] [place] [id number] [place] [address] Feb, [facility] [address] [id number] [place] [address] Feb, [facility] [address] [id number] [place] [address] Feb, [facility] [address] [id number] [place] [address] Feb, [facility] [address] [id number] [place] [address] Feb, [facility] [address] [id number] [place] [address] Oct, [facility] [address] [id number] [place] [address] 30 Aug, 2011 [facility] [address] [place] [id number] [place] [address] 17 Aug, 2011 [facility] [address] [id number] [place] [address] 16 Aug, 2011 [facility] [address] [id number] [place] [address] Aug, [facility] [address] [id number] [place] [address] Jul, [facility] [address] [id number] [place] [address] May, [facility] [address] [id number] [place] [address] May, [facility] [address] [place] [id number] [place] [address] Mar, [facility] [address] [place] [id number] [place] [address] Feb, [facility] [address] [place] [id number] [place] [address] May, [facility] [address] [id number] [place] [address] Mar, [facility] [address] [place] [id number] [place] [address] Feb, [facility] [address] [id number] [place] [address] Feb, [facility] [address] [place] [id number] [place] [address] Apr, [facility] [address] [id number] [place] [address] Apr, IMMUNIZATIONS No Known Immunizations SOCIAL HISTORY [...]
--- OUTSIDE RECORDS SUMMARY | 2019-11-01 19:24 | XMS REPORT ---
Author Author Zia MONIQUE Organization [facility] Address [facility] [place] [address] Care Team Providers Care Order Entry Clerk Name Role Phone MONIQUEFERNANDAA Unavailable PROBLEMS Type Condition ICD9-CM Code TEE40-GS Code Onset Dates Condition S tatus SNOMED Code Problem Squamous cell carcinoma C44.92 Active 806915736 Problem Prediabetes R73.09 Active 8464133 Problem Hypertension I10 Active 0056684 3 Problem 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 Acti ve 56511627 Problem Primary insomnia F51.01 Active 397 2004 Problem Tobacco use Z72.0 Active 41366181 0 Problem Hyperlipidemia E78.5 Active 39484 004 Problem Neuropathy G62.9 Active 237452981 Problem Bladder disorder, unspecified N32.9 Active 23824306 ALLERGIES No Information ENCOUNTERS Encounter Location Date Diagnosis [place] [id number] [facility] [id number] [address] [place] [address] Feb, [place] [address] [address] [facility] [id number] [address] [place] [address] Jan, Hypertension I10 ; Bladder d isorder, unspecified N32.9 ; Prediabetes R73.09 and Encounter for immunization Z23 [facility] [address] [facility] [id number] [address] [place] [address] Jan, [place] [address] [facility] [id number] [address] [place] [address] Jan, Hypertension I10 and Prediab etes R73.09 [facility] [address] [facility] [id number] [address] [place] [address] Jan, [facility] [address] [facility] [id number] [address] [place] [address] Jan, Hypertension I10 and Prediab etes R73.09 [facility] [address] [place] [id number] [address] [place] [address] 30 Dec, 2018 Acute bacterial conjunctivit is of both eyes H10.33 [place] [address] [address] [place] [id number] [address] [place] [address] 27 Dec, 2018 Hypertension I10 and Prediab etes R73.09 [place] [address] [address] Dec, Hypertension I10 ; Hyperlipi demia E78.5 ; Prediabetes R73.09 ; Bladder disorder, unspecified N32.9 ; Neuropathy G62.9 and Impacted cerumen of right ear H61.21 [facility] [address] [address] Dec, Cellulitis of face L03.[address] [address] Dec, [place] [address] [address] Dec, Via [facility] [address] [place] [id number] Dec, Hematuria, unspecified type R31.9 ; Blad baldemar disorder, unspecified N32.9 ; Hypertension I10 ; Hyperlipidemia E78.5 ; Neuropathy G62.9 ; History of peptic ulcer Z87.11 ; 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 and Primary insomnia F51.01 [place] [address] [address] [place] [id number] [address] [place] [address] Nov, Right medial knee pain M25.5 61 [place] [address] [address] Nov, [place] [address] [address] Nov, Right medial knee pain M25.5 61 and Acute right ankle pain M25.571 [place] [address] [address] [facility] [id number] [address] [place] [address] Nov, [place] [address] [address] [place] [id number] [address] [place] [address] Nov, Pain in right foot M79.671 a nd Pain of left foot M79.672 Via [facility] [address] [place] [id number] Nov, Pain of left foot M79.672 and Pain in ri ght foot M79.671 [place] [address] [address] [place] [id number] [address] [place] [address] Nov, Neuropathy G62.9 [facility] [address] [place] [id number] Oct, Physical deconditioning R53.81 ; Right f oot pain M79.671 and Essential hypertension I10 [place] [address] [address] September, [facility] [address] [address] September, Hematuria, unspecified type R31.9 and Chest pressure R07.89 [place] [address] [address] [place] [id number] [place] [address] Jun, Hypertension I10 ; Hyperlipi demia E78.5 ; Tobacco use Z72.0 and Prediabetes R73.09 [place] [id number] [place] [address] Apr, [place] [address] [place] [id number] [address] [place] [address] Mar, Hypertension I10 [facility] [address] [place] [id number] [address] [place] [address] Aug, Lesion of lip K13.0 [place] [address] [address] [place] [id number] [address] [place] [address] Apr, Hypertension I10 ; Hyperlipi demia E78.5 ; Prediabetes R73.09 ; Tobacco use Z72.0 and Healthcare maintenance Z00.00 [place] [address] [address] Jul, Hypertension I10 and Multipl e actinic keratoses L57.0 [place] [address] [address] Jul, Hypertension I10 [place] [address] [address] Jun, Hypertension I10 [place] [address] [address] Jun, Hypertension I10 ; Hyperlipi demia E78.5 ; Prediabetes R73.09 ; Tobacco use Z72.0 and Multiple actinic keratoses L57.0 [place] [address] [address] Jan, Hypertension I10 ; Hyperlipi demia E78.5 and Tobacco use Z72.0 [place] [address] [address] Oct, [place] [address] [address] Jun, Hypertension I10 ; Hyperlipi demia E78.5 ; Prediabetes R73.09 ; Screening for colon cancer Z12.11 and Tobacco use Z72.0 [place] [address] [address] [place] [id number] [address] [place] [address] Apr, [place] [address] [address] Apr, [place] [address] [address] Apr, [place] [address] [address] Dec, [facility] [address] [facility] [id number] [address] [place] [address] Dec, [facility] [address] [facility] [id number] [address] [place] [address] Nov, Nondependent tobacco use dis order 305.1 ; Hypertension 401.9 ; Hyperlipidemia 272.4 ; Prediabetes 790.29 ; Colon cancer screening V76.51 and Sunburn 692.71 [facility] [address] [facility] [id number] [address] [place] [address] Oct, [facility] [address] [facility] [id number] [address] [place] [address] Oct, Other and unspecified hyperl ipidemia 272.4 ; Essential hypertension 401.9 and Essential hypertension, benign 401.1 [facility] [address] [facility] [id number] [address] [place] [address] Oct, [facility] [address] [facility] [id number] [address] [place] [address] Aug, [facility] [address] [facility] [id number] [address] [place] [phone] Aug, [facility] [address] [facility] [id number] [address] [place] [address] Jun, [facility] [address] [facility] [id number] [address] [place] [address] Jun, [facility] [address] [facility] [id number] [address] [place] [address] Apr, [facility] [address] [facility] [id number] [address] [place] [address] Apr, [facility] [address] [facility] [id number] [address] [place] [address] Apr, [facility] [address] [facility] [id number] [address] [place] [address] Apr, [facility] [address] [id number] [address] [place] [address], [place] [address] Mar, [facility] [address] [id number] [address] [place] [address], [place] [address] Mar, [facility] [address] [id number] [address] [place] [address], [place] [address] Mar, [facility] [address] [id number] [address] [place] [address], [place] [address] Mar, [facility] [address] [id number] [address] [place] [address], [place] [address] Feb, [facility] [address] [id number] [address] [place] [address], [place] [address] Feb, [facility] [address] [id number] [address] [place] [address], [place] [address] Dec, [facility] [address] [id number] [address] [place] [address], [place] [address] Dec, [facility] [address] [id number] [address] [place] [address], [place] [address] Oct, [facility] [address] [id number] [address] [place] [address], [place] [address] Oct, [facility] [address] [id number] [address] [place] [address], [place] [address] September, [facility] [address] [id number] [address] [place] [address], [place] [address] September, [facility] [address] [id number] [address] [place] [address], [place] [address] September, [facility] [address] [id number] [address] [place] [address], [place] [address] September, [facility] [address] [id number] [address] [place] [address], [place] [address] September, [facility] [address] [id number] [address] [place] [address], [place] [address] September, [facility] [address] [id number] [address] [place] [address], [place] [address] September, [facility] [address] [id number] [address] [place] [address], [place] [address] September, [facility] [address] [id number] [address] [place] [address], [place] [address] September, [facility] [address] [id number] [address] [place] [address], [place] [address] September, [facility] [address] [id number] [address] [place] [address], [place] [address] Aug, [facility] [address] [id number] [address] [place] [address], [place] [address] Aug, [facility] [address] [id number] [address] [place] [address], [place] [address] Jun, [facility] [address] [id number] [address] [place] [address], [place] [address] Jun, [facility] [address] [id number] [address] [place] [address], [place] [address] May, [facility] [address] [id number] [address] [place] [address], [place] [address] May, [facility] [address] [id number] [address] [place] [address], [place] [address] May, [facility] [address] [id number] [address] [place] [address], [place] [address] May, [facility] [address] [id number] [address] [place] [address], [place] [address] Apr, [facility] [address] [id number] [address] [place] [address], [place] [address] Apr, [facility] [address] [id number] [address] [place] [address], [place] [address] Mar, [facility] [address] [id number] [address] [place] [address], [place] [address] Mar, [facility] [address] [id number] [address] [place] [address], [place] [address] Feb, [facility] [address] [id number] [address] [place] [address], [place] [address] Feb, [facility] [address] [id number] [address] [place] [address], [place] [address] Dec, [facility] [address] [id number] [address] [place] [address], [place] [address] Dec, [facility] [address] [id number] [address] [place] [address], [place] [address] Dec, [facility] [address] [id number] [address] [place] [address], [place] [address] Oct, [facility] [address] [id number] [address] [place] [address], [place] [address] Oct, [facility] [address] [id number] [address] [place] [address], [place] [address] Oct, [facility] [address] [id number] [address] [place] [address], [place] [address] September, [facility] [address] [id number] [address] [place] [address], [place] [address] September, [facility] [address] [id number] [address] [place] [address], [place] [address] September, [facility] [address] [id number] [address] [place] [address], [place] [address] September, [facility] [address] [id number] [address] [place] [address], [place] [address] Jun, [facility] [address] [id number] [address] [place] [address], [place] [address] Mar, [facility] [address] [id number] [address] [place] [address], [place] [address] Mar, [facility] [address] [id number] [address] [place] [address], [place] [address] Mar, [facility] [address] [id number] [address] [place] [address], [place] [address] Mar, [facility] [address] [id number] [address] [place] [address], [place] [address] Mar, [facility] [address] [id number] [address] [place] [address], [place] [address] Mar, [facility] [address] [id number] [address] [place] [address], [place] [address] Feb, [facility] [address] [id number] [address] [place] [address], [place] [address] Feb, [facility] [address] [id number] [address] [place] [address], [place] [address] Feb, [facility] [address] [id number] [address] [place] [address], [place] [address] Feb, [facility] [address] [id number] [address] [place] [address], [place] [address] Feb, [facility] [address] [id number] [address] [place] [address], [place] [address] Feb, [facility] [address] [id number] [address] [place] [address], [place] [address] Feb, [facility] [address] [id number] [address] [place] [address], [place] [address] Feb, [facility] [address] [id number] [address] [place] [address], [place] [address] Oct, [facility] [address] [id number] [address] [place] [address], [place] [address] 30 Aug, 2011 [facility] [address] [id number] [address] [place] [address], [place] [address] 17 Aug, 2011 [facility] [address] [id number] [address] [place] [address] [address] Aug, [facility] [address] [id number] [address] [place] [address] Aug, [facility] [address] [id number] [address] [place] [address] Jul, [facility] [address] [id number] [address] [place] [address] May, [facility] [address] [id number] [address] [place] [address] May, [facility] [address] [id number] [address] [place] [address] Mar, [facility] [address] [id number] [address] [place] [address] Feb, [facility] [address] [id number] [address] [place] [address] May, [facility] [address] [id number] [address] [place] [address] Mar, [facility] [address] [id number] [address] [place] [address] Feb, [facility] [address] [id number] [address] [place] [address] Feb, [facility] [address] [id number] [address] [place] [address] Apr, [facility] [address] [id number] [address] [place] [address] Apr, IMMUNIZATIONS No Known Immunizations SOCIAL HISTORY [...]
--- OUTSIDE RECORDS SUMMARY | 2019-11-01 19:24 | XMS REPORT ---
Author Author Zia MONIQUE Organization [facility] Address [address] [place] [address] Care Team Providers Care Novelty Worker Name Role Phone MONIQUEFERNANDAA Unavailable PROBLEMS Type Condition ICD9-CM Code MPK34-XO Code Onset Dates Condition S tatus SNOMED Code Problem Squamous cell carcinoma C44.92 Active 159164044 Problem Prediabetes R73.09 Active 2643158 Problem Hypertension I10 Active 2896710 3 Problem 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 Acti ve 94489545 Problem Primary insomnia F51.01 Active 397 2004 Problem Tobacco use Z72.0 Active 96590819 0 Problem Hyperlipidemia E78.5 Active 37363 004 Problem Neuropathy G62.9 Active 504175684 Problem Bladder disorder, unspecified N32.9 Active 07512606 ALLERGIES No Information ENCOUNTERS Encounter Location Date Diagnosis [facility] [address] [facility] [id number] [address] [place] [address] Jan, [facility] [address] [facility] [id number] [address] [place] [address] Jan, [facility] [address] [facility] [id number] [address] [place] [address] Jan, Hypertension I10 and Prediab etes R73.09 [facility] [address] [id number] [address] [place] [address] Jan, [facility] [address] [facility] [id number] [address] [place] [address] Jan, Hypertension I10 and Prediab etes R73.09 [facility] [address] [facility] [id number] [address] [place] [address] Dec, Acute bacterial conjunctivit is of both eyes H10.33 [facility] [address] [place] [id number] [address] [place] [address] Dec, Hypertension I10 and Prediab etes R73.09 [place] [address] [address] Dec, Hypertension I10 ; Hyperlipi demia E78.5 ; Prediabetes R73.09 ; Bladder disorder, unspecified N32.9 ; Neuropathy G62.9 and Impacted cerumen of right ear H61.[address] [facility] [address] [address] Dec, Cellulitis of face L03.211 [place] [address] [address] Dec, [place] [address] [address] Dec, Via [facility] [place] [address] [place] [id number] Dec, Hematuria, unspecified type R31.9 ; Blad baldemar disorder, unspecified N32.9 ; Hypertension I10 ; Hyperlipidemia E78.5 ; Neuropathy G62.9 ; History of peptic ulcer Z87.11 ; 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 and Primary insomnia F51.01 [place] [address] [place] [id number] [address] [place] [address] Nov, Right medial knee pain M25.5 61 [place] [address] [place] [id number] [address] [place] [address] Nov, [place] [address] [address] Nov, Right medial knee pain M25.5 61 and Acute right ankle pain M25.571 [place] [address] [place] [id number] [address] [place] [address] Nov, [place] [address] [address] Nov, Pain in right foot M79.671 a nd Pain of left foot M79.672 [facility] [address] [place] [id number] Nov, Pain of left foot M79.672 and Pain in ri ght foot M79.671 [place] [address] [address] Nov, Neuropathy G62.9 [facility] [address] [place] [id number] Oct, Physical deconditioning R53.81 ; Right f oot pain M79.671 and Essential hypertension I10 [place] [address] [address] September, [facility] [address] [place] [id number] [place] [address] September, Hematuria, unspecified type R31.9 and Chest pressure R07.89 [place] [address] [place] [id number] [place] [address] Jun, Hypertension I10 ; Hyperlipi demia E78.5 ; Tobacco use Z72.0 and Prediabetes R73.09 [place] [address] [address] Apr, [place] [address] [place] [id number] [place] [address] Mar, Hypertension I10 [facility] [address] [place] [id number] [place] [address] Aug, Lesion of lip K13.0 [place] [address] [address] Apr, Hypertension I10 ; Hyperlipi demia E78.5 ; Prediabetes R73.09 ; Tobacco use Z72.0 and Healthcare maintenance Z00.00 [place] [address] [address] Jul, Hypertension I10 and Multipl e actinic keratoses L57.0 [facility] [address] [facility] [id number] [address] [place] [address] Jul, Hypertension I10 [facility] [address] [facility] [id number] [address] [place] [address] Jun, Hypertension I10 [facility] [address] [facility] [id number] [address] [place] [address] Jun, Hypertension I10 ; Hyperlipi demia E78.5 ; Prediabetes R73.09 ; Tobacco use Z72.0 and Multiple actinic keratoses L57.0 [facility] [address] [facility] [id number] [address] [place] [address] 06 Jan, 2016 Hypertension I10 ; Hyperlipi demia E78.5 and Tobacco use Z72.0 [facility] [address] [facility] [id number] [address] [place] [address] Oct, [facility] [address] [facility] [id number] [address] [place] [address] Jun, Hypertension I10 ; Hyperlipi demia E78.5 ; Prediabetes R73.09 ; Screening for colon cancer Z12.11 and Tobacco use Z72.0 [facility] [address] [facility] [id number] [address] [place] [address] Apr, [facility] [address] [facility] [id number] [address] [place] [address] Apr, [facility] [address] [facility] [id number] [address] [place] [address] Apr, [facility] [address] [facility] [id number] [address] [place] [address] Dec, [facility] [address] [facility] [id number] [address] [place] [address] Dec, [facility] [address] [facility] [id number] [address] [place] [address] Nov, Nondependent tobacco use dis order 305.1 ; Hypertension 401.9 ; Hyperlipidemia 272.4 ; Prediabetes 790.29 ; Colon cancer screening V76.51 and Sunburn 692.71 [facility] [address] [facility] [id number] [address] [place] [address] Oct, [facility] [address] [facility] [id number] [address] [place] [address] Oct, Other and unspecified hyperl ipidemia 272.4 ; Essential hypertension 401.9 and Essential hypertension, benign 401.1 [facility] [address] [facility] [id number] [address] [place] [address] Oct, [facility] [address] [facility] [id number] [address] [place] [address] Aug, [facility] [address] [facility] [id number] [address] [place] [address] Aug, [facility] [address] [facility] [id number] [address] [place] [address] Jun, [facility] [address] [facility] [id number] [address] [place] [address] Jun, [facility] [address] [facility] [id number] [address] [place] [address] Apr, [facility] [address] [facility] [id number] [address] [place] [address] Apr, [facility] [address] [facility] [id number] [address] [place] [address] Apr, [facility] [address] [facility] [id number] [address] [place] [address] Apr, [facility] [address] [facility] [id number] [address] [place] [address] Mar, [facility] [address] [facility] [id number] [address] [place] [address] Mar, [facility] [address] [id number] [address] [place] [address], [place] [address] Mar, [facility] [address] [id number] [address] [place] [address], [place] [address] Mar, [facility] [address] [id number] [address] [place] [address], [place] [address] Feb, [facility] [address] [id number] [address] [place] [address], [place] [address] Feb, [facility] [address] [id number] [address] [place] [address], [place] [address] Dec, [facility] [address] [id number] [address] [place] [address], [place] [address] Dec, [facility] [address] [id number] [address] [place] [address], [place] [address] Oct, [facility] [address] [id number] [address] [place] [address], [place] [address] Oct, [facility] [address] [id number] [address] [place] [address], [place] [address] September, [facility] [address] [id number] [address] [place] [address], [place] [address] September, [facility] [address] [id number] [address] [place] [address], [place] [address] September, [facility] [address] [id number] [address] [place] [address], [place] [address] September, [facility] [address] [id number] [address] [place] [address], [place] [address] September, [facility] [address] [id number] [address] [place] [address], [place] [address] September, [facility] [address] [id number] [address] [place] [address], [place] [address] September, [facility] [address] [id number] [address] [place] [address], [place] [address] September, [facility] [address] [id number] [address] [place] [address], [place] [address] September, [facility] [address] [id number] [address] [place] [address], [place] [address] September, [facility] [address] [id number] [address] [place] [address], [place] [address] Aug, [facility] [address] [id number] [address] [place] [address], [place] [address] Aug, [facility] [address] [id number] [address] [place] [address], [place] [address] Jun, [facility] [address] [id number] [address] [place] [address], [place] [address] Jun, [facility] [address] [id number] [address] [place] [address], [place] [address] May, [facility] [address] [id number] [address] [place] [address], [place] [address] May, [facility] [address] [id number] [address] [place] [address], [place] [address] May, [facility] [address] [id number] [address] [place] [address], [place] [address] May, [facility] [address] [id number] [address] [place] [address], [place] [address] Apr, [facility] [address] [id number] [address] [place] [address], [place] [address] Apr, [facility] [address] [id number] [address] [place] [address], [place] [address] Mar, [facility] [address] [id number] [address] [place] [address], [place] [address] Mar, [facility] [address] [id number] [address] [place] [address], [place] [address] 18 Feb, 2013 [facility] [address] [id number] [address] [place] [address] [place] [address] Feb, [facility] [address] [id number] [address] [place] [address], [place] [address] Dec, [facility] [address] [id number] [address] [place] [address], [place] [address] Dec, [facility] [address] [id number] [address] [place] [address], [place] [address] Dec, [facility] [address] [id number] [address] [place] [address], [place] [address] Oct, [facility] [address] [id number] [address] [place] [address], [place] [address] Oct, [facility] [address] [id number] [address] [place] [address], [place] [address] Oct, [facility] [address] [id number] [address] [place] [address], [place] [address] September, [facility] [address] [id number] [address] [place] [address], [place] [address] September, [facility] [address] [id number] [address] [place] [address], [place] [address] September, [facility] [address] [id number] [address] [place] [address], [place] [address] September, [facility] [address] [id number] [address] [place] [address], [place] [address] Jun, [facility] [address] [id number] [address] [place] [address], [place] [address] Mar, [facility] [address] [id number] [address] [place] [address], [place] [address] Mar, [facility] [address] [id number] [address] [place] [address], [place] [address] Mar, [facility] [address] [id number] [address] [place] [address], [place] [address] Mar, [facility] [address] [id number] [address] [place] [address], [place] [address] Mar, [facility] [address] [id number] [address] [place] [address], [place] [address] Mar, [facility] [address] [id number] [address] [place] [address], [place] [address] Feb, [facility] [address] [id number] [address] [place] [address], [place] [address] Feb, [facility] [address] [id number] [address] [place] [address], [place] [address] Feb, [facility] [address] [id number] [address] [place] [address], [place] [address] Feb, [facility] [address] [id number] [address] [place] [address], [place] [address] Feb, [facility] [address] [id number] [address] [place] [address], [place] [address] Feb, [facility] [address] [id number] [address] [place] [address], [place] [address] Feb, [facility] [address] [id number] [address] [place] [address], [place] [address] Feb, [facility] [address] [id number] [address] [place] [address], [place] [address] Oct, [facility] [address] [id number] [address] [place] [address], [place] [address] 30 Aug, 2011 [facility] [address] [id number] [address] [place] [address], [place] [address] 17 Aug, 2011 [facility] [address] [id number] [address] [place] [address], [place] [address] 16 Aug, 2011 [facility] [address] [id number] [address] [place] [address], [place] [address] 14 Aug, 2011 [facility] [address] [id number] [address] [place] [address], [place] [address] Jul, [facility] [address] [id number] [address] [place] [address] May, [facility] [address] [id number] [address] [place] [address] May, [facility] [address] [id number] [address] [place] [address] Mar, [facility] [address] [id number] [address] [place] [address] Feb, [facility] [address] [id number] [address] [place] [address] May, [facility] [address] [id number] [address] [place] [address] Mar, [facility] [address] [id number] [address] [place] [address] Feb, [facility] [address] [id number] [address] [place] [address] Feb, [facility] [address] [id number] [address] [place] [address] Apr, [facility] [address] [id number] [address] [place] [address] Apr, IMMUNIZATIONS No Known Immunizations SOCIAL HISTORY [...]
--- OUTSIDE RECORDS SUMMARY | 2019-11-01 19:24 | XMS REPORT ---
Author Author Zia MONIQUE Organization [facility] Address Formerly [facility] [place] [address] Care Team Providers Care Performance Improvement Analyst Name Role Phone MONIQUEFERNANDAA Unavailable PROBLEMS Type Condition ICD9-CM Code PPF22-FM Code Onset Dates Condition S tatus SNOMED Code Problem Squamous cell carcinoma C44.92 Active 466607247 Problem Prediabetes R73.09 Active 1952332 Problem Hypertension I10 Active 4556831 3 Problem 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 Acti ve 04143238 Problem Primary insomnia F51.01 Active 397 2004 Problem Tobacco use Z72.0 Active 54648333 0 Problem Hyperlipidemia E78.5 Active 49795 004 Problem Neuropathy G62.9 Active 355818708 Problem Bladder disorder, unspecified N32.9 Active 87710937 ALLERGIES No Information ENCOUNTERS Encounter Location Date Diagnosis [place] [id number] [facility] [id number] [address] [place] [address] Feb, [place] [address] [facility] [id number] [address] [place] [id number] Jan, Hypertension I10 ; Bladder d isorder, unspecified N32.9 ; Prediabetes R73.09 and Encounter for immunization Z23 [facility] [address] [facility] [id number] [address] [place] [phone] Jan, [place] [address] [facility] [id number] [address] [place] [address] Jan, Hypertension I10 and Prediab etes R73.09 [facility] [address] [facility] [id number] [address] [place] [address] Jan, [facility] [address] [facility] [id number] [address] [place] [address] Jan, Hypertension I10 and Prediab etes R73.09 [facility] [address] [place] [id number] [address] [place] [address] 30 Dec, 2018 Acute bacterial conjunctivit is of both eyes H10.33 [place] [address] [address] [place] [id number] [address] [place] [address] 27 Dec, 2018 Hypertension I10 and Prediab etes R73.09 [place] [address] [address] Dec, Hypertension I10 ; Hyperlipi demia E78.5 ; Prediabetes R73.09 ; Bladder disorder, unspecified N32.9 ; Neuropathy G62.9 and Impacted cerumen of right ear H61.21 [facility] [address] [address] Dec, Cellulitis of face L03.[address] [address] Dec, [place] [address] [address] Dec, Via [facility] [address] [place] [id number] Dec, Hematuria, unspecified type R31.9 ; Blad baldemar disorder, unspecified N32.9 ; Hypertension I10 ; Hyperlipidemia E78.5 ; Neuropathy G62.9 ; History of peptic ulcer Z87.11 ; 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 and Primary insomnia F51.01 [place] [address] [address] [place] [id number] [address] [place] [address] Nov, Right medial knee pain M25.5 61 [place] [address] [address] Nov, [place] [address] [address] Nov, Right medial knee pain M25.5 61 and Acute right ankle pain M25.571 [place] [address] [facility] [id number] [address] [place] [address] Nov, [place] [address] [place] [id number] [address] [place] [address] Nov, Pain in right foot M79.671 a nd Pain of left foot M79.672 Via [facility] [address] [place] [id number] Nov, Pain of left foot M79.672 and Pain in ri ght foot M79.671 [place] [address] [place] [id number] [address] [place] [address] Nov, Neuropathy G62.9 Via [facility] [address] [place] [id number] Oct, Physical deconditioning R53.81 ; Right f oot pain M79.671 and Essential hypertension I10 [place] [address] [address] September, [facility] [address] [address] September, Hematuria, unspecified type R31.9 and Chest pressure R07.89 [place] [address] [place] [id number] [place] [address] Jun, Hypertension I10 ; Hyperlipi demia E78.5 ; Tobacco use Z72.0 and Prediabetes R73.09 [place] [id number] [place] [address] Apr, [place] [address] [place] [id number] [address] [place] [address] Mar, Hypertension I10 [facility] [address] [place] [id number] [address] [place] [address] Aug, Lesion of lip K13.0 [place] [address] [place] [id number] [address] [place] [address] Apr, Hypertension I10 ; Hyperlipi demia E78.5 ; Prediabetes R73.09 ; Tobacco use Z72.0 and Healthcare maintenance Z00.00 [place] [address] [address] Jul, Hypertension I10 and Multipl e actinic keratoses L57.0 [place] [address] [address] Jul, Hypertension I10 [place] [address] [address] Jun, Hypertension I10 [place] [address] [address] Jun, Hypertension I10 ; Hyperlipi demia E78.5 ; Prediabetes R73.09 ; Tobacco use Z72.0 and Multiple actinic keratoses L57.0 [place] [address] [address] Jan, Hypertension I10 ; Hyperlipi demia E78.5 and Tobacco use Z72.0 [place] [address] [address] Oct, [place] [address] [address] Jun, Hypertension I10 ; Hyperlipi demia E78.5 ; Prediabetes R73.09 ; Screening for colon cancer Z12.11 and Tobacco use Z72.0 [place] [address] [place] [id number] [address] [place] [address] Apr, [place] [address] [address] Apr, [place] [address] [address] Apr, [place] [address] [address] Dec, [facility] [address] [facility] [id number] [address] [place] [address] Dec, [facility] [address] [facility] [id number] [address] [place] [address] Nov, Nondependent tobacco use dis order 305.1 ; Hypertension 401.9 ; Hyperlipidemia 272.4 ; Prediabetes 790.29 ; Colon cancer screening V76.51 and Sunburn 692.71 [facility] [address] [facility] [id number] [address] [place] [address] Oct, [facility] [address] [facility] [id number] [address] [place] [address] Oct, Other and unspecified hyperl ipidemia 272.4 ; Essential hypertension 401.9 and Essential hypertension, benign 401.1 [facility] [address] [facility] [id number] [address] [place] [address] Oct, [facility] [address] [facility] [id number] [address] [place] [address] Aug, [facility] [address] [facility] [id number] [address] [place] [address] Aug, [facility] [address] [facility] [id number] [address] [place] [address] Jun, [facility] [address] [facility] [id number] [address] [place] [address] Jun, [facility] [address] [facility] [id number] [address] [place] [address] Apr, [facility] [address] [facility] [id number] [address] [place] [address] Apr, [facility] [address] [facility] [id number] [address] [place] [address] Apr, [facility] [address] [facility] [id number] [address] [place] [address] Apr, [facility] [address] [id number] [address] [place] [address], [place] [address] Mar, [facility] [address] [id number] [address] [place] [address], [place] [address] Mar, [facility] [address] [id number] [address] [place] [address], [place] [address] Mar, [facility] [address] [id number] [address] [place] [address], [place] [address] Mar, [facility] [address] [id number] [address] [place] [address], [place] [address] Feb, [facility] [address] [id number] [address] [place] [address], [place] [address] Feb, [facility] [address] [id number] [address] [place] [address], [place] [address] Dec, [facility] [address] [id number] [address] [place] [address], [place] [address] Dec, [facility] [address] [id number] [address] [place] [address], [place] [address] Oct, [facility] [address] [id number] [address] [place] [address], [place] [address] Oct, [facility] [address] [id number] [address] [place] [address], [place] [address] September, [facility] [address] [id number] [address] [place] [address], [place] [address] September, [facility] [address] [id number] [address] [place] [address], [place] [address] September, [facility] [address] [id number] [address] [place] [address], [place] [address] September, [facility] [address] [id number] [address] [place] [address], [place] [address] September, [facility] [address] [id number] [address] [place] [address], [place] [address] September, [facility] [address] [id number] [address] [place] [address], [place] [address] September, [facility] [address] [id number] [address] [place] [address], [place] [address] September, [facility] [address] [id number] [address] [place] [address], [place] [address] September, [facility] [address] [id number] [address] [place] [address], [place] [address] September, [facility] [address] [id number] [address] [place] [address], [place] [address] Aug, [facility] [address] [id number] [address] [place] [address], [place] [address] Aug, [facility] [address] [id number] [address] [place] [address], [place] [address] Jun, [facility] [address] [id number] [address] [place] [address], [place] [address] Jun, [facility] [address] [id number] [address] [place] [address], [place] [address] May, [facility] [address] [id number] [address] [place] [address], [place] [address] May, [facility] [address] [id number] [address] [place] [address], [place] [address] May, [facility] [address] [id number] [address] [place] [address], [place] [address] May, [facility] [address] [id number] [address] [place] [address], [place] [address] Apr, [facility] [address] [id number] [address] [place] [address], [place] [address] Apr, [facility] [address] [id number] [address] [place] [address], [place] [address] Mar, [facility] [address] [id number] [address] [place] [address], [place] [address] Mar, [facility] [address] [id number] [address] [place] [address], [place] [address] Feb, [facility] [address] [id number] [address] [place] [address], [place] [address] Feb, [facility] [address] [id number] [address] [place] [address], [place] [address] Dec, [facility] [address] [id number] [address] [place] [address], [place] [address] Dec, [facility] [address] [id number] [address] [place] [address], [place] [address] Dec, [facility] [address] [id number] [address] [place] [address], [place] [address] Oct, [facility] [address] [id number] [address] [place] [address], [place] [address] Oct, [facility] [address] [id number] [address] [place] [address], [place] [address] Oct, [facility] [address] [id number] [address] [place] [address], [place] [address] September, [facility] [address] [id number] [address] [place] [address], [place] [address] September, [facility] [address] [id number] [address] [place] [address], [place] [address] September, [facility] [address] [id number] [address] [place] [address], [place] [address] September, [facility] [address] [id number] [address] [place] [address], [place] [address] Jun, [facility] [address] [id number] [address] [place] [address], [place] [address] Mar, [facility] [address] [id number] [address] [place] [address], [place] [address] Mar, [facility] [address] [id number] [address] [place] [address], [place] [address] Mar, [facility] [address] [id number] [address] [place] [address], [place] [address] Mar, [facility] [address] [id number] [address] [place] [address], [place] [address] Mar, [facility] [address] [id number] [address] [place] [address], [place] [address] Mar, [facility] [address] [id number] [address] [place] [address], [place] [address] Feb, [facility] [address] [id number] [address] [place] [address], [place] [address] Feb, [facility] [address] [id number] [address] [place] [address], [place] [address] Feb, [facility] [address] [id number] [address] [place] [address], [place] [address] Feb, [facility] [address] [id number] [address] [place] [address], [place] [address] Feb, [facility] [address] [id number] [address] [place] [address], [place] [address] Feb, [facility] [address] [id number] [address] [place] [address], [place] [address] Feb, [facility] [address] [id number] [address] [place] [address], [place] [address] Feb, [facility] [address] [id number] [address] [place] [address], [place] [address] Oct, [facility] [address] [id number] [address] [place] [address], [place] [address] 30 Aug, 2011 [facility] [address] [id number] [address] [place] [address], [place] [address] 17 Aug, 2011 [facility] [address] [id number] [address] [place] [address] [address] Aug, [facility] [address] [id number] [address] [place] [address] Aug, [facility] [address] [id number] [address] [place] [address] Jul, [facility] [address] [id number] [address] [place] [address] May, [facility] [address] [id number] [address] [place] [address] May, [facility] [address] [id number] [address] [place] [address] Mar, [facility] [address] [id number] [address] [place] [address] Feb, [facility] [address] [id number] [address] [place] [id number] May, [facility] [address] [id number] [address] [place] [address] Mar, [facility] [address] [id number] [address] [place] [address] Feb, [facility] [address] [id number] [address] [place] [address] Feb, [facility] [address] [id number] [address] [place] [address] Apr, [facility] [address] [id number] [address] [place] [id number] Apr, IMMUNIZATIONS No Known Immunizations SOCIAL HISTORY [...]
--- OUTSIDE RECORDS SUMMARY | 2019-11-01 19:24 | XMS REPORT ---
Author Author [place] [facility] Address [address] [place] [address] Care Team Providers Care Wrapper Caser Name Role Phone MEENA DOE Unavailable PROBLEMS Type Condition ICD9-CM Code [id number] Code Onset Dates Condition S tatus SNOMED Code Problem Squamous cell carcinoma C44.92 Active 801275266 Problem Prediabetes R73.09 Active 5250748 Problem Hypertension I10 Active 6220278 3 Problem 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 Acti ve 69018605 Problem Primary insomnia F51.01 Active 397 2004 Problem Tobacco use Z72.0 Active 24170619 0 Problem Hyperlipidemia E78.5 Active 25012 004 Problem Neuropathy G62.9 Active 043903903 Problem Bladder disorder, unspecified N32.9 Active 45676303 ALLERGIES No Information ENCOUNTERS Encounter Location Date Diagnosis [facility] [address] [facility] [id number] [address] [place] [address] Jan, [facility] [address] [facility] [id number] [address] [place] [phone] Jan, [facility] [address] [facility] [id number] [address] [place] [address] Jan, Hypertension I10 and Prediab etes R73.09 [facility] [address] [facility] [id number] [address] [place] [address] Jan, [facility] [address] [facility] [id number] [address] [place] [address] Jan, Hypertension I10 and Prediab etes R73.09 [facility] [address] [facility] [id number] [address] [place] [address] Dec, Acute bacterial conjunctivit is of both eyes H10.33 [facility] [address] [address] Dec, Hypertension I10 and Prediab etes R73.09 [place] [address] [address] Dec, Hypertension I10 ; Hyperlipi demia E78.5 ; Prediabetes R73.09 ; Bladder disorder, unspecified N32.9 ; Neuropathy G62.9 and Impacted cerumen of right ear H61.21 [facility] [address] [address] Dec, Cellulitis of face L03.211 [place] [address] [address] Dec, [place] [address] [address] Dec, [facility] [address] [place] [id number] Dec, Hematuria, unspecified type R31.9 ; Blad baldemar disorder, unspecified N32.9 ; Hypertension I10 ; Hyperlipidemia E78.5 ; Neuropathy G62.9 ; History of peptic ulcer Z87.11 ; 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 and Primary insomnia F51.01 [place] [address] [place] [id number] [address] [place] [address] Nov, Right medial knee pain M25.5 [address] [place] [address] [address] Nov, [place] [address] [address] Nov, Right medial knee pain M25.5 61 and Acute right ankle pain M25.571 [place] [address] [address] Nov, [place] [address] [address] Nov, Pain in right foot M79.671 a nd Pain of left foot M79.672 [facility] [address] [place] [id number] Nov, Pain of left foot M79.672 and Pain in ri ght foot M79.671 [place] [address] [place] [address] Nov, Neuropathy G62.9 [facility] [address] [place] [id number] Oct, Physical deconditioning R53.81 ; Right f oot pain M79.671 and Essential hypertension I10 [place] [address] [address] September, [facility] [address] [address] September, Hematuria, unspecified type R31.9 and Chest pressure R07.89 [place] [address] [address] Jun, Hypertension I10 ; Hyperlipi demia E78.5 ; Tobacco use Z72.0 and Prediabetes R73.09 [place] [address] [place] [id number] [place] [address] Apr, [place] [address] [place] [id number] [place] [address] Mar, Hypertension I10 [facility] [address] [facility] [id number] [address] [place] [address] Aug, Lesion of lip K13.0 [place] [address] [place] [id number] [place] [address] Apr, Hypertension I10 ; Hyperlipi demia E78.5 ; Prediabetes R73.09 ; Tobacco use Z72.0 and Healthcare maintenance Z00.00 [place] [address] [address] Jul, Hypertension I10 and Multipl e actinic keratoses L57.0 [facility] [address] [facility] [id number] [address] [place] [address] Jul, Hypertension I10 [facility] [address] [facility] [id number] [address] [place] [address] Jun, Hypertension I10 [facility] [address] [facility] [id number] [address] [place] [address] Jun, Hypertension I10 ; Hyperlipi demia E78.5 ; Prediabetes R73.09 ; Tobacco use Z72.0 and Multiple actinic keratoses L57.0 [facility] [address] [facility] [id number] [address] [place] [id number] 06 Jan, 2016 Hypertension I10 ; Hyperlipi demia E78.5 and Tobacco use Z72.0 [facility] [address] [facility] [id number] [address] [place] [address] Oct, [facility] [address] [facility] [id number] [address] [place] [address] Jun, Hypertension I10 ; Hyperlipi demia E78.5 ; Prediabetes R73.09 ; Screening for colon cancer Z12.11 and Tobacco use Z72.0 [facility] [address] [facility] [id number] [address] [place] [address] Apr, [facility] [address] [facility] [id number] [address] [place] [address] Apr, [facility] [address] [facility] [id number] [address] [place] [address] Apr, [facility] [address] [facility] [id number] [address] [place] [address] Dec, [facility] [address] [facility] [id number] [address] [place] [phone] Dec, [facility] [address] [facility] [id number] [address] [place] [address] Nov, Nondependent tobacco use dis order 305.1 ; Hypertension 401.9 ; Hyperlipidemia 272.4 ; Prediabetes 790.29 ; Colon cancer screening V76.51 and Sunburn 692.71 [facility] [address] [facility] [id number] [address] [place] [address] Oct, [facility] [address] [facility] [id number] [address] [place] [address] Oct, Other and unspecified hyperl ipidemia 272.4 ; Essential hypertension 401.9 and Essential hypertension, benign 401.1 [facility] [address] [facility] [id number] [address] [place] [address] Oct, [facility] [address] [facility] [id number] [address] [place] [address] Aug, [facility] [address] [facility] [id number] [address] [place] [phone] Aug, [facility] [address] [facility] [id number] [address] [place] [phone] Jun, [facility] [address] [facility] [id number] [address] [place] [phone] Jun, [facility] [address] [facility] [id number] [address] [place] [phone] Apr, [facility] [address] [facility] [id number] [address] [place] [phone] Apr, [facility] [address] [facility] [id number] [address] [place] [id number] Apr, [facility] [address] [facility] [id number] [address] [place] [phone] Apr, [facility] [address] [facility] [id number] [address] [place] [phone] Mar, [facility] [address] [facility] [id number] [address] [place] [address] Mar, [facility] [address] [id number] [address] [place] [address], [place] [address] Mar, [facility] [address] [id number] [address] [place] [address], [place] [address] Mar, [facility] [address] [id number] [address] [place] [address], [place] [address] Feb, [facility] [address] [id number] [address] [place] [address], [place] [address] Feb, [facility] [address] [id number] [address] [place] [address], [place] [address] Dec, [facility] [address] [id number] [address] [place] [address], [place] [address] Dec, [facility] [address] [id number] [address] [place] [address], [place] [address] Oct, [facility] [address] [id number] [address] [place] [address], [place] [address] Oct, [facility] [address] [id number] [address] [place] [address], [place] [address] September, [facility] [address] [id number] [address] [place] [address], [place] [address] September, [facility] [address] [id number] [address] [place] [address], [place] [address] September, [facility] [address] [id number] [address] [place] [address], [place] [address] September, [facility] [address] [id number] [address] [place] [address], [place] [address] September, [facility] [address] [id number] [address] [place] [address], [place] [address] September, [facility] [address] [id number] [address] [place] [address], [place] [address] September, [facility] [address] [id number] [address] [place] [address], [place] [address] September, [facility] [address] [id number] [address] [place] [address], [place] [address] September, [facility] [address] [id number] [address] [place] [address], [place] [address] September, [facility] [address] [id number] [address] [place] [address], [place] [address] Aug, [facility] [address] [id number] [address] [place] [address], [place] [address] Aug, [facility] [address] [id number] [address] [place] [address], [place] [address] Jun, [facility] [address] [id number] [address] [place] [address], [place] [address] Jun, [facility] [address] [id number] [address] [place] [address], [place] [address] May, [facility] [address] [id number] [address] [place] [address], [place] [address] May, [facility] [address] [id number] [address] [place] [address], [place] [address] May, [facility] [address] [id number] [address] [place] [address], [place] [address] May, [facility] [address] [id number] [address] [place] [address], [place] [address] Apr, [facility] [address] [id number] [address] [place] [address], [place] [address] Apr, [facility] [address] [id number] [address] [place] [address], [place] [address] Mar, [facility] [address] [id number] [address] [place] [address], [place] [address] Mar, [facility] [address] [id number] [address] [place] [address], [place] [address] 18 Feb, 2013 [facility] [address] [id number] [address] [place] [address], [place] [address] Feb, [facility] [address] [id number] [address] [place] [address], [place] [address] Dec, [facility] [address] [id number] [address] [place] [address], [place] [address] Dec, [facility] [address] [id number] [address] [place] [address], [place] [address] Dec, [facility] [address] [id number] [address] [place] [address], [place] [address] Oct, [facility] [address] [id number] [address] [place] [address], [place] [address] Oct, [facility] [address] [id number] [address] [place] [address], [place] [address] Oct, [facility] [address] [id number] [address] [place] [address], [place] [address] September, [facility] [address] [id number] [address] [place] [address], [place] [address] September, [facility] [address] [id number] [address] [place] [address], [place] [address] September, [facility] [address] [id number] [address] [place] [address], [place] [address] September, [facility] [address] [id number] [address] [place] [address], [place] [address] Jun, [facility] [address] [id number] [address] [place] [address], [place] [address] Mar, [facility] [address] [id number] [address] [place] [address], [place] [address] Mar, [facility] [address] [id number] [address] [place] [address], [place] [address] Mar, [facility] [address] [id number] [address] [place] [address], [place] [address] Mar, [facility] [address] [id number] [address] [place] [address], [place] [address] Mar, [facility] [address] [id number] [address] [place] [address], [place] [address] Mar, [facility] [address] [id number] [address] [place] [address], [place] [address] Feb, [facility] [address] [id number] [address] [place] [address], [place] [address] Feb, [facility] [address] [id number] [address] [place] [address], [place] [address] Feb, [facility] [address] [id number] [address] [place] [address], [place] [address] Feb, [facility] [address] [id number] [address] [place] [address], [place] [address] Feb, [facility] [address] [id number] [address] [place] [address], [place] [address] Feb, [facility] [address] [id number] [address] [place] [address], [place] [address] Feb, [facility] [address] [id number] [address] [place] [address], [place] [address] Feb, [facility] [address] [id number] [address] [place] [address], [place] [address] Oct, [facility] [address] [id number] [address] [place] [address], [place] [address] 30 Aug, 2011 [facility] [address] [id number] [address] [place] [address], [place] [address] 17 Aug, 2011 [facility] [address] [id number] [address] [place] [address], [place] [address] 16 Aug, 2011 [facility] [address] [id number] [address] [place] [address], [place] [address] 14 Aug, 2011 [facility] [address] [id number] [address] [place] [address] Jul, [facility] [address] [id number] [address] [place] [address] May, [facility] [address] [id number] [address] [place] [address] May, [facility] [address] [id number] [address] [place] [address] Mar, [facility] [address] [id number] [address] [place] [address] Feb, [facility] [address] [id number] [address] [place] [address] May, [facility] [address] [id number] [address] [place] [address] Mar, [facility] [address] [id number] [address] [place] [address] Feb, [facility] [address] [id number] [address] [place] [address] Feb, [facility] [address] [id number] [address] [place] [address] Apr, [facility] [address] [id number] [address] [place] [address] Apr, IMMUNIZATIONS No Known Immunizations SOCIAL HISTORY [...]
--- OUTSIDE RECORDS SUMMARY | 2019-11-01 19:24 | XMS REPORT ---
Author Author Zia MONIQUE Organization [facility] Address [facility] [place] [address] Care Team Providers Care Broke Beater Operator Name Role Phone MONIQUEFERNANDAA Unavailable PROBLEMS Type Condition ICD9-CM Code [id number] Code Onset Dates Condition S tatus SNOMED Code Problem Squamous cell carcinoma C44.92 Active 034622225 Problem Essential hypertension I10 Active 71285640 Problem Neuropathy G62.9 Active 651538796 Problem Prediabetes R73.09 Active 5493353 Problem Hypertension I10 Active 5619777 3 Problem Tobacco use Z72.0 Active 51996424 0 Problem Hyperlipidemia E78.5 Active 86263 004 ALLERGIES No Information ENCOUNTERS Encounter Location Date Diagnosis [facility] [address] [facility] [id number] [address] [place] [address] Nov, Right medial knee pain M25.5 61 [facility] [address] [facility] [id number] [address] [place] [address] Nov, [facility] [address] [facility] [id number] [address] [place] [address] Nov, Right medial knee pain M25.5 61 and Acute right ankle pain M25.571 [facility] [address] [facility] [id number] [address] [place] [address] Nov, [facility] [address] [facility] [id number] [address] [place] [address] Nov, Pain in right foot M79.671 a nd Pain of left foot M79.672 [facility] [address] [place] [id number] Nov, Pain of left foot M79.672 and Pain in ri ght foot M79.671 [facility] [address] [address] Nov, Neuropathy G62.9 [facility] [address] [place] [id number] Oct, Physical deconditioning R53.81 ; Right f oot pain M79.671 and Essential hypertension I10 [facility] [address] [address] September, [facility] [address] [address] September, Hematuria, unspecified type R31.9 and Chest pressure R07.89 [place] [address] [address] Jun, Hypertension I10 ; Hyperlipi demia E78.5 ; Tobacco use Z72.0 and Prediabetes R73.09 [place] [address] [address] Apr, [place] [address] [address] Mar, Hypertension I10 [facility] [address] [address] Aug, Lesion of lip K13.0 [place] [address] [address] Apr, Hypertension I10 ; Hyperlipi demia E78.5 ; Prediabetes R73.09 ; Tobacco use Z72.0 and Healthcare maintenance Z00.00 [place] [address] [address] Jul, Hypertension I10 and Multipl e actinic keratoses L57.0 [place] [address] [address] [place] [id number] [address] [place] [address] Jul, Hypertension I10 [place] [address] [address] Jun, Hypertension I10 [facility] [address] [facility] [id number] [address] [place] [address] Jun, Hypertension I10 ; Hyperlipi demia E78.5 ; Prediabetes R73.09 ; Tobacco use Z72.0 and Multiple actinic keratoses L57.0 [facility] [address] [place] [id number] [address] [place] [address] Jan, Hypertension I10 ; Hyperlipi demia E78.5 and Tobacco use Z72.0 [place] [address] [facility] [id number] [address] [place] [address] Oct, [place] [address] [place] [id number] [address] [place] [address] 04 Jun, 2015 Hypertension I10 ; Hyperlipi demia E78.5 ; Prediabetes R73.09 ; Screening for colon cancer Z12.11 and Tobacco use Z72.0 [place] [address] [place] [address] Apr, [facility] [address] [place] [id number] [address] [place] [address] Apr, [facility] [address] [place] [id number] [address] [place] [address] Apr, [place] [address] [place] [address] Dec, [place] [address] [place] [id number] [address] [place] [address] Dec, [facility] [address] [place] [id number] [address] [place] [address] Nov, Nondependent tobacco use dis order 305.1 ; Hypertension 401.9 ; Hyperlipidemia 272.4 ; Prediabetes 790.29 ; Colon cancer screening V76.51 and Sunburn 692.71 [place] [address] [address] [place] [id number] [address] [place] [address] Oct, [facility] [address] [id number] [address] [place] [address] Oct, Other and unspecified hyperl ipidemia 272.4 ; Essential hypertension 401.9 and Essential hypertension, benign 401.1 [facility] [address] [id number] [address] [place] [address] Oct, [facility] [address] [id number] [address] [place] [address] Aug, [facility] [address] [id number] [address] [place] [address] Aug, [facility] [address] [id number] [address] [place] [address] Jun, [facility] [address] [id number] [address] [place] [address] Jun, [facility] [address] [id number] [address] [place] [address] Apr, [facility] [address] [id number] [address] [place] [address] Apr, [facility] [address] [id number] [address] [place] [address] Apr, [facility] [address] [id number] [address] [place] [address] Apr, [facility] [address] [id number] [address] [place] [address] Mar, [facility] [address] [id number] [address] [place] [address] Mar, [facility] [address] [id number] [address] [place] [address] Mar, [facility] [address] [id number] [address] [place] [address] Mar, [facility] [address] [id number] [address] [place] [address] Feb, [facility] [address] [id number] [address] [place] [address], [place] [address] Feb, [facility] [address] [id number] [address] [place] [address], [place] [address] Dec, [facility] [address] [id number] [address] [place] [address], [place] [address] Dec, [facility] [address] [id number] [address] [place] [address], [place] [address] Oct, [facility] [address] [id number] [address] [place] [address], [place] [address] Oct, [facility] [address] [id number] [address] [place] [address], [place] [address] September, [facility] [address] [id number] [address] [place] [address], [place] [address] September, [facility] [address] [id number] [address] [place] [address], [place] [address] September, [facility] [address] [id number] [address] [place] [address], [place] [address] September, [facility] [address] [id number] [address] [place] [address], [place] [address] September, [facility] [address] [id number] [address] [place] [address], [place] [address] September, [facility] [address] [id number] [address] [place] [address], [place] [address] September, [facility] [address] [id number] [address] [place] [address], [place] [address] September, [facility] [address] [id number] [address] [place] [address], [place] [address] September, [facility] [address] [id number] [address] [place] [address], [place] [address] September, [facility] [address] [id number] [address] [place] [address], [place] [address] Aug, [facility] [address] [id number] [address] [place] [address], [place] [address] Aug, [facility] [address] [id number] [address] [place] [address], [place] [address] Jun, [facility] [address] [id number] [address] [place] [address], [place] [address] Jun, [facility] [address] [id number] [address] [place] [address], [place] [address] May, [facility] [address] [id number] [address] [place] [address], [place] [address] May, [facility] [address] [id number] [address] [place] [address], [place] [address] May, [facility] [address] [id number] [address] [place] [address], [place] [address] May, [facility] [address] [id number] [address] [place] [address], [place] [address] Apr, [facility] [address] [id number] [address] [place] [address], [place] [address] Apr, [facility] [address] [id number] [address] [place] [address], [place] [address] Mar, [facility] [address] [id number] [address] [place] [address], [place] [address] Mar, [facility] [address] [id number] [address] [place] [address], [place] [address] Feb, [facility] [address] [id number] [address] [place] [address], [place] [address] Feb, [facility] [address] [id number] [address] [place] [address], [place] [address] Dec, [facility] [address] [id number] [address] [place] [address], [place] [address] Dec, [facility] [address] [id number] [address] [place] [address], [place] [address] Dec, [facility] [address] [id number] [address] [place] [address], [place] [address] Oct, [facility] [address] [id number] [address] [place] [address], [place] [address] Oct, [facility] [address] [id number] [address] [place] [address], [place] [address] Oct, [facility] [address] [id number] [address] [place] [address], [place] [address] September, [facility] [address] [id number] [address] [place] [address], [place] [address] September, [facility] [address] [id number] [address] [place] [address], [place] [address] September, [facility] [address] [id number] [address] [place] [address], [place] [address] September, [facility] [address] [id number] [address] [place] [address], [place] [address] Jun, [facility] [address] [id number] [address] [place] [address], [place] [address] Mar, [facility] [address] [id number] [address] [place] [address], [place] [address] Mar, [facility] [address] [id number] [address] [place] [address], [place] [address] Mar, [facility] [address] [id number] [address] [place] [address], [place] [address] Mar, [facility] [address] [id number] [address] [place] [address], [place] [address] Mar, [facility] [address] [id number] [address] [place] [address], [place] [address] Mar, [facility] [address] [id number] [address] [place] [address] [place] [address] 31 Feb, 2012 [facility] [address] [id number] [address] [place] [address], [place] [address] 31 Feb, 2012 [facility] [address] [id number] [address] [place] [address], [place] [address] Feb, [facility] [address] [id number] [address] [place] [address], [place] [address] Feb, [facility] [address] [id number] [address] [place] [address], [place] [address] Feb, [facility] [address] [id number] [address] [place] [address], [place] [address] Feb, [facility] [address] [id number] [address] [place] [address], [place] [address] Feb, [facility] [address] [id number] [address] [place] [address], [place] [address] Feb, [facility] [address] [id number] [address] [place] [address], [place] [address] Oct, [facility] [address] [id number] [address] [place] [address], [place] [address] 30 Aug, 2011 [facility] [address] [id number] [address] [place] [address], [place] [address] 17 Aug, 2011 [facility] [address] [id number] [address] [place] [address], [place] [address] 16 Aug, 2011 [facility] [address] [id number] [address] [place] [address], [place] [address] 14 Aug, 2011 [facility] [address] [id number] [address] [place] [address], [place] [address] 05 Jul, 2011 [facility] [address] [id number] [address] [place] [address], [place] [address] May, [facility] [address] [id number] [address] [place] [address], [place] [address] May, [facility] [address] [id number] [address] [place] [address] Mar, [facility] [address] [id number] [address] [place] [address] Feb, [facility] [address] [id number] [address] [place] [address] May, [facility] [address] [id number] [address] [place] [address] Mar, [facility] [address] [id number] [address] [place] [address] Feb, [facility] [address] [id number] [address] [place] [address] Feb, [facility] [address] [facility] [id number] [address] [place] [address] Apr, [facility] [address] [facility] [id number] [address] [place] [address] Apr, IMMUNIZATIONS No Known Immunizations SOCIAL HISTORY [...]
--- OUTSIDE RECORDS SUMMARY | 2019-11-01 19:24 | XMS REPORT ---
Author Author Zia MONIQUE Organization [facility] Address [facility] [place] [address] Care Team Providers Care Rn Telemetry Name Role Phone MONIQUEFERNANDAA Unavailable PROBLEMS Type Condition ICD9-CM Code CBC19-EJ Code Onset Dates Condition S tatus SNOMED Code Problem Squamous cell carcinoma C44.92 Active 190884715 Problem Essential hypertension I10 Active 09080418 Problem Neuropathy G62.9 Active 251426948 Problem Prediabetes R73.09 Active 3781317 Problem Hypertension I10 Active 6301081 3 Problem Tobacco use Z72.0 Active 64449047 0 Problem Hyperlipidemia E78.5 Active 00698 004 ALLERGIES No Information ENCOUNTERS Encounter Location Date Diagnosis [facility] [address] [facility] [id number] [address] [place] [phone] Nov, Right medial knee pain M25.5 61 [facility] [address] [facility] [id number] [address] [place] [address] Nov, [facility] [address] [facility] [id number] [address] [place] [address] Nov, Right medial knee pain M25.5 61 and Acute right ankle pain M25.571 [facility] [address] [facility] [id number] [address] [place] [phone] Nov, [facility] [address] [facility] [id number] [address] [place] [address] Nov, Pain in right foot M79.671 a nd Pain of left foot M79.672 [address] [facility] [address] [place] [id number] Nov, Pain of left foot M79.672 and Pain in ri ght foot M79.671 [facility] [address] [address] Nov, Neuropathy G62.9 [facility] [address] [place] [id number] Oct, Physical deconditioning R53.81 ; Right f oot pain M79.671 and Essential hypertension I10 [facility] [address] [address] September, [facility] [address] [address] September, Hematuria, unspecified type R31.9 and Chest pressure R07.89 [place] [address] [address] Jun, Hypertension I10 ; Hyperlipi demia E78.5 ; Tobacco use Z72.0 and Prediabetes R73.09 [place] [address] [address] Apr, [place] [address] [address] Mar, Hypertension I10 [facility] [address] [address] Aug, Lesion of lip K13.0 [place] [address] [address] Apr, Hypertension I10 ; Hyperlipi demia E78.5 ; Prediabetes R73.09 ; Tobacco use Z72.0 and Healthcare maintenance Z00.00 [place] [address] [address] Jul, Hypertension I10 and Multipl e actinic keratoses L57.0 [place] [address] [address] [place] [id number] [address] [place] [phone] Jul, Hypertension I10 [place] [address] [address] Jun, Hypertension I10 [facility] [address] [facility] [id number] [address] [place] [address] Jun, Hypertension I10 ; Hyperlipi demia E78.5 ; Prediabetes R73.09 ; Tobacco use Z72.0 and Multiple actinic keratoses L57.0 [facility] [address] [place] [id number] [address] [place] [address] Jan, Hypertension I10 ; Hyperlipi demia E78.5 and Tobacco use Z72.0 [place] [address] [facility] [id number] [address] [place] [phone] Oct, [place] [address] [address] [place] [id number] [address] [place] [phone] 04 Jun, 2015 Hypertension I10 ; Hyperlipi demia E78.5 ; Prediabetes R73.09 ; Screening for colon cancer Z12.11 and Tobacco use Z72.0 [place] [id number] [place] [address] Apr, [facility] [address] [place] [id number] [address] [place] [phone] Apr, [facility] [address] [place] [id number] [address] [place] [address] Apr, [place] [id number] [place] [phone] Dec, [place] [address] [address] [place] [id number] [address] [place] [address] Dec, [facility] [address] [place] [id number] [address] [place] [address] Nov, Nondependent tobacco use dis order 305.1 ; Hypertension 401.9 ; Hyperlipidemia 272.4 ; Prediabetes 790.29 ; Colon cancer screening V76.51 and Sunburn 692.71 [place] [address] [address] [place] [id number] [address] [place] [phone] Oct, [facility] [address] [id number] [address] [place] [address] Oct, Other and unspecified hyperl ipidemia 272.4 ; Essential hypertension 401.9 and Essential hypertension, benign 401.1 [facility] [address] [id number] [address] [place] [id number] Oct, [facility] [address] [id number] [address] [place] [phone] Aug, [facility] [address] [id number] [address] [place] [phone] Aug, [facility] [address] [id number] [address] [place] [phone] Jun, [facility] [address] [id number] [address] [place] [phone] Jun, [facility] [address] [id number] [address] [place] [id number] Apr, [facility] [address] [id number] [address] [place] [phone] Apr, [facility] [address] [id number] [address] [place] [phone] Apr, [facility] [address] [id number] [address] [place] [address] Apr, [facility] [address] [id number] [address] [place] [phone] Mar, [facility] [address] [id number] [address] [place] [phone] Mar, [facility] [address] [id number] [address] [place] [address] Mar, [facility] [address] [id number] [address] [place] [phone] Mar, [facility] [address] [id number] [address] [place] [phone] Feb, [facility] [address] [id number] [address] [place] [address], [place] [address] Feb, [facility] [address] [id number] [address] [place] [address], [place] [address] Dec, [facility] [address] [id number] [address] [place] [address], [place] [address] Dec, [facility] [address] [id number] [address] [place] [address], [place] [address] Oct, [facility] [address] [id number] [address] [place] [address], [place] [address] Oct, [facility] [address] [id number] [address] [place] [address], [place] [address] September, [facility] [address] [id number] [address] [place] [address], [place] [address] September, [facility] [address] [id number] [address] [place] [address], [place] [address] September, [facility] [address] [id number] [address] [place] [address], [place] [address] September, [facility] [address] [id number] [address] [place] [address], [place] [address] September, [facility] [address] [id number] [address] [place] [address], [place] [address] September, [facility] [address] [id number] [address] [place] [address], [place] [address] September, [facility] [address] [id number] [address] [place] [address], [place] [address] September, [facility] [address] [id number] [address] [place] [address], [place] [address] September, [facility] [address] [id number] [address] [place] [address], [place] [address] September, [facility] [address] [id number] [address] [place] [address], [place] [address] Aug, [facility] [address] [id number] [address] [place] [address], [place] [address] Aug, [facility] [address] [id number] [address] [place] [address], [place] [address] Jun, [facility] [address] [id number] [address] [place] [address], [place] [address] Jun, [facility] [address] [id number] [address] [place] [address], [place] [address] May, [facility] [address] [id number] [address] [place] [address], [place] [address] May, [facility] [address] [id number] [address] [place] [address], [place] [address] May, [facility] [address] [id number] [address] [place] [address], [place] [address] May, [facility] [address] [id number] [address] [place] [address], [place] [address] Apr, [facility] [address] [id number] [address] [place] [address], [place] [address] Apr, [facility] [address] [id number] [address] [place] [address], [place] [address] Mar, [facility] [address] [id number] [address] [place] [address], [place] [address] Mar, [facility] [address] [id number] [address] [place] [address], [place] [address] Feb, [facility] [address] [id number] [address] [place] [address], [place] [address] Feb, [facility] [address] [id number] [address] [place] [address], [place] [address] Dec, [facility] [address] [id number] [address] [place] [address], [place] [address] Dec, [facility] [address] [id number] [address] [place] [address], [place] [address] Dec, [facility] [address] [id number] [address] [place] [address], [place] [address] Oct, [facility] [address] [id number] [address] [place] [address], [place] [address] Oct, [facility] [address] [id number] [address] [place] [address], [place] [address] Oct, [facility] [address] [id number] [address] [place] [address], [place] [address] September, [facility] [address] [id number] [address] [place] [address], [place] [address] September, [facility] [address] [id number] [address] [place] [address], [place] [address] September, [facility] [address] [id number] [address] [place] [address], [place] [address] September, [facility] [address] [id number] [address] [place] [address], [place] [address] Jun, [facility] [address] [id number] [address] [place] [address], [place] [address] Mar, [facility] [address] [id number] [address] [place] [address], [place] [address] Mar, [facility] [address] [id number] [address] [place] [address], [place] [address] Mar, [facility] [address] [id number] [address] [place] [address], [place] [address] Mar, [facility] [address] [id number] [address] [place] [address], [place] [address] Mar, [facility] [address] [id number] [address] [place] [address], [place] [address] Mar, [facility] [address] [id number] [address] [place] [address] [place] [address] 31 Feb, 2012 [facility] [address] [id number] [address] [place] [address], [place] [address] 31 Feb, 2012 [facility] [address] [id number] [address] [place] [address], [place] [address] Feb, [facility] [address] [id number] [address] [place] [address], [place] [address] Feb, [facility] [address] [id number] [address] [place] [address], [place] [address] Feb, [facility] [address] [id number] [address] [place] [address], [place] [address] Feb, [facility] [address] [id number] [address] [place] [address], [place] [address] Feb, [facility] [address] [id number] [address] [place] [address], [place] [address] Feb, [facility] [address] [id number] [address] [place] [address], [place] [address] Oct, [facility] [address] [id number] [address] [place] [address], [place] [address] 30 Aug, 2011 [facility] [address] [id number] [address] [place] [address], [place] [address] 17 Aug, 2011 [facility] [address] [id number] [address] [place] [address], [place] [address] 16 Aug, 2011 [facility] [address] [id number] [address] [place] [address], [place] [address] 14 Aug, 2011 [facility] [address] [id number] [address] [place] [address], [place] [address] 05 Jul, 2011 [facility] [address] [id number] [address] [place] [address], [place] [address] May, [facility] [address] [id number] [address] [place] [address], [place] [address] May, [facility] [address] [id number] [address] [place] [address] Mar, [facility] [address] [id number] [address] [place] [phone] Feb, [facility] [address] [id number] [address] [place] [address] May, [facility] [address] [id number] [address] [place] [phone] Mar, [facility] [address] [id number] [address] [place] [address] Feb, [facility] [address] [id number] [address] [place] [phone] Feb, [facility] [address] [facility] [id number] [address] [place] [id number] Apr, [facility] [address] [facility] [id number] [address] [place] [phone] Apr, IMMUNIZATIONS No Known Immunizations SOCIAL HISTORY [...]
--- OUTSIDE RECORDS SUMMARY | 2019-11-01 19:24 | XMS REPORT ---
Author Author Zia MONIQUE Organization [facility] Address [facility] [place] [address] Care Team Providers Care [employer] E[employer] Teacher Name Role Phone NOAH MONIQUE Unavailable PROBLEMS Type Condition ICD9-CM Code [id number] Code Onset Dates Condition S tatus SNOMED Code Problem Squamous cell carcinoma C44.92 Active 110280178 Problem Prediabetes R73.09 Active 8846007 Problem Hypertension I10 Active 7518845 3 Problem 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 Acti ve 10246016 Problem Primary insomnia F51.01 Active 397 2004 Problem Tobacco use Z72.0 Active 58661396 0 Problem Hyperlipidemia E78.5 Active 04727 004 Problem Neuropathy G62.9 Active 178823697 Problem Bladder disorder, unspecified N32.9 Active 54583322 ALLERGIES No Information ENCOUNTERS Encounter Location Date Diagnosis [facility] [address] [address] Dec, [facility] [address] [id number] [address] [place] [address] Dec, Cellulitis of face L03.211 [facility] [id number] [place] [address] Dec, [facility] [address] [id number] [address] [place] [address] Dec, [facility] [address] [place] [id number] Dec, Hematuria, unspecified type R31.9 ; Blad baldemar disorder, unspecified N32.9 ; Hypertension I10 ; Hyperlipidemia E78.5 ; Neuropathy G62.9 ; History of peptic ulcer Z87.11 ; 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 and Primary insomnia F51.01 [facility] [address] [id number] [address] [place] [address] Nov, Right medial knee pain M25.5 61 [facility] [address] [facility] [id number] [address] [place] [address] Nov, [facility] [address] [facility] [id number] [address] [place] [address] Nov, Right medial knee pain M25.5 61 and Acute right ankle pain M25.571 [place] [address] [facility] [id number] [address] [place] [address] Nov, [facility] [address] [facility] [id number] [address] [place] [address] Nov, Pain in right foot M79.671 a nd Pain of left foot M79.672 [facility] [address] [place] [id number] Nov, Pain of left foot M79.672 and Pain in ri ght foot M79.671 [place] [address] [facility] [id number] [address] [place] [address] Nov, Neuropathy G62.9 [facility] [address] [place] [id number] Oct, Physical deconditioning R53.81 ; Right f oot pain M79.671 and Essential hypertension I10 [place] [address] [facility] [id number] [address] [place] [address] September, [facility] [address] [facility] [id number] [address] [place] [address] September, Hematuria, unspecified type R31.9 and Chest pressure R07.89 [place] [address] [facility] [id number] [address] [place] [address] Jun, Hypertension I10 ; Hyperlipi demia E78.5 ; Tobacco use Z72.0 and Prediabetes R73.09 [place] [address] [facility] [id number] [address] [place] [address] Apr, [facility] [address] [facility] [id number] [address] [place] [address] Mar, Hypertension I10 [facility] [address] [id number] [address] [place] [address] Aug, Lesion of lip K13.0 [facility] [address] [id number] [address] [place] [address] Apr, Hypertension I10 ; Hyperlipi demia E78.5 ; Prediabetes R73.09 ; Tobacco use Z72.0 and Healthcare maintenance Z00.00 [place] [address] [address] Jul, Hypertension I10 and Multipl e actinic keratoses L57.0 [facility] [address] [address] Jul, Hypertension I10 [facility] [address] [address] Jun, Hypertension I10 [facility] [address] [address] Jun, Hypertension I10 ; Hyperlipi demia E78.5 ; Prediabetes R73.09 ; Tobacco use Z72.0 and Multiple actinic keratoses L57.0 [facility] [address] [address] 06 Jan, 2016 Hypertension I10 ; Hyperlipi demia E78.5 and Tobacco use Z72.0 [facility] [id number] [place] [address] Oct, [place] [address] [address] 04 Jun, 2015 Hypertension I10 ; Hyperlipi demia E78.5 ; Prediabetes R73.09 ; Screening for colon cancer Z12.11 and Tobacco use Z72.0 [facility] [address] [id number] [address] [place] [address] Apr, [facility] [address] [facility] [id number] [address] [place] [address] Apr, [facility] [address] [facility] [id number] [address] [place] [address] Apr, [facility] [address] [facility] [id number] [address] [place] [address] Dec, [facility] [address] [facility] [id number] [address] [place] [address] Dec, [facility] [address] [address] Nov, Nondependent tobacco use dis order 305.1 ; Hypertension 401.9 ; Hyperlipidemia 272.4 ; Prediabetes 790.29 ; Colon cancer screening V76.51 and Sunburn 692.71 [facility] [address] [facility] [id number] [address] [place] [address] Oct, [facility] [address] [id number] [address] [place] [address] Oct, Other and unspecified hyperl ipidemia 272.4 ; Essential hypertension 401.9 and Essential hypertension, benign 401.1 [facility] [address] [id number] [address] [place] [id number] Oct, [facility] [address] [facility] [id number] [address] [place] [address] Aug, [facility] [address] [facility] [id number] [address] [place] [address] Aug, [facility] [address] [id number] [address] [place] [address] Jun, [facility] [address] [facility] [id number] [address] [place] [address] Jun, [facility] [address] [id number] [address] [place] [address] Apr, [facility] [address] [id number] [address] [place] [address], [place] [address] Apr, [facility] [address] [id number] [address] [place] [address], [place] [address] Apr, [facility] [address] [id number] [address] [place] [address], [place] [address] Apr, [facility] [address] [id number] [address] [place] [address], [place] [address] Mar, [facility] [address] [id number] [address] [place] [address], [place] [address] Mar, [facility] [address] [id number] [address] [place] [address], [place] [address] Mar, [facility] [address] [id number] [address] [place] [address], [place] [address] Mar, [facility] [address] [id number] [address] [place] [address], [place] [address] Feb, [facility] [address] [id number] [address] [place] [address], [place] [address] Feb, [facility] [address] [id number] [address] [place] [address], [place] [address] Dec, [facility] [address] [id number] [address] [place] [address], [place] [address] Dec, [facility] [address] [id number] [address] [place] [address], [place] [address] Oct, [facility] [address] [id number] [address] [place] [address], [place] [address] Oct, [facility] [address] [id number] [address] [place] [address], [place] [address] September, [facility] [address] [id number] [address] [place] [address], [place] [address] September, [facility] [address] [id number] [address] [place] [address], [place] [address] September, [facility] [address] [id number] [address] [place] [address], [place] [address] September, [facility] [address] [id number] [address] [place] [address], [place] [address] September, [facility] [address] [id number] [address] [place] [address], [place] [address] September, [facility] [address] [id number] [address] [place] [address], [place] [address] September, [facility] [address] [id number] [address] [place] [address], [place] [address] September, [facility] [address] [id number] [address] [place] [address], [place] [address] September, [facility] [address] [id number] [address] [place] [address], [place] [address] September, [facility] [address] [id number] [address] [place] [address], [place] [address] Aug, [facility] [address] [id number] [address] [place] [address], [place] [address] Aug, [facility] [address] [id number] [address] [place] [address], [place] [address] Jun, [facility] [address] [id number] [address] [place] [address], [place] [address] Jun, [facility] [address] [id number] [address] [place] [address], [place] [address] May, [facility] [address] [id number] [address] [place] [address], [place] [address] May, [facility] [address] [id number] [address] [place] [address], [place] [address] May, [facility] [address] [id number] [address] [place] [address], [place] [address] May, [facility] [address] [id number] [address] [place] [address], [place] [address] Apr, [facility] [address] [id number] [address] [place] [address], [place] [address] Apr, [facility] [address] [id number] [address] [place] [address], [place] [address] Mar, [facility] [address] [id number] [address] [place] [address], [place] [address] Mar, [facility] [address] [id number] [address] [place] [address], [place] [address] Feb, [facility] [address] [id number] [address] [place] [address], [place] [address] Feb, [facility] [address] [id number] [address] [place] [address], [place] [address] Dec, [facility] [address] [id number] [address] [place] [address], [place] [address] Dec, [facility] [address] [id number] [address] [place] [address], [place] [address] Dec, [facility] [address] [id number] [address] [place] [address] Oct, [facility] [address] [id number] [address] [place] [address] Oct, [facility] [address] [id number] [address] [place] [address] Oct, [facility] [address] [id number] [address] [place] [address], [place] [address] September, [facility] [address] [id number] [address] [place] [address] September, [facility] [address] [id number] [address] [place] [address] September, [facility] [address] [id number] [address] [place] [address] September, [facility] [address] [id number] [address] [place] [address], [place] [address] Jun, [facility] [address] [id number] [address] [place] [address] Mar, [facility] [address] [id number] [address] [place] [address] Mar, [facility] [address] [id number] [address] [place] [address] Mar, [facility] [address] [id number] [address] [place] [address], [place] [address] Mar, [facility] [address] [id number] [address] [place] [address] Mar, [facility] [address] [id number] [address] [place] [address] Mar, [facility] [address] [id number] [address] [place] [address] Feb, [facility] [address] [id number] [address] [place] [address] Feb, [facility] [address] [id number] [address] [place] [address] Feb, [facility] [address] [id number] [address] [place] [address] Feb, [facility] [address] [id number] [address] [place] [address] Feb, [facility] [address] [id number] [address] [place] [address] Feb, [facility] [address] [id number] [address] [place] [address] Feb, [facility] [address] [id number] [address] [place] [address] Feb, [facility] [address] [id number] [address] [place] [address], [place] [address] 28 Oct, 2011 [facility] [address] [id number] [address] [place] [address], [place] [address] 30 Aug, 2011 [facility] [address] [id number] [address] [place] [address], [place] [address] 17 Aug, 2011 [facility] [address] [id number] [address] [place] [address], [place] [address] 16 Aug, 2011 [facility] [address] [id number] [address] [place] [address], [place] [address] 14 Aug, 2011 [facility] [address] [id number] [address] [place] [address], [place] [address] 05 Jul, 2011 [facility] [address] [id number] [address] [place] [address], [place] [address] May, [facility] [address] [id number] [address] [place] [address], [place] [address] May, [facility] [address] [id number] [address] [place] [address], [place] [address] 30 Mar, 2011 [facility] [address] [id number] [address] [place] [address], [place] [address] 10 Feb, 2011 [facility] [address] [id number] [address] [place] [address], [place] [address] 18 May, 2010 [facility] [address] [id number] [address] [place] [address], [place] [address] 15 Mar, 2010 [facility] [address] [id number] [address] [place] [address], [place] [address] 19 Feb, 2010 [facility] [address] [id number] [address] [place] [address], [place] [address] 18 Feb, 2010 [facility] [address] [id number] [address] [place] [address], [place] [address] 14 Apr, 2009 [facility] [address] [id number] [address] [place] [address], [place] [address] Apr, IMMUNIZATIONS No Known Immunizations SOCIAL HISTORY [...]
--- OUTSIDE RECORDS SUMMARY | 2019-11-01 19:25 | XMS REPORT ---
Author Author Zia Carrera Doctor Organization [facility] Address Unknown Phone Unavailable Care Team Providers Care Building Equipment Operator Name Role Phone Migration, Doctor Unavailable Unavailable PROBLEMS Type Condition ICD9-CM Code YCT42-MS Code Onset Dates Condition S tatus SNOMED Code Problem Hypertension I10 Active 9978824 3 Problem Tobacco use Z72.0 Active 37195965 0 Problem Squamous cell carcinoma C44.92 Active 737570366 Problem Hyperlipidemia E78.5 Active 17300 004 Problem Prediabetes R73.09 Active 7699236 ALLERGIES No Information ENCOUNTERS Encounter Location Date Diagnosis [facility] [address] [address] September, Hematuria, unspecified type R31.9 and Chest pressure R07.89 [facility] [address] [address] Jun, Hypertension I10 ; Hyperlipi demia E78.5 ; Tobacco use Z72.0 and Prediabetes R73.09 [facility] [address] [address] Apr, [facility] [address] [address] Mar, Hypertension I10 [facility] [address] [address] Aug, Lesion of lip K13.0 [facility] [address] [address] Apr, Hypertension I10 ; Hyperlipi demia E78.5 ; Prediabetes R73.09 ; Tobacco use Z72.0 and Healthcare maintenance Z00.00 [facility] [address] [address] Jul, Hypertension I10 and Multipl e actinic keratoses L57.0 [facility] [address] [facility] [id number] [address] [place] [address] Jul, Hypertension I10 [facility] [address] [facility] [id number] [address] [place] [phone] Jun, Hypertension I10 [facility] [address] [facility] [id number] [address] [place] [address] Jun, Hypertension I10 ; Hyperlipi demia E78.5 ; Prediabetes R73.09 ; Tobacco use Z72.0 and Multiple actinic keratoses L57.0 [facility] [address] [facility] [id number] [address] [place] [id number] Jan, Hypertension I10 ; Hyperlipi demia E78.5 and Tobacco use Z72.0 [facility] [address] [facility] [id number] [address] [place] [address] Oct, [facility] [address] [facility] [id number] [address] [place] [address] Jun, Hypertension I10 ; Hyperlipi demia E78.5 ; Prediabetes R73.09 ; Screening for colon cancer Z12.11 and Tobacco use Z72.0 [facility] [address] [facility] [id number] [address] [place] [address] Apr, [facility] [address] [facility] [id number] [address] [place] [phone] Apr, [facility] [address] [facility] [id number] [address] [place] [phone] Apr, [facility] [address] [facility] [id number] [address] [place] [address] Dec, [facility] [address] [facility] [id number] [address] [place] [id number] Dec, [facility] [address] [facility] [id number] [address] [place] [address] Nov, Nondependent tobacco use dis order 305.1 ; Hypertension 401.9 ; Hyperlipidemia 272.4 ; Prediabetes 790.29 ; Colon cancer screening V76.51 and Sunburn 692.71 [facility] [address] [facility] [id number] [address] [place] [id number] Oct, [facility] [address] [facility] [id number] [address] [place] [phone] Oct, Other and unspecified hyperl ipidemia 272.4 ; Essential hypertension 401.9 and Essential hypertension, benign 401.1 [facility] [address] [facility] [id number] [address] [place] [phone] Oct, [facility] [address] [facility] [id number] [address] [place] [phone] Aug, [facility] [address] [facility] [id number] [address] [place] [phone] Aug, [facility] [address] [facility] [id number] [address] [place] [id number] Jun, [facility] [address] [facility] [id number] [address] [place] [phone] Jun, [facility] [address] [facility] [id number] [address] [place] [id number] Apr, [facility] [address] [facility] [id number] [address] [place] [phone] Apr, [facility] [address] [facility] [id number] [address] [place] [phone] Apr, [facility] [address] [facility] [id number] [address] [place] [phone] Apr, [facility] [address] [facility] [id number] [address] [place] [phone] Mar, [facility] [address] [facility] [id number] [address] [place] [phone] Mar, [facility] [address] [id number] [address] [place] [address], [place] [address] Mar, [facility] [address] [id number] [address] [place] [address], [place] [address] Mar, [facility] [address] [id number] [address] [place] [address], [place] [address] Feb, [facility] [address] [id number] [address] [place] [address], [place] [address] Feb, [facility] [address] [id number] [address] [place] [address], [place] [address] Dec, [facility] [address] [id number] [address] [place] [address], [place] [address] Dec, [facility] [address] [id number] [address] [place] [address], [place] [address] Oct, [facility] [address] [id number] [address] [place] [address], [place] [address] Oct, [facility] [address] [id number] [address] [place] [address], [place] [address] September, [facility] [address] [id number] [address] [place] [address], [place] [address] September, [facility] [address] [id number] [address] [place] [address], [place] [address] September, [facility] [address] [id number] [address] [place] [address], [place] [address] September, [facility] [address] [id number] [address] [place] [address], [place] [address] September, [facility] [address] [id number] [address] [place] [address], [place] [address] September, [facility] [address] [id number] [address] [place] [address], [place] [address] September, [facility] [address] [id number] [address] [place] [address], [place] [address] September, [facility] [address] [id number] [address] [place] [address], [place] [address] September, [facility] [address] [id number] [address] [place] [address], [place] [address] September, [facility] [address] [id number] [address] [place] [address], [place] [address] Aug, [facility] [address] [id number] [address] [place] [address], [place] [address] Aug, [facility] [address] [id number] [address] [place] [address], [place] [address] Jun, [facility] [address] [id number] [address] [place] [address], [place] [address] Jun, [facility] [address] [id number] [address] [place] [address], [place] [address] May, [facility] [address] [id number] [address] [place] [address], [place] [address] May, [facility] [address] [id number] [address] [place] [address], [place] [address] May, [facility] [address] [id number] [address] [place] [address], [place] [address] May, [facility] [address] [id number] [address] [place] [address], [place] [address] Apr, [facility] [address] [id number] [address] [place] [phone] Apr, [facility] [address] [id number] [address] [place] [address], [place] [address] Mar, [facility] [address] [id number] [address] [place] [address], [place] [address] Mar, [facility] [address] [id number] [address] [place] [address], [place] [address] 18 Feb, 2013 [facility] [address] [id number] [address] [place] [address], [place] [address] Feb, [facility] [address] [id number] [address] [place] [address], [place] [address] Dec, [facility] [address] [id number] [address] [place] [address], [place] [address] Dec, [facility] [address] [id number] [address] [place] [address], [place] [address] Dec, [facility] [address] [id number] [address] [place] [address], [place] [address] Oct, [facility] [address] [id number] [address] [place] [address], [place] [address] Oct, [facility] [address] [id number] [address] [place] [address], [place] [address] Oct, [facility] [address] [id number] [address] [place] [address], [place] [address] September, [facility] [address] [id number] [address] [place] [address], [place] [address] September, [facility] [address] [id number] [address] [place] [address], [place] [address] September, [facility] [address] [id number] [address] [place] [address], [place] [address] September, [facility] [address] [id number] [address] [place] [address], [place] [address] Jun, [facility] [address] [id number] [address] [place] [address], [place] [address] Mar, [facility] [address] [id number] [address] [place] [address], [place] [address] Mar, [facility] [address] [id number] [address] [place] [address], [place] [address] Mar, [facility] [address] [id number] [address] [place] [address], [place] [address] Mar, [facility] [address] [id number] [address] [place] [address], [place] [address] Mar, [facility] [address] [id number] [address] [place] [address], [place] [address] Mar, [facility] [address] [id number] [address] [place] [address], [place] [address] Feb, [facility] [address] [id number] [address] [place] [address], [place] [address] Feb, [facility] [address] [id number] [address] [place] [address], [place] [address] Feb, [facility] [address] [id number] [address] [place] [address], [place] [address] Feb, [facility] [address] [id number] [address] [place] [address], [place] [address] Feb, [facility] [address] [id number] [address] [place] [address], [place] [address] Feb, [facility] [address] [id number] [address] [place] [address], [place] [address] Feb, [facility] [address] [id number] [address] [place] [address], [place] [address] Feb, [facility] [address] [id number] [address] [place] [address], [place] [address] Oct, [facility] [address] [id number] [address] [place] [address], [place] [address] 30 Aug, 2011 [facility] [address] [id number] [address] [place] [address], [place] [address] 17 Aug, 2011 [facility] [address] [id number] [address] [place] [address], [place] [address] 16 Aug, 2011 [facility] [address] [id number] [address] [place] [address], [place] [address] 14 Aug, 2011 [facility] [address] [id number] [address] [address] Jul, [facility] [address] [id number] [address] [place] [id number] May, [facility] [address] [id number] [address] [place] [id number] May, [facility] [address] [id number] [address] [place] [phone] Mar, [facility] [address] [id number] [address] [place] [phone] Feb, [facility] [address] [id number] [address] [place] [address] May, [facility] [address] [id number] [address] [place] [phone] Mar, [facility] [address] [id number] [address] [place] [phone] Feb, [facility] [address] [id number] [address] [place] [id number] Feb, [facility] [address] [id number] [address] [place] [phone] Apr, [facility] [address] [id number] [address] [place] [phone] Apr, IMMUNIZATIONS No Known Immunizations SOCIAL HISTORY Never Assessed REASON FOR VISIT EMR-[facility] PLAN OF CARE VITAL SIGNS MEDICATIONS No [...]
--- OUTSIDE RECORDS SUMMARY | 2019-11-01 19:25 | XMS REPORT | Continuity of Care Document ---
Demographics Preferred Language Unknown Marital Status Unknown Druze Affiliation Unknown Race Unknown Ethnic Group Unknown Author Organization Unknown Address Unknown Phone Unavailable Allergies Active Description Code Type Severity Reaction Onset Reported/Identified Relationship to Patient Clinical Status Yes NKANo Known Allergies NKA Miscellaneous Allergy Unknown N/A 04/10/2006 Medications There is no data. 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) 12/05/2007 ENEIDA CABRERA NOAH K 401.1 ESSENTIAL HYPERTENSION BENIGN 12/05/2007 ENEIDA CABRERA NOAH K 272.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) 12/05/2007 ENEIDA CABRERA ONAH K 401.1 ESSENTIAL HYPERTENSION BENIGN 12/05/2007 ENEIDA CABRERA NOAH K 272.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) 12/05/2007 ENEIDA CABRERA NOAH K 401.1 ESSENTIAL HYPERTENSION BENIGN 12/05/2007 MEENA DEO MD 272 .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) 12/05/2007 MEENA DOE MD 401 .1 ESSENTIAL HYPERTENSION BENIGN 12/05/2007 ENEIDA CABRERA NOAH K 272.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) 12/05/2007 ENEIDA CABRERA NOAH K 401.1 ESSENTIAL HYPERTENSION BENIGN 12/18/2007 716.90 ART HROPATHY 12/18/2007 716.90 ART HROPATHY 12/18/2007 ENEIDA CABRERA NOAH K 716.90 ARTHROPATHY 12/18/2007 MONIQUE DO NOAH K 716.90 ARTHROPATHY 12/18/2007 ENEIDA CABRERA NOAH K 716.90 ARTHROPATHY 12/18/2007 MONIQUE DO, NOAH K 716.90 ARTHROPATHY 12/18/2007 MEENA DOE MD 716 .90 ARTHROPATHY 12/18/2007 MONIQUE DO, NOAH K 716.90 ARTHROPATHY 02/02/2009 272.1 Hyperlipoproteinemia Type Iv 02/02/2009 272.1 Hyperlipoproteinemia Type Iv 02/02/2009 ENEIDA CABRERA NOAH K 272.1 Hyperlipoproteinemia Type Iv 02/02/2009 MONIQUE DO, NOAH K 272.1 Hyperlipoproteinemia Type Iv 02/02/2009 MONIQUE DO, NOAH K 272.1 Hyperlipoproteinemia Type Iv 02/02/2009 MONIQUE DO, NOAH K 272.1 Hyperlipoproteinemia Type Iv 02/02/2009 MEENA DOE MD 272 .1 Hyperlipoproteinemia Type Iv 02/02/2009 MONIQUE , NOAH K 272.1 Hyperlipoproteinemia Type Iv 07/21/2009 790.29 Pre diabetes (impaired Glucose Tolerance) 07/21/2009 V58.69 taisha ing high-risk medication 07/21/2009 790.29 Pre diabetes (impaired Glucose Tolerance) 07/21/2009 V58.69 taisha ing high-risk medication 07/21/2009 ENEIDA CABRERA NOAH K 790.29 Prediabetes (impaired Glucose Tolerance) 07/21/2009 ENEIDA CABRERA NOAH K V58.69 taking high-risk medication 07/21/2009 MONIQUE DO NOAH K 790.29 Prediabetes (impaired Glucose Tolerance) 07/21/2009 ENEIDA CABRERA NOAH K V58.69 taking high-risk medication 07/21/2009 MONIQUE DO NOAH K 790.29 Prediabetes (impaired Glucose Tolerance) 07/21/2009 MONIQUE DO NOAH K V58.69 taking high-risk medication 07/21/2009 MONIQUE DO NOAH K 790.29 Prediabetes (impaired Glucose Tolerance) 07/21/2009 MONIQUE DO NOAH K V58.69 taking high-risk medication 07/21/2009 MEENA DOE MD 790 .29 Prediabetes (impaired Glucose Tolerance) 07/21/2009 MEENA DOE MD V58 .69 taking high-risk medication 07/21/2009 MONIQUE DO, NOAH K 790.29 Prediabetes (impaired Glucose Tolerance) 07/21/2009 ENEIDA CABRERA, NOAH K V58.69 taking high-risk medication 03/14/2012 790.29 PRE DIABETES 03/14/2012 790.29 PRE DIABETES 03/14/2012 MONIQUE DO, NOAH K 790.29 PREDIABETES 03/14/2012 MONIQUE DO, NOAH K 790.29 PREDIABETES 03/14/2012 MONIQUE DO, NOAH K 790.29 PREDIABETES 03/14/2012 MONIQUE DO, NOAH K 790.29 PREDIABETES 03/14/2012 MEENA DOE MD N 790 .29 PREDIABETES 03/14/2012 MONIQUE , NOAH K 790.29 PREDIABETES 09/16/2012 593.9 KYLIE L INSUFFICIENCY 09/16/2012 MONIQUE DO, NOAH K 593.9 RENAL INSUFFICIENCY 09/16/2012 MONIQUE DO, NOAH K 593.9 RENAL INSUFFICIENCY 09/16/2012 MONIQUE DO, NOAH K 593.9 RENAL INSUFFICIENCY 09/16/2012 MONIQUE , NOAH K 593.9 RENAL INSUFFICIENCY 09/16/2012 MEENA DOE MD N 593 .9 RENAL INSUFFICIENCY 04/15/2014 MEENA DOE MD N 272 .4 HYPERLIPIDEMIA HYPERLIPOPROTEINEMIAS (OLD CLASSIFICATION) 04/15/2014 MEENA DOE MD N 305 .1 NONDEPENDENT TOBACCO USE DISORDER 09/27/2018 Alicja PUGH MD Ot D62 ACUTE POSTHEMORRHAGIC ANEMIA 09/27/2018 Alicja PUGH MD Ot E78.00 PURE HYPERCHOLESTEROLEMIA, UNSPECIFIED 09/27/2018 Alicja PUGH MD Ot F17.210 NICOTINE DEPENDENCE, CIGARETTES, UNCOMPL 09/27/2018 Alicja PUGH MD Ot I10 ESSENTIAL (PRIMARY) HYPERTENSION 09/27/2018 Alicja PUGH MD Ot J44 .9 CHRONIC OBSTRUCTIVE PULMONARY DISEASE, U 09/27/2018 Alicja PUGH MD Ot K27 .5 CHRONIC OR UNSP PEPTIC ULCER, SITE UNSP, 09/27/2018 Alicja PUGH MD Ot N30.01 ACUTE CYSTITIS WITH HEMATURIA 09/27/2018 Alicja PUGH MD Ot N32 .9 BLADDER DISORDER, UNSPECIFIED 09/27/2018 Alicja PUGH MD Ot R07.89 OTHER CHEST PAIN 09/27/2018 Alicja PUGH MD Ot R31 .0 GROSS HEMATURIA 09/27/2018 Alicja PUGH MD Ot R73.03 PREDIABETES 09/28/2018 Alicja PUGH MD Ot D62 ACUTE POSTHEMORRHAGIC ANEMIA 09/28/2018 Alicja PUGH MD Ot E78.00 PURE HYPERCHOLESTEROLEMIA, UNSPECIFIED 09/28/2018 Alicja PUGH MD Ot F17.210 NICOTINE DEPENDENCE, CIGARETTES, UNCOMPL 09/28/2018 Alicja PUGH MD Ot I10 ESSENTIAL (PRIMARY) HYPERTENSION 09/28/2018 Alicja PUGH MD Ot J44 .9 CHRONIC OBSTRUCTIVE PULMONARY DISEASE, U 09/28/2018 Alicja PUGH MD Ot K27 .5 CHRONIC OR UNSP PEPTIC ULCER, SITE UNSP, 09/28/2018 Alicja PUGH MD Ot N30.01 ACUTE CYSTITIS WITH HEMATURIA 09/28/2018 Alicja PUGH MD Ot N32 .9 BLADDER DISORDER, UNSPECIFIED 09/28/2018 Alicja PUGH MD Ot R07.89 OTHER CHEST PAIN 09/28/2018 Alicja PUGH MD Ot R31 .0 GROSS HEMATURIA 09/28/2018 Alicja PUGH MD Ot R73.03 PREDIABETES 09/28/2018 Alicja PUGH MD Ot D62 ACUTE POSTHEMORRHAGIC ANEMIA 09/28/2018 Alicja PUGH MD Ot E78.00 PURE HYPERCHOLESTEROLEMIA, UNSPECIFIED 09/28/2018 Alicja PUGH MD Ot F17.210 NICOTINE DEPENDENCE, CIGARETTES, UNCOMPL 09/28/2018 Alicja PUGH MD Ot I10 ESSENTIAL (PRIMARY) HYPERTENSION 09/28/2018 Alicja PUGH MD Ot J44 .9 CHRONIC OBSTRUCTIVE PULMONARY DISEASE, U 09/28/2018 Alicja PUGH MD Ot K27 .5 CHRONIC OR UNSP PEPTIC ULCER, SITE UNSP, 09/28/2018 KEATON THIBODEAUX, Alicja CRESPO Ot N30.01 ACUTE CYSTITIS WITH HEMATURIA 09/28/2018 Alicja PUGH MD, Ot N32 .9 BLADDER DISORDER, UNSPECIFIED 09/28/2018 Alicja PUGH MD Ot R07.89 OTHER CHEST PAIN 09/28/2018 Alicja PUGH MD Ot R31 .0 GROSS HEMATURIA 09/28/2018 Alicja PUGH MD Ot R73.03 PREDIABETES 11/28/2018 PARRIS NAMP Ot M79.671 PAIN IN RIGHT FOOT 11/28/2018 PARRIS NAM MERCHANDISING SPECIALIST Ot M79.672 PAIN IN LEFT FOOT 12/01/2018 PARRIS NAM MERCHANDISING SPECIALIST Ot M79.671 PAIN IN RIGHT FOOT 12/01/2018 PARIRS NAMP Ot M79.672 PAIN IN LEFT FOOT 12/03/2018 BASSEM SHETH MD Ot E78 .5 HYPERLIPIDEMIA, UNSPECIFIED 12/03/2018 BASSEM SHETH MD Ot F33 .8 OTHER RECURRENT DEPRESSIVE DISORDERS 12/03/2018 BASSEM SHETH MD Ot 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, NORMAL 12/03/2018 BASSEM SHETH MD Ot I10 ESSENTIAL (PRIMARY) HYPERTENSION 12/03/2018 BASSEM SHETH MD Ot I47 .1 SUPRAVENTRICULAR TACHYCARDIA 12/03/2018 BASSEM SHETH MD Ot K11 .7 DISTURBANCES OF SALIVARY SECRETION 12/03/2018 BASSEM SHETH MD Ot K25 .5 CHRONIC OR UNSPECIFIED GASTRIC ULCER WIT 12/03/2018 BASSEM SHETH MD Ot K28 .9 GASTROJEJUNAL ULCER, UNSP ACUTE OR CH 12/03/2018 BASSEM SHETH MD Ot K59.09 OTHER CONSTIPATION 12/03/2018 BASSEM SHETH MD Ot M62.81 MUSCLE WEAKNESS (GENERALIZED) 12/03/2018 BASSEM SHETH MD Ot N32.89 OTHER SPECIFIED DISORDERS OF BLADDER 12/03/2018 BASSEM SHETH MD Ot R33 .8 OTHER RETENTION OF URINE 12/03/2018 BASSEM SHETH MD Ot R41.841 COGNITIVE COMMUNICATION DEFICIT 12/03/2018 BASSEM SHETH MD Ot R52 PAIN, UNSPECIFIED 12/03/2018 BASSEM SHETH MD Ot R33 .8 OTHER RETENTION OF URINE 12/04/2018 MONIQUE DO, NOAH K Ot M62.81 MUSCLE WEAKNESS (GENERALIZED) 12/08/2018 MONIQUE DO, NOAH K Ot E78.5 HYPERLIPIDEMIA, UNSPECIFIED 12/08/2018 MONIQUE DO, NOAH K Ot F33.8 OTHER RECURRENT DEPRESSIVE DISORDERS 12/08/2018 MONIQUE DO, NOAH K Ot H54.42 A5 BLINDNESS LEFT EYE CATEGORY 5, NORMAL 12/08/2018 MONIQUE DO, NOAH K Ot I10 ESSENTIAL (PRIMARY) HYPERTENSION 12/08/2018 MONIQUE DO, NOAH K Ot K11.7 DISTURBANCES OF SALIVARY SECRETION 12/08/2018 MONIQUE DO, NOAH K Ot K27.9 PEPTIC ULC, SITE UNSP, UNSP AC OR CHR 12/08/2018 MONIQUE DO, NOAH K Ot K28.9 GASTROJEJUNAL ULCER, UNSP ACUTE OR CH 12/08/2018 MONIQUE DO, NOAH K Ot K59.09 OTHER CONSTIPATION 12/08/2018 MONIQUE DO, NOAH K Ot M62.81 MUSCLE WEAKNESS (GENERALIZED) 12/08/2018 MONIQUE DO, NOAH K Ot R13.11 DYSPHAGIA, ORAL PHASE 12/08/2018 MONIQUE DO, NOAH K Ot R26.89 OTHER ABNORMALITIES OF GAIT AND MOBILITY 12/08/2018 MONIQUE DO, NOAH K Ot R33.8 OTHER RETENTION OF URINE 12/08/2018 MONIQUE DO, NOAH K Ot R41.84 1 COGNITIVE COMMUNICATION DEFICIT 11/01/2019 PARRIS NAM MERCHANDISING SPECIALIST Ot M79.671 PAIN IN RIGHT FOOT 11/01/2019 PARRIS NAM MERCHANDISING SPECIALIST Ot M79.672 PAIN IN LEFT FOOT 11/01/2019 MERYL THIBODEAUX, BASSEM Moe Ot R33 .8 OTHER RETENTION OF URINE 11/01/2019 MONIQUE DO, NOAH K Ot E78.5 HYPERLIPIDEMIA, UNSPECIFIED 11/01/2019 MONIQUE DO, NOAH K Ot F33.8 OTHER RECURRENT DEPRESSIVE DISORDERS 11/01/2019 MONIQUE DO, NOAH K Ot H54.42 A5 BLINDNESS LEFT EYE CATEGORY 5, NORMAL 11/01/2019 MONIQUE DO, NOAH K Ot I10 ESSENTIAL (PRIMARY) HYPERTENSION 11/01/2019 MONIQUE DO, NOAH K Ot K11.7 DISTURBANCES OF SALIVARY SECRETION 11/01/2019 MONIQUE DO, NOAH K Ot K27.9 PEPTIC ULC, SITE UNSP, UNSP AC OR CHR 11/01/2019 MONIQUE DO, NOAH K Ot K28.9 GASTROJEJUNAL ULCER, UNSP ACUTE OR CH 11/01/2019 MONIQUE DO, NOAH K Ot K59.09 OTHER CONSTIPATION 11/01/2019 MONIQUE DO, NOAH K Ot M62.81 MUSCLE WEAKNESS (GENERALIZED) 11/01/2019 MONIQUE DO, NOAH K Ot R13.11 DYSPHAGIA, ORAL PHASE 11/01/2019 MONIQUE DO, NOAH K Ot R26.89 OTHER ABNORMALITIES OF GAIT AND MOBILITY 11/01/2019 MONIQUE DO, NOAH K Ot R33.8 OTHER RETENTION OF URINE 11/01/2019 MONIQUE DO, NOAH K Ot R41.84 1 COGNITIVE COMMUNICATION DEFICIT 11/01/2019 PARRIS NAM MERCHANDISING SPECIALIST Ot M79.671 PAIN IN RIGHT FOOT 11/01/2019 PARRIS NAM MERCHANDISING SPECIALIST Ot M79.672 PAIN IN LEFT FOOT 11/01/2019 MERYL THIBODEAUX, BASSEM Moe Ot R33 .8 OTHER RETENTION OF URINE 11/01/2019 MONIQUE DO, NOAH K Ot E78.5 HYPERLIPIDEMIA, UNSPECIFIED 11/01/2019 MONIQUE DO, NOAH K Ot F33.8 OTHER RECURRENT DEPRESSIVE DISORDERS 11/01/2019 MONIQUE DO, NOAH K Ot H54.42 A5 BLINDNESS LEFT EYE CATEGORY 5, NORMAL 11/01/2019 MONIQUE DO, NOAH K Ot I10 ESSENTIAL (PRIMARY) HYPERTENSION 11/01/2019 MONIQUE DO, NOAH K Ot K11.7 DISTURBANCES OF SALIVARY SECRETION 11/01/2019 MONIQUE DO, NOAH K Ot K27.9 PEPTIC ULC, SITE UNSP, UNSP AC OR CHR 11/01/2019 MONIQUE DO, NOAH K Ot K28.9 GASTROJEJUNAL ULCER, UNSP ACUTE OR CH 11/01/2019 MONIQUE DO, NOAH K Ot K59.09 OTHER CONSTIPATION 11/01/2019 MONIQUE DO, NOAH K Ot M62.81 MUSCLE WEAKNESS (GENERALIZED) 11/01/2019 MONIQUE DO, NOAH K Ot R13.11 DYSPHAGIA, ORAL PHASE 11/01/2019 NOAH MONIQUE DO Ot R26.89 OTHER ABNORMALITIES OF GAIT AND MOBILITY 11/01/2019 NOAH MONIQUE DO Ot R33.8 OTHER RETENTION OF URINE 11/01/2019 NOAH MONIQUE DO Ot R41.84 1 COGNITIVE COMMUNICATION DEFICIT Procedures Code Description [place] [address] A1C (IN-HOUSE) 03/12/2012 79738 ROUT INE VENIPUNCTURE 03/19/2012 55765 CMP 03/19/2012 88477 LIPI D PANEL 03/19/2012 [id number] GF R CALC (RESULT ONLY) 03/19/2012 15027 ROUT INE VENIPUNCTURE 09/12/2012 33750 A1C (IN-HOUSE) 09/12/2012 59561 CBC 09/12/2012 16331 LIPI D PANEL 09/12/2012 68659 CMP 09/12/2012 [id number] GF R CALC (RESULT ONLY) 09/12/2012 27019 ROUT INE VENIPUNCTURE 12/18/2012 18222 KYLIE L PROFILE 12/18/2012 33696 LIPI D PANEL 12/18/2012 [id number] GF R CALC (RESULT ONLY) 12/18/2012 PRO/CRE UR INE PROTEIN TO CREATNINE RATIO 12/18/2012 25303 A1C (IN-HOUSE) 03/25/2013 97043 ROUT INE VENIPUNCTURE 09/25/2013 36471 A1C (IN-HOUSE) 09/25/2013 [id number] GF R CALC (RESULT ONLY) 09/25/2013 01213 CMP 09/25/2013 28478 LIPI D PANEL 09/25/2013 30136 CBC 09/25/2013 [id number] IN SPECTION OF BLADDER, ENDO 09/25/2018 [id number] IR RIGATION OF GENITOURINARY TRACT USING 09/25/2018 [id number] FL UOROSCOPY OF BLADDER USING LOW OSMOLAR 09/25/2018 Results Test Result Range Comp. Metabolic Panel (14) - 07/07/16 10 :11 Glucose, Serum 102 mg/dL 65-99 BUN 17 [...] 0-99 Basic Metabolic Panel (8) - 07/28/16 09: 05 Glucose, Serum 96 mg/dL 65-99 BUN 18 mg/dL 8-27 Creatinine, Serum 1.03 mg/dL 0.76-1.27 eGFR If NonAfricn Am 71 mL/min/1.73 >59 eGFR If Africn Am 82 mL/min/1.73 >59 BUN/Creatinine Ratio 17 10-22 Sodium, Serum 144 mmol/L 134-144 Potassium, Serum 4.8 mmol/L 3.5-5.2 Chloride, Serum 103 mmol/L 96-106 Carbon Dioxide, Total 22 mmol/L 18-29 Calcium, Serum 9.5 mg/dL 8.6-10.2 Complete blood count (CBC) with automate d white blood cell (WBC) differential - 09/24/18 10:45 Blood leukocytes automated count (number/volume) 15.5 10*3/uL 4.3-11.0 Blood erythrocytes automated count (number/volume) 3.25 10*6/uL 4.35-5.85 Venous blood hemoglobin measurement (mass/volume) 10.0 g/dL 13.3-17.7 Blood hematocrit (volume fraction) 30 % 40-54 Automated erythrocyte mean corpuscular volume 91 [ foz_us] 80-99 Automated erythrocyte mean corpuscular h emoglobin (mass per erythrocyte) 31 pg 25-34 Automated erythrocyte mean corpuscular h emoglobin concentration measurement (mass/volume) 34 g/dL 32-36 Automated erythrocyte distribution width ratio 14. 6 % 10.0- 14.5 Automated blood platelet count (count/volume) 349 10*3/uL 130-400 Automated blood platelet mean volume measurement 8.9 [foz_us] 7.4-10.4 Automated blood neutrophils/100 leukocytes 78 % 42-75 Automated blood lymphocytes/100 leukocytes 11 % 12-44 Blood monocytes/100 leukocytes 12 % 0-12 Automated blood eosinophils/100 leukocytes 0 % 0-10 Automated blood basophils/100 leukocytes 0 % 0-10 Blood neutrophils automated count (number/volume) 12.0 10*3 1.8-7.8 Blood lymphocytes automated count (number/volume) 1.6 10*3 1.0-4.0 Blood monocytes automated count (number/volume) 1. 8 10*3 0.0-1.0 Automated eosinophil count 0.0 10*3/uL 0 .0-0.3 Automated blood basophil count (count/volume) 0.0 10*3/uL 0.0-0.1 PT panel in platelet poor plasma by coag ulation assay - 09/24/18 10:45 Prothrombin time (PT) in platelet poor plasma by coagu lation assay 15.3 s 12.2-14.7 INR in platelet poor plasma or blood by coagulation as say 1.2 0.8-1.4 Activated partial thromboplastin time (a PTT) in platelet poor plasma bycoagulation assay - 09/24/18 10:45 Activated partial thromboplastin time (a PTT) in platelet poor plasma bycoagulation assay 35 s 24-35 Comprehensive metabolic panel - 09/24/18 10:45 Serum or plasma sodium measurement (moles/volume) 134 mmol/L 135-145 Serum or plasma potassium measurement (moles/volume) 4.2 mmol/L 3.6-5.0 Serum or plasma chloride measurement (moles/volume) 99 mmol/L 98-107 Carbon dioxide 20 mmol/L 21-32 Serum or plasma anion gap determination (moles/volume) 15 mmol/L 5-14 Serum or plasma urea nitrogen measurement (mass/volume ) 35 mg/dL 7-18 Serum or plasma creatinine measurement (mass/volume) 1.14 mg/dL 0.60-1.30 Serum or plasma urea nitrogen/creatinine mass ratio 31 NRG Serum or plasma creatinine measurement w ith calculation of estimated glomerular filtration rate > NRG Serum or plasma glucose measurement (mass/volume) 133 mg/dL 70-105 Serum or plasma calcium measurement (mass/volume) 9.9 mg/dL 8.5-10.1 Serum or plasma total bilirubin measurement (mass/volu me) 0.6 mg/dL 0.1-1.0 Serum or plasma alkaline phosphatase syeda surement (enzymatic activity/volume) 118 U/L 40-136 Serum or plasma aspartate aminotransfera se measurement (enzymatic activity/volume) 21 U/L 5-34 Serum or plasma alanine aminotransferase measurement (enzymatic activity/volume) 29 U/L 0-55 Serum or plasma protein measurement (mass/volume) 6.4 g/dL 6.4-8.2 Serum or plasma albumin measurement (mass/volume) 3.0 g/dL 3.2-4.5 CALCIUM CORRECTED 10.7 mg/dL 8.5-10.1 Magnesium - 09/24/18 10:45 Magnesium 1.9 mg/dL 1.8-2.4 Blood lactic acid measurement (moles/vol ume) - 09/24/18 10:45 Blood lactic acid measurement (moles/volume) 0.82 mmol/L 0.50-2.00 Fibrin D-dimer FEU measurement in platel et poor plasma (mass/volume) - 09/24/18 10:45 Fibrin D-dimer FEU measurement in platelet poor plasma (mass/volume) 3.51 ug/mL 0.00-0.49 Serum or plasma troponin i.cardiac measu rement (mass/volume) - 09/24/18 10:45 Serum or plasma troponin i.cardiac measurement (mass/v olume) < ng/mL <0.028 Myoglobin, serum - 09/24/18 10:45 Myoglobin, serum 58.2 ng/mL 10.0-92.0 Serum or plasma lithium measurement (mol es/volume) - 09/24/18 10:45 BNP level 88.1 pg/mL <100.0 Blood manual differential performed dete ction - 09/24/18 10:45 Blood monocytes/100 leukocytes 9 % NRG Manual blood segmented neutrophils/100 leukocytes 49 % NRG Blood band neutrophils/100 leukocytes 22 % NRG Manual blood lymphocytes/100 leukocytes 19 % NRG Manual eosinophils/100 leukocytes in nose 0 % NRG Manual blood basophils/100 leukocytes 0 % NRG Blood erythrocyte morphology finding identification NORMAL NRG Blood dohle body detection by light microscopy SLI GHT NRG Manual blood myelocytes/100 leukocytes 1 % NRG Bacterial blood culture - 09/24/18 10:48 Bacterial blood culture NG NRG Bacterial blood culture - 09/24/18 11:24 Bacterial blood culture NG NRG Complete urinalysis with reflex to cultu re - 09/24/18 12:00 Urine color determination RED NRG Urine clarity determination BLOODY NR G Urine pH measurement by test strip 7 5-9 Specific gravity of urine by test strip 1.010 1.016-1.022 Urine protein assay by test strip, semi-quantitative 4+ NEGATIVE Urine glucose detection by automated test strip NE GATIVE NEGATIVE Erythrocytes detection in urine sediment by light micr oscopy 5+ NEGATIVE Urine ketones detection by automated test strip 1+ NEGATIVE Urine nitrite detection by test strip NEGATIVE NEGATIVE Urine total bilirubin detection by test strip NEGA TIVE NEGATIVE Urine urobilinogen measurement by automated test strip (mass/volume) NORMAL NORMAL Urine leukocyte esterase detection by dipstick 2+ NEGATIVE Automated urine sediment erythrocyte cou nt by microscopy (number/high power field) TNTC NRG Automated urine sediment leukocyte count by microscopy (number/high power field) TNTC NRG Bacteria detection in urine sediment by light microsco py FEW NRG Crystals detection in urine sediment by light microsco py NONE NRG Casts detection in urine sediment by light microscopy NONE NRG Mucus detection in urine sediment by light microscopy NEGATIVE NRG Complete urinalysis with reflex to culture CULTURE PENDING NRG Bacterial urine culture - 09/24/18 12:00 Bacterial urine culture 3 OR MORE NRG COLONY COUNT >100,000/ML NRG FTX;REPORTABLE SUGGESTING PROBABLE COLLECTION NRG FREE TEXT ENTRY 2 CONTAMINATION WITH SKIN CASTILLO NRG CULTURE, URINE - 09/24/18 12:05 CULTURE, URINE, ROUTINE SEE NOTE NRG RED CELLS LEUKO REDUCED AS1 - 09/24/18 1 2:16 RED CELLS LEUKO REDUCED AS1 T RANSFUSED 09/25/182016 NR Blood type T Indirect antibody screen pa gildardo - 09/24/18 12:16 ABO+Rh group AP NRG Transfusion band number [id number] NR Blood group antibody screen NEGATIVE NR G Methicillin resistant Staphylococcus aur eus (MRSA) screening culture - 09/24/18 15:00 Methicillin resistant Staphylococcus aureus (MRSA) scr eening culture NEG NRG Capillary blood glucose measurement by g lucometer (mass/volume) - 09/24/18 16:22 Capillary blood glucose measurement by glucometer (mas s/volume) 138 mg/dL 70-110 Serum or plasma troponin i.cardiac measu rement (mass/volume) - 09/24/18 17:07 Serum or plasma troponin i.cardiac measurement (mass/v olume) < ng/mL <0.028 Capillary blood glucose measurement by g lucometer (mass/volume) - 09/24/18 21:14 Capillary blood glucose measurement by glucometer (mas s/volume) 124 mg/dL 70-110 Complete blood count (CBC) with automate d white blood cell (WBC) differential - 09/25/18 04:38 Blood leukocytes automated count (number/volume) 14.0 10*3/uL 4.3-11.0 Blood erythrocytes automated count (number/volume) 2.05 10*6/uL 4.35-5.85 Venous blood hemoglobin measurement (mass/volume) 6.4 g/dL 13.3-17.7 Blood hematocrit (volume fraction) 19 % 40-54 Automated erythrocyte mean corpuscular volume 93 [ foz_us] 80-99 Automated erythrocyte mean corpuscular h emoglobin (mass per erythrocyte) 31 pg 25-34 Automated erythrocyte mean corpuscular h emoglobin concentration measurement (mass/volume) 34 g/dL 32-36 Automated erythrocyte distribution width ratio 14. 6 % 10.0- 14.5 Automated blood platelet count (count/volume) 266 10*3/uL 130-400 Automated blood platelet mean volume measurement 9.1 [foz_us] 7.4-10.4 Automated blood neutrophils/100 leukocytes 79 % 42-75 Automated blood lymphocytes/100 leukocytes 13 % 12-44 Blood monocytes/100 leukocytes 7 % 0-12 Automated blood eosinophils/100 leukocytes 0 % 0-10 Automated blood basophils/100 leukocytes 0 % 0-10 Blood neutrophils automated count (number/volume) 11.1 10*3 1.8-7.8 Blood lymphocytes automated count (number/volume) 1.9 10*3 1.0-4.0 Blood monocytes automated count (number/volume) 1. 0 10*3 0.0-1.0 Automated eosinophil count 0.0 10*3/uL 0 .0-0.3 Automated blood basophil count (count/volume) 0.0 10*3/uL 0.0-0.1 Comprehensive metabolic panel - 09/25/18 04:38 Serum or plasma sodium measurement (moles/volume) 139 mmol/L 135-145 Serum or plasma potassium measurement (moles/volume) 3.9 mmol/L 3.6-5.0 Serum or plasma chloride measurement (moles/volume) 110 mmol/L 98-107 Carbon dioxide 19 mmol/L 21-32 Serum or plasma anion gap determination (moles/volume) 10 mmol/L 5-14 Serum or plasma urea nitrogen measurement (mass/volume ) 24 mg/dL 7-18 Serum or plasma creatinine measurement (mass/volume) 0.78 mg/dL 0.60-1.30 Serum or plasma urea nitrogen/creatinine mass ratio 31 NRG Serum or plasma creatinine measurement w ith calculation of estimated glomerular filtration rate > NRG Serum or plasma glucose measurement (mass/volume) 109 mg/dL 70-105 Serum or plasma calcium measurement (mass/volume) 7.5 mg/dL 8.5-10.1 Serum or plasma total bilirubin measurement (mass/volu me) 0.3 mg/dL 0.1-1.0 Serum or plasma alkaline phosphatase syeda surement (enzymatic activity/volume) 68 U/L 40-136 Serum or plasma aspartate aminotransfera se measurement (enzymatic activity/volume) 14 U/L 5-34 Serum or plasma alanine aminotransferase measurement (enzymatic activity/volume) 22 U/L 0-55 Serum or plasma protein measurement (mass/volume) 4.5 g/dL 6.4-8.2 Serum or plasma albumin measurement (mass/volume) 2.2 g/dL 3.2-4.5 CALCIUM CORRECTED 8.9 mg/dL 8.5-10.1 Serum or plasma troponin i.cardiac measu rement (mass/volume) - 09/25/18 04:38 Serum or plasma troponin i.cardiac measurement (mass/v olume) < ng/mL <0.028 Lipid 1996 panel - 09/25/18 04:38 Serum or plasma triglyceride measurement (mass/volume) 75 mg/dL <150 Serum or plasma cholesterol measurement (mass/volume) 51 mg/dL < 200 Serum or plasma cholesterol in HDL measurement (mass/v olume) < mg/dL 40-60 Cholesterol in LDL [mass/volume] in serum or plasma by direct assay 29 mg/dL 1-129 Serum or plasma cholesterol in VLDL measurement (mass/ volume) 15 mg/dL 5-40 Serum or plasma phosphate measurement (m ass/volume) - 09/25/18 04:38 Serum or plasma phosphate measurement (mass/volume) 3.8 mg/dL 2.3-4.7 Magnesium - 09/25/18 04:38 Magnesium 1.6 mg/dL 1.8-2.4 Complete blood count (CBC) with automate d white blood cell (WBC) differential - 09/25/18 05:35 Blood leukocytes automated count (number/volume) 13.6 10*3/uL 4.3-11.0 Blood erythrocytes automated count (number/volume) 1.96 10*6/uL 4.35-5.85 Venous blood hemoglobin measurement (mass/volume) 6.1 g/dL 13.3-17.7 Blood hematocrit (volume fraction) 18 % 40-54 Automated erythrocyte mean corpuscular volume 93 [ foz_us] 80-99 Automated erythrocyte mean corpuscular h emoglobin (mass per erythrocyte) 31 pg 25-34 Automated erythrocyte mean corpuscular h emoglobin concentration measurement (mass/volume) 33 g/dL 32-36 Automated erythrocyte distribution width ratio 14. 5 % 10.0- 14.5 Automated blood platelet count (count/volume) 253 10*3/uL 130-400 Automated blood platelet mean volume measurement 8.8 [foz_us] 7.4-10.4 Automated blood neutrophils/100 leukocytes 80 % 42-75 Automated blood lymphocytes/100 leukocytes 12 % 12-44 Blood monocytes/100 leukocytes 7 % 0-12 Automated blood eosinophils/100 leukocytes 0 % 0-10 Automated blood basophils/100 leukocytes 0 % 0-10 Blood neutrophils automated count (number/volume) 10.9 10*3 1.8-7.8 Blood lymphocytes automated count (number/volume) 1.6 10*3 1.0-4.0 Blood monocytes automated count (number/volume) 1. 0 10*3 0.0-1.0 Automated eosinophil count 0.1 10*3/uL 0 .0-0.3 Automated blood basophil count (count/volume) 0.0 10*3/uL 0.0-0.1 Capillary blood glucose measurement by g lucometer (mass/volume) - 09/25/18 12:26 Capillary blood glucose measurement by glucometer (mas s/volume) 143 mg/dL 70-110 Complete blood count (CBC) with automate d white blood cell (WBC) differential - 09/25/18 13:20 Blood leukocytes automated count (number/volume) 18.4 10*3/uL 4.3-11.0 Blood erythrocytes automated count (number/volume) 2.33 10*6/uL 4.35-5.85 Venous blood hemoglobin measurement (mass/volume) 7.1 g/dL 13.3-17.7 Blood hematocrit (volume fraction) 21 % 40-54 Automated erythrocyte mean corpuscular volume 91 [ foz_us] 80-99 Automated erythrocyte mean corpuscular h emoglobin (mass per erythrocyte) 31 pg 25-34 Automated erythrocyte mean corpuscular h emoglobin concentration measurement (mass/volume) 34 g/dL 32-36 Automated erythrocyte distribution width ratio 15. 8 % 10.0- 14.5 Automated blood platelet count (count/volume) 251 10*3/uL 130-400 Automated blood platelet mean volume measurement 9.2 [foz_us] 7.4-10.4 Automated blood neutrophils/100 leukocytes 85 % 42-75 Automated blood lymphocytes/100 leukocytes 8 % 12-44 Blood monocytes/100 leukocytes 7 % 0-12 Automated blood eosinophils/100 leukocytes 0 % 0-10 Automated blood basophils/100 leukocytes 0 % 0-10 Blood neutrophils automated count (number/volume) 15.6 10*3 1.8-7.8 Blood lymphocytes automated count (number/volume) 1.5 10*3 1.0-4.0 Blood monocytes automated count (number/volume) 1. 3 10*3 0.0-1.0 Automated eosinophil count 0.0 10*3/uL 0 .0-0.3 Automated blood basophil count (count/volume) 0.0 10*3/uL 0.0-0.1 Whole blood basic metabolic panel - 09/12 08/31 13:20 Serum or plasma sodium measurement (moles/volume) 140 mmol/L 135-145 Serum or plasma potassium measurement (moles/volume) 4.3 mmol/L 3.6-5.0 Serum or plasma chloride measurement (moles/volume) 112 mmol/L 98-107 Carbon dioxide 21 mmol/L 21-32 Serum or plasma anion gap determination (moles/volume) 7 mmol/L 5-14 Serum or plasma urea nitrogen measurement (mass/volume ) 23 mg/dL 7-18 Serum or plasma creatinine measurement (mass/volume) 0.73 mg/dL 0.60-1.30 Serum or plasma urea nitrogen/creatinine mass ratio 32 NRG Serum or plasma creatinine measurement w ith calculation of estimated glomerular filtration rate > NRG Serum or plasma glucose measurement (mass/volume) 132 mg/dL 70-105 Serum or plasma calcium measurement (mass/volume) 7.1 mg/dL 8.5-10.1 Serum or plasma troponin i.cardiac measu rement (mass/volume) - 09/25/18 13:20 Serum or plasma troponin i.cardiac measurement (mass/v olume) < ng/mL <0.028 Blood manual differential performed dete ction - 09/25/18 13:20 Blood monocytes/100 leukocytes 4 % NRG Manual blood segmented neutrophils/100 leukocytes 73 % NRG Blood band neutrophils/100 leukocytes 13 % NRG Manual blood lymphocytes/100 leukocytes 10 % NRG Manual eosinophils/100 leukocytes in nose 0 % NRG Manual blood basophils/100 leukocytes 0 % NRG Blood erythrocyte morphology finding identification NORMAL NRG Whole blood hemoglobin and hematocrit [facility] - 09/25/18 16:50 Venous blood hemoglobin measurement (mass/volume) 6.5 g/dL 13.3-17.7 Blood hematocrit (volume fraction) 19 % 40-54 Capillary blood glucose measurement by g lucometer (mass/volume) - 09/25/18 17:37 Capillary blood glucose measurement by glucometer (mas s/volume) 155 mg/dL 70-110 Capillary blood glucose measurement by g lucometer (mass/volume) - 09/25/18 20:58 Capillary blood glucose measurement by glucometer (mas s/volume) 154 mg/dL 70-110 Whole blood hemoglobin and hematocrit lucy gildardo - 09/25/18 23:40 Venous blood hemoglobin measurement (mass/volume) 8.1 g/dL 13.3-17.7 Blood hematocrit (volume fraction) 24 % 40-54 PREALBUMIN - 09/25/18 23:40 PREALBUM 6.3 % 18.0-37.0 Complete blood count (CBC) with automate d white blood cell (WBC) differential - 09/26/18 03:00 Blood leukocytes automated count (number/volume) 13.7 10*3/uL 4.3-11.0 Blood erythrocytes automated count (number/volume) 2.58 10*6/uL 4.35-5.85 Venous blood hemoglobin measurement (mass/volume) 7.8 g/dL 13.3-17.7 Blood hematocrit (volume fraction) 23 % 40-54 Automated erythrocyte mean corpuscular volume 89 [ foz_us] 80-99 Automated erythrocyte mean corpuscular h emoglobin (mass per erythrocyte) 30 pg 25-34 Automated erythrocyte mean corpuscular h emoglobin concentration measurement (mass/volume) 34 g/dL 32-36 Automated erythrocyte distribution width ratio 16. 0 % 10.0- 14.5 Automated blood platelet count (count/volume) 241 10*3/uL 130-400 Automated blood platelet mean volume measurement 8.9 [foz_us] 7.4-10.4 Automated blood neutrophils/100 leukocytes 74 % 42-75 Automated blood lymphocytes/100 leukocytes 17 % 12-44 Blood monocytes/100 leukocytes 8 % 0-12 Automated blood eosinophils/100 leukocytes 1 % 0-10 Automated blood basophils/100 leukocytes 0 % 0-10 Blood neutrophils automated count (number/volume) 10.1 10*3 1.8-7.8 Blood lymphocytes automated count (number/volume) 2.3 10*3 1.0-4.0 Blood monocytes automated count (number/volume) 1. 0 10*3 0.0-1.0 Automated eosinophil count 0.2 10*3/uL 0 .0-0.3 Automated blood basophil count (count/volume) 0.0 10*3/uL 0.0-0.1 Comprehensive metabolic panel - 09/26/18 03:00 Serum or plasma sodium measurement (moles/volume) 143 mmol/L 135-145 Serum or plasma potassium measurement (moles/volume) 4.2 mmol/L 3.6-5.0 Serum or plasma chloride measurement (moles/volume) 114 mmol/L 98-107 Carbon dioxide 20 mmol/L 21-32 Serum or plasma anion gap determination (moles/volume) 9 mmol/L 5-14 Serum or plasma urea nitrogen measurement (mass/volume ) 20 mg/dL 7-18 Serum or plasma creatinine measurement (mass/volume) 0.73 mg/dL 0.60-1.30 Serum or plasma urea nitrogen/creatinine mass ratio 27 NRG Serum or plasma creatinine measurement w ith calculation of estimated glomerular filtration rate > NRG Serum or plasma glucose measurement (mass/volume) 128 mg/dL 70-105 Serum or plasma calcium measurement (mass/volume) 7.3 mg/dL 8.5-10.1 Serum or plasma total bilirubin measurement (mass/volu me) 0.4 mg/dL 0.1-1.0 Serum or plasma alkaline phosphatase syeda surement (enzymatic activity/volume) 51 U/L 40-136 Serum or plasma aspartate aminotransfera se measurement (enzymatic activity/volume) 11 U/L 5-34 Serum or plasma alanine aminotransferase measurement (enzymatic activity/volume) 14 U/L 0-55 Serum or plasma protein measurement (mass/volume) 4.3 g/dL 6.4-8.2 Serum or plasma albumin measurement (mass/volume) 2.1 g/dL 3.2-4.5 CALCIUM CORRECTED 8.8 mg/dL 8.5-10.1 Serum or plasma phosphate measurement (m ass/volume) - 09/26/18 03:00 Serum or plasma phosphate measurement (mass/volume) 2.9 mg/dL 2.3-4.7 Magnesium - 09/26/18 03:00 Magnesium 2.1 mg/dL 1.8-2.4 Whole blood hemoglobin and hematocrit pa gildardo - 09/26/18 10:33 Venous blood hemoglobin measurement (mass/volume) 7.4 g/dL 13.3-17.7 Blood hematocrit (volume fraction) 22 % 40-54 Capillary blood glucose measurement by g lucometer (mass/volume) - 09/26/18 11:27 Capillary blood glucose measurement by glucometer (mas s/volume) 138 mg/dL 70-110 Capillary blood glucose measurement by g lucometer (mass/volume) - 09/26/18 16:14 Capillary blood glucose measurement by glucometer (mas s/volume) 126 mg/dL 70-110 Whole blood hemoglobin and [facility]oc[facility] - 09/26/18 16:55 Venous blood hemoglobin measurement (mass/volume) 7.5 g/dL 13.3-17.7 Blood hematocrit (volume fraction) 22 % 40-54 Capillary blood glucose measurement by g lucometer (mass/volume) - 09/26/18 21:20 Capillary blood glucose measurement by glucometer (mas s/volume) 129 mg/dL 70-110 Whole blood hemoglobin and hematocrit [facility] - 09/26/18 22:40 Venous blood hemoglobin measurement (mass/volume) 6.7 g/dL 13.3-17.7 Blood hematocrit (volume fraction) 20 % 40-54 Complete blood count (CBC) with automate d white blood cell (WBC) differential - 09/27/18 03:30 Blood leukocytes automated count (number/volume) 16.6 10*3/uL 4.3-11.0 Blood erythrocytes automated count (number/volume) 2.55 10*6/uL 4.35-5.85 Venous blood hemoglobin measurement (mass/volume) 7.8 g/dL 13.3-17.7 Blood hematocrit (volume fraction) 23 % 40-54 Automated erythrocyte mean corpuscular volume 91 [ foz_us] 80-99 Automated erythrocyte mean corpuscular h emoglobin (mass per erythrocyte) 31 pg 25-34 Automated erythrocyte mean corpuscular h emoglobin concentration measurement (mass/volume) 34 g/dL 32-36 Automated erythrocyte distribution width ratio 15. 0 % 10.0- 14.5 Automated blood platelet count (count/volume) 273 10*3/uL 130-400 Automated blood platelet mean volume measurement 9.0 [foz_us] 7.4-10.4 Automated blood neutrophils/100 leukocytes 80 % 42-75 Automated blood lymphocytes/100 leukocytes 11 % 12-44 Blood monocytes/100 leukocytes 8 % 0-12 Automated blood eosinophils/100 leukocytes 1 % 0-10 Automated blood basophils/100 leukocytes 0 % 0-10 Blood neutrophils automated count (number/volume) 13.3 10*3 1.8-7.8 Blood lymphocytes automated count (number/volume) 1.8 10*3 1.0-4.0 Blood monocytes automated count (number/volume) 1. 3 10*3 0.0-1.0 Automated eosinophil count 0.2 10*3/uL 0 .0-0.3 Automated blood basophil count (count/volume) 0.0 10*3/uL 0.0-0.1 Comprehensive metabolic panel - 09/27/18 03:30 Serum or plasma sodium measurement (moles/volume) 139 mmol/L 135-145 Serum or plasma potassium measurement (moles/volume) 3.9 mmol/L 3.6-5.0 Serum or plasma chloride measurement (moles/volume) 113 mmol/L 98-107 Carbon dioxide 17 mmol/L 21-32 Serum or plasma anion gap determination (moles/volume) 9 mmol/L 5-14 Serum or plasma urea nitrogen measurement (mass/volume ) 16 mg/dL 7-18 Serum or plasma creatinine measurement (mass/volume) 0.64 mg/dL 0.60-1.30 Serum or plasma urea nitrogen/creatinine mass ratio 25 NRG Serum or plasma creatinine measurement w ith calculation of estimated glomerular filtration rate > NRG Serum or plasma glucose measurement (mass/volume) 122 mg/dL 70-105 Serum or plasma calcium measurement (mass/volume) 7.3 mg/dL 8.5-10.1 Serum or plasma total bilirubin measurement (mass/volu me) 0.6 mg/dL 0.1-1.0 Serum or plasma alkaline phosphatase syeda surement (enzymatic activity/volume) 64 U/L 40-136 Serum or plasma aspartate aminotransfera se measurement (enzymatic activity/volume) 27 U/L 5-34 Serum or plasma alanine aminotransferase measurement (enzymatic activity/volume) 30 U/L 0-55 Serum or plasma protein measurement (mass/volume) 4.4 g/dL 6.4-8.2 Serum or plasma albumin measurement (mass/volume) 2.2 g/dL 3.2-4.5 CALCIUM CORRECTED 8.7 mg/dL 8.5-10.1 Serum or plasma phosphate measurement (m ass/volume) - 09/27/18 03:30 Serum or plasma phosphate measurement (mass/volume) 3.2 mg/dL 2.3-4.7 Magnesium - 09/27/18 03:30 Magnesium 1.7 mg/dL 1.8-2.4 Capillary blood glucose measurement by g lucometer (mass/volume) - 09/27/18 11:07 Capillary blood glucose measurement by glucometer (mas s/volume) 141 mg/dL 70-110 Whole blood hemoglobin and hematocrit [facility] - 09/27/18 12:20 Venous blood hemoglobin measurement (mass/volume) 7.7 g/dL 13.3-17.7 Blood hematocrit (volume fraction) 23 % 40-54 Capillary blood glucose measurement by g lucometer (mass/volume) - 09/27/18 16:01 Capillary blood glucose measurement by glucometer (mas s/volume) 124 mg/dL 70-110 Whole blood hemoglobin and hematocrit [facility] 09/27/18 18:26 Venous blood hemoglobin measurement (mass/volume) 7.8 g/dL 13.3-17.7 Blood hematocrit (volume fraction) 23 % 40-54 Whole blood hemoglobin and hematocrit [facility] 09/28/18 00:05 Venous blood hemoglobin measurement (mass/volume) 7.4 g/dL 13.3-17.7 Blood hematocrit (volume fraction) 22 % 40-54 Complete blood count (CBC) with automate d white blood cell (WBC) differential - 09/28/18 03:30 Blood leukocytes automated count (number/volume) 15.5 10*3/uL 4.3-11.0 Blood erythrocytes automated count (number/volume) 2.41 10*6/uL 4.35-5.85 Venous blood hemoglobin measurement (mass/volume) 7.3 g/dL 13.3-17.7 Blood hematocrit (volume fraction) 22 % 40-54 Automated erythrocyte mean corpuscular volume 91 [ foz_us] 80-99 Automated erythrocyte mean corpuscular h emoglobin (mass per erythrocyte) 30 pg 25-34 Automated erythrocyte mean corpuscular h emoglobin concentration measurement (mass/volume) 34 g/dL 32-36 Automated erythrocyte distribution width ratio 14. 8 % 10.0- 14.5 Automated blood platelet count (count/volume) 343 10*3/uL 130-400 Automated blood platelet mean volume measurement 9.1 [foz_us] 7.4-10.4 Automated blood neutrophils/100 leukocytes 79 % 42-75 Automated blood lymphocytes/100 leukocytes 12 % 12-44 Blood monocytes/100 leukocytes 7 % 0-12 Automated blood eosinophils/100 leukocytes 1 % 0-10 Automated blood basophils/100 leukocytes 0 % 0-10 Blood neutrophils automated count (number/volume) 12.3 10*3 1.8-7.8 Blood lymphocytes automated count (number/volume) 1.9 10*3 1.0-4.0 Blood monocytes automated count (number/volume) 1. 1 10*3 0.0-1.0 Automated eosinophil count 0.2 10*3/uL 0 .0-0.3 Automated blood basophil count (count/volume) 0.0 10*3/uL 0.0-0.1 Whole blood basic metabolic panel - 09/12 11/30 03:30 Serum or plasma sodium measurement (moles/volume) 138 mmol/L 135-145 Serum or plasma potassium measurement (moles/volume) 4.0 mmol/L 3.6-5.0 Serum or plasma chloride measurement (moles/volume) 109 mmol/L 98-107 Carbon dioxide 18 mmol/L 21-32 Serum or plasma anion gap determination (moles/volume) 11 mmol/L 5-14 Serum or plasma urea nitrogen measurement (mass/volume ) 14 mg/dL 7-18 Serum or plasma creatinine measurement (mass/volume) 0.64 mg/dL 0.60-1.30 Serum or plasma urea nitrogen/creatinine mass ratio 22 NRG Serum or plasma creatinine measurement w ith calculation of estimated glomerular filtration rate > NRG Serum or plasma glucose measurement (mass/volume) 127 mg/dL 70-105 Serum or plasma calcium measurement (mass/volume) 7.6 mg/dL 8.5-10.1 Serum or plasma phosphate measurement (m ass/volume) - 09/28/18 03:30 Serum or plasma phosphate measurement (mass/volume) 3.4 mg/dL 2.3-4.7 Magnesium - 09/28/18 03:30 Magnesium 1.7 mg/dL 1.8-2.4 Whole blood hemoglobin and hematocrit pa gildardo - 09/28/18 12:00 Venous blood hemoglobin measurement (mass/volume) 7.1 g/dL 13.3-17.7 Blood hematocrit (volume fraction) 21 % 40-54 Capillary blood glucose measurement by g lucometer (mass/volume) - 09/28/18 12:18 Capillary blood glucose measurement by glucometer (mas s/volume) 141 mg/dL 70-110 Complete urinalysis with reflex to cultu re - 11/28/18 22:10 Urine color determination YELLOW NRG Urine clarity determination SLIGHTLY CLOUDY NRG Urine pH measurement by test strip 8 5-9 Specific gravity of urine by test strip 1.010 1.016-1.022 Urine protein assay by test strip, semi-quantitative 3+ NEGATIVE Urine glucose detection by automated test strip NE GATIVE NEGATIVE Erythrocytes detection in urine sediment by light micr oscopy 4+ NEGATIVE Urine ketones detection by automated test strip NE GATIVE NEGATIVE Urine nitrite detection by test strip NEGATIVE NEGATIVE Urine total bilirubin detection by test strip NEGA TIVE NEGATIVE Urine urobilinogen measurement by automated test strip (mass/volume) NORMAL NORMAL Urine leukocyte esterase detection by dipstick 3+ NEGATIVE Automated urine sediment erythrocyte cou nt by microscopy (number/high power field) [HPF] NRG Automated urine sediment leukocyte count by microscopy (number/high power field) [HPF] NRG Bacteria detection in urine sediment by light microsco py LARGE NRG Squamous epithelial cells detection in u rine sediment by light microscopy 0-2 NRG Crystals detection in urine sediment by light microsco py NONE NRG Casts detection in urine sediment by light microscopy NONE NRG Mucus detection in urine sediment by light microscopy MODERATE NRG Complete urinalysis with reflex to culture YES NRG Bacterial urine culture - 11/28/18 22:10 Bacterial urine culture [id number] NRG COLONY COUNT >100,000/ML NRG FTX;REPORTABLE SUSCEPTIBILITY REPORTED 11-30-18 05. NRG Dirithromycin susceptibility test by dis k diffusion - 11/28/18 22:10 Gentamicin susceptibility test by minimum inhibitory c oncentration <= NRG Trimethoprim/sulfamethoxazole susceptibi lity test by minimum inhibitoryconcentration <= NRG Levofloxacin susceptibility test by minimum inhibitory concentration <= NRG Ampicillin susceptibility test by minimum inhibitory c oncentration <= NRG Cefazolin susceptibility test by minimum inhibitory co ncentration 16 NRG Ceftriaxone susceptibility test by minimum inhibitory concentration <= NRG Ciprofloxacin susceptibility test by minimum inhibitor y concentration <= NRG Nitrofurantoin susceptibility test by mi nimum inhibitory concentration > NRG Amoxicillin and clavulanate potassium susc GUMARO <= NRG Blood CBC with ordered manual differenti al panel - 12/01/18 11:00 Blood leukocytes automated count (number/volume) 8.0 10*3/uL 4.3-11.0 Blood erythrocytes automated count (number/volume) 3.81 10*6/uL 4.35-5.85 Venous blood hemoglobin measurement (mass/volume) 10.5 g/dL 13.3-17.7 Blood hematocrit (volume fraction) 33 % 40-54 Automated erythrocyte mean corpuscular volume 88 [ [facility]_us] 80-99 Automated erythrocyte mean corpuscular h emoglobin (mass per erythrocyte) 28 pg 25-34 Automated erythrocyte mean corpuscular h emoglobin concentration measurement (mass/volume) 31 g/dL 32-36 Automated erythrocyte distribution width ratio 15. 3 % 10.0- 14.5 Automated blood platelet count (count/volume) 400 10*3/uL 130-400 Automated blood platelet mean volume measurement 9.1 [[facility]_us] 7.4-10.4 Automated blood neutrophils/100 leukocytes 74 % 42-75 Automated blood lymphocytes/100 leukocytes 16 % 12-44 Blood monocytes/100 leukocytes 10 % NRG Automated blood eosinophils/100 leukocytes 2 % 0-10 Automated blood basophils/100 leukocytes 0 % 0-10 Blood neutrophils automated count (number/volume) 5.9 10*3 1.8-7.8 Blood lymphocytes automated count (number/volume) 1.3 10*3 1.0-4.0 Blood monocytes automated count (number/volume) 0. 7 10*3 0.0-1.0 Automated eosinophil count 0.1 10*3/uL 0 .0-0.3 Automated blood basophil count (count/volume) 0.0 10*3/uL 0.0-0.1 Manual blood segmented neutrophils/100 leukocytes 61 % NRG Blood band neutrophils/100 leukocytes 6 % NRG Manual blood lymphocytes/100 leukocytes 21 % NRG Manual eosinophils/100 leukocytes in nose 2 % NRG Blood erythrocyte morphology finding identification NORMAL [facility] Whole blood basic metabolic panel - 11/13 11:00 Serum or plasma sodium measurement (moles/volume) 138 mmol/L 135-145 Serum or plasma potassium measurement (moles/volume) 3.8 mmol/L 3.6-5.0 Serum or plasma chloride measurement (moles/volume) 104 mmol/L 98-107 Carbon dioxide 21 mmol/L 21-32 Serum or plasma anion gap determination (moles/volume) 13 mmol/L 5-14 Serum or plasma urea nitrogen measurement (mass/volume ) 31 mg/dL 7-18 Serum or plasma creatinine measurement (mass/volume) 0.83 mg/dL 0.60-1.30 Serum or plasma urea nitrogen/creatinine mass ratio 37 NRG Serum or plasma creatinine measurement w ith calculation of estimated glomerular filtration rate > NRG Serum or plasma glucose measurement (mass/volume) 81 mg/dL 70-105 Serum or plasma calcium measurement (mass/volume) 9.9 mg/dL 8.5-10.1 Serum or plasma uric acid measurement (m ass/volume) - 12/01/18 11:00 Serum or plasma uric acid measurement (mass/volume) 7.6 mg/dL 2.6-7.2 Serum or plasma C reactive protein measu rement (mass/volume) - 12/01/18 11:00 Serum or plasma C reactive protein measurement (mass/v olume) 14.03 mg/dL 0.00-0.50 CMP - 01/07/19 10:37 GLUCOSE 105 mg/dL 65-99 UREA NITROGEN (BUN) 32 mg/dL 7-25 CREATININE 1.00 mg/dL 0.70-1.18 eGFR NON-AFR. KITTITIAN 72 mL/min/1.73m2 > OR = 60 eGFR 84 mL/min/1.73m2 > OR = 60 BUN/CREATININE RATIO 32 (calc) 6-22 SODIUM 140 mmol/L 135-146 POTASSIUM 3.8 mmol/L 3.5-5.3 CHLORIDE 103 mmol/L 98-110 CARBON DIOXIDE 25 mmol/L 20-32 CALCIUM 9.1 mg/dL 8.6-10.3 PROTEIN, TOTAL 6.8 g/dL 6.1-8.1 ALBUMIN 4.0 g/dL 3.6-5.1 GLOBULIN 2.8 g/dL (calc) 1.9-3.7 ALBUMIN/GLOBULIN RATIO 1.4 (calc) 1.0-2. 5 BILIRUBIN, TOTAL 0.5 mg/dL 0.2-1.2 ALKALINE PHOSPHATASE 77 U/L 40-115 AST 11 U/L 10-35 ALT 9 U/L 9-46 CBC - 01/07/19 10:37 WHITE BLOOD CELL COUNT 16.7 Thousand/uL 3.8-10.8 RED BLOOD CELL COUNT 3.85 Million/uL 4.2 0-5.80 HEMOGLOBIN 10.7 g/dL 13.2-17.1 HEMATOCRIT 34.7 % 38.5-50.0 MCV 90.1 fL 80.0-100.0 MCH 27.8 pg 27.0-33.0 MCHC 30.8 g/dL 32.0-36.0 RDW 15.7 % 11.0-15.0 PLATELET COUNT 316 Thousand/uL 140-400 MPV 9.5 fL 7.5-12.5 ABSOLUTE NEUTROPHILS 44103 cells/uL 1500 -7800 ABSOLUTE LYMPHOCYTES 1670 cells/uL 850-3 900 ABSOLUTE MONOCYTES 1019 cells/uL 200-950 ABSOLUTE EOSINOPHILS 234 cells/uL 15-500 ABSOLUTE BASOPHILS 50 cells/uL 0-200 NEUTROPHILS 82.2 % NRG LYMPHOCYTES 10.0 % NRG MONOCYTES 6.1 % NRG EOSINOPHILS 1.4 % NRG BASOPHILS 0.3 % NRG CBC - 01/15/19 11:05 WHITE BLOOD CELL COUNT 12.0 Thousand/uL 3.8-10.8 RED BLOOD CELL COUNT 3.91 Million/uL 4.2 0-5.80 HEMOGLOBIN 10.9 g/dL 13.2-17.1 HEMATOCRIT 35.3 % 38.5-50.0 MCV 90.3 fL 80.0-100.0 MCH 27.9 pg 27.0-33.0 MCHC 30.9 g/dL 32.0-36.0 RDW 15.7 % 11.0-15.0 PLATELET COUNT 479 Thousand/uL 140-400 MPV 9.2 fL 7.5-12.5 ABSOLUTE NEUTROPHILS 8844 cells/uL 1500- 7800 ABSOLUTE LYMPHOCYTES 2388 cells/uL 850-3 900 ABSOLUTE MONOCYTES 540 cells/uL 200-950 ABSOLUTE EOSINOPHILS 180 cells/uL 15-500 ABSOLUTE BASOPHILS 48 cells/uL 0-200 NEUTROPHILS 73.7 % NRG LYMPHOCYTES 19.9 % NRG MONOCYTES 4.5 % NRG EOSINOPHILS 1.5 % NRG BASOPHILS 0.4 % NRG CBC - 02/07/19 13:38 WHITE BLOOD CELL COUNT 7.5 Thousand/uL 3 .8-10.8 RED BLOOD CELL COUNT 4.53 Million/uL 4.2 0-5.80 HEMOGLOBIN 13.3 g/dL 13.2-17.1 HEMATOCRIT 41.8 % 38.5-50.0 MCV 92.3 fL 80.0-100.0 MCH 29.4 pg 27.0-33.0 MCHC 31.8 g/dL 32.0-36.0 RDW 15.6 % 11.0-15.0 PLATELET COUNT 258 Thousand/uL 140-400 MPV 9.7 fL 7.5-12.5 ABSOLUTE NEUTROPHILS 4583 cells/uL 1500- 7800 ABSOLUTE LYMPHOCYTES 2018 cells/uL 850-3 900 ABSOLUTE MONOCYTES 555 cells/uL 200-950 ABSOLUTE EOSINOPHILS 308 cells/uL 15-500 ABSOLUTE BASOPHILS 38 cells/uL 0-200 NEUTROPHILS 61.1 % NRG LYMPHOCYTES 26.9 % NRG MONOCYTES 7.4 % NRG EOSINOPHILS 4.1 % NRG BASOPHILS 0.5 % NRG BMP - 07/01/19 15:25 GLUCOSE 101 mg/dL 65-139 UREA NITROGEN (BUN) 20 mg/dL 7-25 CREATININE 1.29 mg/dL 0.70-1.18 eGFR NON-AFR. KITTITIAN 53 mL/min/1.73m2 > OR = 60 eGFR 61 mL/min/1.73m2 > OR = 60 BUN/CREATININE RATIO 16 (calc) 6-22 SODIUM 139 mmol/L 135-146 POTASSIUM 4.2 mmol/L 3.5-5.3 CHLORIDE 103 mmol/L 98-110 CARBON DIOXIDE 30 mmol/L 20-32 CALCIUM 9.3 mg/dL 8.6-10.3 PSA - 07/01/19 15:25 PSA, TOTAL 1.1 ng/mL < OR = 4.0 Complete blood count (CBC) with automate d white blood cell (WBC) differential - 11/01/19 17:10 Blood leukocytes automated count (number/volume) 10.1 10*3/uL 4.3-11.0 Blood erythrocytes automated count (number/volume) 3.74 10*6/uL 4.35-5.85 Venous blood hemoglobin measurement (mass/volume) 11.7 g/dL 13.3-17.7 Blood hematocrit (volume fraction) 34 % 40-54 Automated erythrocyte mean corpuscular volume 91 [ foz_us] 80-99 Automated erythrocyte mean corpuscular h emoglobin (mass per erythrocyte) 31 pg 25-34 Automated erythrocyte mean corpuscular h emoglobin concentration measurement (mass/volume) 34 g/dL 32-36 Automated erythrocyte distribution width ratio 14. 4 % 10.0- 14.5 Automated blood platelet count (count/volume) 348 10*3/uL 130-400 Automated blood platelet mean volume measurement 8.3 [foz_us] 7.4-10.4 Automated blood neutrophils/100 leukocytes 68 % 42-75 Automated blood lymphocytes/100 leukocytes 22 % 12-44 Blood monocytes/100 leukocytes 9 % 0-12 Automated blood eosinophils/100 leukocytes 1 % 0-10 Automated blood basophils/100 leukocytes 0 % 0-10 Blood neutrophils automated count (number/volume) 6.9 10*3 1.8-7.8 Blood lymphocytes automated count (number/volume) 2.2 10*3 1.0-4.0 Blood monocytes automated count (number/volume) 0. 9 10*3 0.0-1.0 Automated eosinophil count 0.1 10*3/uL 0 .0-0.3 Automated blood basophil count (count/volume) 0.0 10*3/uL 0.0-0.1 Complete urinalysis with reflex to cultu re - 11/01/19 17:10 Urine color determination WALLACE NRG Urine clarity determination CLOUDY NR G Urine pH measurement by test strip 6.5 5-9 Specific gravity of urine by test strip 1.010 1.016-1.022 Urine protein assay by test strip, semi-quantitative 2+ NEGATIVE Urine glucose detection by automated test strip NE GATIVE NEGATIVE Erythrocytes detection in urine sediment by light micr oscopy 3+ NEGATIVE Urine ketones detection by automated test strip NE GATIVE NEGATIVE Urine nitrite detection by test strip POSITIVE NEGATIVE Urine total bilirubin detection by test strip 1+ NEGATIVE Urine urobilinogen measurement by automated test strip (mass/volume) 1.0 mg/dL < = 1.0 Urine leukocyte esterase detection by dipstick 3+ NEGATIVE Automated urine sediment erythrocyte cou nt by microscopy (number/high power field) > [HPF] NRG Automated urine sediment leukocyte count by microscopy (number/high power field) > [HPF] NRG Bacteria detection in urine sediment by light microsco py MODERATE NRG Squamous epithelial cells detection in u rine sediment by light microscopy RARE NRG Crystals detection in urine sediment by light microsco py NONE NRG Casts detection in urine sediment by light microscopy NONE NRG Mucus detection in urine sediment by light microscopy NEGATIVE NRG Complete urinalysis with reflex to culture YES NRG Comprehensive metabolic panel - 11/01/19 17:10 Serum or plasma sodium measurement (moles/volume) 122 mmol/L 135-145 Serum or plasma potassium measurement (moles/volume) 4.5 mmol/L 3.6-5.0 Serum or plasma chloride measurement (moles/volume) 93 mmol/L 98-107 Carbon dioxide 20 mmol/L 21-32 Serum or plasma anion gap determination (moles/volume) 9 mmol/L 5-14 Serum or plasma urea nitrogen measurement (mass/volume ) 22 mg/dL 7-18 Serum or plasma creatinine measurement (mass/volume) 1.65 mg/dL 0.60-1.30 Serum or plasma urea nitrogen/creatinine mass ratio 13 NRG Serum or plasma creatinine measurement w ith calculation of estimated glomerular filtration rate 41 NRG Serum or plasma glucose measurement (mass/volume) 101 mg/dL 70-105 Serum or plasma calcium measurement (mass/volume) 9.3 mg/dL 8.5-10.1 Serum or plasma total bilirubin measurement (mass/volu me) 0.5 mg/dL 0.1-1.0 Serum or plasma alkaline phosphatase syeda surement (enzymatic activity/volume) 73 U/L 40-136 Serum or plasma aspartate aminotransfera se measurement (enzymatic activity/volume) 16 U/L 5-34 Serum or plasma alanine aminotransferase measurement (enzymatic activity/volume) 8 U/L 0-55 Serum or plasma protein measurement (mass/volume) 7.6 g/dL 6.4-8.2 Serum or plasma albumin measurement (mass/volume) 4.2 g/dL 3.2-4.5 CALCIUM CORRECTED 9.1 mg/dL 8.5-10.1 Encounters ACCT No. Visit Date/Time Discharge Status Pt. Type Provider Facility Loc./Unit Complaint [id number] 07/08/2016 08:44:00 Document Registration [id number] 07/29/2016 07:06:00 Document Registration [id number] 11/01/2019 16:55:00 020 18:42:00 DIS Emergency WANDER AVILES APRN [facility] ER ABNORMAL LABS [id number] 12/01/2018 11:00:00 019 23:59:59 CLS Outpatient NOAH MONIQUE DO [facility] CVS [id number] 11/28/2018 22:10:00 23:59:59 CLS Outpatient BASSEM SHETH MD [facility] LABNPT [id number] 11/21/2018 10:39:00 23:59:59 CLS Outpatient PARRIS NAM [facility] RAD NEUOPATHY [id number] 09/24/2018 14:17:00 15:45:00 DIS Inpatient Alicja PUGH MD [facility] ICU UTI;SEPSIS;BLADDER MASS ;ABD FREE AIR FLUID;POSS- [id number] 04/15/2014 08:27:00 04/15/2014 23:59: 59 CLS Outpatient MEENA DOE MD [id number] 09/25/2013 10:57:00 09/25/2013 23:59: 59 CLS Outpatient NOAH MONIQUE DO [id number] 03/25/2013 09:24:00 03/25/2013 23:59: 59 CLS Outpatient NOAH MONIQUE DO [id number] 03/25/2013 09:24:00 03/25/2013 23:59: 59 CLS Outpatient NOAH MONIQUE DO [id number] 12/18/2012 10:33:00 12/18/2012 23:59: 59 CLS Outpatient NOAH MONIQUE DO [id number] 03/19/2012 09:57:00 03/19/2012 23:59:5 9 CLS Outpatient NOAH MONIQUE DO [id number] 03/19/2012 09:57:00 03/19/2012 23:59: 59 CLS Outpatient [id number] 09/12/2012 09:47:00 Document Registration [id number] 10/31/2019 08:00:00 ACT Outpatient MEENA DOE MD [facility] [id number] 07/01/2019 15:20:00 Document Registration [id number] 02/07/2019 13:00:00 Document Registration [id number] 01/15/2019 11:40:00 Document Registration [id number] 01/07/2019 09:20:00 Document Registration [id number] 09/24/2018 09:00:00 Document Registration
== END 2019-11-01 18:42 | disposition left against medical advice (07) ==
LOC: EDUNIT# 16:53 → ER 16:55
DX: E87.1 Hypo-osmolality and hyponatremia (principal); R31.9 Hematuria, unspecified
CPT/HCPCS: 36415; 80053; 81000; 85025; 87077; 87088

== ENCOUNTER → 2019-11-19 | Outpatient (CLI) | payer MEDICARE ==
[~2019-11-19] MED LIST changes: +CEFD300C3 PO
--- NOTE | 2019-11-19 13:47 | Diagnostic Imaging Report ---
PROCEDURE: CT chest without contrast. TECHNIQUE: Multiple contiguous axial images were obtained through the chest without the use of intravenous contrast. Auto Exposure Controls were utilized during the CT exam to meet ALARA standards for radiation dose reduction. INDICATION: Hyponatremia. COMPARISON: 09/24/2018 CT chest. FINDINGS: There is considerable pleural scarring in the lung apices with some associated calcification. This has progressed slightly since previous exam. Scattered the subpleural cystic changes most notably along the central portion of the lungs though subpleural and distribution along the posterior chest wall bilaterally in the lower lobe. There is an 8 mm soft tissue nodule along the fissure between the right middle and right upper lobe anteriorly. There is also a 5 mm nodule noncalcified posteriorly in the superior segment right lower lobe near the pleural surface. There is also an 8 mm nodule posteriorly in the right costophrenic angle near pleural surface that is stable. No thyroid nodules demonstrated. Dense atherosclerotic changes aorta. No evidence of aortic aneurysm. No mediastinal or hilar adenopathy pathologic size. No blastic or lytic bony changes. IMPRESSION: 1. 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 There is subpleural honeycombing present, however. 2. Multiple pulmonary nodules on the right as described all stable. 3. Calcified pleural plaquing in the lung apices bilaterally which is slightly more prominent today. These have not changed in appearance when compared with previous examination. Dictated by: Dictated on workstation # [id number]
== END ==
LOC: RAD 12:31
PROVIDERS: ATTEND Family Medicine
DX: E87.1 Hypo-osmolality and hyponatremia (principal); J43.9 Emphysema, unspecified; J92.9 Pleural plaque without asbestos; R91.8 Other nonspecific abnormal finding of lung field
CPT/HCPCS: 71250

== ENCOUNTER 2019-12-02 05:33 | Outpatient (RCR) | payer MEDICARE ==
[~2019-12-02] VITALS: Ht 177 cm; Wt 86.3 kg
[~2019-12-02 05:33] MED LIST changes: +METO-333 PO; +PANT40TA3 PO; +TRZ50T PO
== END 2019-12-02 11:11 | disposition home or self-care (01) ==
LOC: PREOP 05:33
PROVIDERS: ATTEND Urology
DX: Z01.812 Encounter for preprocedural laboratory examination (principal); R33.9 Retention of urine, unspecified; Z20.828 Contact with and (suspected) exposure to other viral communicable diseases
CPT/HCPCS: 87635

== ENCOUNTER 2019-12-04 07:22 | Day surgery (SDC) | payer MEDICARE ==
[~2019-12-04] VITALS: Ht 177 cm; Wt 86.3 kg
[2019-12-04] VITALS (11 sets, daily range): BP systolic 141–171; BP diastolic 78–93
--- NOTE | 2019-12-04 07:17 | Progress Note-Pre Operative ---
Pre-Operative Progress Note H&P Reviewed The H&P was reviewed, patient examined and no changes noted. Date Seen by Provider: Dec 04, 2019 Time Seen by Provider: 09:12 Date H&P Reviewed: Dec 04, 2019 Time H&P Reviewed: 09:12 Pre-Operative Diagnosis: NEUROGENIC BLADDER WITH URINE RETENTION WILLIE WRIGHT MD Dec 04, 2019 07:17
--- NOTE | 2019-12-04 07:19 | Progress Note-Post Operative ---
Post-Operative Progess Note Surgeon (s)/Scenery Builder (s) Surgeon WILLIE WRIGHT MD Scenery Builder: RICHIE PAEZ DO Pre-Operative Diagnosis NEUROGENIC BLADDER WITH URINE RETENTION Post-Operative Diagnosis SAME Procedure & Operative Findings Date of Procedure 12/04/19 Procedure Performed/Findings SUPRAPUBIC TUBE CYSTOSTOMY PLACEMENT Anesthesia Type GENERAL Estimated Blood Loss Estimated blood loss (mL): NEGLIGIGBLE Specimens/Packing Specimens Removed NONE Packing: NONE WILLIE WRIGHT MD Dec 04, 2019 07:18
--- NOTE | 2019-12-04 07:22 | Discharge Inst-Urology ---
Discharge Inst-Urology Reconcile Patient Problems Problems Reviewed?: Yes Final Diagnosis NEUROGENIC BLADDER WITH URINE RETENTION Patient Instructions/Follow Up Plan/Assessment/Instructions Discharge with leg bag day time and large bag night time with instructions, secure suprapubic tube at all time Please make appointment to been seen in office in 2 weeks. Rest till then Showers, no bath Keep bowels soft and moving Increase oral fluids for 48 hours and then as needed. Diet as tolerated. If questions or concerns contact your physician Or seek help at emergency department. WILLIE WRIGHT MD Dec 04, 2019 07:22
--- OUTSIDE RECORDS SUMMARY | 2019-12-04 07:30 | XMS REPORT ---
Author Author Zia MONIQUE Organization [facility] Address [facility] [place] [address] Care Team Providers Care Chemical Worker Name Role Phone ENEIDAFERNANDAA Unavailable PROBLEMS Type Condition ICD9-CM Code ZTB88-BO Code Onset Dates Condition S tatus SNOMED Code Problem Hypertension I10 Active 8994087 3 Problem Tobacco use Z72.0 Active 11251772 0 Problem Hyperlipidemia E78.5 Active 33002 004 Problem Benign prostatic hyperplasia with lower urinary tract symptoms, symptom details unspecified N40.1 Active 80080081 978280 Problem Prediabetes R73.09 Active 9003991 Problem Urinary retention R33.9 Active 26 3618091 Problem Squamous cell carcinoma C44.92 Active 656529165 Problem Neuropathy G62.9 Active 777706976 Problem Bladder disorder, unspecified N32.9 Active 97103266 Problem 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 Acti ve 89603842 Problem Primary insomnia F51.01 Active 397 2004 ALLERGIES No Information ENCOUNTERS Encounter Location Date Diagnosis [place] [id number] [place] [address] Oct, [place] [address] [place] [id number] [address] [place] [address] Oct, Hyponatremia E87.1 [facility] [address] [place] [id number] [address] [place] [address] Oct, Hyponatremia E87.1 [place] [address] [place] [id number] [address] [place] [address] 24 Oct, 2019 Bladder disorder, unspecifie d N32.9 [place] [address] [place] [id number] [address] [place] [address] Oct, Bladder disorder, unspecifie d N32.9 ; Acute cystitis with hematuria N30.01 ; Hyponatremia E87.1 ; Hypertension I10 ; Tobacco use Z72.0 and Urinary retention R33.9 [facility] [address] [facility] [id number] [address] [place] [id number] 22 Oct, 2019 Bladder disorder, unspecifie d N32.9 [facility] [address] [facility] [id number] [address] [place] [address] 18 Oct, 2019 Benign prostatic hyperplasia with lower urinary tract symptoms, symptom details unspecified N40.1 ; Frequency of urination R35.0 ; Acute cystitis with hematuria N30.01 and Urinary retention R33.9 [place] [address] [facility] [id number] [address] [place] [id number] 20 Jun, 2019 Benign prostatic hyperplasia with lower urinary tract symptoms, symptom details unspecified N40.1 [place] [address] [place] [id number] [address] [place] [id number] 17 Jun, 2019 Benign prostatic hyperplasia with lower urinary tract symptoms, symptom details unspecified N40.1 [place] [address] [facility] [id number] [address] [place] [id number] 17 Jun, 2019 Benign prostatic hyperplasia with lower urinary tract symptoms, symptom details unspecified N40.1 [place] [address] [place] [id number] [address] [place] [id number] Apr, [place] [address] [place] [id number] [address] [place] [address] Mar, Hypertension I10 [place] [address] [place] [id number] [address] [place] [address] Mar, [facility] [address] [facility] [id number] [address] [place] [address] Mar, [place] [address] [place] [id number] [address] [place] [address] Mar, [facility] [address] [place] [id number] [address] [place] [address] Feb, Encounter for Medicare annua l wellness exam Z00.00 ; Hypertension I10 ; Hyperlipidemia E78.5 ; Tobacco use Z72.0 and Bladder disorder, unspecified N32.9 [place] [address] [place] [id number] 08 Feb, 2019 [place] [address] [facility] [id number] [address] [place] [id number] 26 Jan, 2019 Hypertension I10 ; Bladder d isorder, unspecified N32.9 ; Prediabetes R73.09 and Encounter for immunization Z23 [place] [address] [facility] [id number] [address] [id number] 13 Jan, 2019 [place] [address] [address] 06 Jan, 2019 Hypertension I10 and Prediab etes R73.09 [place] [address] [address] Jan, [place] [address] [address] 03 Jan, 2019 Hypertension I10 and Prediab etes R73.09 [facility] [place] [address] [address] 30 Dec, 2018 Acute bacterial conjunctivit is of both eyes H10.33 [place] [address] [address] 27 Dec, 2018 Hypertension I10 and Prediab etes R73.09 [place] [address] [place] [id number] [address] [place] [address] Dec, Hypertension I10 ; Hyperlipi demia E78.5 ; Prediabetes R73.09 ; Bladder disorder, unspecified N32.9 ; Neuropathy G62.9 and Impacted cerumen of right ear H61.21 [facility] [address] [place] [id number] [address] [place] [id number] 22 Dec, 2018 Cellulitis of face L03.211 [place] [address] [place] [address] Dec, [facility] [address] [id number] [address] [place] [address] Dec, [facility] [address] [place] [id number] Dec, Hematuria, unspecified type R31.9 ; Blad baldemar disorder, unspecified N32.9 ; Hypertension I10 ; Hyperlipidemia E78.5 ; Neuropathy G62.9 ; History of peptic ulcer Z87.11 ; 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 and Primary insomnia F51.01 [place] [address] [id number] [address] [place] [address] Nov, Right medial knee pain M25.5 61 [place] [address] [id number] [address] [place] [address] Nov, [place] [address] [id number] [address] [place] [address] Nov, Right medial knee pain M25.5 61 and Acute right ankle pain M25.571 [place] [address] [id number] [address] [place] [address] Nov, [place] [address] [facility] [id number] [address] [place] [address] Nov, Pain in right foot M79.671 a nd Pain of left foot M79.672 [facility] [place] [address] [place] [id number] Nov, Pain of left foot M79.672 and Pain in ri ght foot M79.671 [place] [address] [id number] [address] [place] [address] Nov, Neuropathy G62.9 [facility] [address] [place] [id number] Oct, Physical deconditioning R53.81 ; Right f oot pain M79.671 and Essential hypertension I10 [place] [address] [id number] [address] [place] [phone] September, [facility] [address] [place] [id number] [address] [place] [address] September, Hematuria, unspecified type R31.9 and Chest pressure R07.89 [facility] [address] [address] Jun, Hypertension I10 ; Hyperlipi demia E78.5 ; Tobacco use Z72.0 and Prediabetes R73.09 [place] [address] [address] Apr, [place] [address] [address] Mar, Hypertension I10 [facility] [address] [address] Aug, Lesion of lip K13.0 [place] [address] [address] Apr, Hypertension I10 ; Hyperlipi demia E78.5 ; Prediabetes R73.09 ; Tobacco use Z72.0 and Healthcare maintenance Z00.00 [place] [address] [address] Jul, Hypertension I10 and Multipl e actinic keratoses L57.0 [place] [address] [address] Jul, Hypertension I10 [place] [address] [address] Jun, Hypertension I10 [place] [address] [address] Jun, Hypertension I10 ; Hyperlipi demia E78.5 ; Prediabetes R73.09 ; Tobacco use Z72.0 and Multiple actinic keratoses L57.0 [place] [address] [place] [address] 06 Jan, 2016 Hypertension I10 ; Hyperlipi demia E78.5 and Tobacco use Z72.0 [facility] [address] [facility] [id number] [address] [place] [address] 15 Oct, 2015 [facility] [address] [place] [id number] [address] [place] [address] Jun, Hypertension I10 ; Hyperlipi demia E78.5 ; Prediabetes R73.09 ; Screening for colon cancer Z12.11 and Tobacco use Z72.0 [facility] [address] [facility] [id number] [address] [place] [address] Apr, [facility] [address] [place] [id number] [address] [place] [address] Apr, [facility] [address] [address] Apr, [facility] [address] [place] [id number] [address] [place] [address] Dec, [facility] [address] [place] [id number] [address] [place] [address] Dec, [facility] [address] [place] [id number] [address] [place] [address] Nov, Nondependent tobacco use dis order 305.1 ; Hypertension 401.9 ; Hyperlipidemia 272.4 ; Prediabetes 790.29 ; Colon cancer screening V76.51 and Sunburn 692.71 [facility] [address] [place] [id number] [address] [place] [address] Oct, [facility] [address] [place] [id number] [place] [address] Oct, Other and unspecified hyperl ipidemia 272.4 ; Essential hypertension 401.9 and Essential hypertension, benign 401.1 [facility] [address] [place] [id number] [address] [place] [address] Oct, [facility] [place] [facility] [address] [id number] [address] [place] [address], [place] [address] Aug, [facility] [address] [id number] [address] [place] [address], [place] [address] Aug, [facility] [address] [id number] [address] [place] [address], [place] [address] Jun, [facility] [address] [id number] [address] [place] [address], [place] [address] Jun, [facility] [address] [id number] [address] [place] [address], [place] [address] Apr, [facility] [address] [id number] [address] [place] [address], [place] [address] Apr, [facility] [address] [id number] [address] [place] [address], [place] [address] Apr, [facility] [address] [id number] [address] [place] [address], [place] [address] Apr, [facility] [address] [id number] [address] [place] [address], [place] [address] Mar, [facility] [address] [id number] [address] [place] [address], [place] [address] Mar, [facility] [address] [id number] [address] [place] [address], [place] [address] Mar, [facility] [address] [id number] [address] [place] [address], [place] [address] Mar, [facility] [address] [id number] [address] [place] [address], [place] [address] Feb, [facility] [place] [facility] [address] [id number] [address] [place] [address], [place] [address] Feb, [facility] [address] [id number] [address] [place] [address], [place] [address] Dec, [facility] [address] [id number] [address] [place] [address], [place] [address] Dec, [facility] [address] [id number] [facility] [place] [address] Oct, [facility] [address] [id number] [address] [place] [address], [place] [address] Oct, [facility] [address] [id number] [address] [place] [address], [place] [address] September, [facility] [address] [id number] [address] [place] [address], [place] [address] September, [facility] [address] [id number] [address] [place] [address], [place] [address] September, [facility] [address] [id number] [address] [place] [address], [place] [address] September, [facility] [address] [id number] [address] [place] [address], [place] [address] September, [facility] [address] [id number] [address] [place] [address], [place] [address] September, [facility] [address] [id number] [address] [place] [address], [place] [address] September, [facility] [address] [id number] [address] [place] [address], [place] [address] September, [facility] [address] [id number] [address] [place] [address], [place] [address] September, [facility] [place] [facility] [address] [id number] [address] [place] [address], [place] [address] September, [facility] [place] [facility] [address] [id number] [address] [place] [address], [place] [address] Aug, [facility] [place] [facility] [address] [id number] [address] [place] [address], [place] [address] Aug, [facility] [place] [facility] [address] [id number] [address] [place] [address], [place] [address] Jun, [facility] [place] [facility] [address] [id number] [address] [place] [address], [place] [address] Jun, [facility] [address] [id number] [address] [place] [address], [place] [address] May, [facility] [address] [id number] [address] [place] [address], [place] [address] May, [facility] [address] [id number] [address] [place] [address], [place] [address] May, [facility] [address] [id number] [address] [place] [address], [place] [address] May, [facility] [address] [id number] [address] [place] [address], [place] [address] Apr, [facility] [address] [id number] [address] [place] [address], [place] [address] Apr, [facility] [address] [id number] [address] [place] [address], [place] [address] Mar, [facility] [address] [id number] [address] [place] [address], [place] [address] Mar, [facility] [address] [id number] [address] [place] [address], [place] [address] Feb, [facility] [address] [id number] [address] [place] [address], [place] [address] Feb, [facility] [address] [id number] [address] [place] [address], [place] [address] Dec, [facility] [address] [id number] [address] [place] [address], [place] [address] Dec, [facility] [address] [id number] [address] [place] [address], [place] [address] Dec, [facility] [address] [id number] [address] [place] [address], [place] [address] Oct, [facility] [address] [id number] [address] [place] [address], [place] [address] Oct, [facility] [address] [id number] [address] [place] [address], [place] [address] Oct, [facility] [address] [id number] [address] [place] [address], [place] [address] September, [facility] [address] [id number] [address] [place] [address], [place] [address] September, [facility] [address] [id number] [address] [place] [address], [place] [address] September, [facility] [address] [id number] [address] [place] [address], [place] [address] September, [facility] [address] [id number] [address] [place] [address], [place] [address] Jun, [facility] [address] [id number] [address] [place] [address], [place] [address] Mar, [facility] [address] [id number] [address] [place] [address], [place] [address] Mar, [facility] [address] [id number] [address] [place] [address], [place] [address] Mar, [facility] [address] [id number] [address] [place] [address], [place] [address] Mar, [facility] [address] [id number] [address] [place] [address], [place] [address] Mar, [facility] [place] [facility] [address] [id number] [address] [place] [address] Mar, [facility] [place] [facility] [address] [id number] [address] [place] [address], [place] [address] Feb, [facility] [place] [facility] [address] [id number] [address] [place] [address], [place] [address] Feb, [facility] [place] [facility] [address] [id number] [address] [place] [address], [place] [address] Feb, [facility] [place] [facility] [address] [id number] [address] [place] [address], [place] [address] 29 Feb, 2012 [facility] [address] [id number] [address] [place] [address], [place] [address] Feb, [facility] [address] [id number] [address] [place] [address], [place] [address] 29 Feb, 2012 [facility] [address] [id number] [address] [place] [address], [place] [address] Feb, [facility] [address] [id number] [address] [place] [address], [place] [address] Feb, [facility] [address] [id number] [address] [place] [address], [place] [address] Oct, [facility] [address] [id number] [address] [place] [address], [place] [address] 30 Aug, 2011 [facility] [address] [id number] [address] [place] [address], [place] [address] 17 Aug, 2011 [facility] [address] [id number] [address] [place] [address], [place] [address] 16 Aug, 2011 [facility] [address] [id number] [address] [place] [address], [place] [address] 14 Aug, 2011 [facility] [address] [id number] [address] [place] [address], [place] [address] 05 Jul, 2011 [facility] [address] [id number] [address] [place] [address], [place] [address] May, [facility] [address] [id number] [address] [place] [address], [place] [address] May, [facility] [address] [id number] [address] [place] [address], [place] [address] 30 Mar, 2011 [facility] [address] [id number] [address] [place] [address], [place] [address] 10 Feb, 2011 [facility] [address] [id number] [address] [place] [address], [place] [address] 18 May, 2010 [facility] [address] [facility] [id number] [address] [place] [address] Mar, [facility] [address] [facility] [id number] [address] [place] [address] Feb, [facility] [address] [facility] [id number] [address] [place] [address] Feb, [facility] [address] [facility] [id number] [address] [place] [address] Apr, [facility] [address] [facility] [id number] [address] [place] [address] Apr, IMMUNIZATIONS No Known Immunizations SOCIAL HISTORY [...]
--- OUTSIDE RECORDS SUMMARY | 2019-12-04 07:30 | XMS REPORT ---
Author Author Zia MONIQUE Organization [facility] Address [facility] [place] [address] Care Team Providers Care Fitness Technician Name Role Phone MONIQUEFERNANDAA Unavailable PROBLEMS Type Condition ICD9-CM Code RSI02-VY Code Onset Dates Condition S tatus SNOMED Code Problem Prediabetes R73.09 Active 6339486 Problem Hypertension I10 Active 9364795 3 Problem Tobacco use Z72.0 Active 17200229 0 Problem Primary insomnia F51.01 Active 397 2004 Problem Squamous cell carcinoma C44.92 Active 107194371 Problem Benign prostatic hyperplasia with lower urinary tract symptoms, symptom details unspecified N40.1 Active 64670369 632152 Problem Hyperlipidemia E78.5 Active 79154 004 Problem Neuropathy G62.9 Active 583852148 Problem Bladder disorder, unspecified N32.9 Active 36242190 Problem 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 Acti ve [id number] ALLERGIES No Information ENCOUNTERS Encounter Location Date Diagnosis [place] [id number] [place] [id number] Oct, Benign prostatic hyperplasia with lower urinary tract symptoms, symptom details unspecified N40.1 ; Frequency of urination R35.0 ; Acute cystitis with hematuria N30.01 and Urinary retention R33.9 [place] [address] [place] [id number] [address] [place] [phone] Jun, Benign prostatic hyperplasia with lower urinary tract symptoms, symptom details unspecified N40.1 [place] [address] [place] [id number] [address] [place] [phone] Jun, Benign prostatic hyperplasia with lower urinary tract symptoms, symptom details unspecified N40.1 [place] [address] [place] [id number] [address] [place] [phone] Jun, Benign prostatic hyperplasia with lower urinary tract symptoms, symptom details unspecified N40.1 [facility] [address] [facility] [id number] [address] [place] [phone] Apr, [facility] [address] [facility] [id number] [address] [place] [address] Mar, Hypertension I10 [facility] [address] [facility] [id number] [address] [place] [phone] Mar, [facility] [address] [facility] [id number] [address] [place] [address] Mar, [facility] [address] [facility] [id number] [address] [place] [address] Mar, [facility] [address] [facility] [id number] [address] [place] [address] Feb, Encounter for Medicare annua l wellness exam Z00.00 ; Hypertension I10 ; Hyperlipidemia E78.5 ; Tobacco use Z72.0 and Bladder disorder, unspecified N32.9 [facility] [address] [facility] [id number] [address] [place] [phone] Feb, [facility] [address] [facility] [id number] [address] [place] [address] Jan, Hypertension I10 ; Bladder d isorder, unspecified N32.9 ; Prediabetes R73.09 and Encounter for immunization Z23 [facility] [address] [facility] [id number] [address] [place] [phone] Jan, [facility] [address] [facility] [id number] [address] [place] [address] Jan, Hypertension I10 and Prediab etes R73.09 [facility] [address] [facility] [id number] [address] [place] [address] Jan, [facility] [address] [facility] [id number] [address] [place] [phone] Jan, Hypertension I10 and Prediab etes R73.09 [facility] [address] [address] 30 Dec, 2018 Acute bacterial conjunctivit is of both eyes H10.33 [place] [address] [address] Dec, Hypertension I10 and Prediab etes R73.09 [place] [address] [address] Dec, Hypertension I10 ; Hyperlipi demia E78.5 ; Prediabetes R73.09 ; Bladder disorder, unspecified N32.9 ; Neuropathy G62.9 and Impacted cerumen of right ear H61.21 [facility] [address] [address] Dec, Cellulitis of face L03.[address] [address] Dec, [place] [address] [address] Dec, [facility] [address] [place] [id number] Dec, Hematuria, unspecified type R31.9 ; Blad baldemar disorder, unspecified N32.9 ; Hypertension I10 ; Hyperlipidemia E78.5 ; Neuropathy G62.9 ; History of peptic ulcer Z87.11 ; 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 and Primary insomnia F51.01 [place] [address] [address] Nov, Right medial knee pain M25.5 61 [place] [address] [address] Nov, [place] [address] [address] Nov, Right medial knee pain M25.5 61 and Acute right ankle pain M25.571 [place] [address] [address] Nov, [place] [address] [facility] [id number] [address] [place] [address] Nov, Pain in right foot M79.671 a nd Pain of left foot M79.672 [facility] [address] [place] [id number] Nov, Pain of left foot M79.672 and Pain in ri ght foot M79.671 [place] [address] [facility] [id number] [address] [place] [address] Nov, Neuropathy G62.9 [facility] [address] [place] [id number] Oct, Physical deconditioning R53.81 ; Right f oot pain M79.671 and Essential hypertension I10 [place] [address] [address] September, [facility] [address] [address] September, Hematuria, unspecified type R31.9 and Chest pressure R07.89 [place] [address] [place] [id number] [place] [address] Jun, Hypertension I10 ; Hyperlipi demia E78.5 ; Tobacco use Z72.0 and Prediabetes R73.09 [place] [address] [address] Apr, [place] [address] [facility] [id number] [address] [place] [address] Mar, Hypertension I10 [facility] [address] [facility] [id number] [address] [place] [address] Aug, Lesion of lip K13.0 [place] [address] [facility] [id number] [address] [place] [address] Apr, Hypertension I10 ; Hyperlipi demia E78.5 ; Prediabetes R73.09 ; Tobacco use Z72.0 and Healthcare maintenance Z00.00 [facility] [address] [facility] [id number] [address] [place] [address] Jul, Hypertension I10 and Multipl e actinic keratoses L57.0 [facility] [address] [facility] [id number] [address] [place] [phone] Jul, Hypertension I10 [facility] [address] [facility] [id number] [address] [place] [phone] Jun, Hypertension I10 [facility] [address] [facility] [id number] [address] [place] [address] Jun, Hypertension I10 ; Hyperlipi demia E78.5 ; Prediabetes R73.09 ; Tobacco use Z72.0 and Multiple actinic keratoses L57.0 [facility] [address] [facility] [id number] [address] [place] [address] 06 Jan, 2016 Hypertension I10 ; Hyperlipi demia E78.5 and Tobacco use Z72.0 [facility] [address] [facility] [id number] [address] [place] [address] Oct, [facility] [address] [facility] [id number] [address] [place] [id number] 04 Jun, 2015 Hypertension I10 ; Hyperlipi demia E78.5 ; Prediabetes R73.09 ; Screening for colon cancer Z12.11 and Tobacco use Z72.0 [facility] [address] [facility] [id number] [address] [place] [address] Apr, [facility] [address] [facility] [id number] [address] [place] [address] Apr, [facility] [address] [facility] [id number] [address] [place] [address] Apr, [facility] [address] [facility] [id number] [address] [place] [address] Dec, [facility] [address] [facility] [id number] [address] [place] [phone] Dec, [facility] [address] [place] [id number] [place] [phone] Nov, Nondependent tobacco use dis order 305.1 ; Hypertension 401.9 ; Hyperlipidemia 272.4 ; Prediabetes 790.29 ; Colon cancer screening V76.51 and Sunburn 692.71 [facility] [address] [facility] [id number] [address] [place] [address] Oct, [facility] [address] [place] [id number] [place] [address] Oct, Other and unspecified hyperl ipidemia 272.4 ; Essential hypertension 401.9 and Essential hypertension, benign 401.1 [facility] [address] [place] [id number] [place] [address] Oct, [facility] [address] [address] Aug, [facility] [address] [place] [id number] [place] [address] Aug, [facility] [address] [address] Jun, [facility] [address] [place] [id number] [address] [place] [phone] Jun, [facility] [address] [place] [id number] [place] [address] Apr, [facility] [address] [facility] [id number] [address] [place] [phone] Apr, [facility] [address] [place] [id number] [place] [address] Apr, [facility] [address] [place] [id number] [address] [place] [phone] Apr, [facility] [address] [place] [id number] [place] [address] Mar, [facility] [address] [id number] [address] [place] [address], [place] [address] Mar, [facility] [address] [id number] [address] [place] [address], [place] [address] Mar, [facility] [address] [id number] [address] [place] [address], [place] [address] Mar, [facility] [address] [id number] [address] [place] [address], [place] [address] Feb, [facility] [address] [id number] [address] [place] [address], [place] [address] Feb, [facility] [address] [id number] [address] [place] [address], [place] [address] Dec, [facility] [address] [id number] [address] [place] [address], [place] [address] Dec, [facility] [address] [id number] [address] [place] [address], [place] [address] Oct, [facility] [address] [id number] [address] [place] [address], [place] [address] Oct, [facility] [address] [id number] [address] [place] [address], [place] [address] September, [facility] [address] [id number] [address] [place] [address], [place] [address] September, [facility] [address] [id number] [address] [place] [address], [place] [address] September, [facility] [address] [id number] [address] [place] [address], [place] [address] September, [facility] [address] [id number] [address] [place] [address], [place] [address] September, [facility] [address] [id number] [address] [place] [address], [place] [address] September, [facility] [address] [id number] [address] [place] [phone] September, [facility] [address] [id number] [address] [place] [address], [place] [address] September, [facility] [address] [id number] [address] [place] [address], [place] [address] September, [facility] [address] [id number] [address] [place] [address], [place] [address] September, [facility] [address] [id number] [address] [place] [address], [place] [address] Aug, [facility] [address] [id number] [address] [place] [address], [place] [address] Aug, [facility] [address] [id number] [address] [place] [address], [place] [address] Jun, [facility] [address] [id number] [address] [place] [address], [place] [address] Jun, [facility] [address] [id number] [address] [place] [address], [place] [address] May, [facility] [address] [id number] [address] [place] [address], [place] [address] May, [facility] [address] [id number] [address] [place] [address], [place] [address] May, [facility] [address] [id number] [address] [place] [address], [place] [address] May, [facility] [address] [id number] [address] [place] [address], [place] [address] Apr, [facility] [address] [id number] [address] [place] [address], [place] [address] Apr, [facility] [address] [id number] [address] [place] [address], [place] [address] Mar, [facility] [address] [id number] [address] [place] [address], [place] [address] Mar, [facility] [address] [id number] [address] [place] [address], [place] [address] Feb, [facility] [address] [id number] [address] [place] [address], [place] [address] Feb, [facility] [address] [id number] [address] [place] [address], [place] [address] Dec, [facility] [address] [id number] [address] [place] [address], [place] [address] Dec, [facility] [address] [id number] [address] [place] [address], [place] [address] Dec, [facility] [address] [id number] [address] [place] [address], [place] [address] Oct, [facility] [address] [id number] [address] [place] [address], [place] [address] Oct, [facility] [address] [id number] [address] [place] [address], [place] [address] Oct, [facility] [address] [id number] [address] [place] [address], [place] [address] September, [facility] [address] [id number] [address] [place] [address], [place] [address] September, [facility] [address] [id number] [address] [place] [address], [place] [address] September, [facility] [address] [id number] [address] [place] [address], [place] [address] September, [facility] [address] [id number] [address] [place] [address], [place] [address] Jun, [facility] [address] [id number] [address] [place] [address], [place] [address] Mar, [facility] [address] [id number] [address] [place] [address], [place] [address] Mar, [facility] [address] [id number] [address] [place] [address], [place] [address] Mar, [facility] [address] [id number] [address] [place] [address], [place] [address] Mar, [facility] [address] [id number] [address] [place] [address], [place] [address] Mar, [facility] [address] [id number] [address] [place] [address], [place] [address] Mar, [facility] [address] [id number] [address] [place] [address], [place] [address] Feb, [facility] [address] [id number] [address] [place] [address], [place] [address] Feb, [facility] [address] [id number] [address] [place] [address], [place] [address] Feb, [facility] [address] [id number] [address] [place] [address], [place] [address] Feb, [facility] [address] [id number] [address] [place] [address], [place] [address] Feb, [facility] [address] [id number] [address] [place] [address], [place] [address] Feb, [facility] [address] [id number] [address] [place] [address], [place] [address] Feb, [facility] [address] [id number] [address] [place] [address] Feb, [facility] [address] [id number] [address] [place] [address] Oct, [facility] [address] [id number] [address] [place] [address], [place] [address] 30 Aug, 2011 [facility] [address] [id number] [address] [place] [address], [place] [address] 17 Aug, 2011 [facility] [address] [id number] [address] [place] [address], [place] [address] 16 Aug, 2011 [facility] [address] [id number] [address] [place] [address] Aug, [facility] [address] [id number] [address] [place] [address] Jul, [facility] [address] [id number] [address] [place] [address] May, [facility] [address] [id number] [address] [place] [address] May, [facility] [address] [id number] [address] [place] [address] Mar, [facility] [address] [id number] [address] [place] [address] Feb, [facility] [address] [id number] [address] [place] [address] May, [facility] [address] [id number] [address] [place] [address] Mar, [facility] [address] [id number] [address] [place] [address] Feb, [facility] [address] [id number] [address] [place] [address] Feb, [facility] [address] [id number] [address] [place] [address] Apr, [facility] [address] [id number] [address] [place] [address] Apr, IMMUNIZATIONS No Known Immunizations SOCIAL HISTORY Never Assessed REASON FOR VISIT PLAN OF CARE VITAL SIGNS MEDICATIONS No [...]
--- OUTSIDE RECORDS SUMMARY | 2019-12-04 07:33 | XMS REPORT | Continuity of Care Document ---
Demographics Preferred Language Unknown Marital Status Unknown Latter Day Affiliation Unknown Race Unknown Ethnic Group Unknown Author Organization Unknown Address Unknown Phone Unavailable Allergies Active Description Code Type Severity Reaction Onset Reported/Identified Relationship to Patient Clinical Status Yes NKANo Known Allergies NKA Miscellaneous Allergy Unknown N/A 04/10/2006 Yes No Known Drug Allergies [id number] Drug Allergy Unknown N/A 11/29/2019 Medications There is no data. 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) 12/05/2007 ENEIDA CABRERA NOAH K 401.1 ESSENTIAL HYPERTENSION BENIGN 12/05/2007 ENEIDA CBARERA NOAH K 272.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) 12/05/2007 ENEIDA CABRERA NOAH K 401.1 ESSENTIAL HYPERTENSION BENIGN 12/05/2007 ENEIDA CABRERA NOAH K 272.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) 12/05/2007 ENEIDA CABRERA NOAH K 401.1 ESSENTIAL HYPERTENSION BENIGN 12/05/2007 MEENA DOE MD 272 .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) 12/05/2007 MEENA DOE MD 401 .1 ESSENTIAL HYPERTENSION BENIGN 12/05/2007 NOAH MONIQUE DO K 272.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) 12/05/2007 FERNANDA MONIQUE DOA K 401.1 ESSENTIAL HYPERTENSION BENIGN 12/18/2007 716.90 ART HROPATHY 12/18/2007 716.90 ART HROPATHY 12/18/2007 NOAH MONIQUE DO K 716.90 ARTHROPATHY 12/18/2007 MONIQUE DO, NOAH K 716.90 ARTHROPATHY 12/18/2007 MONIQUE DO, NOAH K 716.90 ARTHROPATHY 12/18/2007 MONIQUE DO, NOAH K 716.90 ARTHROPATHY 12/18/2007 MEENA DOE MD 716 .90 ARTHROPATHY 12/18/2007 MONIQUE DO, NOAH K 716.90 ARTHROPATHY 02/02/2009 272.1 Hyperlipoproteinemia Type Iv 02/02/2009 272.1 Hyperlipoproteinemia Type Iv 02/02/2009 MONIQUE DO, NOAH K 272.1 Hyperlipoproteinemia Type Iv 02/02/2009 MONIQUE DO, NOAH K 272.1 Hyperlipoproteinemia Type Iv 02/02/2009 MONIQUE DO, NOAH K 272.1 Hyperlipoproteinemia Type Iv 02/02/2009 MONIQUE DO, NOAH K 272.1 Hyperlipoproteinemia Type Iv 02/02/2009 NADER THIBODEAUX, MEENA N 272 .1 Hyperlipoproteinemia Type Iv 02/02/2009 MONIQUE DO, NOAH K 272.1 Hyperlipoproteinemia Type Iv 07/21/2009 790.29 Pre diabetes (impaired Glucose Tolerance) 07/21/2009 V58.69 taisha ing high-risk medication 07/21/2009 790.29 Pre diabetes (impaired Glucose Tolerance) 07/21/2009 V58.69 taisha ing high-risk medication 07/21/2009 MONIQUE DO, NOAH K [...] 790.29 Prediabetes (impaired Glucose Tolerance) 07/21/2009 MONIQUE , NOAH K V58.69 taking high-risk medication 07/21/2009 MEENA DOE MD 790 .29 Prediabetes (impaired Glucose Tolerance) 07/21/2009 MEENA DOE MD V58 .69 taking high-risk medication 07/21/2009 MONIQUE DO, NOAH K 790.29 Prediabetes (impaired Glucose Tolerance) 07/21/2009 ENEIDA CABRERA NOAH K V58.69 taking high-risk medication 03/14/2012 790.29 PRE DIABETES 03/14/2012 790.29 PRE DIABETES 03/14/2012 MONIQUE DO, NOAH K 790.29 PREDIABETES 03/14/2012 MONIQUE DO, NOAH K 790.29 PREDIABETES 03/14/2012 MONIQUE DO, NOAH K 790.29 PREDIABETES 03/14/2012 MONIQUE DO, NOAH K 790.29 PREDIABETES 03/14/2012 MEENA DOE MD 790 .29 PREDIABETES 03/14/2012 MONIQUE DO, NOAH K 790.29 PREDIABETES 09/16/2012 593.9 KYLIE L INSUFFICIENCY 09/16/2012 ENEIDA CABRERA NOAH K 593.9 RENAL INSUFFICIENCY 09/16/2012 ENEIDA CABRERA, NOAH K 593.9 RENAL INSUFFICIENCY 09/16/2012 MONIQUE [...] I10 ESSENTIAL (PRIMARY) HYPERTENSION 09/28/2018 Alicja PUGH MD, Ot J44 .9 CHRONIC OBSTRUCTIVE PULMONARY DISEASE, U 09/28/2018 KEATON THIBODEAUX, Alicja CRESPO Ot K27 .5 CHRONIC OR UNSP PEPTIC ULCER, SITE UNSP, 09/28/2018 KEATON THIBODEAUX, Alicja CRESPO Ot N30.01 ACUTE CYSTITIS WITH HEMATURIA 09/28/2018 Alicja PUGH MD Ot N32 .9 BLADDER DISORDER, UNSPECIFIED 09/28/2018 KEATON THIBODEAUX, Alicja CRESPO Ot R07.89 OTHER CHEST PAIN 09/28/2018 Alicja PUGH MD Ot R31 .0 GROSS HEMATURIA 09/28/2018 Alicja PUGH MD Ot R73.03 PREDIABETES 11/28/2018 PARRIS NAMP Ot M79.671 PAIN IN RIGHT FOOT 11/28/2018 PARRIS NAM COMPRESSOR OPERATOR PORTABLE Ot M79.672 PAIN IN LEFT FOOT 12/01/2018 PARRIS NAMP Ot M79.671 PAIN IN RIGHT FOOT 12/01/2018 PARRIS NAM COMPRESSOR OPERATOR PORTABLE Ot M79.672 PAIN IN LEFT FOOT 12/03/2018 [...] 1 COGNITIVE COMMUNICATION DEFICIT 11/01/2019 PARRIS NAM Ot M79.671 PAIN IN RIGHT FOOT 11/01/2019 PARRIS NAM Ot M79.672 PAIN IN LEFT FOOT 11/01/2019 [...] Ot R41.84 1 COGNITIVE COMMUNICATION DEFICIT 11/01/2019 WANDER AVILES FACILITIES MAINTENANCE ENGINEER Ot E87 .1 HYPO-OSMOLALITY AND HYPONATREMIA 11/01/2019 WANDER AVILES FACILITIES MAINTENANCE ENGINEER Ot R31 .9 HEMATURIA, UNSPECIFIED 11/01/2019 PARRIS NAM COMPRESSOR OPERATOR PORTABLE Ot M79.671 PAIN IN RIGHT FOOT 11/01/2019 PARRIS NAM COMPRESSOR OPERATOR PORTABLE Ot M79.672 PAIN IN LEFT FOOT 11/01/2019 [...] ULCER, UNSP ACUTE OR CH 11/01/2019 MONIQUE DO NOAH Membreno Ot K59.09 OTHER CONSTIPATION 11/01/2019 MONIQUE DO NOAH Membreno Ot M62.81 MUSCLE WEAKNESS (GENERALIZED) 11/01/2019 ENEIDA DO NOAH Membreno Ot R13.11 DYSPHAGIA, ORAL PHASE 11/01/2019 MONIQUE DO NOAH Membreno Ot R26.89 OTHER ABNORMALITIES OF GAIT AND MOBILITY 11/01/2019 ENEIDA CABRERA NOAH Membreno Ot R33.8 OTHER RETENTION OF URINE 11/01/2019 ENEIDA CABRERA NOAH Membreno Ot R41.84 1 COGNITIVE COMMUNICATION DEFICIT 11/05/2019 WANDER AVILES APRN Ot E87 .1 HYPO-OSMOLALITY AND HYPONATREMIA 11/05/2019 WANDER AVILES APRN Ot R31 .9 HEMATURIA, UNSPECIFIED 11/21/2019 MEENA DOE MD Ot E87 .1 HYPO-OSMOLALITY AND HYPONATREMIA 11/21/2019 MEENA DOE MD Ot J43 .9 EMPHYSEMA, UNSPECIFIED 11/21/2019 MEENA DOE MD Ot J92 .9 PLEURAL PLAQUE WITHOUT ASBESTOS 11/21/2019 MEENA DOE MD Ot R91 .8 OTHER NONSPECIFIC ABNORMAL FINDING OF PAULY Procedures Code Description [place] [address] A1C (IN-HOUSE) 03/12/2012 51690 ROUT INE VENIPUNCTURE 03/19/2012 96911 CMP 03/19/2012 19640 LIPI D PANEL 03/19/2012 [id number] GF R CALC (RESULT ONLY) 03/19/2012 65413 ROUT INE VENIPUNCTURE 09/12/2012 64354 A1C (IN-HOUSE) 09/12/2012 69663 CBC 09/12/2012 31018 LIPI D PANEL 09/12/2012 60180 CMP 09/12/2012 [id number] GF R CALC (RESULT ONLY) 09/12/2012 45413 ROUT INE VENIPUNCTURE 12/18/2012 56480 KYLIE L PROFILE 12/18/2012 09622 LIPI D PANEL 12/18/2012 [id number] GF R CALC (RESULT ONLY) 12/18/2012 PRO/CRE UR INE PROTEIN TO CREATNINE RATIO 12/18/2012 30336 A1C (IN-HOUSE) 03/25/2013 13612 ROUT INE VENIPUNCTURE 09/25/2013 65050 A1C (IN-HOUSE) 09/25/2013 [id number] GF R CALC (RESULT ONLY) 09/25/2013 80218 CMP 09/25/2013 84963 LIPI D PANEL 09/25/2013 99130 CBC 09/25/2013 [id number] IN SPECTION OF BLADDER, ENDO 09/25/2018 [id number] IR RIGATION OF GENITOURINARY TRACT USING 09/25/2018 [id number] FL UOROSCOPY OF BLADDER USING LOW OSMOLAR [...] CELLS LEUKO REDUCED AS1 T RANSFUSED 09/25/182016 NRG Blood type T Indirect antibody screen pa gildardo - 09/24/18 12:16 ABO+Rh group AP NRG Transfusion band number [id number] NRG Blood group antibody screen NEGATIVE NR G [...] NORMAL NRG Whole blood hemoglobin and hematocrit [facility] [place] - 09/25/18 16:50 Venous blood hemoglobin measurement [...] mg/dL 70-110 Whole blood hemoglobin and hematocrit [facility] 09/25/18 23:40 Venous blood hemoglobin measurement (mass/volume) [...] mg/dL 1.8-2.4 Whole blood hemoglobin and hematocrit [facility] 09/26/18 10:33 Venous blood hemoglobin measurement (mass/volume) [...] mg/dL 70-110 Whole blood hemoglobin and hematocrit [facility] 09/26/18 16:55 Venous blood hemoglobin measurement (mass/volume) 7.5 g/dL 13.3-17.7 Blood hematocrit (volume fraction) 22 % 40-54 Capillary blood glucose measurement by g lucometer (mass/volume) - 09/26/18 21:20 Capillary blood glucose measurement by glucometer (mas s/volume) 129 mg/dL 70-110 Whole blood hemoglobin and hematocrit [facility] [place] - 09/26/18 22:40 Venous blood hemoglobin measurement [...] mg/dL 0.1-1.0 Serum or plasma alkaline phosphatase sydea surement (enzymatic activity/volume) 64 U/L 40-136 Serum [...] mg/dL 70-110 Whole blood hemoglobin and hematocrit [facility] 09/27/18 12:20 Venous blood hemoglobin measurement (mass/volume) 7.7 g/dL 13.3-17.7 Blood hematocrit (volume fraction) 23 % 40-54 Capillary blood glucose measurement by g lucometer (mass/volume) - 09/27/18 16:01 Capillary blood glucose measurement by glucometer (mas s/volume) 124 mg/dL 70-110 Whole blood hemoglobin and hematocrit [facility] 09/27/18 18:26 Venous blood hemoglobin measurement (mass/volume) 7.8 g/dL 13.3-17.7 Blood hematocrit (volume fraction) 23 % 40-54 Whole blood hemoglobin and hematocrit [facility] 09/28/18 00:05 Venous blood hemoglobin measurement (mass/volume) [...] culture - 11/28/18 22:10 Bacterial urine culture [id number] NRG COLONY COUNT >100,000/ML NRG FTX;REPORTABLE SUSCEPTIBILITY [...] Automated erythrocyte mean corpuscular volume 88 [ foz_us] 80-99 Automated erythrocyte mean corpuscular h emoglobin (mass per erythrocyte) 28 pg 25-34 Automated erythrocyte mean corpuscular h emoglobin concentration measurement (mass/volume) 31 g/dL 32-36 Automated erythrocyte distribution width ratio 15. 3 % 10.0- 14.5 Automated blood platelet count (count/volume) 400 10*3/uL 130-400 Automated blood platelet mean volume measurement 9.1 [foz_us] 7.4-10.4 Automated blood neutrophils/100 leukocytes 74 [...] morphology finding identification NORMAL NRG Whole blood basic metabolic panel - 11/13 [...] 7-25 CREATININE 1.00 mg/dL 0.70-1.18 eGFR NON-AFR. MACANESE 72 mL/min/1.73m2 > OR = 60 eGFR [...] 140-400 MPV 9.5 fL 7.5-12.5 ABSOLUTE NEUTROPHILS 96867 cells/uL 1500 -7800 ABSOLUTE LYMPHOCYTES 1670 cells/uL [...] 4.1 % NRG BASOPHILS 0.5 % NRG [facility] - 07/01/19 15:25 GLUCOSE 101 mg/dL 65-139 UREA NITROGEN (BUN) 20 mg/dL 7-25 CREATININE 1.29 mg/dL 0.70-1.18 eGFR NON-AFR. MACANESE 53 mL/min/1.73m2 > OR = 60 eGFR 61 mL/min/1.73m2 > OR = 60 BUN/CREATININE RATIO 16 (calc) 6-22 SODIUM 139 mmol/L 135-146 POTASSIUM 4.2 mmol/L 3.5-5.3 CHLORIDE 103 mmol/L 98-110 CARBON DIOXIDE 30 mmol/L 20-32 CALCIUM 9.3 mg/dL 8.6-10.3 [facility] - 07/01/19 15:25 PSA, TOTAL 1.1 ng/mL < OR = 4.0 [facility] - 10/31/19 08:51 GLUCOSE 111 mg/dL 65-99 UREA NITROGEN (BUN) 19 mg/dL 7-25 CREATININE 1.19 mg/dL 0.70-1.18 eGFR NON-AFR. MACANESE 58 mL/min/1.73m2 > OR = 60 eGFR 67 mL/min/1.73m2 > OR = 60 BUN/CREATININE RATIO 16 (calc) 6-22 SODIUM 123 mmol/L 135-146 POTASSIUM 4.9 mmol/L 3.5-5.3 CHLORIDE 91 mmol/L 98-110 CARBON DIOXIDE 23 mmol/L 20-32 CALCIUM 9.1 mg/dL 8.6-10.3 CULTURE, URINE - 10/31/19 08:51 CULTURE, URINE, ROUTINE NRG CULTURE, URINE - 10/31/19 09:23 CULTURE, URINE, ROUTINE SEE NOTE NRG Bacterial urine culture - 11/01/19 17:00 Bacterial urine culture [id number] NRG COLONY COUNT PREDOMINANCE NRG SUSCEPTIBILITY SEE COMMENT NRG Complete blood count (CBC) with automate d [...] g/dL 3.2-4.5 CALCIUM CORRECTED 9.1 mg/dL 8.5-10.1 [facility] - 11/05/19 12:50 GLUCOSE 92 mg/dL 65-139 UREA NITROGEN (BUN) 17 mg/dL 7-25 CREATININE 1.08 mg/dL 0.70-1.18 eGFR NON-AFR. MACANESE 65 mL/min/1.73m2 > OR = 60 eGFR 76 mL/min/1.73m2 > OR = 60 BUN/CREATININE RATIO NOT APPLICABLE (calc) 6-22 SODIUM 122 mmol/L 135-146 POTASSIUM 4.9 mmol/L 3.5-5.3 CHLORIDE 86 mmol/L 98-110 CARBON DIOXIDE 23 mmol/L 20-32 CALCIUM 8.9 mg/dL 8.6-10.3 TSH - 11/05/19 12:50 TSH 1.60 mIU/L 0.40-4.50 URINE SODIUM (RANDOM) WITH CREATININE - 11/06/19 10:39 CREATININE, RANDOM URINE 42 mg/dL 20-32 0 SODIUM, RANDOM URINE 31 mmol/L 28-272 SODIUM/CREAT RATIO 74 mmol/g creat 20-23 3 OSMOLALITY, URINE - 11/06/19 10:39 OSMOLALITY (U) 200 mOsm/kg 50-1200 [facility] - 11/08/19 15:41 GLUCOSE 94 mg/dL 65-99 UREA NITROGEN (BUN) 22 mg/dL 7-25 CREATININE 1.26 mg/dL 0.70-1.18 eGFR NON-AFR. MACANESE 54 mL/min/1.73m2 > OR = 60 eGFR 63 mL/min/1.73m2 > OR = 60 BUN/CREATININE RATIO 17 (calc) 6-22 SODIUM 127 mmol/L 135-146 POTASSIUM 5.2 mmol/L 3.5-5.3 CHLORIDE 93 mmol/L 98-110 CARBON DIOXIDE 24 mmol/L 20-32 CALCIUM 9.3 mg/dL 8.6-10.3 PROTEIN E-PHORESIS, URINE-RANDOM - 11/11 11:09 CREATININE, RANDOM URINE 64 mg/dL 20-32 0 PROTEIN/CREATININE RATIO 297 mg/g creat 22-128 PROTEIN, TOTAL, RANDOM UR 19 mg/dL 5-25 ALBUMIN 52 % NRG FNIXS-4-[id number] 6 % NRG ORPOU-1-RAFKHQJOW 13 % NRG BETA GLOBULINS 14 % NRG GAMMA GLOBULINS 15 % NRG INTERPRETATION NRG PROTEIN E-PHORESIS, SERUM - 11/12/19 11: 09 PROTEIN, TOTAL 6.5 g/dL 6.1-8.1 ALBUMIN 3.6 g/dL 3.8-4.8 ALPHA 1 GLOBULIN 0.4 g/dL 0.2-0.3 ALPHA 2 GLOBULIN 0.9 g/dL 0.5-0.9 BETA 1 GLOBULIN 0.5 g/dL 0.4-0.6 BETA 2 GLOBULIN 0.4 g/dL 0.2-0.5 GAMMA GLOBULIN 0.8 g/dL 0.8-1.7 INTERPRETATION NRG BMP - 11/12/19 11:09 GLUCOSE 102 mg/dL 65-99 UREA NITROGEN (BUN) 13 mg/dL 7-25 CREATININE 0.93 mg/dL 0.70-1.18 eGFR NON-AFR. MACANESE 78 mL/min/1.73m2 > OR = 60 eGFR 91 mL/min/1.73m2 > OR = 60 BUN/CREATININE RATIO NOT APPLICABLE (calc) 6-22 SODIUM 131 mmol/L 135-146 POTASSIUM 4.3 mmol/L 3.5-5.3 CHLORIDE 96 mmol/L 98-110 CARBON DIOXIDE 26 mmol/L 20-32 CALCIUM 9.1 mg/dL 8.6-10.3 KAPPA/LAMBDA LIGHT CHAINS FREE W/RATIO R FL ANT, SERUM - APPROVAL REQUIRED - 11/12/19 11:09 KAPPA LIGHT CHAIN, FREE, SERUM 24.0 mg/L 3.3-19.4 LAMBDA LIGHT CHAIN, FREE, SERUM 17.9 mg/L 5.7-26.3 KAPPA/LAMBDA LIGHT CHAINS FREE WITH RATIO, SERUM 1 .34 0.26- 1.65 Encounters ACCT No. Visit Date/Time Discharge Status Pt. Type Provider Facility Loc./Unit Complaint [id number] 07/08/2016 08:44:00 Document Registration [id number] 07/29/2016 07:06:00 Document Registration [id number] 12/02/2019 05:33:00 11:11:00 DIS Outpatient WILLIE WRIGHT MD [facility] PREOP URINE RETENTION [id number] 11/19/2019 12:31:00 23:59:59 CLS Outpatient MEENA DOE MD [facility] RAD HYPONATREMIA [id number] 11/01/2019 16:55:00 18:42:00 DIS Emergency WANDER AVILES FACILITIES MAINTENANCE ENGINEER [facility] ER ABNORMAL LABS [id number] 12/01/2018 11:00:00 23:59:59 CLS Outpatient NOAH MONIQUE DO [facility] CVS [id number] 11/28/2018 22:10:00 23:59:59 CLS Outpatient BASSEM SHETH MD [facility] LABNPT [id number] 11/21/2018 10:39:00 23:59:59 CLS Outpatient PARRIS NAM [facility] RAD NEUOPATHY [id number] 09/24/2018 14:17:00 15:45:00 DIS Inpatient Alicja PUGH MD [facility] ICU UTI;SEPSIS;BLADDER MASS ;ABD FREE AIR FLUID;POSS- [id number] 12/04/2019 10:00:00 P EN Preadmit WILLIE WRIGHT MD [facility] URINE RETENTION [id number] 04/15/2014 08:27:00 04/15/2014 23:59: 59 CLS Outpatient MEENA DOE MD [id number] 09/25/2013 10:57:00 09/25/2013 23:59: 59 CLS Outpatient ENEIDA CABRERA NOAH Haseeb [id number] 03/25/2013 09:24:00 03/25/2013 23:59: 59 CLS Outpatient ENEIDA CABRERANOAH [id number] 03/25/2013 09:24:00 03/25/2013 23:59: 59 CLS Outpatient ENEIDA CABRERA NOAH K [id number] 12/18/2012 10:33:00 12/18/2012 23:59: 59 CLS Outpatient MONIQUE NOAH K [id number] 03/19/2012 09:57:00 03/19/2012 23:59:5 9 CLS Outpatient ENEIDA CABRERA NOAH Haseeb [id number] 03/19/2012 09:57:00 03/19/2012 23:59: 59 CLS Outpatient [id number] 09/12/2012 09:47:00 Document Registration [id number] 11/18/2019 11:00:00 11/18/2019 23:59: 59 CLS Outpatient MEENA DOE MD [facility] [id number] 11/12/2019 10:20:00 Document Registration [id number] 11/08/2019 15:30:00 Document Registration [id number] 11/06/2019 10:20:00 Document Registration [id number] 11/05/2019 13:00:00 Document Registration [id number] 10/31/2019 09:23:00 Document Registration [id number] 10/31/2019 08:00:00 Document Registration [id number] 07/01/2019 15:20:00 Document Registration [id number] 02/07/2019 13:00:00 Document Registration [id number] 01/15/2019 11:40:00 Document Registration [id number] 01/07/2019 09:20:00 Document Registration [id number] 09/24/2018 09:00:00 Document Registration
[2019-12-04] MEDS ORDERED: cefTRIAXone FOR IV USE 1,000 MG in WATER (STERILE) FOR INJECTION 10 ML IV ONE (07:45)
[2019-12-04] MEDS: LACTATED RINGERS 1,000 ML IV PRN ×2 (07:47→10:00)
[2019-12-04] MEDS ORDERED: FAMOTIDINE 20MG/2ML IV (PEPCID) ONE (08:51)
[2019-12-04] MEDS ORDERED: FAMOTIDINE 20MG/2ML IV (PEPCID) IVP ONE (09:00)
[2019-12-04] MEDS ORDERED: proPOfol 200 MG/20 ML (DIPRIVAN) VIAL IV ONE (09:09)
[2019-12-04] MEDS ORDERED: LACTATED RINGERS 0 ML IV ONE (09:09)
[2019-12-04] MEDS ORDERED: fentaNYL INJECTION 100 MCG/2 ML AMP ONE (09:09)
[2019-12-04] MEDS ORDERED: LIDOCAINE PF 2% 5 ML (XYLOCAINE) VIAL ONE (09:09)
[2019-12-04] MEDS ORDERED: ONDANSETRON 4 MG/2 ML (SDV) Z0FRAN ONE (09:09)
[2019-12-04] MEDS ORDERED: SEVOFLURANE (ULTANE) 15 ML INHAL SOLN ONE ×4 (09:10→10:26)
[2019-12-04] MEDS ORDERED: fentaNYL INJECTION 100 MCG/2 ML AMP IVP ONE (10:45)
[2019-12-04] MEDS ORDERED: ONDANSETRON 4 MG/2 ML (SDV) Z0FRAN IVP PRN (10:45)
[2019-12-04] MEDS ORDERED: SULF1TAB35 PO (11:56)
[2019-12-04] MEDS ORDERED: TRM50T PO (11:56)
--- NOTE | 2019-12-04 14:08 | Anesthesia-General Post-Op ---
General Patient Condition Mental Status/LOC: Same as Preop Cardiovascular: Satisfactory Nausea/Vomiting: Absent Respiratory: Satisfactory Pain: Controlled Complications: Absent Post Op Complications Complications None Follow Up Care/Instructions Patient Instructions None needed. Anesthesia/Patient Condition Patient Condition Patient is doing well, no complaints, stable vital signs, no apparent adverse anesthesia problems. No complications reported per nursing. LEFTY QUEZADA CRNA Dec 04, 2019 14:08
--- NOTE | 2019-12-04 15:22 | OPERATIVE REPORT ---
DATE OF SERVICE: 12/04/2019 PREOPERATIVE DIAGNOSIS: Neurogenic bladder with retention. POSTOPERATIVE DIAGNOSIS: Neurogenic bladder with retention. OPERATION PERFORMED: Suprapubic cystostomy tube placement. SURGEON: Jona Wright MD. CAMPAIGN ASSOCIATE: Eric Sorensen DO. ANESTHESIA: General. COMPLICATIONS: None. DESCRIPTION OF PROCEDURE: With the patient supine under general anesthesia, a Brandon catheter was inserted per urethra. Two liters of fluid that was kind of cloudy or drained and then the bladder was filled with one liter of antibiotic solution type and the catheter was clamped. The patient was prepped and draped in the usual sterile fashion. A midline incision was made from the symphysis pubis towards the umbilicus for a couple 3 cm, carried through the skin, subcutaneous tissue and fascia. Bleeders were cauterized as dissection was proceeding. Fascia was incised in the midline identified and the retropubic space was entered. The bladder was identified and confirmed with a syringe and needle by draining urine. A stab wound was made in the anterior wall of the bladder and a 22-Guamanian two-way 5 mL balloon catheter was inserted. The balloon inflated to 10 mL, connected to gravity. There was no need for suture around the catheter. Closure was performed in layer, the fascia with interrupted 2-0 Vicryl and the skin with jose. Suprapubic tube was secured in position with 0 silk suture. Estimated blood loss was negligible. Needle, sponge, instrument count correct x2. Dressing was applied. The patient tolerated the procedure and anesthesia well and was sent to recovery room in stable condition. Job ID: [id number] DocumentID: [id number] Dictated Date: 12/04/2019 10:36:47 Supervisor Contact And Service Clerks Date: 12/04/2019 15:20:46 Dictated By: JONA WRIGHT MD
== END 2019-12-04 13:30 | disposition home or self-care (01) ==
LOC: SDC 07:22
PROVIDERS: ATTEND Urology
DX: N31.9 Neuromuscular dysfunction of bladder, unspecified (principal); R33.9 Retention of urine, unspecified; I10 Essential (primary) hypertension; K21.9 Gastro-esophageal reflux disease without esophagitis; E78.5 Hyperlipidemia, unspecified; F17.210 Nicotine dependence, cigarettes, uncomplicated; Z79.899 Other long term (current) drug therapy
CPT/HCPCS: 87081

== ENCOUNTER 2021-09-21 10:22 | Outpatient (RCR) | payer MEDICARE ==
[~2021-09-21 10:22] MED LIST changes: +AMLO-251 PO; -AMLO10TA7 PO; -LISI40TA PO; +LISI40TA9 PO; -PANT40TA3 PO; +PANT40TA52 PO; +SULF1TAB38 PO; +TRM50T PO
[2021-09-21 11:46] LABS: BILIRUBIN,URINE NEGATIVE (NEGATIVE); CLARITY,URINE SL CLOUDY; COLOR,URINE YELLOW; GLUCOSE, URINE (UA) NEGATIVE (NEGATIVE); KETONES,URINE NEGATIVE (NEGATIVE); LEUKOCYTE ESTERASE ,URINE 2+ (NEGATIVE); NITRITE,URINE POSITIVE (NEGATIVE); PH,URINE 7.5 (5-9); PROTEIN,URINE TRACE (NEGATIVE)
[2021-09-21 11:50] LABS: ABSOLUTE RETIC # 57 10e9/uL (24-90); BASOPHILS # (AUTO) 0.1 10^3/uL (0.0-0.1); BASOPHILS % (AUTO) 1 % (0-10); EOSINOPHILS # (AUTO) 0.1 10^3/uL (0.0-0.3); EOSINOPHILS % (AUTO) 1 % (0-10); HEMATOCRIT 41 % (40-54); HEMOGLOBIN 13.8 g/dL (13.3-17.7); LYMPHOCYTES # (AUTO) 2.2 10^3/uL (1.0-4.0); LYMPHOCYTES % (AUTO) 17 % (12-44); MEAN CORPUSCULAR HEMOGLOBIN 32 pg (25-34); MEAN CORPUSCULAR HGB CONC 34 g/dL (32-36); MEAN CORPUSCULAR VOLUME 95 fL (80-99); MEAN PLATELET VOLUME 9.2 fL (9.0-12.2); MONOCYTES # (AUTO) 0.6 10^3/uL (0.0-1.0); MONOCYTES % (AUTO) 5 % (0-12); NEUTROPHILS # (AUTO) 9.9 10^3/uL (1.8-7.8); NEUTROPHILS % (AUTO) 77 % (42-75); PLATELET COUNT 318 10^3/uL (130-400); RETICULOCYTE % 1.31 % (0.50-2.40); WHITE BLOOD COUNT 12.9 10^3/uL (4.3-11.0)
[2021-09-21 11:58] LABS: AMORPHOUS SEDIMENT,UR FEW AMOR PHOSPHATE /LPF; BACTERIA,URINE MODERATE /HPF
[2021-09-21 12:14] LABS: ERYTHROCYTE SEDIMENTATION RATE 36 MM/HR (0-30)
== END 2021-10-12 | disposition home or self-care (01) ==
LOC: ONC 10:22
PROVIDERS: ATTEND Internal Medicine Hematology & Oncology
DX: D72.0 Genetic anomalies of leukocytes (principal)
CPT/HCPCS: 81000; 83615; 85025; 85045; 85652; 87077; 87088; 87186; G0463; 36415; 99214

== ENCOUNTER 2021-12-21 09:59 | Outpatient (RCR) | payer MEDICARE ==
[2021-12-21 10:17] LABS: BASOPHILS # (AUTO) 0.1 10^3/uL (0.0-0.1); BASOPHILS % (AUTO) 1 % (0-10); EOSINOPHILS # (AUTO) 0.4 10^3/uL (0.0-0.3); EOSINOPHILS % (AUTO) 3 % (0-10); HEMATOCRIT 43 % (40-54); HEMOGLOBIN 14.2 g/dL (13.3-17.7); LYMPHOCYTES # (AUTO) 2.5 10^3/uL (1.0-4.0); LYMPHOCYTES % (AUTO) 18 % (12-44); MEAN CORPUSCULAR HEMOGLOBIN 32 pg (25-34); MEAN CORPUSCULAR HGB CONC 33 g/dL (32-36); MEAN CORPUSCULAR VOLUME 96 fL (80-99); MEAN PLATELET VOLUME 9.9 fL (9.0-12.2); MONOCYTES # (AUTO) 0.9 10^3/uL (0.0-1.0); MONOCYTES % (AUTO) 6 % (0-12); NEUTROPHILS # (AUTO) 9.9 10^3/uL (1.8-7.8); NEUTROPHILS % (AUTO) 71 % (42-75); PLATELET COUNT 330 10^3/uL (130-400); WHITE BLOOD COUNT 13.9 10^3/uL (4.3-11.0)
== END 2022-01-12 | disposition home or self-care (01) ==
LOC: ONC 09:59
PROVIDERS: ATTEND Internal Medicine Hematology & Oncology
DX: D72.0 Genetic anomalies of leukocytes (principal)
CPT/HCPCS: 85025; G0463; 36415; 99213

== ENCOUNTER 2023-01-17 14:22 | Emergency (ER) | payer MEDICARE ==
[~2023-01-17] VITALS: Ht 182.9 cm; Wt 91.1 kg
--- NOTE | 2023-01-17 15:38 | ED GU-Male ---
General Chief Complaint: Abdominal/GI Problems Stated Complaint: HERNIA CHECK, SENT FROM [facility] Nursing Triage Note: Patient states he was sent here from the [facility] d/t possible having a hernia. Patient states the clinic wanted the hernia evaluated in ER today. Patient states the possible hernia is above where he had a suprapubic catheter. Patient states the possible hernia has been there for 1 to 3 mths. Patient denies any difficulty with urination or having BM. Patient denies any fevers or Abd. pain. Source: patient Exam Limitations: no limitations History of Present Illness Date Seen by Provider: Jan 17, 2023 Time Seen by Provider: 14:45 Allergies and Home Medications Allergies Coded Allergies: No Known Drug Allergies (Unverified , 11/29/19) Patient Home Medication List Amlodipine Besylate (Amlodipine Besylate) 10 Mg Tablet, 10 MG PO DAILY, (Reported) Entered as Reported by: GABE LAWRENCE on 09/24/18 1103 Lisinopril (Lisinopril) 40 Mg Tablet, 40 MG PO DAILY, (Reported) Entered as Reported by: DREA SORIA on 09/26/18 1106 Lovastatin (Lovastatin) 40 Mg Tablet, 80 MG PO HS, (Reported) Entered as Reported by: DREA SORIA on 09/26/18 1106 Metoprolol Tartrate (Metoprolol Tartrate) 25 Mg Tablet, 25 MG PO DAILY, (Reported) Entered as Reported by: JANEL BOWLES on 11/29/19 1335 Niacinamide (Niacin) 500 Mg Tablet, 1,500 MG PO HS, (Reported) Entered as Reported by: GABE LAWRENCE on 09/24/18 1103 Placida-3/Dha/Epa/Fish Oil (Fish Oil 1,000 mg Softgel) 1 Each Capsule, 3,000 MG PO HS, (Reported) Entered as Reported by: GABE LAWRENCE on 09/24/18 1103 Pantoprazole Sodium (Pantoprazole Sodium) 40 Mg Tablet.dr, 40 MG PO DAILY, (Reported) Entered as Reported by: JANEL BOWLES on 11/29/19 1335 Sulfamethoxazole/Trimethoprim (Bactrim Ds Tablet) 1 Each Tablet, 1 EACH PO BID Prescribed by: MARIE RACHEL on 12/04/19 1156 Tramadol HCl (Tramadol HCl) 50 Mg Tablet, 50-100 MG PO Q4H PRN for PAIN-MODERATE (5-7) Prescribed by: MARIE RACHEL on 12/04/19 1156 Trazodone HCl (Trazodone HCl) 50 Mg Tablet, 50 MG PO HS, (Reported) Entered as Reported by: JANEL BOWLES on 11/29/19 1335 Past Spxbhdq-Djpxce-Xopoqf Hx Patient Social History Tobacco Use?: Yes Tobacco type used: Cigarettes Smoking Status: Current Everyday Smoker Use of E-Cig and/or Vaping dev: No Substance use?: No Alcohol Use?: No Immunizations Up To Date Influenza Vaccine Up-to-Date: No; Not Current Seasonal Allergies Seasonal Allergies: No Past Medical History Surgery/Hospitalization HX: HTN, Surgeries: Yes (hernia repair, BLADDER (BLOOD CLOT), R THR) Abdominal Respiratory: No Cardiac: Yes High Cholesterol, Hypertension Neurological: No Reproductive Disorders: No Sexually Transmitted Disease: No HIV/AIDS: No Genitourinary: Yes (URINARY RETENTION) Gastrointestinal: Yes Gastroesophageal Reflux Musculoskeletal: No Endocrine: No HEENT: No (GLASSES, DENTURES, BLIND LEFT) Loss of Vision: Denies Hearing Impairment: Denies Cancer: No Psychosocial: No Integumentary: No Blood Disorders: No Adverse Reaction/Blood Tranf: No (HAS HAD BLOOD WITH NO REACTION) Family Medical History No Pertinent Family Hx Physical Exam Vital Signs Vital Signs - First Documented 01/17/23 14:30 Temp 36.8 Pulse 94 Resp 18 B/P (MAP) 171/74 (106) O2 Delivery Room Air Capillary Refill : Height, Weight, BMI Height: 5'11.00" Weight: 208lbs. 2.0oz. 94.771765kf; 27.00 BMI Method:Stated Progress/Results/Core Measures Suspected Sepsis SIRS Temperature: Pulse: 94 Respiratory Rate: 18 Blood Pressure 171 /74 Mean: 106 Results/Orders Vital Signs/I&O 01/17/23 14:30 Temp 36.8 Pulse 94 Resp 18 B/P (MAP) 171/74 (106) O2 Delivery Room Air Capillary Refill : Blood Pressure Mean: 106 Point of Care Testing Finger Stick Blood Glucose: 127 Departure Impression Primary Impression: Abdominal hernia Qualified Codes: K43.9 - Ventral hernia without obstruction or gangrene Additional Impression: Catheter (urine) change required Disposition: HOME, SELF-CARE Condition: Improved Departure-Patient Inst. Decision time for Depature: 15:37 Referrals: TYRA SPIVEY BETHANY N MD (PCP/Family) Primary Care Physician Patient Instructions: Abdominal wall hernias Add. Discharge Instructions: Place a small bandage over the hernia where the skin is thin and irritated. Please make an appointment with Dr Spivey for your hernia evaluation. Return to the Emergency Department for any new, concerning or emergent complaints. Copy Copies To 1: MEENA DOE MD Copies To 2: TYRA SPIVEY KATHRYN M MD Jan 17, 2023 15:38
[2023-01-17 15:48] VITALS: BP 171/74
== END 2023-01-17 15:48 | disposition home or self-care (01) ==
LOC: EDUNIT# 14:22 → ER 14:25
DX: K46.9 Unspecified abdominal hernia without obstruction or gangrene (principal); F17.210 Nicotine dependence, cigarettes, uncomplicated; Z46.6 Encounter for fitting and adjustment of urinary device; Z98.890 Other specified postprocedural states
CPT/HCPCS: 51702

== ENCOUNTER → 2023-01-31 | Outpatient (CLI) | payer MEDICARE ==
[~2023-01-31] MED LIST changes: +HOLD METFORMIN - RECEIVED CONTRAST 20 ML VIAL IV SCH; +IOHEXOL 350 MG/ML 100 ML (OMNIPAQUE 350) VIAL IV ONE; +NS 100 ML (IVPB) BAG IV ONE
[2023-01-31 08:09] LABS: CREATININE SERUM 1.03 MG/DL (0.60-1.30)
[2023-01-31] MEDS: CATHETER FLUSH 10 ML SYR IV PRN ×2 (08:43→08:44)
--- NOTE | 2023-01-31 10:11 | Diagnostic Imaging Report ---
EXAMINATION: CT abdomen and pelvis with intravenous contrast. TECHNIQUE: Multiple contiguous axial images were obtained through the abdomen and pelvis after the uneventful administration of intravenous contrast. All CT scans use one or more of the following dose optimizing techniques: automated exposure control, MA and/or KvP adjustment based on patient size and exam type or iterative reconstruction. HISTORY: Enlarging hernia COMPARISON: 09/24/2018 FINDINGS: Lung bases: There are emphysematous changes and atelectasis within the lung bases. There are multiple bilateral pulmonary nodules within the lung bases which are unchanged from 11/19/2019. Solid organs: The liver is normal without focal lesion. Multiple layering hyperdense stones within the gallbladder. There is no biliary ductal dilation. Pancreas is normal. Spleen is normal. Adrenal glands are normal. There is a right renal cyst which requires no follow-up. No hydronephrosis. Bowel: The stomach and small bowel are normal without obstruction. The colon is normal. The appendix is normal. Peritoneum: There is no intraperitoneal free fluid or free air. No suspicious lymphadenopathy. Vasculature: There are vascular calcifications with aneurysmal dilatation of the infrarenal abdominal aorta measuring up to 4.1 x 4.0 cm. Musculoskeletal: Degenerative changes of the spine without suspicious osseous lesion or compression fracture. A right-sided hip prosthesis is present. There is a midline ventral abdominal wall hernia inferiorly along the location of the suprapubic catheter. There is a 3.4 cm defect. There is herniation of multiple loops of small bowel without evidence of obstruction. Pelvis: The prostate gland is normal. The urinary bladder is decompressed with a suprapubic catheter. IMPRESSION: 1. Ventral abdominal wall hernia located within the inferior abdomen along the suprapubic catheter. There is a 3.4 cm defect. This does contain loops of small bowel without evidence of obstruction. 2. No other acute abnormality in the abdomen or pelvis. Dictated by: Dictated on workstation # [id number]
== END ==
LOC: RAD 07:37
PROVIDERS: ATTEND Surgery
DX: K43.9 Ventral hernia without obstruction or gangrene (principal)
CPT/HCPCS: 36415; 74177; 82565; 84520